=== PATIENT | female | born 2000 | race Caucasian/White ===

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

== ENCOUNTER → 2020-01-04 08:06 | Outpatient (BNVA) | payer MEDICAID, SELFPAY | PROVIDERS: PCP Family Medicine; Visit Provider Nurse Practitioner | DX: F43.12 Post-traumatic stress disorder, chronic (principal); F60.3 Borderline personality disorder; R41.83 Borderline intellectual functioning | CPT/HCPCS: 99214 ==

== ENCOUNTER → 2020-01-15 08:12 | Outpatient (BNVA) | payer MEDICAID, SELFPAY | PROVIDERS: PCP Family Medicine; Visit Provider Counselor Professional | DX: F60.3 Borderline personality disorder (principal); R41.83 Borderline intellectual functioning; F43.12 Post-traumatic stress disorder, chronic | CPT/HCPCS: 90834 ==

== ENCOUNTER → 2020-02-01 08:52 | Outpatient (BNVA) | payer MEDICAID, SELFPAY | PROVIDERS: PCP Family Medicine; Visit Provider Nurse Practitioner | DX: F60.3 Borderline personality disorder (principal); F43.12 Post-traumatic stress disorder, chronic; R41.83 Borderline intellectual functioning | CPT/HCPCS: 99213 ==

== ENCOUNTER 2020-02-09 11:07 | Outpatient (CLI) | payer MEDICAID, SELFPAY ==
--- NOTE | 2020-02-09 11:22 | US_ITS ---
WS: [id number] ULTRASOUND OB COMPLETE TECHNIQUE: Complete ultrasound. CLINICAL INFORMATION: SUPERVISION OF HIGH RISK /ANATOMY COMPARISON: None. FINDINGS: Cervix measures 4.9 cm Single interuterine gestation is identified with transverse presentation. Placenta is posterior. Placenta grade 0. Normal amniotic fluid volume. cardiac activity: 144 BPM. AGA: 21w2d WOODY by ultrasound: 06/19/2020 Estimated weight: 429 g., %. BDP: 4.9 cm = 21w0d HC: 19.1 cm = 21w2d AC: 16.7 cm = 21w5d FEMUR LENGTH: 3.6 cm = 21w2d Anatomic survey: Anatomic survey is normal. Normal stomach. Kidneys and bladder are normal. Normal 3 vessel cord. Norm al 3 vessel cord insertion. Normal 4 chamber heart. Normal spine. Intracranial contents are normal. N ormal posterior fossa and cisterna magna. US/US OB >= 14 weeks fetus [id number] IMPRESSION: 1. Single intrauterine with visualized cardiac activity. AGA 21w2d w ith WOODY 06/19/2020. 2. Placenta is posterior No evidence of abruption or previa. 3. anatomic survey is normal. 4. Normal amniotic fluid volume.
== END 2020-02-09 11:08 | disposition home or self-care (01) ==
LOC: US 11:12
PROVIDERS: PCP Family Medicine; Visit Provider Family Medicine
DX: O09.92 Supervision of high risk pregnancy, unspecified, second trimester (principal); Z3A.21 21 weeks gestation of pregnancy
CPT/HCPCS: 76805

== ENCOUNTER → 2020-03-03 08:16 | Outpatient (BNVA) | payer OTHER, SELFPAY | PROVIDERS: PCP Family Medicine; Visit Provider Counselor Professional | DX: F60.3 Borderline personality disorder (principal); R41.83 Borderline intellectual functioning | CPT/HCPCS: 90834 ==

== ENCOUNTER → 2020-03-10 14:35 | Outpatient (BNVA) | payer OTHER, SELFPAY | PROVIDERS: PCP Family Medicine; Visit Provider Dermatology | DX: F43.12 Post-traumatic stress disorder, chronic (principal); Z79.899 Other long term (current) drug therapy | CPT/HCPCS: 80061; 83036 ==

== ENCOUNTER 2020-05-05 14:57 | Outpatient (CLI) | payer BC, MEDICAID, SELFPAY ==
[2020-03-15 14:52] VITALS: BP 114/74; BMI 35.8
[2020-05-05 15:06] VITALS: BP 151/83; PULSE 108
--- NOTE | 2020-05-05 15:14 | US_ITS ---
WS: [id number] ULTRASOUND OB LIMITED TECHNIQUE: Limited ultrasound examination of the fetus. CLINICAL INFORMATION: history of 3rd trimester demise COMPARISON: None. FINDINGS: Cervix measures 3.4 cm Single interuterine gestation. presentation is cephalic Placental location is posterior fundal. Placenta grade: 1 heart rate 138 BPM. Single vertical fluid pocket 7.2 cm Biophysical profile 8 out of 8. breathin movement: 2 tone: 2 Amniotic fluid: 2 IMPRESSION 1. Normal biophysical profile 8 out of 8 2. Cervix measures 3.4 cm
[2020-05-05 15:26] VITALS: BP 114/76; PULSE 91; TEMP 36.4
--- NOTE | 2020-05-05 15:52 | PC.NURSE ---
Spoke with Nick in ultrasound and he said someone would be up for BPP shortly.
[2020-05-05 16:06] VITALS: BP 139/88; PULSE 93
[2020-05-05 16:21] VITALS: BP 144/92; PULSE 89
[2020-05-05 17:47] LABS: Amphetamines Screen Urine Negative (Negative); Barbiturates Screen Urine Negative (Negative); Benzodiazepines Screen Urine Negative (Negative); Cocaine Screen Urine Negative (Negative); Opiate Screen Urine Negative (Negative); PCP Screen Urine Negative (Negative); THC Screen Urine Positive (Negative)
[2020-05-05 18:10] LABS: Urine Creatinine 245 mg/dL (28-217)
[2020-05-05 18:11] LABS: UPRO/UCREAT Ratio 0.16 mg/mg CR; Urine Protein Random 39 mg/dL
== END 2020-05-05 16:40 | disposition home or self-care (01) ==
LOC: OPOB 14:58 → OBGYN 15:00 → OPOB 15:03 → OBGYN 15:04
PROVIDERS: PCP Family Medicine; Visit Provider Family Medicine
DX: O26.899 Other specified pregnancy related conditions, unspecified trimester (principal); Z3A.00 Weeks of gestation of pregnancy not specified; Z87.59 Personal history of other complications of pregnancy, childbirth and the puerperium
CPT/HCPCS: 76819; 80306; 82570; 84156

== ENCOUNTER 2020-05-09 23:04 | Outpatient (CLI) | payer BC, MEDICAID, SELFPAY ==
[2020-03-15 14:52] VITALS: BP 114/74; BMI 35.8
[2020-05-09 23:14] VITALS: BP 123/61; PULSE 106
[2020-05-09 23:16] VITALS: TEMP 36.6
[2020-05-09 23:44] VITALS: RESP 18
[2020-05-10 00:15] LABS: Bilirubin Urine 1+ (Negative); Blood Urine Neg (Negative); Glucose Urine UA Norm (Normal); Ketones Urine Negative (Negative); Leukocyte Esterase Urine Negative (Negative); Nitrate Urine Negative (Negative); Protein Urine Neg (Negative); Specific Gravity, Urine 1.015 (1.005-1.030); Urine Appearance Clear (CLEAR); Urine Color Yellow (Yellow); Urobilinogen Urine 4 mg/dL (Negative); pH Urine 7 (5-7)
[2020-05-10 00:17] LABS: Actim Prom Negative
[2020-05-10 00:20] LABS: RBC Urine RARE /hpf (0-2); WBC Urine RARE /hpf (0-5)
[2020-05-10 00:21] LABS: Add Urine Culture? No; Bacteria Urine 2+ /hpf; Mucus Urine 1+ /hpf; Squamous Epithelial Cell Urine 15-25 /hpf (0-5)
[2020-05-10 00:37] VITALS: BP 109/71; PULSE 77
[2020-05-10 00:54] VITALS: BMI 88.7
== END 2020-05-10 00:53 | disposition home or self-care (01) ==
LOC: OPOB 23:05 → OBGYN 23:05
PROVIDERS: PCP Family Medicine; Visit Provider Family Medicine
DX: O26.899 Other specified pregnancy related conditions, unspecified trimester (principal); Z3A.00 Weeks of gestation of pregnancy not specified; R10.9 Unspecified abdominal pain
CPT/HCPCS: 59025; 81001; 84112; 99211

== ENCOUNTER 2020-05-10 10:14 | Outpatient (CLI) | payer BC, MEDICAID, SELFPAY ==
[2020-03-15 14:52] VITALS: BP 114/74; BMI 35.8
--- NOTE | 2020-05-10 10:31 | US_ITS ---
WS: [id number] ULTRASOUND OB LIMITED TECHNIQUE: Limited ultrasound examination of the fetus. CLINICAL INFORMATION: TERRENCE POSITIVE COMPARISON: May 05, 2020 FINDINGS: Cervix not well visualized. Single interuterine gestation. presentation is cephalic Placental location is posterior fundal. Placenta grade: 2 heart rate 150 BPM. Normal JOSE Biophysical profile 8 out of 8. breathin movement: 2 tone: 2 Amniotic fluid: 2 IMPRESSION Normal biophysical profile 8 out of 8
== END 2020-05-10 10:15 | disposition home or self-care (01) ==
LOC: RAD 10:16
PROVIDERS: PCP Family Medicine; Visit Provider Family Medicine
DX: R79.89 Other specified abnormal findings of blood chemistry (principal); O09.90 Supervision of high risk pregnancy, unspecified, unspecified trimester
CPT/HCPCS: 76816; 76819

== ENCOUNTER 2020-05-28 17:45 | Inpatient (IN) | payer BC, MEDICAID, SELFPAY ==
[2020-03-15 14:52] VITALS: BP 114/74; BMI 35.8
[2020-05-28] VITALS (87 sets, daily range): BP systolic 96–183; BP diastolic 53–127; PULSE 60–103; RESP 17; TEMP 35.7–37.3; BMI 38.7
[2020-05-28 03:26] LABS: Nitrazine Paper, PH Positive
[2020-05-28] MEDS: oxytocin 30 UNIT/500 ML BAG IV (04:10)
[2020-05-28] MEDS: dextrose 5%-lactated ringers 1,000 ML 125 ML IV ×3 (04:11→20:39)
[2020-05-28 04:16] LABS: Basophils % 0.3 %; Eosinophils # 0.5 10^3/uL (0.0-0.8); Eosinophils % 5.7 %; Hematocrit 35.4 % (37.0-47.0); Hemoglobin 11.5 g/dL (11.5-15.3); Lymphocytes # 2.2 10^3/uL (1.5-6.5); Lymphocytes % 23.2 %; Mean Corpuscular HGB Conc 32.5 g/dL (30.0-36.0); Mean Corpuscular Hemoglobin 27.1 pg (28.0-34.0); Mean Corpuscular Volume 83.5 fL (81-99); Mean Platelet Volume 10.7 fL (7.4-10.4); Monocytes # 0.6 10^3/uL (0.2-0.9); Monocytes % 6.2 %; Neutrophils # 5.94 10^3/uL (1.8-8.0); Nucleated Red Blood Cells % 0 %; Platelet Count 188 10^3/cmm (130-400); Red Blood Count 4.24 10^6/uL (4.1-5.3); Red Cell Distribution Width 13.3 % (12.1-15.1); White Blood Count 9.3 10^3/uL (4.5-13.0)
[2020-05-28 04:56] LABS: Amphetamines Screen Urine Negative (Negative); Barbiturates Screen Urine Negative (Negative); Benzodiazepines Screen Urine Negative (Negative); Cocaine Screen Urine Negative (Negative); Opiate Screen Urine Negative (Negative); PCP Screen Urine Negative (Negative); THC Screen Urine Negative (Negative)
[2020-05-28] MEDS: butorphanol 2 mg/mL SDV 1 mL 1 MG IVP ×7 (06:11→22:05)
--- NOTE | 2020-05-28 08:50 | PM.HP ---
Providers/Chief Complaint Primary Care Provider: Torres Marie MD Chief Complaint: leaking fluid History of Present Illness Heidy Macias is a 19 year old at 37.1 weeks gestation by 8-week ultrasound inconsistent with LMP. Her is complicated by bipolar depression on sertraline and risperidone, history of suicide attempt with trazodone at 23 weeks during prior , history of stillbirth at 34 weeks gestation, borderline hyperthyroidism, teen , asthma, Rh-, THC on initial urine drug screen, elevated TERRENCE concerning for lupus on Lovenox injections through 34 weeks gestation. The patient presented to labor and delivery triage secondary to concern for leakage of fluid. At approximately 2:30 AM on 05/28/2020 she went to the bathroom and when she stood up she had more leakage of fluid. She had multiple episodes of leaking fluid after that and presented to OB. She was found to be nitrazine positive and grossly ruptured. For this reason she was admitted. The patient denies any cough, fever, shortness of breath, vaginal bleeding, dysuria. Medications/Allergies Home Medications Medication Instructions Recorded Confirmed Last Taken Type enoxaparin [Lovenox] 40 mg SUBCUT Q12H 05/10/20 05/10/20 05/09/20 History risperidone [Risperdal] 0.5 mg PO BID 05/10/20 05/10/20 05/20/20 History sertraline [Zoloft] 150 mg PO DAILY 05/10/20 05/10/20 05/27/20 History Allergies Allergy/AdvReac Type Severity Reaction Status Date / Time divalproex sodium Allergy Severe ALGY-Swell Verified 03/10/20 14:19 Lip/Tongue/Throat olanzapine Allergy Severe ALGY-Swell Verified 03/10/20 14:19 Lip/Tongue/Throat ziprasidone Allergy Severe ALGY-Swell Verified 03/10/20 14:19 Lip/Tongue/Throat PFSH Acute PFSH: Medical History Asthma Bipolar disorder Borderline intellectual functioning Borderline personality disorder Depression Hypothyroidism Post-traumatic stress disorder, chronic Schizophrenia Surgical History History of cholecystectomy Family History Mother Bipolar 1 disorder Heart disease Spina bifida Hyperlipidemia Diabetes Brother Hyperlipidemia Social History Smoking and tobacco status: former smoker Quit status (tobacco): has quit using tobacco Second hand smoke exposure: Yes Smoking risk assessment/counseling performed?: Yes Alcohol intake: never Substance/Drug Use: former Desire information about substance/drug rehabilitation?: No (last smoked around 30 weeks) Marital status: Life Partner Female Reproductive History: : 2 Vitals/I&O/Wt Last Vital Signs Temp 97.2 F L 05/28/20 08:17 Pulse 78 05/28/20 08:36 Resp 17 05/28/20 07:21 BP 102/57 05/28/20 08:36 05/27/20 05/28/20 05/28/20 22:59 06:59 14:59 Intake Total 10.167 / 10.167 459.866 / 459.866 Balance 10.167 / 10.167 459.866 / 459.866 Weight last 48 hrs Weight 240 lb Physical Exam Narrative: EXAM NARRATIVE: General: Alert and oriented x3 Eyes: Pupils equal round and reactive to light and accommodation Mouth: Mucous membranes moist, pharynx non-erythematous Cardiac: Regular rate and rhythm without murmurs Lungs: Clear to auscultation bilaterally without wheezes, crackles or rhonchi Abdomen: Soft, non-tender, fundus consistent with gestational age Extremities: Trace edema in the bilateral lower extremities Data : 05/28/20 04:05 A&P Additional A&P Information The patient will be started on IV Pitocin as she is not having regular contractions. The patient is GBS negative. We will obtain a Covid swab for screening purposes. Will obtain a urine drug screen due to prior positive screen. All questions were answered. The patient and her significant other are in agreement with the current plan of care. Attestations Medical Necessity Statement*: The patient will be here for greater than 2 midnights due to routine intrapartum and management of labor and delivery. Coding Level of Care Code Acute Event Operations Manager for Corinne Ware
--- NOTE | 2020-05-28 11:18 | PC.NURSE ---
PT RESTING WITH EYES CLOSED.
[2020-05-29] VITALS (41 sets, daily range): BP systolic 86–137; BP diastolic 45–83; PULSE 57–103; RESP 16–18; TEMP 36.2–37; O2SAT 97–98
[2020-05-29] MEDS: butorphanol 2 mg/mL SDV 1 mL 1 MG IVP ×2 (00:47→02:41)
[2020-05-29] MEDS: oxytocin 30 UNIT/500 ML BAG 60 UNIT IV (07:30)
--- NOTE | 2020-05-29 07:51 | P.PCNOB_ITS ---
Delivery Note: Date of delivery: May 29, 2020 Pre-delivery diagnoses: 1. Intrauterine at 37.2 weeks gestation 2. Bipolar depression 3. Schizophrenia 4. History of suicide attempt during prior 5. History of stillbirth at 34 weeks gestation 6. Borderline hyperthyroidism 7. Teen 8. Asthma 9. Rh- 10. THC on initial urine drug screen 11. Elevated TERRENCE concerning for lupus on Lovenox injections through 34 weeks gestation then self stopped. 12. SROM at 37.1 weeks gestation Post-delivery diagnoses: 1. Intrauterine status post spontaneous vaginal delivery at 37.2 weeks gestation 2. Bipolar depression 3. Schizophrenia 4. History of suicide attempt during prior 5. History of stillbirth at 34 weeks gestation 6. Borderline hyperthyroidism 7. Teen 8. Asthma 9. Rh- 10. THC on initial urine drug screen 11. Elevated TERRENCE concerning for lupus on Lovenox injections through 34 weeks gestation then self stopped. 12. SROM at 37.1 weeks gestation 13. Delivery of healthy infant female weighing 5 pounds 14 ounces with Apgars of 8 and 9 Procedure: Spontaneous vaginal delivery Op report anesthesia: Other (IV pain meds during early labor.) Delivering Physician: Torres Marie MD Estimated blood loss (mL): 125 Findings: 1. Delivery of healthy infant female weighing 5 pounds 14 ounces with Apgars of 8 and 9 2. Intact placenta with peripheral umbilical cord insertion site. Pre-Delivery Course: The patient presented to labor and delivery triage secondary to concern for leakage of fluid. At approximately 2:30 AM on 05/28/2020 she went to the bathroom and when she stood up she had more leakage of fluid. She had multiple episodes of leaking fluid after that and presented to OB. She was found to be nitrazine positive and grossly ruptured. For this reason she was admitted. The patient was started on IV Pitocin and made slow change. She had regular contractions and moved to 6 cm by paleontological helper on 05/29/2020. She continued to be 6 cm for a number of hours. We discussed possibly going for section, however decided to stop the Pitocin for 2 hours and then restart it to refresh receptor sites. The patient then began to contract again and started to make change. She changed rapidly from 6 to complete and was complete at 7:04 AM on 05/29/2020. I was called to deliver at 7:01 AM. Delivery: The patient began pushing and the delivered in the OA position at 7:09 AM on 05/29/2020. There was no nuchal cord. The right shoulder was the anterior shoulder and it delivered with ease. The nurses were present for delivery of the . Per record the mouth and nose were bulb suctioned and the cord was clamped. The was taken to the warmer for evaluation. I arrived on the OB floor at 7:14 AM. Cord blood was obtained by myself. I delivered the placenta at 7:21 AM on 05/29/2020. The placenta was noted to be intact with a peripheral umbilical cord insertion site. The cervix was inspected and no lacerations were noted. The vaginal wall was inspected and a few abrasions were noted. No suturing was needed. The uterus was massaged and initially there was moderate bleeding that decreased to minimal. Currently both the mother and are doing well. Coding Level of Care Code Acute Vehicle Monitor Technician for Corinne Ware
[2020-05-29] MEDS: docusate sodium 100 mg Capsule PO ×2 (10:47→17:38)
[2020-05-29] MEDS: ibuprofen 800 mg tablet PO ×3 (10:47→21:19)
[2020-05-29] MEDS: prenatal vitamin Capsule 1 CAP PO (10:47)
[2020-05-29] MEDS: sertraline 50 mg Tablet 150 MG PO (10:48)
[2020-05-29] MEDS: risperiDONE 1 mg Tablet 0.5 MG PO ×2 (12:03→21:19)
[2020-05-29 16:42] LABS: Quest SARS-CoV-2 RNA NOT DETECTED (NOT DETECTED)
--- NOTE | 2020-05-29 18:34 | PC.NURSE ---
DFS Hotline Hotline called made due to patient's significant mental health history including borderline personality disorder, bipolar disorder, schizophrenia, suicide attempt last year during , history of harming self. Referral made to [facility], will send worker to hospital.
[2020-05-29 20:52] LABS: Hematocrit 35.6 % (37.0-47.0); Hemoglobin 11.5 g/dL (11.5-15.3); Mean Corpuscular HGB Conc 32.3 g/dL (30.0-36.0); Mean Corpuscular Hemoglobin 27.2 pg (28.0-34.0); Mean Corpuscular Volume 84.2 fL (81-99); Mean Platelet Volume 11.2 fL (7.4-10.4); Platelet Count 189 10^3/cmm (130-400); Red Blood Count 4.23 10^6/uL (4.1-5.3); Red Cell Distribution Width 13.3 % (12.1-15.1); White Blood Count 9.6 10^3/uL (4.5-13.0)
[2020-05-30 04:40] VITALS: BP 138/83; PULSE 84; RESP 16; TEMP 36.8
--- NOTE | 2020-05-30 07:44 | PC.NURSE ---
Throughout the night this nurse was called to the room via call light and asked to do tasks for the mother such as, handing her the baby from the bassinet that was at bedside and to wrap the baby in a blanket while she was being held by mom. I was called to the room on one occasion to be told that mom believed that possibly the baby had pooped. I reenforced diaper changing education at this time. During one time in the pts room I was told that the baby had milk on her lips and was asked if that was okay. I performed additional education at this time. Mom also asked if baby was able to sleep on her back. I educated concerning safe sleeping practices at this time. While cleaning periodically during visits to the room I found a half eaten sandwich on the floor, wipes with meconium on them in the bed with mom as well as a piece of cake in bed with mom at the foot of the bed, along with other trash on tables and the couch around the room.
[2020-05-30] MEDS: ibuprofen 800 mg tablet PO ×2 (09:17→15:08)
[2020-05-30] MEDS: risperiDONE 1 mg Tablet 0.5 MG PO ×2 (09:17→20:13)
[2020-05-30] MEDS: prenatal vitamin Capsule 1 CAP PO (09:17)
[2020-05-30] MEDS: docusate sodium 100 mg Capsule PO ×2 (09:17→20:13)
[2020-05-30] MEDS: sertraline 50 mg Tablet 150 MG PO (09:23)
[2020-05-30 10:25] VITALS: BP 115/68; PULSE 67; RESP 17; O2SAT 98
[2020-05-30] MEDS: acetaminophen 500 mg Tablet 1000 MG PO (11:50)
[2020-05-30 16:00] VITALS: BP 128/78; PULSE 85; RESP 17
--- NOTE | 2020-05-30 17:44 | P.DS_ITS ---
Discharge Providers Date of Admission: 05/28/20 17:45 Date of Discharge: May 30, 2020 Attending Provider at Admission: Torres Marie MD Attending Provider at Discharge: Torres Marie MD Primary Care Provider: Torres Marie MD Diagnoses at Discharge Other Information Additional DC diagnoses/information: 1. Intrauterine status post spontaneous vaginal delivery at 37.2 weeks gestation 2. Bipolar depression 3. Schizophrenia 4. History of suicide attempt during prior 5. History of stillbirth at 34 weeks gestation 6. Borderline hyperthyroidism 7. Teen 8. Asthma 9. Rh- 10. THC on initial urine drug screen 11. Elevated TERRENCE concerning for lupus on Lovenox injections through 34 weeks gestation then self stopped. 12. SROM at 37.1 weeks gestation 13. Delivery of healthy female weighing 5 pounds 14 ounces with Apgars of 8 and 9 Reason for Visit Reason for Visit: leaking fluid Hospital Course Hospital Course Pre-Delivery Course: The patient presented to labor and delivery triage secondary to concern for leakage of fluid. At approximately 2:30 AM on 05/28/2020 she went to the bathroom and when she stood up she had more leakage of fluid. She had multiple episodes of leaking fluid after that and presented to OB. She was found to be nitrazine positive and grossly ruptured. For this reason she was admitted. The patient delivered vaginally and has had no complications . Overall she is doing well. She is ambulating, voiding, passing gas and tolerating food by mouth. Her pain is well controlled. The patient has been breast-feeding. She has been stable from a depression standpoint. I discussed routine instructions with the patient. The patient is in agreement with discharge home at this time. Physical Exam Narrative: EXAM NARRATIVE: General: Alert and oriented x3 Eyes: Pupils equal round and reactive to light and accommodation Mouth: Mucous membranes moist, pharynx non-erythematous Cardiac: Regular rate and rhythm without murmurs Lungs: Clear to auscultation bilaterally without wheezes, crackles or rhonchi Abdomen: Soft, non-tender, fundus is firm and 2 cm below the umbilicus. Extremities: +1 pitting edema in the bilateral lower extremities Discharge Data Data Completed and Pending: Labs from last 24 hours 05/29/20 20:30 WBC 9.6 RBC 4.23 Hgb 11.5 Hct 35.6 L MCV 84.2 MCH 27.2 L MCHC 32.3 RDW 13.3 Plt Count 189 MPV 11.2 H Vitals: Last Vital Signs Temp 98.3 F 05/30/20 04:40 Pulse 85 05/30/20 16:00 Resp 17 05/30/20 16:00 BP 128/78 05/30/20 16:00 Pulse Ox 98 05/30/20 10:25 Discharge Plan Discharge Patient Disposition: Home Condition: Good Prescriptions: New ibuprofen 800 mg Tablet 800 mg PO TID Qty: 40 RF: 0 -U 106.5-1 mg Capsule 1 cap PO DAILY 42 Days Qty: 30 RF: 1 ferrous sulfate 325 mg (65 mg iron) tablet 325 mg PO BID 15 Days Qty: 30 RF: 0 Discontinued enoxaparin [Lovenox] 40 mg/0.4 mL Syringe 40 mg SUBCUT Q12H RF: 0 No Action risperidone [Risperdal] 1 mg tablet 1 mg PO DAILY Qty: 30 RF: 1 sertraline [Zoloft] 50 mg tablet 50 mg PO DAILY Qty: 30 RF: 1 hydroxyzine HCl 25 mg tablet 25 mg PO BID PRN (Reason: anxiety) Qty: 60 RF: 1 Discharge Orders: Discharge Order (Routine); Ordered 05/30/20 Ordered By: Torres Marie Referrals: Torres Marie MD [Primary Care Provider] - 6 Weeks Discharge Diet: Advance as tolerated Discharge Activity: Increase activity as tolerated Patient Instructions: Pre-eclampsia and Eclampsia (DC), Bleeding (DC), OB Caring for Baby - [facility], OB Discharge Report, OB Food/Drug Interaction Guide, OB Your Care - [facility], OB Proud Parent Packet, OB Vaginal Deliveries Activity Restrictions/Additional Instructions: Nothing per vagina for 6 weeks. Daily showers are recommended. Avoid baths for 6 weeks. Discharge Attestations Time Spent in Discharge Care*: greater than 30 min Quality Metrics Clinical Quality Measures During this hospital stay, did patient experience: None Coding Level of Care Code Acute Chg FW DC note
--- NOTE | 2020-05-30 20:25 | PC.NURSE ---
0.5mg (1/2 tablet) Risperidone wasted in OB med room biohazard with Daysi Beltre RN. Verified with Kalli, pharmacy, if Risperidone needed to be wasted and she stated yes - but that we could not waste it in the pyxis due to pharmacy sending the medication to us - so to waste it in a nursing note.
[2020-05-30 20:46] VITALS: BP 118/79; PULSE 90; RESP 18; TEMP 36.9
[2020-05-30 20:49] VITALS: BP 118/79; PULSE 90; RESP 18; TEMP 36.9
== END 2020-05-30 20:15 | disposition home or self-care (01) | DRG 806 ==
LOC: OPOB 05-30 07:43
PROVIDERS: Admitting Provider Family Medicine; PCP Family Medicine; Visit Provider Family Medicine
DX: O99.344 Other mental disorders complicating childbirth (principal); O36.0930 Maternal care for other rhesus isoimmunization, third trimester, not applicable or unspecified; Z37.0 Single live birth; F31.9 Bipolar disorder, unspecified; Z3A.37 37 weeks gestation of pregnancy; O75.89 Other specified complications of labor and delivery; Z91.5 Personal history of self-harm; J45.909 Unspecified asthma, uncomplicated; R41.83 Borderline intellectual functioning; E05.90 Thyrotoxicosis, unspecified without thyrotoxic crisis or storm; F43.12 Post-traumatic stress disorder, chronic; F20.9 Schizophrenia, unspecified; Z81.8 Family history of other mental and behavioral disorders; Z87.891 Personal history of nicotine dependence; M32.9 Systemic lupus erythematosus, unspecified
CPT/HCPCS: 36415; 59409; 80306; 83986; 85025; 85027; 87635; J0595

== ENCOUNTER → 2020-06-07 08:34 | Outpatient (BNVA) | payer BC, SELFPAY ==
[2020-03-15 14:52] VITALS: BP 114/74; BMI 35.8
== END ==
PROVIDERS: PCP Family Medicine; Visit Provider Nurse Practitioner
DX: F60.3 Borderline personality disorder (principal); F43.12 Post-traumatic stress disorder, chronic; R41.83 Borderline intellectual functioning
CPT/HCPCS: 99214

== ENCOUNTER → 2020-06-17 09:46 | Outpatient (BNVA) | payer MEDICAID, SELFPAY ==
[2020-03-15 14:52] VITALS: BP 114/74; BMI 35.8
== END ==
PROVIDERS: PCP Family Medicine; Visit Provider Counselor Professional
DX: F33.1 Major depressive disorder, recurrent, moderate (principal); F60.3 Borderline personality disorder
CPT/HCPCS: 90834

== ENCOUNTER 2020-06-25 19:56 | Inpatient (IN) | payer BC, SELFPAY ==
[2020-03-15 14:52] VITALS: BP 114/74; BMI 35.8
[2020-06-25 20:06] VITALS: BP 124/88; PULSE 100; RESP 18; TEMP 37.2; O2SAT 97; BMI 36.6
--- NOTE | 2020-06-25 20:34 | ED_ITS ---
HPI - Psych General: Chief Complaint: Psychiatric Symptoms Stated Complaint: SI Time Seen by Provider: 06/25/20 20:10 History of Present Illness: HPI Narrative: The patient is a 19-year-old female with past medical history depression and she is 3 weeks . She comes to the ER complaining of suicidal thoughts. She says she has plans and backup plans to hurt herself. She went to a today and has other stressors in her life that are making her feel suicidal. complaint: suicidal ideation and feels depressed Duration: constant History of same: Yes Relieving factors: none Associated psychiatric symptoms: depression and suicidal ideation Associated symptoms: Reports depression and suicidal ideation If self harm: admits thoughts of self harm and has plan Review of Systems General: Reports: 10 or more systems reviewed and unremarkable except in HPI and below Const: Denies: fatigue Eyes: Denies: change in vision, blurry vision or eye redness ENMT: Denies: throat pain, swelling of lips/tongue, ear or mastoid pain or nasal congestion Card: Denies: chest pain, palpitations, irregular heart rhythm, edema, dyspnea on exertion or orthopnea Resp: Denies: dyspnea, productive cough or non-productive cough GI: Denies: abdominal pain, diarrhea or GI cramping : Denies: flank pain, difficulty voiding, urinary frequency or urinary urgen cy Musc: Denies: neck pain, back pain, extremity pain, joint pain, joint redness, limited range of motion or muscle weakness Skin/Breast: Denies: rash, pruritus, erythema, skin pain or skin tenderness Neuro: Denies: headache(s), numbness in extremities, weakness in extremities, sensory changes, difficulty walking, dizziness, confusion or Slurred speech present Psych: Reports: anxiety, depression and suicidal ideation Endo: Denies: polyuria All/Imm: Denies: urticaria, throat swelling or tongue swelling PFSH ED PFSH: Medical History Asthma Bipolar disorder Borderline intellectual functioning Borderline personality disorder Depression Hypothyroidism Post-traumatic stress disorder, chronic Schizophrenia Surgical History History of cholecystectomy Family History Mother Bipolar 1 disorder Heart disease Spina bifida Hyperlipidemia Diabetes Brother Hyperlipidemia Social History Smoking and tobacco status: former smoker Quit status (tobacco): has quit using tobacco Second hand smoke exposure: Yes Smoking risk assessment/counseling performed?: Yes Alcohol intake: never Desire information about substance/drug rehabilitation?: No (last smoked around 30 weeks) Marital status: Life Partner Physical Exam Const: COMMON NORMALS: no acute distress, average body habitus, patient oriented x3, no limitations, healthy appearing, alert and well nourished GENERAL APPEARANCE: cooperative, comfortable and well developed ORIENTATION/CONSCIOUSNESS: Yes awake, Yes oriented to person, Yes oriented to place and Yes oriented to time HENMT: COMMON NORMALS: normocephalic, external ears normal and Normal external nose present HEAD & SCALP: normal to inspection and normocephalic NOSE: Normal external nose present EXTERNAL EAR: Yes external ears normal MOUTH: Normal oral and palatal mucosa present THROAT: posterior oropharynx normal Eye: COMMON NORMALS: Equal, round and reactive pupils present and EOMs intact bilaterally GENERAL EYE: appearance normal, both eyes and all related structures PUPIL: Yes Equal, round and reactive pupils present Neck/C-Spine: COMMON NORMALS: full ROM, no lymphadenopathy, no meningeal signs and no JVD GENERAL: Yes normal visual inspection Lymph: LYMPHATIC: no lymphadenopathy noted Chest: COMMONS NORMALS: normal inspection of the chest and normal palpation of entire chest wall Resp: COMMON NORMALS: normal respiratory effort, No retractions, No use of accessory muscles, clear to auscultation bilaterally and percussion normal EFFORT & INSPECTION: Yes able to speak in complete sentences AUSCULTATION: clear to auscultation bilaterally PERCUSSION: percussion normal Cardio: COMMON NORMALS: no JVD, regular rate, regular rhythm, S1 normal heart sound present, S2 normal heart sound present and Peripheral pulses 2+ throughout RATE: regular rate RHYTHM: regular rhythm HEART SOUNDS: S1 normal heart sound present and S2 normal heart sound present PERIPHERAL PULSES: Peripheral pulses 2+ throughout GI: COMMON NORMALS: Normal to inspection, nondistended, normoactive bowel sounds present, Soft to palpation, non-tender and no masses INSPECTION: Yes normal to inspection PALPATION: Yes Soft to palpation : COMMON NORMALS: Yes no CVA tenderness BLADDER/KIDNEY EXAM: Yes no CVA tenderness Back/Pelvis: COMMON NORMALS: no CVA tenderness, thoracic and lumbar spine normal to inspection, no thoracic nor lumbar tenderness and thoraco-lumbar ROM normal Extremity: COMMON NORMALS: normal to inspection, full ROM, capillary refill normal, no joint enlargement and no pedal edema GENERAL: Yes normal exam except as noted Neuro: COMMON NORMALS: patient oriented x3, CN's II-XII intact bilaterally, moves all extremities, no focal motor deficits, no sensory deficits noted and gait normal SENSORIUM/ORIENTATION: Yes alert, Yes oriented to person, Yes oriented to place and Yes oriented to time MENINGEAL SIGNS: Yes no meningeal signs Psych: COMMON NORMALS: speech normal APPEARANCE: Yes unkempt SPEECH: Yes normal speech MOOD & AFFECT: Yes depressed mood and Yes anxious THOUGHT CONTENT: Yes Suicidality present INSIGHT: Poor insight present (Psych) JUDGEMENT: Poor judgement present (Psych) Skin: COMMON NORMALS: no rashes or lesions noted GENERAL SKIN EXAM: no rashes or lesions noted Course Vital Signs: Vital signs: Vital Signs Temperature 99.0 F 06/25/20 20:06 Pulse Rate 100 06/25/20 20:06 Respiratory Rate 18 06/25/20 20:06 Blood Pressure 124/88 06/25/20 20:06 Pulse Oximetry 97 06/25/20 20:06 MDM - Psych MDM Narrative: Medical decision making narrative: The patient has suicidal ideations. She will be admitted to Dr. Samuel who accepts for care. She also has a mild UTI and was started on Macrobid. Stable for transfer to neuropsych unit. Lab Data: Labs: Lab Results 06/25/20 06/25/20 06/25/20 Range/Units 20:29 20:29 20:35 WBC 9.0 (4.5-13.0) 10^3/ uL RBC 5.01 (4.1-5.3) 10^6/u L Hgb 13.4 (11.5-15.3) g/dL Hct 42.0 (37.0-47.0) % MCV 83.8 (81-99) fL MCH 26.7 L (28.0-34.0) pg MCHC 31.9 (30.0-36.0) g/dL RDW 14.0 (12.1-15.1) % Plt Count 270 (130-400) 10^3/c mm MPV 10.0 (7.4-10.4) fL Neut % (Auto) 60.8 % Lymph % (Auto) 25.2 % [place] % (Auto) 5.2 % Eos % (Auto) 7.9 % Baso % (Auto) 0.7 % Neut # (Auto) 5.44 (1.8-8.0) 10^3/u L Lymph # (Auto) 2.3 (1.5-6.5) 10^3/u L [place] # (Auto) 0.5 (0.2-0.9) 10^3/u L Eos # (Auto) 0.7 (0.0-0.8) 10^3/u L Baso # (Auto) 0.1 (0.0-0.1) 10^3/u L Nucleated RBC % (a uto) 0 % Nucleated RBCs # 0.0 /100WBC Sodium (136-145) mmol/L Potassium (3.5-5.1) mmol/L Chloride (98-107) mmol/L Carbon Dioxide (22-29) mmol/L Anion Gap (5-19) BUN (6-20) mg/dL Creatinine (0.5-0.9) mg/dL GFR Calculation (90-130) mL/min Glucose (65-115) mg/dL Calculated Osmolal ity (285-295) mOsm/k g Calcium (8.5-10.5) mg/dL Total Bilirubin (0.15-1.2) mg/dL AST (0-32) U/L ALT (0-33) U/L Alkaline Phosphata se (35-105) IU/L Total Protein (6.6-8.7) g/dL Albumin (3.5-5.2) g/dL Globulin (1.3-4.6) g/dL TSH (0.27-4.20) uIU/ mL Urine Color Yellow (Yellow) Urine Appearance Sl cloudy A (CLEAR) Urine pH 5 (5-7) Ur Specific Gravit y 1.025 (1.005-1.030) Urine Protein Neg (Negative) Urine Glucose (UA) Norm (Normal) Urine Ketones Negative (Negative) Urine Blood Neg (Negative) Urine Nitrate Negative (Negative) Urine Bilirubin Neg (Negative) Urine Urobilinogen Norm (Negative) mg/dL Ur Leukocyte Polina ase Trace H (Negative) Urine RBC 0-4 H (0-2) /hpf Urine WBC 5-10 H (0-5) /hpf Ur Squamous Epith Cells 25-40 H (0-5) /hpf Amorphous Sediment 1+ /hpf Urine Bacteria 2+ H (NONE) /hpf Urine Mucus 2+ /hpf Salicylates (3-10) mg/dL Urine Opiates Scre en Negative (Negative) ng/mL Acetaminophen (10-30) ug/mL Ur Barbiturates Sc reen Negative (Negative) ng/mL Ur Phencyclidine S crn Negative (Negative) ng/mL Ur Amphetamines Sc reen Negative (Negative) ng/mL U Benzodiazepines Scrn Negative (Negative) ng/mL Urine Cocaine Scre en Negative (Negative) ng/mL U Marijuana (THC) Screen Negative (Negative) ng/mL 06/25/20 Range/Units 20:35 WBC (4.5-13.0) 10^3/ uL RBC (4.1-5.3) 10^6/u L Hgb (11.5-15.3) g/dL Hct (37.0-47.0) % MCV (81-99) fL MCH (28.0-34.0) pg MCHC (30.0-36.0) g/dL RDW (12.1-15.1) % Plt Count (130-400) 10^3/c mm MPV (7.4-10.4) fL Neut % (Auto) % Lymph % (Auto) % [place] % (Auto) % Eos % (Auto) % Baso % (Auto) % Neut # (Auto) (1.8-8.0) 10^3/u L Lymph # (Auto) (1.5-6.5) 10^3/u L [place] # (Auto) (0.2-0.9) 10^3/u L Eos # (Auto) (0.0-0.8) 10^3/u L Baso # (Auto) (0.0-0.1) 10^3/u L Nucleated RBC % (a uto) % Nucleated RBCs # /100WBC Sodium 140 (136-145) mmol/L Potassium 4.1 (3.5-5.1) mmol/L Chloride 105 (98-107) mmol/L Carbon Dioxide 25 (22-29) mmol/L Anion Gap 14.1 (5-19) BUN 10 (6-20) mg/dL Creatinine 0.5 (0.5-0.9) mg/dL GFR Calculation 158.9 H (90-130) mL/min Glucose 93 (65-115) mg/dL Calculated Osmolal ity 289 (285-295) mOsm/k g Calcium 8.7 (8.5-10.5) mg/dL Total Bilirubin 0.4 (0.15-1.2) mg/dL AST 26 (0-32) U/L ALT 27 (0-33) U/L Alkaline Phosphata se 147 H (35-105) IU/L Total Protein 7.1 (6.6-8.7) g/dL Albumin 4.4 (3.5-5.2) g/dL Globulin 2.7 (1.3-4.6) g/dL TSH 1.78 (0.27-4.20) uIU/ mL Urine Color (Yellow) Urine Appearance (CLEAR) Urine pH (5-7) Ur Specific Gravit y (1.005-1.030) Urine Protein (Negative) Urine Glucose (UA) (Normal) Urine Ketones (Negative) Urine Blood (Negative) Urine Nitrate (Negative) Urine Bilirubin (Negative) Urine Urobilinogen (Negative) mg/dL Ur Leukocyte Polina ase (Negative) Urine RBC (0-2) /hpf Urine WBC (0-5) /hpf Ur Squamous Epith Cells (0-5) /hpf Amorphous Sediment /hpf Urine Bacteria (NONE) /hpf Urine Mucus /hpf Salicylates < 0.3 L (3-10) mg/dL Urine Opiates Scre en (Negative) ng/mL Acetaminophen < 5.0 L (10-30) ug/mL Ur Barbiturates Sc reen (Negative) ng/mL Ur Phencyclidine S crn (Negative) ng/mL Ur Amphetamines Sc reen (Negative) ng/mL U Benzodiazepines Scrn (Negative) ng/mL Urine Cocaine Scre en (Negative) ng/mL U Marijuana (THC) Screen (Negative) ng/mL Discharge Plan Discharge Patient Disposition: Admitted As Inpatient Clinical Impression: Suicidal ideation, UTI (urinary tract infection) Condition: Stable Coding Level of Care Code ED Decorating Instructor for g Fwd Exam Comprehensive
[2020-06-25 20:47] LABS: Basophils # 0.1 10^3/uL (0.0-0.1); Basophils % 0.7 %; Eosinophils # 0.7 10^3/uL (0.0-0.8); Eosinophils % 7.9 %; Hemoglobin 13.4 g/dL (11.5-15.3); Lymphocytes # 2.3 10^3/uL (1.5-6.5); Lymphocytes % 25.2 %; Mean Corpuscular HGB Conc 31.9 g/dL (30.0-36.0); Mean Corpuscular Hemoglobin 26.7 pg (28.0-34.0); Mean Corpuscular Volume 83.8 fL (81-99); Monocytes # 0.5 10^3/uL (0.2-0.9); Monocytes % 5.2 %; Neutrophils # 5.44 10^3/uL (1.8-8.0); Neutrophils % 60.8 %; Nucleated Red Blood Cells % 0 %; Platelet Count 270 10^3/cmm (130-400); Red Blood Count 5.01 10^6/uL (4.1-5.3)
[2020-06-25 20:47] LABS: Amphetamines Screen Urine Negative (Negative); Barbiturates Screen Urine Negative (Negative); Benzodiazepines Screen Urine Negative (Negative); Cocaine Screen Urine Negative (Negative); Opiate Screen Urine Negative (Negative); PCP Screen Urine Negative (Negative); THC Screen Urine Negative (Negative)
[2020-06-25 21:02] LABS: Add Urine Microscopic? YES; Bilirubin Urine Neg (Negative); Blood Urine Neg (Negative); Glucose Urine UA Norm (Normal); Ketones Urine Negative (Negative); Leukocyte Esterase Urine Trace (Negative); Nitrate Urine Negative (Negative); Protein Urine Neg (Negative); Specific Gravity, Urine 1.025 (1.005-1.030); Urine Color Yellow (Yellow); Urobilinogen Urine Norm (Negative); pH Urine 5 (5-7)
[2020-06-25 21:03] LABS: Add Urine Culture? No; Amorphous Sediment Urine 1+ /hpf; Bacteria Urine 2+ /hpf; Mucus Urine 2+ /hpf; RBC Urine 0-4 /hpf (0-2); Squamous Epithelial Cell Urine 25-40 /hpf (0-5)
[2020-06-25] MEDS: nitrofurantoin SR (BID) 100 mg Capsule PO (21:15)
[2020-06-25 21:33] LABS: Alanine Aminotransferase 27 U/L (0-33); Albumin Level 4.4 g/dL (3.5-5.2); Alkaline Phosphatase 147 IU/L (35-105); Anion Gap 14.1 (5-19); Aspartate Amino Transferase 26 U/L (0-32); Blood Urea Nitrogen 10 mg/dL (6-20); Calcium 8.7 mg/dL (8.5-10.5); Carbon Dioxide 25 mmol/L (22-29); Chloride 105 mmol/L (98-107); Globulin 2.7 g/dL (1.3-4.6); Glomerular Filtration Rate 158.9 mL/min (90-130); Glucose 93 mg/dL (65-115); Osmolality Calculated 289 mOsm/kg (285-295); Potassium 4.1 mmol/L (3.5-5.1); Sodium 140 mmol/L (136-145); Thyroid Stimulating Hormone 1.78 uIU/mL (0.27-4.20); Total Bilirubin 0.4 mg/dL (0.15-1.2); Total Protein 7.1 g/dL (6.6-8.7)
[2020-06-25 21:37] LABS: Acetaminophen < 5.0 ug/mL (10-30); Salicylate < 0.3 mg/dL (3-10)
[2020-06-25 22:19] VITALS: BP 124/81; PULSE 88; RESP 16; TEMP 37.2; O2SAT 97
[2020-06-25 23:10] VITALS: BP 102/66; PULSE 85; RESP 18; TEMP 36.6; O2SAT 96
[2020-06-26] MEDS: simethicone 80 mg Chew PO
[2020-06-26 06:00] VITALS: BP 95/59; PULSE 63; RESP 15; TEMP 36.8; O2SAT 96
[2020-06-26] MEDS: risperiDONE 1 mg Tablet PO (08:06)
[2020-06-26] MEDS: pantoprazole DR 40 mg Tablet PO ×2 (08:06→20:34)
[2020-06-26] MEDS: sertraline 50 mg Tablet PO ×2 (08:06→11:36)
[2020-06-26] MEDS: nitrofurantoin SR (BID) 100 mg Capsule PO ×2 (08:06→20:35)
[2020-06-26] MEDS: prenatal vitamin Capsule 1 CAP PO (08:09)
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
[2020-06-26 14:00] VITALS: BP 104/66; PULSE 88; RESP 18; TEMP 36.6
[2020-06-26] MEDS: nicotine 2 mg Gum BUCCAL ×2 (14:57)
[2020-06-26] MEDS: hyDROXYzine 25 mg Capsule 50 MG PO ×2 (20:35)
--- NOTE | 2020-06-26 21:30 | PC.NURSE ---
2034 Pt requested Vistaril 50mg po for anxiety.
[2020-06-26 21:40] VITALS: BP 112/76; PULSE 68; RESP 17; TEMP 36.3; O2SAT 99
[2020-06-26] MEDS: trazodone 50 mg Tablet PO ×2 (22:03)
--- NOTE | 2020-06-26 22:06 | PC.NURSE ---
2200 Pt requesting something for sleep gave trazadone 50mg po
[2020-06-27 06:00] VITALS: BP 108/61; PULSE 70; RESP 15; TEMP 36.7; O2SAT 99
[2020-06-27] MEDS: nitrofurantoin SR (BID) 100 mg Capsule PO ×2 (09:21→20:59)
[2020-06-27] MEDS: sertraline 50 mg Tablet 100 MG PO (09:21)
[2020-06-27] MEDS: pantoprazole DR 40 mg Tablet PO ×2 (09:22→20:58)
[2020-06-27] MEDS: risperiDONE 1 mg Tablet PO (09:22)
[2020-06-27] MEDS: prenatal vitamin Capsule 1 CAP PO (09:22)
[2020-06-27] MEDS: lamoTRIgine 25 mg Tablet PO (09:22)
--- NOTE | 2020-06-27 10:19 | P.PN_ITS ---
Subjective NPU Subjective: Interval history: I was not present today reporting that she is tolerating the increase in Zoloft well but still having some depression. She got her first dose of Lamictal this morning and denies any issues thus far. We discussed the risks, benefits and alternatives of discontinuing her Risperdal because he continues to report that she feels it makes her irritable and not calmer and she understood agreed to proceed as is documented in his note. We reviewed again the risks of Agustin-Kiko syndrome with Lamictal and the plan for increasing weekly until we get to 100 mg then her outpatient team to decide whether moving further to 200 mg is in her best interest or whether they will remain at that dose. Mental Status Exam MSE Comments: This is an obese white female in hospital scrubs with limited grooming and eye contact. No abnormal movements except for psychomotor retardation. Cooperative with exam in no acute distress. Speech was decreased rate and volume. Mood described depressed, affect congruent. Thought process organized. Thought content: Patient denied homicidal ideation and current suicidal ideation reported as lessening, but she does endorse urges to self injure that are diminishing L LE not doing sales, she endorses paranoia but no delusions are noted and she denies any auditory or visual hallucinations currently. Attention and concentration were intact and memory appeared reliable but none were formally tested. She is alert and oriented x3. Insight and judgment appear fair, impulse control is limited. Vitals/I&O/Wt Last Vital Signs Temp 98.1 F 06/27/20 06:00 Pulse 70 06/27/20 06:00 Resp 15 06/27/20 06:00 BP 108/61 06/27/20 06:00 Pulse Ox 99 06/27/20 06:00 Weight last 48 hrs Weight 102.965 kg Weight 102.965 kg Data NPU : 06/25/20 20:35 06/25/20 20:35 A&P Additional A&P Information (1) Suicidal ideation: (2) UTI (urinary tract infection): (3) Borderline personality disorder: (4) Borderline intellectual functioning: (5) Post-traumatic stress disorder, chronic: Additional A&P Information This is a 19-year-old white female with a long history of mental health and some past history of addiction issues who presents 4 weeks with increased depression and suicidal thinking. 1. Continue current medication. Discontinue Risperdal. 2. Continue every 15 minute checks for safety. 3. Encourage individual, group and milieu therapies. 4. Work with treatment team tomorrow to ensure environment for baby is safe at home and mother has reports when she is discharged. Involuntary Hold Information 96 Hour Hold: 96 Hour Involuntary Admission: No Attestations NPU Medical Necessity Statement*: Inpatient hospitalization is medically necessary and the clinically appropriate intervention at this time. We will monitor medications and make changes as indicated. Likely length of stay 2-4 days. Coding Level of Care Code Acute Primary Special Education Teacher for Corinne Ware
[2020-06-27] MEDS: nicotine 21 mg Patch 1 PATCH TRANSDERMA (10:55)
[2020-06-27 14:00] VITALS: BP 98/60; PULSE 76; RESP 16; TEMP 37; O2SAT 93
[2020-06-27] MEDS: hyDROXYzine 25 mg Capsule 50 MG PO ×2 (17:41→20:59)
[2020-06-27] MEDS: acetaminophen 325 mg Tablet 650 MG PO (19:32)
[2020-06-27 22:00] VITALS: BP 109/67; PULSE 74; RESP 18; TEMP 36.7; O2SAT 95
[2020-06-28 06:00] VITALS: BP 95/69; PULSE 64; RESP 18; TEMP 36.6; O2SAT 98
[2020-06-28] MEDS: sertraline 50 mg Tablet 100 MG PO (08:58)
[2020-06-28] MEDS: nitrofurantoin SR (BID) 100 mg Capsule PO ×2 (08:59→20:37)
[2020-06-28] MEDS: lamoTRIgine 25 mg Tablet PO (08:59)
[2020-06-28] MEDS: prenatal vitamin Capsule 1 CAP PO (08:59)
[2020-06-28] MEDS: pantoprazole DR 40 mg Tablet PO ×2 (08:59→20:37)
[2020-06-28] MEDS: nicotine 21 mg Patch 1 PATCH TRANSDERMA (08:59)
[2020-06-28] MEDS: risperiDONE 1 mg Tablet PO (08:59)
--- NOTE | 2020-06-28 10:59 | PM.NPN ---
Subjective NPU Subjective: Interval history: I also presents today reporting that she is feeling a tad bit better but also having some anxiety. We discussed again the process by which we would increase the Lamictal. She reports that she feels that the increase in the Zoloft has helped with her mood some but she still is suffering from some depression. We discussed the possibility for discharge in the next 48 hours but tentative discussion about discharge in the morning and she wanted to talk to her fianc? about it but she understood and agreed proceed as documented in this note. Mental Status Exam MSE Comments: This is an obese white female in hospital scrubs with limited grooming and eye contact. No abnormal movements except for psychomotor retardation. Cooperative with exam in no acute distress. Speech was decreased rate and volume. Mood described as depressed, affect congruent. Thought process organized. Thought content: Patient denied homicidal ideation and current suicidal ideation reported as lessening, but she does endorse urges to self injure that are diminishing , she denied delusions and none were noted and she denies any auditory or visual hallucinations currently. Attention and concentration were intact and memory appeared reliable but none were formally tested. She is alert and oriented x3. Insight and judgment appear fair, impulse control is limited, but improving. Vitals/I&O/Wt Last Vital Signs Temp 97.8 F 06/28/20 06:00 Pulse 64 06/28/20 06:00 Resp 18 06/28/20 06:00 BP 95/69 06/28/20 06:00 Pulse Ox 98 06/28/20 06:00 Data NPU : 06/25/20 20:35 06/25/20 20:35 A&P Additional A&P Information (1) Suicidal ideation: (2) UTI (urinary tract infection): (3) Borderline personality disorder: (4) Borderline intellectual functioning: (5) Post-traumatic stress disorder, chronic: Additional A&P Information This is a 19-year-old white female with a long history of mental health and some past history of addiction issues who presents 4 weeks with increased depression and suicidal thinking. 1. Continue current medication. D 2. Continue every 15 minute checks for safety. 3. Encourage individual, group and milieu therapies. 4. Work with treatment team tomorrow to ensure environment for baby is safe at home and mother has supports when she is discharged. 5. Tentative plan for discharge tomorrow. Involuntary Hold Information 96 Hour Hold: 96 Hour Involuntary Admission: No Attestations NPU Medical Necessity Statement*: Inpatient hospitalization is medically necessary and the clinically appropriate intervention at this time. We will monitor medications and make changes as indicated. Likely length of stay 1 to 3 days. Coding Level of Care Code Acute Front Counter Attendant for Cornine Ware
[2020-06-28] MEDS: hyDROXYzine 25 mg Capsule 50 MG PO ×2 (11:13→20:59)
[2020-06-28 14:00] VITALS: BP 109/71; PULSE 74; RESP 16; TEMP 36.2; O2SAT 96
[2020-06-28] MEDS: paliperidone ER 6 mg Tablet PO (14:22)
[2020-06-28] MEDS: acetaminophen 325 mg Tablet 650 MG PO ×2 (17:21→20:37)
[2020-06-28 22:00] VITALS: BP 131/81; PULSE 94; RESP 16; TEMP 36.9; O2SAT 96
[2020-06-29 06:00] VITALS: BP 107/61; PULSE 64; RESP 15; TEMP 36.9; O2SAT 97
[2020-06-29] MEDS: paliperidone ER 6 mg Tablet PO (08:59)
[2020-06-29] MEDS: lamoTRIgine 25 mg Tablet PO (08:59)
[2020-06-29] MEDS: sertraline 50 mg Tablet 100 MG PO (09:00)
[2020-06-29] MEDS: pantoprazole DR 40 mg Tablet PO (09:00)
[2020-06-29] MEDS: nitrofurantoin SR (BID) 100 mg Capsule PO (09:00)
[2020-06-29] MEDS: prenatal vitamin Capsule 1 CAP PO (09:00)
[2020-06-29] MEDS: sertraline 50 mg Tablet PO (11:37)
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
[2020-06-29 12:14] VITALS: BP 107/61; PULSE 64; RESP 15; TEMP 36.9; O2SAT 97
== END 2020-06-29 13:20 | disposition home or self-care (01) | DRG 776 ==
LOC: ER 21:43 → NP 22:06
PROVIDERS: Admitting Provider Psychiatry & Neurology Psychiatry; Emergency Provider Family Medicine; PCP Family Medicine; Visit Provider Psychiatry & Neurology Psychiatry
DX: O99.345 Other mental disorders complicating the puerperium (principal); R45.851 Suicidal ideations; N39.0 Urinary tract infection, site not specified; F53.0 Postpartum depression; Z91.5 Personal history of self-harm; F17.210 Nicotine dependence, cigarettes, uncomplicated; J45.909 Unspecified asthma, uncomplicated; F60.3 Borderline personality disorder; R41.83 Borderline intellectual functioning; E03.9 Hypothyroidism, unspecified; F43.12 Post-traumatic stress disorder, chronic
CPT/HCPCS: 80053; 80306; 80307; 81001; 84443; 85025; 99285

== ENCOUNTER → 2020-07-05 14:08 | Outpatient (BNVA) | payer BC, SELFPAY ==
[2020-03-15 14:52] VITALS: BP 114/74; BMI 35.8
== END ==
PROVIDERS: PCP Family Medicine; Visit Provider Nurse Practitioner
DX: F60.3 Borderline personality disorder (principal); F43.12 Post-traumatic stress disorder, chronic; R41.83 Borderline intellectual functioning
CPT/HCPCS: 99214

== ENCOUNTER → 2020-07-07 09:44 | Outpatient (BNVA) | payer BC, SELFPAY ==
[2020-03-15 14:52] VITALS: BP 114/74; BMI 35.8
== END ==
PROVIDERS: PCP Family Medicine; Visit Provider Counselor Professional
DX: R41.83 Borderline intellectual functioning (principal); F60.3 Borderline personality disorder; F43.12 Post-traumatic stress disorder, chronic
CPT/HCPCS: 90791

== ENCOUNTER → 2020-07-14 14:46 | Outpatient (BNVA) | payer BC, SELFPAY ==
[2020-03-15 14:52] VITALS: BP 114/74; BMI 35.8
== END ==
PROVIDERS: PCP Family Medicine; Visit Provider Counselor Professional
DX: R41.83 Borderline intellectual functioning (principal); F60.3 Borderline personality disorder; F43.12 Post-traumatic stress disorder, chronic
CPT/HCPCS: 90834; 90832

== ENCOUNTER 2020-07-20 10:02 | Emergency (ER) | payer BC, MEDICAID, SELFPAY ==
[2020-03-15 14:52] VITALS: BP 114/74; BMI 35.8
[2020-07-20 10:34] VITALS: BP 104/71; PULSE 101; RESP 18; TEMP 36.5; O2SAT 98; BMI 39.1
[2020-07-20 13:21] LABS: Basophils # 0.1 10^3/uL (0.0-0.1); Basophils % 0.9 %; Eosinophils # 0.6 10^3/uL (0.0-0.8); Eosinophils % 9.5 %; Lymphocytes # 1.9 10^3/uL (1.5-6.5); Lymphocytes % 29.8 %; Mean Corpuscular HGB Conc 31.8 g/dL (30.0-36.0); Mean Corpuscular Hemoglobin 27.1 pg (28.0-34.0); Mean Corpuscular Volume 85.3 fL (81-99); Mean Platelet Volume 9.7 fL (7.4-10.4); Monocytes # 0.3 10^3/uL (0.2-0.9); Monocytes % 5.2 %; Neutrophils # 3.54 10^3/uL (1.8-8.0); Neutrophils % 54.4 %; Nucleated Red Blood Cells % 0 %; Platelet Count 242 10^3/cmm (130-400); Red Blood Count 5.16 10^6/uL (4.1-5.3); Red Cell Distribution Width 14.8 % (12.1-15.1); White Blood Count 6.5 10^3/uL (4.5-13.0)
[2020-07-20 13:46] LABS: HCG, Serum Qual Negative (Negative)
== END 2020-07-20 14:00 | disposition left against medical advice (07) ==
LOC: ER 10:28
PROVIDERS: Physician Assistant; Emergency Provider Family Medicine; PCP Family Medicine
DX: Z53.21 Procedure and treatment not carried out due to patient leaving prior to being seen by health care provider (principal)
CPT/HCPCS: 36415; 84703; 85025; 99282

== ENCOUNTER → 2020-07-21 08:54 | Outpatient (BNVA) | payer BC, MEDICAID, SELFPAY ==
[2020-03-15 14:52] VITALS: BP 114/74; BMI 35.8
== END ==
PROVIDERS: PCP Family Medicine; Visit Provider Counselor Professional
DX: R41.83 Borderline intellectual functioning (principal); F60.3 Borderline personality disorder
CPT/HCPCS: 90834

== ENCOUNTER → 2020-07-28 12:40 | Outpatient (BNVA) | payer BC, SELFPAY ==
[2020-03-15 14:52] VITALS: BP 114/74; BMI 35.8
== END ==
PROVIDERS: PCP Family Medicine; Visit Provider Counselor Professional
DX: R41.83 Borderline intellectual functioning (principal); F60.3 Borderline personality disorder; F43.12 Post-traumatic stress disorder, chronic
CPT/HCPCS: 90834

== ENCOUNTER → 2020-08-02 09:08 | Outpatient (BNVA) | payer BC, SELFPAY ==
[2020-03-15 14:52] VITALS: BP 114/74; BMI 35.8
== END ==
PROVIDERS: PCP Family Medicine; Visit Provider Nurse Practitioner
DX: F60.3 Borderline personality disorder (principal); F43.12 Post-traumatic stress disorder, chronic; R41.83 Borderline intellectual functioning
CPT/HCPCS: 99214

== ENCOUNTER → 2020-08-12 10:32 | Outpatient (BNVA) | payer BC, SELFPAY ==
[2020-03-15 14:52] VITALS: BP 114/74; BMI 35.8
== END ==
PROVIDERS: PCP Family Medicine; Visit Provider Counselor Professional
DX: F60.3 Borderline personality disorder (principal); R41.83 Borderline intellectual functioning; F43.12 Post-traumatic stress disorder, chronic
CPT/HCPCS: 90834

== ENCOUNTER → 2020-08-30 08:01 | Outpatient (BNVA) | payer BC, OTHER, SELFPAY ==
[2020-03-15 14:52] VITALS: BP 114/74; BMI 35.8
== END ==
PROVIDERS: PCP Family Medicine; Visit Provider Nurse Practitioner
DX: F60.3 Borderline personality disorder (principal); R41.83 Borderline intellectual functioning; F43.12 Post-traumatic stress disorder, chronic
CPT/HCPCS: 99214

== ENCOUNTER → 2020-09-08 10:39 | Outpatient (BNVA) | payer BC, SELFPAY ==
[2020-03-15 14:52] VITALS: BP 114/74; BMI 35.8
== END ==
PROVIDERS: PCP Family Medicine; Visit Provider Counselor Professional
DX: F43.12 Post-traumatic stress disorder, chronic (principal); R41.83 Borderline intellectual functioning; F60.3 Borderline personality disorder
CPT/HCPCS: 90834

== ENCOUNTER → 2020-09-20 09:45 | Outpatient (BNVA) | payer BC, SELFPAY ==
[2020-03-15 14:52] VITALS: BP 114/74; BMI 35.8
== END ==
PROVIDERS: PCP Family Medicine; Visit Provider Nurse Practitioner
DX: F43.12 Post-traumatic stress disorder, chronic (principal); F60.3 Borderline personality disorder; R41.83 Borderline intellectual functioning
CPT/HCPCS: 99214

== ENCOUNTER → 2020-10-12 09:00 | Outpatient (BNVA) | payer BC, OTHER, SELFPAY ==
[2020-03-15 14:52] VITALS: BP 114/74; BMI 35.8
== END ==
PROVIDERS: PCP Family Medicine; Visit Provider Nurse Practitioner
DX: F43.12 Post-traumatic stress disorder, chronic (principal); F60.3 Borderline personality disorder; R41.83 Borderline intellectual functioning
CPT/HCPCS: 99214

== ENCOUNTER → 2020-10-18 11:13 | Outpatient (BNVA) | payer BC, SELFPAY ==
[2020-03-15 14:52] VITALS: BP 114/74; BMI 35.8
== END ==
PROVIDERS: PCP Family Medicine; Visit Provider Nurse Practitioner
DX: F60.3 Borderline personality disorder (principal); R41.83 Borderline intellectual functioning; F43.12 Post-traumatic stress disorder, chronic
CPT/HCPCS: 99214

== ENCOUNTER → 2020-11-10 14:07 | Outpatient (BNVA) | payer BC, SELFPAY ==
[2020-03-15 14:52] VITALS: BP 114/74; BMI 35.8
== END ==
PROVIDERS: PCP Family Medicine; Visit Provider Nurse Practitioner
DX: F60.3 Borderline personality disorder (principal); F43.12 Post-traumatic stress disorder, chronic; R41.83 Borderline intellectual functioning
CPT/HCPCS: 99214

== ENCOUNTER 2020-11-13 | Inpatient (IN) | payer MEDICARE, BC, MEDICAID, SELFPAY ==
[2020-03-15 14:52] VITALS: BP 114/74; BMI 35.8
[2020-11-13] VITALS (7 sets, daily range): BP systolic 110–129; BP diastolic 72–83; PULSE 74–95; RESP 15–18; TEMP 36.1–36.7; O2SAT 96–97; BMI 39.7
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
[2020-11-13 00:19] LABS: Basophils # 0.1 10^3/uL (0.0-0.1); Basophils % 0.9 %; Eosinophils # 0.6 10^3/uL (0.0-0.8); Eosinophils % 7.9 %; Hematocrit 41.7 % (37.0-47.0); Hemoglobin 13.8 g/dL (11.5-15.3); Lymphocytes # 2.3 10^3/uL (1.5-6.5); Lymphocytes % 28.3 %; Mean Corpuscular HGB Conc 33.1 g/dL (30.0-36.0); Mean Corpuscular Hemoglobin 27.8 pg (28.0-34.0); Mean Corpuscular Volume 84.1 fl (81-99); Mean Platelet Volume 10.1 fL (7.4-10.4); Monocytes # 0.5 10^3/uL (0.2-0.9); Monocytes % 5.6 %; Neutrophils # 4.61 10^3/uL (1.8-8.0); Neutrophils % 57.1 %; Nucleated Red Blood Cells % 0 %; Platelet Count 243 10^3/cmm (130-400); Red Blood Count 4.96 10^6/uL (4.1-5.3); Red Cell Distribution Width 12.5 % (12.1-15.1); White Blood Count 8.1 10^3/uL (4.5-13.0)
[2020-11-13 00:43] LABS: Acetaminophen < 5.0 ug/mL (10-30); Alanine Aminotransferase 48 U/L (0-33); Albumin Level 4.2 g/dL (3.5-5.2); Alcohol Level < 10 mg/dL (0-10); Alkaline Phosphatase 142 IU/L (35-105); Aspartate Amino Transferase 27 U/L (0-32); Blood Urea Nitrogen 10 mg/dL (6-20); Calcium 8.9 mg/dL (8.5-10.5); Carbon Dioxide 23 mmol/L (22-29); Chloride 104 mmol/L (98-107); Globulin 2.7 g/dL (1.3-4.6); Glomerular Filtration Rate 127.5 mL/min (90-130); Glucose 102 mg/dL (65-115); Osmolality Calculated 283 mOsm/kg (285-295); Salicylate < 0.3 mg/dL (3-10); Sodium 137 mmol/L (136-145); Total Bilirubin 0.2 mg/dL (0.15-1.2); Total Protein 6.9 g/dL (6.6-8.7)
[2020-11-13 01:04] LABS: Amphetamines Screen Urine Negative (Negative); Barbiturates Screen Urine Negative (Negative); Benzodiazepines Screen Urine Negative (Negative); Cocaine Screen Urine Negative (Negative); Opiate Screen Urine Negative (Negative); PCP Screen Urine Negative (Negative); THC Screen Urine Negative (Negative)
[2020-11-13 01:09] LABS: HCG, Serum Qual Negative (Negative)
[2020-11-13] MEDS: iohexol 300 mg/mL 100 mL Btl IV (01:44)
[2020-11-13] MEDS: acetaminophen 325 mg Tablet 650 MG PO ×2 (03:29→16:00)
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
[2020-11-13] MEDS: nicotine 21 mg Patch 1 PATCH TRANSDERMA (11:12)
[2020-11-13] MEDS: hyDROXYzine 25 mg Capsule 50 MG PO (13:59)
--- NOTE | 2020-11-13 14:00 | PC.NURSE ---
Addendum entered by Farrah Zuniga LPN 11/13/20 14:58: PRN MED EFFECTIVE NO FURTHER C/O ANXIETY Original Note: PRN VISTARIL 50 MG GIVEN PO PER PT C/O STATED ANXIETY WILL CONT TO MONITOR
[2020-11-14 06:00] VITALS: BP 108/70; PULSE 65; RESP 18; TEMP 36.6; O2SAT 97
[2020-11-14] MEDS: haloperidol 5 mg Tablet PO (07:25)
[2020-11-14] MEDS: hyDROXYzine 25 mg Capsule 50 MG PO (07:26)
--- NOTE | 2020-11-14 07:26 | PC.NURSE ---
PRN VISTARIL & HALDOL VISTARIL 50 MG GIVEN PO WITH HALDOL 5 MG PO PER PT C/O INCREASED ANXIETY/PSYCHOSIS. PT C/O SEEING LITTLE GREEN PEOPLE AROUND HER, STATED THAT SHE THINKS THE CATHERINE IS TALKING TO HER MOM RIGHT NOW. PT ASSURED SHE IS SAFE HERE IN THE HOSPITAL, THAT STAFF WOULD LET HER KNOW IF HER MOTHER CALLED THE UNIT THIS MORNING. PT AGREEABLE TO TAKING PRN MEDS, WILL CONT TO MONITOR
[2020-11-14] MEDS: nicotine 21 mg Patch 1 PATCH TRANSDERMA (07:57)
--- NOTE | 2020-11-14 08:07 | PC.NURSE ---
Patient is paranoid believes that little green people are after her, and she is unable to get a hold of her mother therefore she believes that the CATHERINE is after her mother. Patient also voiced that she is hearing voices telling that she is not safe. Patient is currently upset and sitting on the bench near the nurses station.
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
[2020-11-14 14:00] VITALS: BP 100/63; PULSE 89; RESP 17; TEMP 36.1; O2SAT 96
[2020-11-14 20:37] VITALS: BP 100/68; PULSE 79; RESP 18; TEMP 36; O2SAT 96
[2020-11-15] MEDS: acetaminophen 325 mg Tablet 650 MG PO ×2 (01:00→18:46)
[2020-11-15 06:00] VITALS: BP 119/75; PULSE 68; RESP 18; TEMP 36.4; O2SAT 96
[2020-11-15] MEDS: lamoTRIgine 100 mg Tablet PO (08:35)
[2020-11-15] MEDS: pantoprazole DR 40 mg Tablet PO (08:35)
[2020-11-15] MEDS: sertraline 50 mg Tablet 150 MG PO (08:35)
[2020-11-15] MEDS: nicotine 21 mg Patch 1 PATCH TRANSDERMA (10:20)
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
--- NOTE | 2020-11-15 12:22 | NPU.GN ---
[facility] Group Topic:Coping Skills General Mood of Group: Heidy came to group after being asked. She did contribute some discussion to the group. She did seem very irritated as if some thing was bothering her. She was using some cuss words in frustration. Yesterday she did better, today there seems to be some regression. I spoke with her after group and asked if there was something bothering her, she said that shes just tired. I informed her that I would like to speak with her soon one on one if she is still at NPU, She stated that she would like that.
[2020-11-15 14:00] VITALS: BP 116/76; PULSE 79; RESP 16; TEMP 37; O2SAT 97
[2020-11-15] MEDS: lurasidone 20 mg Tablet 40 MG PO ×2 (16:47)
[2020-11-15 19:34] VITALS: BP 116/76; PULSE 79; RESP 16; TEMP 37; O2SAT 97
[2020-11-15] MEDS: prazosin 1 mg Capsule 2 MG PO (20:46)
[2020-11-15] MEDS: trazodone 50 mg Tablet PO (23:13)
[2020-11-16 06:00] VITALS: BP 91/54; PULSE 77; RESP 17; TEMP 36.8; O2SAT 98
[2020-11-16] MEDS: pantoprazole DR 40 mg Tablet PO (09:00)
[2020-11-16] MEDS: sertraline 50 mg Tablet 150 MG PO (09:00)
[2020-11-16] MEDS: lamoTRIgine 100 mg Tablet PO (09:00)
[2020-11-16] MEDS: lurasidone 80 mg Tablet 40 MG PO (09:00)
[2020-11-16] MEDS: nicotine 21 mg Patch 1 PATCH TRANSDERMA (10:16)
[2020-11-16 14:00] VITALS: BP 106/60; PULSE 71; RESP 16; TEMP 37.2; O2SAT 97
[2020-11-16] MEDS: lurasidone 20 mg Tablet 40 MG PO (17:27)
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
[2020-11-16] MEDS: acetaminophen 325 mg Tablet 650 MG PO (19:50)
[2020-11-16] MEDS: trazodone 50 mg Tablet PO (19:51)
[2020-11-16] MEDS: prazosin 1 mg Capsule 2 MG PO (19:52)
[2020-11-16 22:00] VITALS: BP 111/69; PULSE 96; RESP 18; TEMP 36.9; O2SAT 98
[2020-11-17 06:00] VITALS: BP 96/62; PULSE 69; RESP 18; TEMP 36.3; O2SAT 94
[2020-11-17] MEDS: lurasidone 80 mg Tablet 40 MG PO (07:00)
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
[2020-11-17] MEDS: pantoprazole DR 40 mg Tablet PO (08:27)
[2020-11-17] MEDS: lamoTRIgine 100 mg Tablet PO (08:27)
[2020-11-17] MEDS: sertraline 50 mg Tablet 150 MG PO (08:27)
[2020-11-17 08:41] VITALS: BP 96/62; PULSE 69; RESP 18; TEMP 36.3; O2SAT 94
== END 2020-11-17 09:07 | disposition home or self-care (01) | DRG 605 ==
LOC: ER 02:53 → NP 03:05
PROVIDERS: Admitting Provider Psychiatry & Neurology Psychiatry; Emergency Provider Emergency Medicine; PCP Family Medicine; Visit Provider Psychiatry & Neurology Psychiatry
DX: S31.119A Laceration without foreign body of abdominal wall, unspecified quadrant without penetration into peritoneal cavity, initial encounter (principal); X78.1XXA Intentional self-harm by knife, initial encounter; O99.345 Other mental disorders complicating the puerperium; F53.1 Puerperal psychosis; Z87.891 Personal history of nicotine dependence; F31.9 Bipolar disorder, unspecified; R41.83 Borderline intellectual functioning; F60.3 Borderline personality disorder; E03.9 Hypothyroidism, unspecified; F43.12 Post-traumatic stress disorder, chronic; Z81.8 Family history of other mental and behavioral disorders; E66.9 Obesity, unspecified; Z68.39 Body mass index [BMI] 39.0-39.9, adult; F41.9 Anxiety disorder, unspecified
CPT/HCPCS: 12001; 74177; 80053; 80306; 80307; 84703; 85025; 97150; 97165; 99285; Q9967

== ENCOUNTER → 2020-11-21 14:20 | Outpatient (BNVA) | payer BC, SELFPAY ==
[2020-03-15 14:52] VITALS: BP 114/74; BMI 35.8
== END ==
PROVIDERS: PCP Family Medicine; Visit Provider Nurse Practitioner
DX: F60.3 Borderline personality disorder (principal); R41.83 Borderline intellectual functioning; F43.12 Post-traumatic stress disorder, chronic
CPT/HCPCS: 99214

== ENCOUNTER 2020-11-21 22:19 | Inpatient (IN) | payer MEDICARE, BC, SELFPAY ==
[2020-03-15 14:52] VITALS: BP 114/74; BMI 35.8
[2020-11-21] VITALS (16 sets, daily range): BP systolic 128; BP diastolic 86; PULSE 76–88; RESP 14–22; TEMP 36.7; O2SAT 92–97; BMI 41.5
--- NOTE | 2020-11-21 22:23 | ECG_ITS ---
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
--- NOTE | 2020-11-21 22:40 | W.ED.GENADLT ---
HPI - General Adult General: Chief complaint: Overdose Stated complaint: SI Time Seen by Provider: 11/21/20 22:23 History of Present Illness: HPI narrative: HPI: [20]yo patient w/ hx of depression BIBA for SI. for On arrival, the patient is AAOx3 and cooperative with my evaluation. No focal complaints of chest pain, shortness of breath, palpitations, N/V, focal GI/ complaints. Onset: 1 hr ago Duration: ongoing Location: home Severity: severe Review of Systems Narrative: Constitutional: No fever, no chills. HEENT: No vision changes CV: No chest pain, no palpitations PULM: No productive cough, no dyspnea. GI: No abdominal pain, no N/V/D. : No dysuria MSKEL: No muscle pain SKIN: No new rashes, no lesions. NEURO: No headache, no focal weakness. HEME: No visible bruises PSYCH: Normal mood PFSH ED PFSH: Medical History Asthma Bipolar disorder Bipolar disorder, unspecified Borderline intellectual functioning Borderline personality disorder Depression Hypothyroidism Post-traumatic stress disorder, chronic Psychiatric care Schizophrenia Surgical History History of cholecystectomy Family History Mother Bipolar 1 disorder Heart disease Spina bifida Hyperlipidemia Diabetes Brother Hyperlipidemia Social History Smoking and tobacco status: former smoker Quit status (tobacco): has quit using tobacco Second hand smoke exposure: Yes Smoking risk assessment/counseling performed?: Yes Alcohol intake: never Desire information about substance/drug rehabilitation?: No (last smoked around 30 weeks) Marital status: Life Partner Female Reproductive History: Date of last menstrual period: 08/13/20 Physical Exam Narrative: EXAM NARRATIVE: Head: Atraumatic Eyes: PERRL, conjunctiva without injection, eyes tracking, +mydriatic pupils ENT: Mucous membrane moist NECK: Supple without lymphadenopathy LUNGS: LCTAB CV: RRR ABDOMEN: Soft, nontender EXTREMITY: Normal ROM SKIN: No rash or erythema NEURO: Awake and alert. No focal weakness PSYCH: Cooperative mood and affect. Course Vital Signs: Vital signs: Vital Signs Temperature 97.9 F 11/22/20 20:08 Pulse Rate 98 11/22/20 20:08 Respiratory Rate 17 11/22/20 20:08 Blood Pressure 121/28 11/22/20 20:08 Pulse Oximetry 97 11/22/20 20:08 MDM - General Adult MDM Narrative: Medical decision making narrative: [20]yo patient presenting for acute suicdial attempt from ingesting 25 tablets of latuda 40mg. HDS, exam within normal limit Thoughts are linear and organized, and the patient has no AH/VH, or HI. Clinically the patient displays no overt toxidrome; they are well appearing, with low suspicion for toxic ingestion given history and exam. Symptoms unlikely 2/2 anemia, hypothyroidism, infection, or ICH. Case was immediately discussed with poison center per specialist Vanita who informs us that the patient needs to be observed for 6 to 8 hours for possible seizure and extrapyramidal side effects. Workup: CBC, CMP, Lipase, salicylate/tylenol, UDS Lab findings: wnl [6:00am] On reassessment, labs and workup wnl. Patient is hemodynamically stable with no acute medical complaints. Patient was observed in the ED for 6 hrs without any evidence of seizure or decreased activity. Case discussed with psychiatric provider Dr. Erazo at [facility] psych inpatient with recommendation for admission Disposition: Psych Lab Data: Labs: Lab Results 11/21/20 11/21/20 11/21/20 22:37 22:37 23:09 WBC 7.3 10^3/uL 10^3/ uL (4.5-13.0) RBC 4.86 10^6/uL 10^6 /uL (4.1-5.3) Hgb 13.7 g/dL g/dL (11.5-15.3) Hct 41.8 % % (37.0-47.0) MCV 86.0 fl fl (81-99) MCH 28.2 pg pg (28.0-34.0) MCHC 32.8 g/dL g/dL (30.0-36.0) RDW 13.1 % % (12.1-15.1) Plt Count 244 10^3/cmm 10^3 /cmm (130-400) MPV 10.1 fL fL (7.4-10.4) Neut % (Auto) 63.0 % % Lymph % (Auto) 25.8 % % Salem % (Auto) 5.2 % % Eos % (Auto) 4.9 % % Baso % (Auto) 0.8 % % Neut # (Auto) 4.60 10^3/uL 10^3 /uL (1.8-8.0) Lymph # (Auto) 1.9 10^3/uL 10^3/ uL (1.5-6.5) Salem # (Auto) 0.4 10^3/uL 10^3/ uL (0.2-0.9) Eos # (Auto) 0.4 10^3/uL 10^3/ uL (0.0-0.8) Baso # (Auto) 0.1 10^3/uL 10^3/ uL (0.0-0.1) Nucleated RBC % (a uto) 0 % % Nucleated RBCs # 0.0 /100WBC /100W BC Sodium 135 mmol/L L mmol /L (136-145) Potassium 3.8 mmol/L mmol/L (3.5-5.1) Chloride 101 mmol/L mmol/L (98-107) Carbon Dioxide 22 mmol/L mmol/L (22-29) Anion Gap 15.8 (5-19) BUN 6 mg/dL mg/dL (6-20) Creatinine 0.5 mg/dL mg/dL (0.5-0.9) GFR Calculation 157.3 mL/min H mL /min (90-130) Glucose 112 mg/dL mg/dL (65-115) Calculated Osmolal ity 278 mOsm/kg L mOs m/kg (285-295) Calcium 8.8 mg/dL mg/dL (8.5-10.5) Total Bilirubin 0.3 mg/dL mg/dL (0.15-1.2) AST 30 U/L U/L (0-32) ALT 45 U/L H U/L (0-33) Alkaline Phosphata se 117 IU/L H IU/L (35-105) Creatine Kinase 202 U/L H U/L (26-192) Total Protein 7.3 g/dL g/dL (6.6-8.7) Albumin 4.0 g/dL g/dL (3.5-5.2) Globulin 3.3 g/dL g/dL (1.3-4.6) Lipase 19 U/L U/L (13-60) Urine HCG, Qual Negative (Negative) Salicylates < 0.3 mg/dL L mg/ dL (3-10) Urine Opiates Scre en Acetaminophen < 5.0 ug/mL L ug/ mL (10-30) Ur Barbiturates Sc reen Ur Phencyclidine S crn Ur Amphetamines Sc reen U Benzodiazepines Scrn Urine Cocaine Scre en U Marijuana (THC) Screen 11/21/20 23:09 WBC RBC Hgb Hct MCV MCH MCHC RDW Plt Count MPV Neut % (Auto) Lymph % (Auto) Salem % (Auto) Eos % (Auto) Baso % (Auto) Neut # (Auto) Lymph # (Auto) Salem # (Auto) Eos # (Auto) Baso # (Auto) Nucleated RBC % (a uto) Nucleated RBCs # Sodium Potassium Chloride Carbon Dioxide Anion Gap BUN Creatinine GFR Calculation Glucose Calculated Osmolal ity Calcium Total Bilirubin AST ALT Alkaline Phosphata se Creatine Kinase Total Protein Albumin Globulin Lipase Urine HCG, Qual Salicylates Urine Opiates Scre en Negative ng/mL ng /mL (Negative) Acetaminophen Ur Barbiturates Sc reen Negative ng/mL ng /mL (Negative) Ur Phencyclidine S crn Negative ng/mL ng /mL (Negative) Ur Amphetamines Sc reen Negative ng/mL ng /mL (Negative) U Benzodiazepines Scrn Negative ng/mL ng /mL (Negative) Urine Cocaine Scre en Negative ng/mL ng /mL (Negative) U Marijuana (THC) Screen Negative ng/mL ng /mL (Negative) Discharge Plan Discharge Patient Disposition: Admitted As Inpatient Admit Provider: Sd Erazo Clinical Impression: Suicidal ideation, Acute drug overdose Condition: Stable Coding Level of Care Code ED Time Clock Repairer for Corinne Ware
[2020-11-21 22:42] LABS: Basophils # 0.1 10^3/uL (0.0-0.1); Basophils % 0.8 %; Eosinophils # 0.4 10^3/uL (0.0-0.8); Eosinophils % 4.9 %; Hematocrit 41.8 % (37.0-47.0); Hemoglobin 13.7 g/dL (11.5-15.3); Lymphocytes # 1.9 10^3/uL (1.5-6.5); Lymphocytes % 25.8 %; Mean Corpuscular HGB Conc 32.8 g/dL (30.0-36.0); Mean Corpuscular Hemoglobin 28.2 pg (28.0-34.0); Mean Platelet Volume 10.1 fL (7.4-10.4); Monocytes # 0.4 10^3/uL (0.2-0.9); Monocytes % 5.2 %; Nucleated Red Blood Cells % 0 %; Platelet Count 244 10^3/cmm (130-400); Red Blood Count 4.86 10^6/uL (4.1-5.3); Red Cell Distribution Width 13.1 % (12.1-15.1); White Blood Count 7.3 10^3/uL (4.5-13.0)
--- NOTE | 2020-11-21 22:45 | PC.NURSE ---
has called and spoke with Poison control and we will be holding pt for 8 hrs the start calling for beds.
[2020-11-21 23:00] LABS: Alanine Aminotransferase 45 U/L (0-33); Alkaline Phosphatase 117 IU/L (35-105); Blood Urea Nitrogen 6 mg/dL (6-20); Calcium 8.8 mg/dL (8.5-10.5); Carbon Dioxide 22 mmol/L (22-29); Chloride 101 mmol/L (98-107); Creatine Phosphokinase 202 U/L (26-192); Globulin 3.3 g/dL (1.3-4.6); Glomerular Filtration Rate 157.3 mL/min (90-130); Glucose 112 mg/dL (65-115); Lipase 19 U/L (13-60); Osmolality Calculated 278 mOsm/kg (285-295); Sodium 135 mmol/L (136-145); Total Bilirubin 0.3 mg/dL (0.15-1.2); Total Protein 7.3 g/dL (6.6-8.7)
[2020-11-21 23:01] LABS: Acetaminophen < 5.0 ug/mL (10-30); Anion Gap 15.8 (5-19); Aspartate Amino Transferase 30 U/L (0-32); Potassium 3.8 mmol/L (3.5-5.1); Salicylate < 0.3 mg/dL (3-10)
[2020-11-21 23:45] LABS: Amphetamines Screen Urine Negative (Negative); Barbiturates Screen Urine Negative (Negative); Benzodiazepines Screen Urine Negative (Negative); Cocaine Screen Urine Negative (Negative); Opiate Screen Urine Negative (Negative); PCP Screen Urine Negative (Negative); THC Screen Urine Negative (Negative)
[2020-11-22] VITALS (76 sets, daily range): BP systolic 83–130; BP diastolic 28–88; PULSE 0–111; RESP 0–24; TEMP 36.6–36.8; O2SAT 91–98
--- NOTE | 2020-11-22 00:36 | PC.NURSE ---
Meghan, mom, called to get an update on patient status.
--- NOTE | 2020-11-22 02:06 | PC.NURSE ---
Kayla with poison control called for patient updates. states that this latuda generally peaks in 1-3 hours and states she will call back later to check on patient again.
--- NOTE | 2020-11-22 05:48 | PC.NURSE ---
report called to Amie ODELL
--- NOTE | 2020-11-22 05:56 | PC.NURSE ---
Admission 20F SA by OD 40mg Latuda quantity 25 per pt report. Vitals are WNL per ED nurse on report. Pt was last in unit appx week ago. Pt woke her mother up and told her she overdosed on Latuda and EMS was notified and on the way. Pt is sleeping. No pain reported.
--- NOTE | 2020-11-22 06:51 | PC.NURSE ---
respirations observed
[2020-11-22] MEDS: lamoTRIgine 100 mg Tablet PO (07:57)
[2020-11-22] MEDS: pantoprazole DR 40 mg Tablet PO (07:57)
[2020-11-22] MEDS: sertraline 50 mg Tablet 150 MG PO (07:57)
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
[2020-11-22] MEDS: nicotine 21 mg Patch 1 PATCH TRANSDERMA (11:56)
[2020-11-22] MEDS: blistex lip oint 7 gm Tube 1 APPLIC TOPICAL (15:06)
--- NOTE | 2020-11-22 17:05 | PC.NURSE ---
REMOVED NICOTINE PATCH & GAVE IT TO NURSING STAFF. STAFF DISPOSED OF PROPERLY
[2020-11-22] MEDS: prazosin 1 mg Capsule 2 MG PO (19:26)
[2020-11-22] MEDS: trazodone 50 mg Tablet PO (19:27)
[2020-11-22] MEDS: hyDROXYzine 25 mg Capsule 50 MG PO (19:27)
[2020-11-23 06:00] VITALS: BP 121/28; PULSE 98; RESP 17; TEMP 36.6; O2SAT 97
[2020-11-23] MEDS: lamoTRIgine 100 mg Tablet PO (08:28)
[2020-11-23] MEDS: sertraline 50 mg Tablet 150 MG PO (08:28)
[2020-11-23] MEDS: pantoprazole DR 40 mg Tablet PO (08:28)
[2020-11-23] MEDS: paliperidone ER 6 mg Tablet PO (11:56)
[2020-11-23 12:17] LABS: Estmated Average Glucose 94; Hemoglobin A1C 4.9 % (4.0-6.0)
[2020-11-23 12:44] LABS: Chol HDL Ratio 2.92 mg/dL (0.0-4.40); Cholesterol 149 mg/dL (0-200); HDL Cholesterol 51 mg/dL (60-100); LDL Cholesterol Calculated 79 mg/dL (50-129); LDL HDL Ratio 1.55 RATIO (0.00-3.22); Prolactin 17.34 ng/mL (4.8-23.3); Triglycerides 95 mg/dL (0-150)
[2020-11-23] MEDS: nicotine 21 mg Patch 1 PATCH TRANSDERMA (13:50)
[2020-11-23 14:00] VITALS: BP 114/78; PULSE 95; RESP 17; TEMP 36.6; O2SAT 95
[2020-11-23] MEDS: acetaminophen 325 mg Tablet 650 MG PO (14:47)
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
[2020-11-23] MEDS: nicotine 2 mg Gum BUCCAL (17:50)
[2020-11-23 22:00] VITALS: BP 114/78; PULSE 95; RESP 17; TEMP 36.6; O2SAT 95
[2020-11-24 06:00] VITALS: BP 103/68; PULSE 78; RESP 16; O2SAT 94
[2020-11-24] MEDS: sertraline 50 mg Tablet 150 MG PO (09:28)
[2020-11-24] MEDS: paliperidone ER 6 mg Tablet PO (09:28)
[2020-11-24] MEDS: lamoTRIgine 100 mg Tablet PO (09:28)
[2020-11-24] MEDS: pantoprazole DR 40 mg Tablet PO (09:29)
[2020-11-24 14:00] VITALS: BP 134/79; PULSE 94; RESP 20; TEMP 35.8; O2SAT 95
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
[2020-11-24] MEDS: acetaminophen 325 mg Tablet 650 MG PO (17:11)
[2020-11-24] MEDS: trazodone 50 mg Tablet PO (20:26)
[2020-11-24] MEDS: prazosin 1 mg Capsule 2 MG PO (20:26)
[2020-11-24] MEDS: hyDROXYzine 25 mg Capsule 50 MG PO (20:27)
[2020-11-24 22:00] VITALS: BP 134/79; PULSE 94; RESP 18; TEMP 35.8
--- NOTE | 2020-11-25 02:24 | PC.NURSE ---
PRN meds, Trazodone 50mg PO & Vistaril 50mg PO given for sleep and anxiety. Upon reassessment medications were effective.
[2020-11-25 06:00] VITALS: BP 99/64; PULSE 69; RESP 16; TEMP 36.6; O2SAT 95
[2020-11-25] MEDS: paliperidone ER 6 mg Tablet PO (09:30)
[2020-11-25] MEDS: sertraline 50 mg Tablet 150 MG PO (09:30)
[2020-11-25] MEDS: ARIPiprazole 2 mg Tablet PO (09:31)
[2020-11-25] MEDS: lamoTRIgine 100 mg Tablet PO (09:31)
[2020-11-25] MEDS: pantoprazole DR 40 mg Tablet PO (09:31)
[2020-11-25 14:00] VITALS: BP 112/75; PULSE 100; RESP 20; TEMP 36.2; O2SAT 96
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
[2020-11-25 20:40] VITALS: BP 110/70; PULSE 87; RESP 15; TEMP 36.6; O2SAT 96
[2020-11-25] MEDS: prazosin 1 mg Capsule 2 MG PO (21:15)
[2020-11-25] MEDS: trazodone 50 mg Tablet PO (21:16)
[2020-11-26] MEDS: trazodone 50 mg Tablet PO (01:34)
--- NOTE | 2020-11-26 03:30 | PC.NURSE ---
Patient was given trazodone for sleep, pt responded well
[2020-11-26 06:00] VITALS: BP 118/57; PULSE 59; RESP 18; TEMP 36.8; O2SAT 95
[2020-11-26] MEDS: lamoTRIgine 100 mg Tablet PO (08:02)
[2020-11-26] MEDS: nicotine 21 mg Patch 1 PATCH TRANSDERMA (08:02)
[2020-11-26] MEDS: ARIPiprazole 2 mg Tablet PO (08:02)
[2020-11-26] MEDS: sertraline 50 mg Tablet 150 MG PO (08:02)
[2020-11-26] MEDS: paliperidone ER 6 mg Tablet PO (08:02)
[2020-11-26] MEDS: pantoprazole DR 40 mg Tablet PO (08:02)
[2020-11-26] MEDS: neomycin-poly-bacitracin oint 0.9 gm Pkt 1 APPLIC TOPICAL ×2 (11:08→16:23)
[2020-11-26 14:00] VITALS: BP 98/57; PULSE 80; RESP 17; TEMP 36.3; O2SAT 95
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
[2020-11-26 21:32] VITALS: BP 98/57; PULSE 80; RESP 17; TEMP 36.3; O2SAT 95
== END 2020-11-26 20:00 | disposition left against medical advice (07) | DRG 885 ==
LOC: ER 11-22 00:54 → NP 11-22 05:47
PROVIDERS: Admitting Provider Psychiatry & Neurology Child & Adolescent Psychiatry; Emergency Provider Emergency Medicine; PCP Family Medicine; Visit Provider Psychiatry & Neurology Child & Adolescent Psychiatry
DX: F31.9 Bipolar disorder, unspecified (principal); T42.6X2A Poisoning by other antiepileptic and sedative-hypnotic drugs, intentional self-harm, initial encounter; F43.12 Post-traumatic stress disorder, chronic; F60.3 Borderline personality disorder; R41.83 Borderline intellectual functioning; F17.210 Nicotine dependence, cigarettes, uncomplicated; Z81.8 Family history of other mental and behavioral disorders; Z81.4 Family history of other substance abuse and dependence; Z62.810 Personal history of physical and sexual abuse in childhood; Z53.29 Procedure and treatment not carried out because of patient's decision for other reasons; Z91.51 Personal history of suicidal behavior
CPT/HCPCS: 36415; 80053; 80061; 80306; 80307; 81025; 82550; 83036; 83690; 84146; 85025; 93005; 97150; 97165; 99285; G0378

== ENCOUNTER → 2020-12-21 13:21 | Outpatient (BNVA) | payer BC, MEDICAID, SELFPAY ==
[2020-03-15 14:52] VITALS: BP 114/74; BMI 35.8
== END ==
PROVIDERS: PCP Family Medicine; Visit Provider Nurse Practitioner
DX: F60.3 Borderline personality disorder (principal); F43.12 Post-traumatic stress disorder, chronic; R41.83 Borderline intellectual functioning
CPT/HCPCS: 99214

== ENCOUNTER → 2020-12-22 11:00 | Outpatient (BNVA) | payer BC, SELFPAY ==
[2020-03-15 14:52] VITALS: BP 114/74; BMI 35.8
== END ==
PROVIDERS: PCP Family Medicine; Visit Provider Counselor Professional
DX: F60.3 Borderline personality disorder (principal); R41.83 Borderline intellectual functioning; F43.12 Post-traumatic stress disorder, chronic
CPT/HCPCS: 90834

== ENCOUNTER → 2020-12-26 14:12 | Outpatient (BNVA) | payer BC, MEDICAID, SELFPAY ==
[2020-03-15 14:52] VITALS: BP 114/74; BMI 35.8
== END ==
PROVIDERS: PCP Family Medicine; Visit Provider Nurse Practitioner
DX: F43.10 Post-traumatic stress disorder, unspecified (principal); R41.83 Borderline intellectual functioning; F60.3 Borderline personality disorder; F43.12 Post-traumatic stress disorder, chronic
CPT/HCPCS: 96372; 99214

== ENCOUNTER → 2021-01-02 14:29 | Outpatient (BNVA) | payer BC, MEDICAID, SELFPAY ==
[2020-03-15 14:52] VITALS: BP 114/74; BMI 35.8
== END ==
PROVIDERS: PCP Family Medicine; Visit Provider Nurse Practitioner
DX: F60.3 Borderline personality disorder (principal); F43.12 Post-traumatic stress disorder, chronic; N91.2 Amenorrhea, unspecified; R41.83 Borderline intellectual functioning
CPT/HCPCS: 81025; 96372; 99214

== ENCOUNTER 2021-01-04 22:48 | Emergency (ER) | payer BC, MEDICAID, SELFPAY ==
[2020-03-15 14:52] VITALS: BP 114/74; BMI 35.8
[2021-01-04 22:52] VITALS: BP 137/82; PULSE 91; RESP 18; TEMP 36.7; O2SAT 94; BMI 39.9
--- NOTE | 2021-01-04 22:54 | W.ED.PSYCHS ---
HPI - Psych General: Chief Complaint: Anxiety Stated Complaint: SI Time Seen by Provider: 01/04/21 22:48 Source: patient and EMS Mode of arrival: EMS Limitations: no limitations History of Present Illness: HPI Narrative: 20-year-old female here by EMS for depression she had been drinking with some friends may stay with her friend that she feels like the world and her daughter be better off without her. Patient did echo this to EMS and knee as well. She is adamant though that she not suicidal she informs me that she has no suicidal thoughts no plans to kill herself. She has been admitted in the past and attempts in the past and states she does not like that currently. She did agree to come and get evaluated denies any worsening improving factors. Associated symptoms: Reports depression Review of Systems Const: Denies: fever(s), chills, body aches or change in appetite Eyes: Denies: blurry vision or eye discomfort ENMT: Denies: throat pain or dental pain Card: Denies: chest pain Resp: Denies: dyspnea GI: Denies: abdominal pain, nausea, vomiting or diarrhea : Denies: dysuria Musc: Denies: neck pain or back pain Skin/Breast: Denies: rash Neuro: Denies: headache(s) Psych: Reports: depression Davis/Lymph: Denies: easy bruising All/Imm: Denies: urticaria [facility] PFSH: Medical History (Updated 01/04/21 @ 23:43 by Robson Vallejo MD) Amenorrhea, unspecified Asthma Bipolar disorder Bipolar disorder, unspecified Bipolar disorder, unspecified Bipolar disorder, unspecified Borderline intellectual functioning Borderline personality disorder Depression Hypothyroidism Post-traumatic stress disorder, chronic Psychiatric care PTSD (post-traumatic stress disorder) Schizophrenia Surgical History History of cholecystectomy Family History Mother Bipolar 1 disorder Heart disease Spina bifida Hyperlipidemia Diabetes Brother Hyperlipidemia Social History Smoking and tobacco status: former smoker Quit status (tobacco): has quit using tobacco Second hand smoke exposure: Yes Smoking risk assessment/counseling performed?: Yes Alcohol intake: never Desire information about substance/drug rehabilitation?: No (last smoked around 30 weeks) Marital status: Life Partner Female Reproductive History: Date of last menstrual period: 08/13/20 Physical Exam Const: COMMON NORMALS: no acute distress, patient oriented x3 and healthy appearing HENMT: COMMON NORMALS: normocephalic and atraumatic HEAD & SCALP: normocephalic and atraumatic Eye: COMMON NORMALS: Equal, round and reactive pupils present and EOMs intact bilaterally PUPIL: Yes Equal, round and reactive pupils present Neck/C-Spine: COMMON NORMALS: full ROM and supple Chest: COMMONS NORMALS: normal inspection of the chest and normal palpation of entire chest wall Resp: COMMON NORMALS: normal respiratory effort, No retractions, No use of accessory muscles and clear to auscultation bilaterally AUSCULTATION: clear to auscultation bilaterally Cardio: COMMON NORMALS: regular rate, regular rhythm and No murmurs present (Cardio) RATE: regular rate RHYTHM: regular rhythm GI: COMMON NORMALS: Normal to inspection, nondistended, normoactive bowel sounds present, Soft to palpation, non-tender and no masses PALPATION: Yes Soft to palpation Extremity: COMMON NORMALS: normal to inspection and full ROM Neuro: COMMON NORMALS: patient oriented x3, moves all extremities and no focal motor deficits Psych: COMMON NORMALS: mental status grossly normal, Normal thought process present and cooperative THOUGHT PROCESS: Normal thought process present Skin: COMMON NORMALS: no rashes or lesions noted and no wounds GENERAL SKIN EXAM: no rashes or lesions noted Course Vital Signs: Vital signs: Vital Signs Temperature 98.1 F 01/04/21 22:52 Pulse Rate 91 01/04/21 22:52 Respiratory Rate 18 01/04/21 22:52 Blood Pressure 137/82 01/04/21 22:52 Pulse Oximetry 94 01/04/21 22:52 MDM - Psych MDM Narrative: Medical decision making narrative: Patient presents with depression no acute suicidality believe patient was making statements due to being angry and anxious. Patient valuated by Dr. Samuel who agrees that she is not a threat to herself or others she is stable for discharge she is to follow-up with her counselor and return if worsening or if she has any suicidal thoughts she understands agrees to plan. Discharge Plan Discharge Patient Disposition: Home Clinical Impression: Acute anxiety, Depression Condition: Stable Prescriptions: No Action omeprazole 20 mg capsule,delayed release(DR/EC) 40 mg PO DAILY RF: 0 sertraline 50 mg tablet 150 mg PO DAILY 30 Days Qty: 90 RF: 1 prazosin 2 mg capsule 2 mg PO .HS 30 Days Qty: 30 RF: 1 Lamictal 100 mg tablet 100 mg PO DAILY 30 Days Qty: 30 RF: 1 hydroxyzine HCl 25 mg tablet 25 mg PO BID PRN (Reason: anxiety) 30 Days Qty: 60 RF: 1 Invega Sustenna 156 mg/mL syringe 156 mg IM Q30D Qty: 1 RF: 1 Discharge Orders: Discharge ED (Routine); Ordered 01/04/21 Ordered By: Robson Vallejo Referrals: Torres Marie MD [Primary Care Provider] - Discharge Diet: Advance as tolerated Discharge Activity: Resume usual activity Patient Instructions: Depression (ED) Coding Level of Care Code ED Cut File Clerk for Corinne Ware
[2021-01-05 01:19] VITALS: BP 137/82; PULSE 95; RESP 18; O2SAT 94
== END 2021-01-04 23:15 | disposition home or self-care (01) ==
PROVIDERS: Emergency Provider Emergency Medicine; PCP Family Medicine
DX: R45.851 Suicidal ideations (principal); F41.9 Anxiety disorder, unspecified; F32.A Depression, unspecified; Z87.891 Personal history of nicotine dependence
CPT/HCPCS: 99283; Q3014

== ENCOUNTER → 2021-01-09 11:40 | Outpatient (BNVA) | payer BC, SELFPAY ==
[2020-03-15 14:52] VITALS: BP 114/74; BMI 35.8
== END ==
PROVIDERS: PCP Family Medicine; Visit Provider Counselor Professional
DX: R41.83 Borderline intellectual functioning (principal); F60.3 Borderline personality disorder; F43.12 Post-traumatic stress disorder, chronic; F41.9 Anxiety disorder, unspecified
CPT/HCPCS: 90834

== ENCOUNTER → 2021-02-09 11:59 | Outpatient (BNVA) | payer BC, SELFPAY ==
[2020-03-15 14:52] VITALS: BP 114/74; BMI 35.8
== END ==
PROVIDERS: PCP Family Medicine; Visit Provider Nurse Practitioner
DX: F60.3 Borderline personality disorder (principal); F43.12 Post-traumatic stress disorder, chronic; N91.2 Amenorrhea, unspecified; R41.83 Borderline intellectual functioning
CPT/HCPCS: 96372; 99214

== ENCOUNTER → 2021-03-01 13:30 | Outpatient (BNVA) | payer OTHER, SELFPAY ==
[2020-03-15 14:52] VITALS: BP 114/74; BMI 35.8
== END ==
PROVIDERS: PCP Family Medicine; Visit Provider Nurse Practitioner
DX: F60.3 Borderline personality disorder (principal); Z79.899 Other long term (current) drug therapy
CPT/HCPCS: 80061; 83036

== ENCOUNTER 2021-03-03 22:58 | Emergency (ER) | payer BC, MEDICAID, SELFPAY ==
[2021-03-03 14:26] VITALS: BP 116/77; BMI 35.0
[2021-03-03 23:13] VITALS: BP 113/78; PULSE 99; RESP 16; TEMP 37; O2SAT 97; BMI 36.0
--- NOTE | 2021-03-03 23:27 | ED_ITS ---
HPI - General Adult General: Chief complaint: General Medical Stated complaint: Left Side Face Swollen Time Seen by Provider: 03/03/21 23:16 Source: patient Mode of arrival: ambulatory Limitations: no limitations History of Present Illness: HPI narrative: Patient is a 20-year-old female who presents to ED today with complaint of pain and swelling to the left side of her face following trauma. Patient states yesterday she was struck by a large snowball that she believed had ice in it at very close proximity. Patient states since then she has had significant discomfort and swelling to the left side of her face. She has tried ice, Ibuprofen, and Tylenol without relief of her pain. Onset (ago): hour(s) Location: face Severity scale (1-10): 10 Quality: aching and constant Pain Consistency: constant Relieving factors: none Exacerbating factors: none Associated symptoms: Reports no associated symptoms; Deny headache(s), malaise, nausea or vomiting Treatments prior to arrival: NSAID and cold therapy Review of Systems Const: Denies: fever(s), chills, body aches, fatigue or malaise Eyes: Denies: change in vision, blurry vision, blind spots, photophobia or eye discharge ENMT: Reports: sinus pain; Denies: dental pain, ear or mastoid pain, nasal discharge or epistaxis GI: Denies: nausea or vomiting Musc: Denies: neck pain Neuro: Denies: headache(s) PFS ED PFSH: Medical History (Updated 03/04/21 @ 00:04 by MARIELA Wells) Amenorrhea, unspecified Asthma Bipolar disorder Bipolar disorder, unspecified Bipolar disorder, unspecified Bipolar disorder, unspecified Borderline intellectual functioning Borderline personality disorder Depression Hypothyroidism Post-traumatic stress disorder, chronic Psychiatric care PTSD (post-traumatic stress disorder) Schizophrenia Surgical History History of cholecystectomy Family History Mother Bipolar 1 disorder Heart disease Spina bifida Hyperlipidemia Diabetes Brother Hyperlipidemia Social History (Updated 03/01/21 @ 12:17 by Janet Bonilla LPN) Smoking and tobacco status: current every day smoker cigarettes Packs smoked per day: 1 Years cigarettes smoked: 1.5 Quit status (tobacco): has tried quititng Number of times tried to quit tobacco: 2 Second hand smoke exposure: Yes Smoking risk assessment/counseling performed?: Yes Alcohol intake: never Adopted: No Caregiver/support person: No Lives independently: No Household members: other Details: Mom, Step-Dad, Sister, Brother Housing: Manufactured/Mobile home Marital status: Single Number of children: 1 Highest education level completed: High School Graduate service: No Current occupational status: disabled Current occupational exposures/hazards: No Pets and animals: Yes Pets & animals: dog(s) History of recent travel: No Leisure activites: other Leisure activities details: hang out with friends, watch tv, listen to music Sexually active: No Current gender identity: Male Anabel/Holiness: None Special anabel needs: No Financial difficulty paying for basics: Not Very Hard Female Reproductive History: Date of last menstrual period: 03/01/21 Physical Exam Const: COMMON NORMALS: no acute distress, patient oriented x3, no limitations and alert NUTRITIONAL APPEARANCE: obese ORIENTATION/CONSCIOUSNESS: Yes steve ke, Yes oriented to person, Yes oriented to place and Yes oriented to time HENMT: COMMON NORMALS: normocephalic and atraumatic HEAD & SCALP: normal to inspection, normocephalic and atraumatic FACE & SINUS: other (TTP throughout L maxillary/mandibular region; swelling noted) OTHER: pts pain seems out of proportion for her mechanism of injury; she is not very cooperative with exam ination; no bony deformity or facial crepitus noted Eye: COMMON NORMALS: Equal, round and reactive pupils present and EOMs intact bilaterally GENERAL EYE: appearance normal, both eyes and all related structures PUPIL: Yes Equal, round and reactive pupils present Neck/C-Spine: COMMON NORMALS: full ROM CERVICAL SPINE: Yes cervical ROM normal, No pain with cervical ROM and No Cervical spine tenderness Neuro: COMMON NORMALS: patient oriented x3 SENSORIUM/ORIENTATION: Yes alert, Yes oriented to person, Yes oriented to place and Yes oriented to time Skin: TRAUMA: no lacerations or abrasions Course Vital Signs: Vital signs: Vital Signs Temperature 98.6 F 03/03/21 23:13 Pulse Rate 99 03/03/21 23:13 Respiratory Rate 16 03/03/21 23:13 Blood Pressure 113/78 03/03/21 23:13 Pulse Oximetry 97 03/03/21 23:13 [facility] - General Adult Imaging Data^: CT facial: Radiologist's impression: [address] [place] [address] CT Scan Report Signed Patient: Heidy aMcias Unit #: [id number] : 2000 Age/Sex: 20 / F ADM Date: 03/03/21 Loc: ER Room/Bed: Attending Dr: Ordering Provider/Ordering MD: Charmaine Vann Date of Service: 03/03/21 Procedure(s): CT facial bones wo con* [id number] Accession Number(s): [id number] Report Number: [id number] PROCEDURE INFORMATION: Exam: CT Maxillofacial Without Contrast Exam date and time: 03/03/2021 11:27 PM Age: 20 years old Clinical indication: Injury or trauma; Blunt trauma (contusions or hematomas); Patient HX: Patient was involved in snow ball fight yesterday and sustained a snowball to left side of face. Presents to er this evening with swelling to left maxillary/mandibular region. Patient appears to be having minor difficulty speaking due to swelling. ; Additional info: L maxillary/mandibular trauma TECHNIQUE: Imaging protocol: Computed tomography images of the face without contrast. Radiation optimization: All CT scans at this facility use at least one of these dose optimization techniques: automated exposure control; mA and/or kV adjustment per patient size (includes targeted exams where dose is matched to clinical indication); or iterative reconstruction. COMPARISON: No relevant prior studies available. RADIATION DOSE METRICS: Total DLP (mGy-cm): 693.78 FINDINGS: Orbital cavity: Orbits are normal. Globes are unremarkable. Bones/joints: No acute fracture. Paranasal sinuses: Odontogenic left maxillary sinusitis. Soft tissues: Left cheek fat stranding and swelling, presumably contusion from recent trauma. Dental: Left maxillary canine periapical lucency. CT/CT facial bones wo con* [id number] IMPRESSION: 1. Left cheek fat stranding and swelling, presumably contusion from recent trauma. 2. Dental disease. Dictated By: Matthew Kent MD Signed By: Matthew Kent MD Signed Date/Time: 03/03/21 6294 DD/ [id number] Discharge Plan Discharge Patient Disposition: Home Clinical Impression: Contusion of face Qualifiers: Encounter type: initial encounter Qualified Code(s): S00.83XA - Contusion of other part of head, initial encounter Condition: Stable Prescriptions: No Action hydroxyzine HCl 25 mg tablet 25 mg PO BID PRN (Reason: anxiety) 30 Days Qty: 60 RF: 1 Lamictal 100 mg tablet 100 mg PO DAILY 30 Days Qty: 30 RF: 1 prazosin 2 mg capsule 2 mg PO .HS 30 Days Qty: 30 RF: 1 Invega Sustenna 156 mg/mL syringe 156 mg IM Q30D Qty: 1 RF: 1 sertraline 50 mg tablet 150 mg PO DAILY 30 Days Qty: 90 RF: 1 aripiprazole [Abilify] 2 mg tablet 2 mg PO DAILY Qty: 30 RF: 1 albuterol sulfate 90 mcg/actuation HFA aerosol inhaler 2 puff inhalation Q6H PRNRF: 0 omeprazole 20 mg capsule,delayed release(DR/EC) 40 mg PO DAILY RF: 0 Discharge Orders: Discharge ED (Routine); Ordered 03/04/21 Ordered By: Charmaine Vann Referrals: Torres Marie MD [Primary Care Provider] - Coding Level of Care Code ED Sheet Metal Pattern Cutter for Corinne Ware
== END 2021-03-04 00:13 | disposition home or self-care (01) ==
PROVIDERS: Emergency Provider Physician Assistant; PCP Family Medicine
DX: S00.83XA Contusion of other part of head, initial encounter (principal); W20.8XXA Other cause of strike by thrown, projected or falling object, initial encounter; Y93.29 Activity, other involving ice and snow; F17.210 Nicotine dependence, cigarettes, uncomplicated
CPT/HCPCS: 70486; 99282

== ENCOUNTER → 2021-03-06 13:37 | Outpatient (BNVA) | payer BC, SELFPAY ==
[2021-03-03 14:26] VITALS: BP 116/77; BMI 35.0
== END ==
PROVIDERS: PCP Family Medicine; Visit Provider Counselor Professional
DX: F43.12 Post-traumatic stress disorder, chronic (principal); R41.83 Borderline intellectual functioning; F60.3 Borderline personality disorder
CPT/HCPCS: 90834

== ENCOUNTER → 2021-03-13 13:29 | Outpatient (BNVA) | payer BC, SELFPAY ==
[2021-03-03 14:26] VITALS: BP 116/77; BMI 35.0
== END ==
PROVIDERS: PCP Family Medicine; Visit Provider Nurse Practitioner
DX: F60.3 Borderline personality disorder (principal); F43.12 Post-traumatic stress disorder, chronic; R41.83 Borderline intellectual functioning
CPT/HCPCS: 99214

== ENCOUNTER → 2021-03-14 13:34 | Outpatient (BNVA) | payer BC, SELFPAY ==
[2021-03-03 14:26] VITALS: BP 116/77; BMI 35.0
== END ==
PROVIDERS: PCP Family Medicine; Visit Provider Counselor Professional
DX: F43.12 Post-traumatic stress disorder, chronic (principal); R41.83 Borderline intellectual functioning; G60.3 Idiopathic progressive neuropathy
CPT/HCPCS: 90832

== ENCOUNTER → 2021-03-21 08:00 | Outpatient (BNVA) | payer BC, SELFPAY ==
[2021-03-03 14:26] VITALS: BP 116/77; BMI 35.0
== END ==
PROVIDERS: PCP Family Medicine; Visit Provider Counselor Professional
DX: F43.12 Post-traumatic stress disorder, chronic (principal); F60.3 Borderline personality disorder
CPT/HCPCS: 90832

== ENCOUNTER → 2021-04-17 13:46 | Outpatient (BNVA) | payer BC, SELFPAY | PROVIDERS: PCP Family Medicine; Visit Provider Nurse Practitioner | DX: F60.3 Borderline personality disorder (principal); F43.12 Post-traumatic stress disorder, chronic; R41.83 Borderline intellectual functioning | CPT/HCPCS: 99214 ==

== ENCOUNTER → 2021-05-11 13:21 | Outpatient (BNVA) | payer BC, SELFPAY | PROVIDERS: PCP Family Medicine; Visit Provider Nurse Practitioner | DX: F60.3 Borderline personality disorder (principal); F43.12 Post-traumatic stress disorder, chronic | CPT/HCPCS: 96372; 99214 ==

== ENCOUNTER → 2021-06-13 14:58 | Outpatient (BNVA) | payer BC, SELFPAY | PROVIDERS: PCP Family Medicine; Visit Provider Nurse Practitioner | DX: F60.3 Borderline personality disorder (principal); F43.12 Post-traumatic stress disorder, chronic | CPT/HCPCS: 96372; 99214 ==

== ENCOUNTER 2021-06-19 01:53 | Emergency (ER) | payer MEDICAID, SELFPAY ==
[2021-06-19 01:54] VITALS: BP 113/87; PULSE 89; RESP 21; TEMP 36.4; O2SAT 97; BMI 39.5
--- NOTE | 2021-06-19 02:13 | W.ED.GENADLT ---
Documented by User: RULA Becerril 06/19/21 02:29 HPI - General Adult General: Chief complaint: Altered Mental Status Stated complaint: AMS Time Seen by Provider: 06/19/21 02:04 History of Present Illness: Arrives via ambulance with possibility of altered mental status. Patient went to her boyfriend jcarlos for the first time and I guess they had a drink or 2 possibly and then patient said she was unable to move. Can move her body at all as per her. She had decreased respirations when ambulance picked her up and she did not respond to sternal rub. They gave milligram of Narcan and she perked up. Then she started having respiration go down to give another milligram of Narcan and patient was alert since then. Patient states to me that she said by her whole body felt paralyzed and that she could not move for a while. But now she is doing much better. Associated symptoms: Deny chest pain, dyspnea, headache(s), nausea, rash or vomiting Review of Systems Narrative: Patient said that she can move her body for a while. She did not have any difficulty breathing. Ambulance crew said that that she responded to Narcan. And that her respiratory rates were slow when they had arrived and she got really did not respond to sternal rub Const: Denies: fever(s), chills or body aches Eyes: Denies: eye discomfort ENMT: Denies: throat pain Card: Denies: chest pain Resp: Denies: dyspnea GI: Denies: abdominal pain, nausea or vomiting Skin/Breast: Denies: rash Neuro: Denies: headache(s) Psych: Denies: depression or suicidal ideation [facility] ED PFSH: Medical History (Updated 06/19/21 @ 04:00 by Faizan Vernon DO) Amenorrhea, unspecified Asthma Bipolar disorder Bipolar disorder, unspecified Bipolar disorder, unspecified Bipolar disorder, unspecified Borderline intellectual functioning Borderline personality disorder Depression Hypothyroidism Post-traumatic stress disorder, chronic Psychiatric care PTSD (post-traumatic stress disorder) Schizophrenia Surgical History History of cholecystectomy Family History Mother Bipolar 1 disorder Heart disease Spina bifida Hyperlipidemia Diabetes Brother Hyperlipidemia Social History (Updated 03/01/21 @ 12:17 by Janet Bonilla LPN) Smoking and tobacco status: current every day smoker cigarettes Packs smoked per day: 1 Years cigarettes smoked: 1.5 Quit status (tobacco): has tried quititng Number of times tried to quit tobacco: 2 Second hand smoke exposure: Yes Smoking risk assessment/counseling performed?: Yes Alcohol intake: never Adopted: No Caregiver/support person: No Lives independently: No Household members: other Details: Mom, Step-Dad, Sister, Brother Housing: Manufactured/Mobile home Marital status: Single Number of children: 1 Highest education level completed: High School Graduate service: No Current occupational status: disabled Current occupational exposures/hazards: No Pets and animals: Yes Pets & animals: dog(s) History of recent travel: No Leisure activites: other Leisure activities details: hang out with friends, watch tv, listen to music Sexually active: No Current gender identity: Male Anabel/Mormon: None Special anabel needs: No Financial difficulty paying for basics: Not Very Hard Female Reproductive History: Date of last menstrual period: 03/01/21 Physical Exam Narrative: EXAM NARRATIVE: I said the patient required straight cath get a urine sample. Patient said she will be able to ambulate and sit on a bia potty to get sample for us. Const: COMMON NORMALS: no acute distress, patient oriented x3 and alert HENMT: COMMON NORMALS: normocephalic and external ears normal HEAD & SCALP: normocephalic EXTERNAL EAR: Yes external ears normal Eye: COMMON NORMALS: EOMs intact bilaterally Neck/C-Spine: COMMON NORMALS: no JVD Resp: COMMON NORMALS: normal respiratory effort and No use of accessory muscles Cardio: COMMON NORMALS: no JVD GI: INSPECTION: Yes normal to inspection Extremity: COMMON NORMALS: normal to inspection and full ROM Neuro: COMMON NORMALS: patient oriented x3 SENSORIUM/ORIENTATION: Yes alert SPEECH: speech normal OTHER: Patient is turning head with purposeful movements. He is able lift her head off the bed. She has good reflexes. Drop hand test over the face was positive for personal movement. Psych: COMMON NORMALS: mental status grossly normal Skin: COMMON NORMALS: no rashes or lesions noted GENERAL SKIN EXAM: no rashes or lesions noted Course Vital Signs: Vital signs: Vital Signs Temperature 97.6 F 04/25/22 01:54 Pulse Rate 89 06/19/21 01:54 Respiratory Rate 21 H 06/19/21 01:54 Blood Pressure 113/87 06/19/21 01:54 Pulse Oximetry 97 06/19/21 01:54 MDM - General Adult Medical Decision Making Patient was reported to be unresponsive to painful stimuli at her boyfriend's place tonight. Patient did did receive 2 mg of Narcan in route and patient became more alert patient is very alert here and was able to ambulate to bedside commode. Patient said she has a history of panic attacks and maybe that is what happened. She denies any use of drugs. Patient is moving the bed and talking without difficulty. Lab Data : 06/19/21 00:59 06/19/21 00:59 Laboratory Results WBC 7.9 10^3/uL (4.5-13.0) 06/19/21 00:59 RBC 5.05 10^6/uL (4.1-5.3) 06/19/21 00:59 Hgb 14.1 g/dL (11.5-15.3) 06/19/21 00:59 Hct 42.4 % (37.0-47.0) 06/19/21 00:59 MCV 84.0 fl (81-99) 06/19/21 00:59 MCH 27.9 pg (28.0-34.0) L 06/19/21 00:59 MCHC 33.3 g/dL (30.0-36.0) 06/19/21 00:59 RDW 12.7 % (12.1-15.1) 06/19/21 00:59 Plt Count 233 10^3/cmm (130-400) 06/19/21 00:59 MPV 10.5 fL (7.4-10.4) H 06/19/21 00:59 Neut % (Auto) 55.3 % 06/19/21 00:59 Lymph % (Auto) 33.5 % 06/19/21 00:59 [place] % (Auto) 6.4 % 06/19/21 00:59 Eos % (Auto) 3.6 % 06/19/21 00:59 Baso % (Auto) 0.8 % 06/19/21 00:59 Neut # (Auto) 4.36 10^3/uL (1.8-8.0) 06/19/21 00:59 Lymph # (Auto) 2.6 10^3/uL (1.5-6.5) 06/19/21 00:59 [place] # (Auto) 0.5 10^3/uL (0.2-0.9) 06/19/21 00:59 Eos # (Auto) 0.3 10^3/uL (0.0-0.8) 06/19/21 00:59 Baso # (Auto) 0.1 10^3/uL (0.0-0.1) 06/19/21 00:59 Nucleated RBC % (auto) 0 % 06/19/21 00:59 Nucleated RBCs # 0.0 /100WBC 06/19/21 00:59 Sodium 138 mmol/L (136-145) 06/19/21 00:59 Potassium 3.5 mmol/L (3.5-5.1) 06/19/21 00:59 Chloride 100 mmol/L (98-107) 06/19/21 00:59 Carbon Dioxide 24 mmol/L (22-29) 06/19/21 00:59 Anion Gap 17.5 (5-19) 06/19/21 00:59 BUN 10 mg/dL (6-20) 06/19/21 00:59 Creatinine 0.5 mg/dL (0.5-0.9) 06/19/21 00:59 GFR Calculation 157.3 mL/min (90-130) H 06/19/21 00:59 Glucose 90 mg/dL (65-115) 06/19/21 00:59 Calculated Osmolality 285 mOsm/kg (285-295) 06/19/21 00:59 Calcium 8.6 mg/dL (8.5-10.5) 06/19/21 00:59 Urine Color Yellow (Yellow) 06/19/21 02:20 Urine Appearance Clear (CLEAR) 06/19/21 02:20 Urine pH 6.5 (5-7) 06/19/21 02:20 Ur Specific [place] 1.005 (1.005-1.030) 06/19/21 02:20 Urine Protein Neg (Negative) 06/19/21 02:20 Urine Glucose (UA) Norm (Normal) 06/19/21 02:20 Urine Ketones Negative (Negative) 06/19/21 02:20 Urine Blood Neg (Negative) 06/19/21 02:20 Urine Nitrate Negative (Negative) 06/19/21 02:20 Urine Bilirubin Neg (Negative) 06/19/21 02:20 Urine Urobilinogen Norm mg/dL (Negative) 06/19/21 02:20 Ur Leukocyte Esterase Negative (Negative) 06/19/21 02:20 Urine HCG, Qual Negative (Negative) 06/19/21 02:20 Urine Opiates Screen Negative ng/mL (Negative) 06/19/21 02:20 Ur Barbiturates Screen Negative ng/mL (Negative) 06/19/21 02:20 Ur Phencyclidine Scrn Negative ng/mL (Negative) 06/19/21 02:20 Ur Amphetamines Screen Negative ng/mL (Negative) 06/19/21 02:20 U Benzodiazepines Scrn Negative ng/mL (Negative) 06/19/21 02:20 Urine Cocaine Screen Negative ng/mL (Negative) 06/19/21 02:20 U Marijuana (THC) Screen Negative ng/mL (Negative) 06/19/21 02:20 Ethyl Alcohol < 10 mg/dL (0-10) 06/19/21 00:59 Discharge Plan Discharge Patient Disposition: Home Clinical Impression: Acute alteration in mental status Condition: Stable Prescriptions: No Action albuterol sulfate 90 mcg/actuation HFA aerosol inhaler 2 puff inhalation Q6H PRN0RF omeprazole 20 mg capsule,delayed release(DR/EC) 40 mg PO DAILY 0RF Label Comments: aripiprazole [Abilify] 2 mg tablet 2 mg PO DAILY Qty: 30 1RF hydroxyzine HCl 25 mg tablet 25 mg PO BID PRN (Reason: anxiety) 30 Days Qty: 60 1RF Lamictal 100 mg tablet 100 mg PO DAILY 30 Days Qty: 30 1RF paliperidone [Invega] 3 mg tablet extended release 24hr 3 mg PO QAM Qty: 7 1RF Rx Instructions: 1 tab daily as needed the week before her injection is due. Invega Sustenna 156 mg/mL syringe 156 mg IM Q30D Qty: 1 1RF sertraline 50 mg tablet 150 mg PO DAILY 30 Days Qty: 90 1RF prazosin 2 mg capsule 2 mg PO .HS 30 Days Qty: 30 1RF Discharge Orders: Discharge ED (Routine); Ordered 06/19/21 Ordered By: Faizan Vernon Referrals: Torres Marie MD [Primary Care Provider] - 4-7 days Patient Instructions: Opioid Safety Activity Restrictions/Additional Instructions: Return for worsening mental status, weakness, chest discomfort, any other concerning symptoms. Coding Level of Care Code ED Clinical Data Associate for Chg Fwd Exam Comprehensive Documented by User: Faizan Vernon DO 06/19/21 04:01 HPI - General Adult General: Chief complaint: Altered Mental Status Stated complaint: AMS Time Seen by Provider: 06/19/21 02:04 PFSH ED PFSH: Medical History (Updated 06/19/21 @ 04:00 by Faizan Vernon DO) Amenorrhea, unspecified Asthma Bipolar disorder Bipolar disorder, unspecified Bipolar disorder, unspecified Bipolar disorder, unspecified Borderline intellectual functioning Borderline personality disorder Depression Hypothyroidism Post-traumatic stress disorder, chronic Psychiatric care PTSD (post-traumatic stress disorder) Schizophrenia Surgical History History of cholecystectomy Family History Mother Bipolar 1 disorder Heart disease Spina bifida Hyperlipidemia Diabetes Brother Hyperlipidemia Social History (Updated 03/01/21 @ 12:17 by Janet Bonilla LPN) Smoking and tobacco status: current every day smoker cigarettes Packs smoked per day: 1 Years cigarettes smoked: 1.5 Quit status (tobacco): has tried quititng Number of times tried to quit tobacco: 2 Second hand smoke exposure: Yes Smoking risk assessment/counseling performed?: Yes Alcohol intake: never Adopted: No Caregiver/support person: No Lives independently: No Household members: other Details: Mom, Step-Dad, Sister, Brother Housing: Manufactured/Mobile home Marital status: Single Number of children: 1 Highest education level completed: High School Graduate service: No Current occupational status: disabled Current occupational exposures/hazards: No Pets and animals: Yes Pets & animals: dog(s) History of recent travel: No Leisure activites: other Leisure activities details: hang out with friends, watch tv, listen to music Sexually active: No Current gender identity: Male Anabel/Mormon: None Special anabel needs: No Financial difficulty paying for basics: Not Very Hard Course Vital Signs: Vital signs: Vital Signs Temperature 97.6 F 06/19/21 01:54 Pulse Rate 89 06/19/21 01:54 Respiratory Rate 21 H 06/19/21 01:54 Blood Pressure 113/87 06/19/21 01:54 Pulse Oximetry 97 06/19/21 01:54 MDM - General Adult Medical Decision Making Patient was reported to be unresponsive to painful stimuli at her boyfriend's place tonight. Patient did did receive 2 mg of Narcan in route and patient became more alert patient is very alert here and was able to ambulate to bedside commode. Patient said she has a history of panic attacks and maybe that is what happened. She denies any use of drugs. Patient is moving the bed and talking without difficulty. 20-year-old female checked out to me by RULA Alcantar. I agree with his history, evaluation, and treatment. This young lady has walked in the ER. She seems fully recovered. Laboratory is essentially normal. No signs of intoxication. She will be allowed discharge. Lab Data : 06/19/21 00:59 06/19/21 00:59 Laboratory Results WBC 7.9 10^3/uL (4.5-13.0) 06/19/21 00:59 RBC 5.05 10^6/uL (4.1-5.3) 06/19/21 00:59 Hgb 14.1 g/dL (11.5-15.3) 06/19/21 00:59 Hct 42.4 % (37.0-47.0) 06/19/21 00:59 MCV 84.0 fl (81-99) 06/19/21 00:59 MCH 27.9 pg (28.0-34.0) L 06/19/21 00:59 MCHC 33.3 g/dL (30.0-36.0) 06/19/21 00:59 RDW 12.7 % (12.1-15.1) 06/19/21 00:59 Plt Count 233 10^3/cmm (130-400) 06/19/21 00:59 MPV 10.5 fL (7.4-10.4) H 06/19/21 00:59 Neut % (Auto) 55.3 % 06/19/21 00:59 Lymph % (Auto) 33.5 % 06/19/21 00:59 [place] % (Auto) 6.4 % 06/19/21 00:59 Eos % (Auto) 3.6 % 06/19/21 00:59 Baso % (Auto) 0.8 % 06/19/21 00:59 Neut # (Auto) 4.36 10^3/uL (1.8-8.0) 06/19/21 00:59 Lymph # (Auto) 2.6 10^3/uL (1.5-6.5) 06/19/21 00:59 [place] # (Auto) 0.5 10^3/uL (0.2-0.9) 06/19/21 00:59 Eos # (Auto) 0.3 10^3/uL (0.0-0.8) 06/19/21 00:59 Baso # (Auto) 0.1 10^3/uL (0.0-0.1) 06/19/21 00:59 Nucleated RBC % (auto) 0 % 06/19/21 00:59 Nucleated RBCs # 0.0 /100WBC 06/19/21 00:59 Sodium 138 mmol/L (136-145) 06/19/21 00:59 Potassium 3.5 mmol/L (3.5-5.1) 06/19/21 00:59 Chloride 100 mmol/L (98-107) 06/19/21 00:59 Carbon Dioxide 24 mmol/L (22-29) 06/19/21 00:59 Anion Gap 17.5 (5-19) 06/19/21 00:59 BUN 10 mg/dL (6-20) 06/19/21 00:59 Creatinine 0.5 mg/dL (0.5-0.9) 06/19/21 00:59 GFR Calculation 157.3 mL/min (90-130) H 06/19/21 00:59 Glucose 90 mg/dL (65-115) 06/19/21 00:59 Calculated Osmolality 285 mOsm/kg (285-295) 06/19/21 00:59 Calcium 8.6 mg/dL (8.5-10.5) 06/19/21 00:59 Urine Color Yellow (Yellow) 06/19/21 02:20 Urine Appearance Clear (CLEAR) 06/19/21 02:20 Urine pH 6.5 (5-7) 06/19/21 02:20 Ur Specific [place] 1.005 (1.005-1.030) 06/19/21 02:20 Urine Protein Neg (Negative) 06/19/21 02:20 Urine Glucose (UA) Norm (Normal) 06/19/21 02:20 Urine Ketones Negative (Negative) 06/19/21 02:20 Urine Blood Neg (Negative) 06/19/21 02:20 Urine Nitrate Negative (Negative) 06/19/21 02:20 Urine Bilirubin Neg (Negative) 06/19/21 02:20 Urine Urobilinogen Norm mg/dL (Negative) 06/19/21 02:20 Ur Leukocyte Esterase Negative (Negative) 06/19/21 02:20 Urine HCG, Qual Negative (Negative) 06/19/21 02:20 Urine Opiates Screen Negative ng/mL (Negative) 06/19/21 02:20 Ur Barbiturates Screen Negative ng/mL (Negative) 06/19/21 02:20 Ur Phencyclidine Scrn Negative ng/mL (Negative) 06/19/21 02:20 Ur Amphetamines Screen Negative ng/mL (Negative) 06/19/21 02:20 U Benzodiazepines Scrn Negative ng/mL (Negative) 06/19/21 02:20 Urine Cocaine Screen Negative ng/mL (Negative) 06/19/21 02:20 U Marijuana (THC) Screen Negative ng/mL (Negative) 06/19/21 02:20 Ethyl Alcohol < 10 mg/dL (0-10) 06/19/21 00:59 Discharge Plan Discharge Patient Disposition: Home Clinical Impression: Acute alteration in mental status Condition: Stable Prescriptions: No Action albuterol sulfate 90 mcg/actuation HFA aerosol inhaler 2 puff inhalation Q6H PRN0RF omeprazole 20 mg capsule,delayed release(DR/EC) 40 mg PO DAILY 0RF Label Comments: aripiprazole [Abilify] 2 mg tablet 2 mg PO DAILY Qty: 30 1RF hydroxyzine HCl 25 mg tablet 25 mg PO BID PRN (Reason: anxiety) 30 Days Qty: 60 1RF Lamictal 100 mg tablet 100 mg PO DAILY 30 Days Qty: 30 1RF paliperidone [Invega] 3 mg tablet extended release 24hr 3 mg PO QAM Qty: 7 1RF Rx Instructions: 1 tab daily as needed the week before her injection is due. Invega Sustenna 156 mg/mL syringe 156 mg IM Q30D Qty: 1 1RF sertraline 50 mg tablet 150 mg PO DAILY 30 Days Qty: 90 1RF prazosin 2 mg capsule 2 mg PO .HS 30 Days Qty: 30 1RF Discharge Orders: Discharge ED (Routine); Ordered 06/19/21 Ordered By: Faizan Vernon Referrals: Torres Marie MD [Primary Care Provider] - 4-7 days Patient Instructions: Opioid Safety Activity Restrictions/Additional Instructions: Return for worsening mental status, weakness, chest discomfort, any other concerning symptoms. Coding Level of Care Code ED Clinical Data Associate for Corinne Fwjohn Exam Comprehensive
[2021-06-19 02:29] LABS: Add Urine Microscopic? NO; Charge for UA Resulting for Rev
[2021-06-19 02:35] LABS: Bilirubin Urine Neg (Negative); Blood Urine Neg (Negative); Glucose Urine UA Norm (Normal); Ketones Urine Negative (Negative); Leukocyte Esterase Urine Negative (Negative); Nitrate Urine Negative (Negative); Protein Urine Neg (Negative); Specific Gravity, Urine 1.005 (1.005-1.030); Urine Appearance Clear (CLEAR); Urine Color Yellow (Yellow); Urobilinogen Urine Norm (Negative); pH Urine 6.5 (5-7)
[2021-06-19 02:37] LABS: Basophils # 0.1 10^3/uL (0.0-0.1); Basophils % 0.8 %; Eosinophils # 0.3 10^3/uL (0.0-0.8); Eosinophils % 3.6 %; Hematocrit 42.4 % (37.0-47.0); Hemoglobin 14.1 g/dL (11.5-15.3); Lymphocytes # 2.6 10^3/uL (1.5-6.5); Lymphocytes % 33.5 %; Mean Corpuscular HGB Conc 33.3 g/dL (30.0-36.0); Mean Corpuscular Hemoglobin 27.9 pg (28.0-34.0); Mean Platelet Volume 10.5 fL (7.4-10.4); Monocytes # 0.5 10^3/uL (0.2-0.9); Monocytes % 6.4 %; Neutrophils # 4.36 10^3/uL (1.8-8.0); Neutrophils % 55.3 %; Nucleated Red Blood Cells % 0 %; Platelet Count 233 10^3/cmm (130-400); Red Blood Count 5.05 10^6/uL (4.1-5.3); Red Cell Distribution Width 12.7 % (12.1-15.1); White Blood Count 7.9 10^3/uL (4.5-13.0)
[2021-06-19 02:40] LABS: Amphetamines Screen Urine Negative (Negative); Barbiturates Screen Urine Negative (Negative); Benzodiazepines Screen Urine Negative (Negative); Cocaine Screen Urine Negative (Negative); Opiate Screen Urine Negative (Negative); PCP Screen Urine Negative (Negative); THC Screen Urine Negative (Negative)
[2021-06-19 03:04] LABS: Anion Gap 17.5 (5-19); Blood Urea Nitrogen 10 mg/dL (6-20); Calcium 8.6 mg/dL (8.5-10.5); Carbon Dioxide 24 mmol/L (22-29); Chloride 100 mmol/L (98-107); Glomerular Filtration Rate 157.3 mL/min (90-130); Glucose 90 mg/dL (65-115); Osmolality Calculated 285 mOsm/kg (285-295); Potassium 3.5 mmol/L (3.5-5.1); Sodium 138 mmol/L (136-145)
[2021-06-19 03:09] LABS: Alcohol Level < 10 mg/dL (0-10)
[2021-06-19 04:43] VITALS: BP 133/85; PULSE 86; RESP 17; O2SAT 97
== END 2021-06-19 04:24 | disposition home or self-care (01) ==
PROVIDERS: Nurse Practitioner Family; Emergency Provider Emergency Medicine; PCP Family Medicine
DX: R41.82 Altered mental status, unspecified (principal); F17.210 Nicotine dependence, cigarettes, uncomplicated; Z79.51 Long term (current) use of inhaled steroids
CPT/HCPCS: 80048; 80306; 80307; 81003; 81025; 85025; 99283

== ENCOUNTER 2021-06-21 14:17 | Emergency (ER) | payer MEDICAID, SELFPAY ==
[2021-06-21 14:24] VITALS: BP 123/84; PULSE 104; RESP 16; TEMP 35.9; O2SAT 99
--- NOTE | 2021-06-21 15:17 | ECG_ITS ---
[facility] Test Date: 2021-06-21 Pat Name: Heidy Macias Department: Room: Gender: Female Clam Grower: : 2000 Requested By: Pedro Norman Order Number: [id number] Chantale MD: Benny Mcbride M.D. Measurements Intervals [place] Rate: 88 P: 44 DC: 149 QRS: 61 QRSD: 90 T: 21 QT: 339 QTc: 411 Interpretive Statements SINUS RHYTHM POSSIBLE LEFT ATRIAL ENLARGEMENT [-0.1mV P-WAVE IN V1/V2] Compared to ECG 11/21/2020 22:36:28 No significant changes Electronically Signed On 06-21-2021 16:57:14 CDT by Benny Mcbride M.D. [id number]
--- NOTE | 2021-06-21 15:17 | XR_ITS ---
WS: [id number] Portable AP upright chest, 06/21/2021 Clinical Data: chest pain Comparison: Portable chest, 02/08/2019. Findings: No nodules, masses or effusions are seen. The heart is normal. The pulmonary vascularity is not increased. No pneumonia or pneumothorax is seen. Monitor leads are on the chest wall. XR/XR chest 1V portable [id number] Impression: Negative chest.
--- NOTE | 2021-06-21 15:19 | CTR_ITS ---
PROCEDURE INFORMATION: Exam: CTA Chest With Contrast Exam date and time: 06/21/2021 4:53 PM Age: 20 years old Clinical indication: Shortness of breath; Additional info: Eval for pe TECHNIQUE: Imaging protocol: Computed tomographic angiography of the chest with contrast. 3D rendering (Not supervised by radiologist): MIP and/or 3D reconstructed images were created by the technologist. Radiation optimization: All CT scans at this facility use at least one of these dose optimization techniques: automated exposure control; mA and/or kV adjustment per patient size (includes targeted exams where dose is matched to clinical indication); or iterative reconstruction. Contrast material: OMNI 350; Contrast volume: 97 ml; Contrast route: INTRAVENOUS (IV); COMPARISON: CR XR chest 1V portable [id number] 06/21/2021 3:47 PM RADIATION DOSE METRICS: Total DLP (mGy-cm): 558.67 FINDINGS: Pulmonary arteries: Normal. No pulmonary emboli. Aorta: Unremarkable. No aortic aneurysm. No aortic dissection. Lungs: Unremarkable. No consolidation. No masses. Pleural spaces: Unremarkable. No pneumothorax. No pleural effusion. Heart: Unremarkable. No cardiomegaly. No pericardial effusion. Lymph nodes: Several prominent subcentimeter short axis mediastinal lymph nodes, nonspecific. Spleen: Spleen enlarged to at least 15 cm. Bones/joints: Unremarkable. No acute fracture. Soft tissues: Unremarkable. CT/CT angio chest PE protcl [id number] IMPRESSION: 1. Negative for pulmonary embolus or airspace infiltrate. 2. Several prominent subcentimeter short axis mediastinal lymph nodes, nonspecific. 3. Spleen enlarged to at least 15 cm.
[2021-06-21 15:20] VITALS: BP 125/79; PULSE 69; RESP 18; O2SAT 97
[2021-06-21 15:30] VITALS: BP 125/79; O2SAT 93
--- NOTE | 2021-06-21 15:32 | W.ED.GENADLT ---
HPI - General Adult General: Chief complaint: General Medical Stated complaint: DDimer levels high chest pains Time Seen by Provider: 06/21/21 15:19 Source: patient Mode of arrival: ambulatory Limitations: no limitations History of Present Illness: 20-year-old female presents emergency room with complaint of elevated D-dimer with chest pain and shortness of breath. 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 At that time she was brought in unresponsive but she did responded to Narcan when given by EMS in route. Here she was evaluated and there were no significant findings she was awake alert walking active and she was discharged home she follow-up with her primary care doctor who evidently had done a D-dimer. D-dimer was noted to be elevated I do not have the result available at this time patient was directed to the emergency room she is complaining some vague chest discomfort and occasional shortness of breath. She has no history of DVT or PE she does relate a history of having been diagnosed a year ago with lupus but has not yet been able to see a professor of medicine. She has not had any hemoptysis she denies any fever sweats chills or shortness of breath. Onset (ago): day(s) Location: chest Radiation: non-radiation Severity: mild Quality: dull Pain Consistency: constant Relieving factors: none Exacerbating factors: none Associated symptoms: Reports chest pain and dyspnea; Deny confusion, cough, diaphoresis, decreased appetite, fevers/chills, headache(s), malaise, nausea, rash, palpitations, seizures, short of breath, syncope, vomiting or weakness Treatments prior to arrival: none Review of Systems Const: Denies: fever(s), chills, malaise or diaphoresis ENMT: Denies: throat pain, ear or mastoid pain, nasal discharge or nasal congestion Card: Reports: chest pain; Denies: palpitations or syncope Resp: Reports: dyspnea; Denies: productive cough, non-productive cough or wheezing GI: Denies: abdominal pain, nausea or vomiting : Denies: flank pain, difficulty voiding, dysuria, urinary frequency or urinary urgency Skin/Breast: Denies: rash Neuro: Denies: headache(s) or confusion PFS ED PFSH: Medical History Amenorrhea, unspecified Asthma Bipolar disorder Bipolar disorder, unspecified Bipolar disorder, unspecified Bipolar disorder, unspecified Borderline intellectual functioning Borderline personality disorder Depression Hypothyroidism Post-traumatic stress disorder, chronic Psychiatric care PTSD (post-traumatic stress disorder) Schizophrenia Surgical History History of cholecystectomy Family History Mother Bipolar 1 disorder Heart disease Spina bifida Hyperlipidemia Diabetes Brother Hyperlipidemia Social History Smoking and tobacco status: current every day smoker cigarettes Packs smoked per day: 1 Years cigarettes smoked: 1.5 Quit status (tobacco): has tried quititng Number of times tried to quit tobacco: 2 Second hand smoke exposure: Yes Smoking risk assessment/counseling performed?: Yes Alcohol intake: never Adopted: No Caregiver/support person: No Lives independently: No Household members: other Details: Mom, Step-Dad, Sister, Brother Housing: Manufactured/Mobile home Marital status: Single Number of children: 1 Highest education level completed: High School Graduate service: No Current occupational status: disabled Current occupational exposures/hazards: No Pets and animals: Yes Pets & animals: dog(s) History of recent travel: No Leisure activites: other Leisure activities details: hang out with friends, watch tv, listen to music Sexually active: No Current gender identity: Male Anabel/Restoration: None Special anabel needs: No Financial difficulty paying for basics: Not Very Hard Female Reproductive History: Date of last menstrual period: 04/14/21 Physical Exam Const: COMMON NORMALS: no acute distress GENERAL APPEARANCE: cooperative and comfortable ORIENTATION/CONSCIOUSNESS: Yes awake, Yes oriented to person, Yes oriented to place and Yes oriented to time HENMT: COMMON NORMALS: normocephalic, atraumatic, hearing grossly normal bilaterally, external ears normal, EAC's normal, TM's normal bilaterally, Normal nasal mucous membranes and turbinates present, moist oral mucous membranes and oropharynx normal HEAD & SCALP: normocephalic and atraumatic NOSE: Normal nasal mucous membranes and turbinates present EXTERNAL EAR: Yes external ears normal EXTERNAL AUDITORY CANAL: EAC's normal TYMPANIC MEMBRANE: TM's normal bilaterally Eye: COMMON NORMALS: Equal, round and reactive pupils present, EOMs intact bilaterally, conjunctivae normal and no scleral icterus CONJUNCTIVA: Yes conjunctivae normal PUPIL: Yes Equal, round and reactive pupils present Neck/C-Spine: COMMON NORMALS: full ROM, no lymphadenopathy, supple and no JVD Lymph: LYMPHATIC: no lymphadenopathy noted and no lymphedema noted Resp: COMMON NORMALS: normal respiratory effort, No retractions, No use of accessory muscles and clear to auscultation bilaterally AUSCULTATION: clear to auscultation bilaterally Cardio: COMMON NORMALS: no JVD, regular rate, regular rhythm and No murmurs present (Cardio) RATE: regular rate RHYTHM: regular rhythm GI: COMMON NORMALS: Soft to palpation and No hepatosplenomegaly present AUSCULTATION: Yes normoactive bowel sounds PALPATION: Yes Soft to palpation, No Tenderness to palpation present (GI), No Guarding due to palpation present (GI) and Yes No hepatosplenomegaly present Extremity: COMMON NORMALS: normal to inspection, capillary refill normal, no clubbing, cyanosis or edema, no calf tenderness and no pedal edema Neuro: SENSORIUM/ORIENTATION: Yes oriented to person, Yes oriented to place and Yes oriented to time Skin: COMMON NORMALS: no rashes or lesions noted GENERAL SKIN EXAM: no rashes or lesions noted Course Vital Signs: Vital signs: Vital Signs Temperature 96.7 F L 06/21/21 14:24 Pulse Rate 86 06/21/21 17:56 Respiratory Rate 16 06/21/21 17:56 Blood Pressure 92/76 06/21/21 17:56 Pulse Oximetry 97 06/21/21 17:56 [facility] - General Adult Medical Decision Making Venous duplex and CTA chest negative. There are some subcentimeter lymph nodes and mild splenic enlargement follow-up with primary care doctor on night. At this point no clinical or imaging signs of DVT thrombosis or embolism. Will discharge home and follow-up with primary care physician. Medical Records I reviewed the patient's medical records. Lab Data I reviewed the patient's lab results. : 06/21/21 15:18 06/21/21 15:18 Radiology Impressions Chest X-Ray 06/21/21 15:17 Impression: Negative chest. Chest CTA 06/21/21 15:19 IMPRESSION: 1. Negative for pulmonary embolus or airspace infiltrate. 2. Several prominent subcentimeter short axis mediastinal lymph nodes, nonspecific. 3. Spleen enlarged to at least 15 cm. Laboratory Results WBC 7.5 10^3/uL (4.5-13.0) 06/21/21 15:18 RBC 4.94 10^6/uL (4.1-5.3) 06/21/21 15:18 Hgb 13.8 g/dL (11.5-15.3) 06/21/21 15:18 Hct 41.9 % (37.0-47.0) 06/21/21 15:18 MCV 84.8 fl (81-99) 06/21/21 15:18 MCH 27.9 pg (28.0-34.0) L 06/21/21 15:18 MCHC 32.9 g/dL (30.0-36.0) 06/21/21 15:18 RDW 12.7 % (12.1-15.1) 06/21/21 15:18 Plt Count 228 10^3/cmm (130-400) 06/21/21 15:18 MPV 9.8 fL (7.4-10.4) 06/21/21 15:18 Neut % (Auto) 63.0 % 06/21/21 15:18 Lymph % (Auto) 27.6 % 06/21/21 15:18 Villalba % (Auto) 4.4 % 06/21/21 15:18 Eos % (Auto) 4.0 % 06/21/21 15:18 Baso % (Auto) 0.7 % 06/21/21 15:18 Neut # (Auto) 4.74 10^3/uL (1.8-8.0) 06/21/21 15:18 Lymph # (Auto) 2.1 10^3/uL (1.5-6.5) 06/21/21 15:18 Villalba # (Auto) 0.3 10^3/uL (0.2-0.9) 06/21/21 15:18 Eos # (Auto) 0.3 10^3/uL (0.0-0.8) 06/21/21 15:18 Baso # (Auto) 0.1 10^3/uL (0.0-0.1) 06/21/21 15:18 Nucleated RBC % (auto) 0 % 06/21/21 15:18 Nucleated RBCs # 0.0 /100WBC 06/21/21 15:18 Sodium 137 mmol/L (136-145) 06/21/21 15:18 Potassium 4.0 mmol/L (3.5-5.1) 06/21/21 15:18 Chloride 102 mmol/L (98-107) 06/21/21 15:18 Carbon Dioxide 25 mmol/L (22-29) 06/21/21 15:18 Anion Gap 14.0 (5-19) 06/21/21 15:18 BUN 9 mg/dL (6-20) 06/21/21 15:18 Creatinine 0.5 mg/dL (0.5-0.9) 06/21/21 15:18 GFR Calculation 157.3 mL/min (90-130) H 06/21/21 15:18 Glucose 111 mg/dL (65-115) 06/21/21 15:18 Calculated Osmolality 283 mOsm/kg (285-295) L 06/21/21 15:18 Calcium 8.3 mg/dL (8.5-10.5) L 06/21/21 15:18 Urine HCG, Qual Negative (Negative) 06/21/21 15:38 Discharge Plan Discharge Patient Disposition: Home Clinical Impression: Atypical chest pain Condition: Stable Prescriptions: No Action albuterol sulfate 90 mcg/actuation HFA aerosol inhaler 2 puff inhalation Q6H PRN0RF omeprazole 20 mg capsule,delayed release(DR/EC) 40 mg PO DAILY 0RF Label Comments: aripiprazole [Abilify] 2 mg tablet 2 mg PO DAILY Qty: 30 1RF hydroxyzine HCl 25 mg tablet 25 mg PO BID PRN (Reason: anxiety) 30 Days Qty: 60 1RF Lamictal 100 mg tablet 100 mg PO DAILY 30 Days Qty: 30 1RF paliperidone [Invega] 3 mg tablet extended release 24hr 3 mg PO QAM Qty: 7 1RF Rx Instructions: 1 tab daily as needed the week before her injection is due. Invega Sustenna 156 mg/mL syringe 156 mg IM Q30D Qty: 1 1RF sertraline 50 mg tablet 150 mg PO DAILY 30 Days Qty: 90 1RF prazosin 2 mg capsule 2 mg PO .HS 30 Days Qty: 30 1RF Discharge Orders: Discharge ED (Routine); Ordered 06/21/21 Ordered By: Migue Petty Referrals: Torres Marie MD [Primary Care Provider] - Discharge Diet: Usual diet Discharge Activity: Resume usual activity Activity Restrictions/Additional Instructions: Follow-up with your primary care doctor. Coding Level of Care Code ED Plate Corrector for Chg Fwd Exam Comprehensive
[2021-06-21 15:33] LABS: Basophils # 0.1 10^3/uL (0.0-0.1); Basophils % 0.7 %; Eosinophils # 0.3 10^3/uL (0.0-0.8); Hematocrit 41.9 % (37.0-47.0); Hemoglobin 13.8 g/dL (11.5-15.3); Lymphocytes # 2.1 10^3/uL (1.5-6.5); Lymphocytes % 27.6 %; Mean Corpuscular HGB Conc 32.9 g/dL (30.0-36.0); Mean Corpuscular Hemoglobin 27.9 pg (28.0-34.0); Mean Corpuscular Volume 84.8 fl (81-99); Mean Platelet Volume 9.8 fL (7.4-10.4); Monocytes # 0.3 10^3/uL (0.2-0.9); Monocytes % 4.4 %; Neutrophils # 4.74 10^3/uL (1.8-8.0); Nucleated Red Blood Cells % 0 %; Platelet Count 228 10^3/cmm (130-400); Red Blood Count 4.94 10^6/uL (4.1-5.3); Red Cell Distribution Width 12.7 % (12.1-15.1); White Blood Count 7.5 10^3/uL (4.5-13.0)
--- NOTE | 2021-06-21 15:34 | USCV_ITS ---
Heidy Macias Age: 20 Gender: F : 2000 Exam Date: 06/21/2021 15:55 Ordering Phys: Migue Petty DO Technologist: TREY [place]am [place] [facility] [place] [facility] [place] Indication: CP, dizziness. No hx DVT HISTORY: CP, dizziness. No hx DVT PROCEDURES: The venous duplex Doppler examination of both lower extremities was performed in the standard fashion. The following venous structures were evaluated: common femoral vein, profunda vein, proximal portion of the greater saphenous vein, superficial femoral vein, and the popliteal vein. In addition, the posterior tibial and peroneal veins were evaluated. Bilaterally, the common femoral, superficial femoral, profunda femoral, popliteal, posterior tibial, greater saphenous veins, and the peroneal trunk were identified and interrogated in the standard fashion. These veins were found to be easily compressible with spontaneous blood flow. No evidence of thrombus noted. Serial compression, augmentation maneuvers, and spectral Doppler flow evaluation were performed and were normal. CONCLUSIONS No evidence of right lower extremity DVT. No evidence of left lower extremity DVT. Leoncio Mccord MD (Electronically Signed) Final Date: 21 June 2021 17:44 S
[2021-06-21] MEDS: acetaminophen 500 mg Tablet PO (15:46)
[2021-06-21 16:01] LABS: Blood Urea Nitrogen 9 mg/dL (6-20); Calcium 8.3 mg/dL (8.5-10.5); Carbon Dioxide 25 mmol/L (22-29); Chloride 102 mmol/L (98-107); Glomerular Filtration Rate 157.3 mL/min (90-130); Glucose 111 mg/dL (65-115); Osmolality Calculated 283 mOsm/kg (285-295); Sodium 137 mmol/L (136-145)
[2021-06-21 17:56] VITALS: BP 92/76; PULSE 86; RESP 16; O2SAT 97
== END 2021-06-21 17:58 | disposition home or self-care (01) ==
LOC: ER 14:26 → RAD 14:37 → ER 15:19
PROVIDERS: Emergency Medicine; Emergency Provider Family Medicine; PCP Family Medicine
DX: R07.89 Other chest pain (principal); F17.210 Nicotine dependence, cigarettes, uncomplicated
CPT/HCPCS: 71045; 71275; 80048; 81025; 85025; 93005; 93970; 99284; Q9967

== ENCOUNTER → 2021-06-29 14:10 | Outpatient (BNVA) | payer MEDICARE, MEDICAID, SELFPAY | PROVIDERS: PCP Family Medicine; Visit Provider Nurse Practitioner Family | DX: J02.9 Acute pharyngitis, unspecified (principal); Z32.01 Encounter for pregnancy test, result positive | CPT/HCPCS: 81025; 84144; 84702 ==

== ENCOUNTER 2021-07-11 14:45 | Outpatient (CLI) | payer MEDICARE, MEDICAID, SELFPAY ==
--- NOTE | 2021-07-11 15:03 | US_ITS ---
WS: [id number] EARLY OBSTETRICAL ULTRASOUND (<14 WEEKS). HISTORY: POSITIVE TEST COMPARISON: None available. Single intrauterine gestational sac is identified. Cardiac activity at 116 BPM. Olivet-rump length diego sures 0.4 cm which corresponds to a gestation of 6w1d. Normal-appearing yolk sac and amnion demonstra luis. No subchorionic hemorrhage. No free fluid. Corpus luteal cyst associated with the LEFT ovary. Cyst measures 1.1 x 0.8 x 0.9 cm. RIGHT ovary not identified. US/US OB <=14 wk fetus w transvag IMPRESSION: 1. Single intrauterine gestation of 6 weeks 1 day with an EDC of 03/05/2022. 2. Normal cardiac activity.
== END 2021-07-11 14:46 | disposition home or self-care (01) ==
LOC: RAD 14:59
PROVIDERS: PCP Family Medicine; Visit Provider Nurse Practitioner Family
DX: J02.9 Acute pharyngitis, unspecified (principal); Z33.1 Pregnant state, incidental
CPT/HCPCS: 76801; 76817

== ENCOUNTER → 2021-07-13 14:46 | Outpatient (BNVA) | payer BC, MEDICAID, SELFPAY | PROVIDERS: PCP Family Medicine; Visit Provider Nurse Practitioner | DX: F60.3 Borderline personality disorder (principal); F43.12 Post-traumatic stress disorder, chronic | CPT/HCPCS: 99214 ==

== ENCOUNTER → 2021-07-20 14:00 | Outpatient (BNVA) | payer BC, OTHER, SELFPAY | PROVIDERS: PCP Family Medicine; Visit Provider Counselor Mental Health | DX: F60.3 Borderline personality disorder (principal); F43.12 Post-traumatic stress disorder, chronic | CPT/HCPCS: 90853 ==

== ENCOUNTER → 2021-07-27 14:00 | Outpatient (BNVA) | payer BC, OTHER, SELFPAY | PROVIDERS: PCP Family Medicine; Visit Provider Counselor Mental Health | DX: F60.3 Borderline personality disorder (principal); R41.83 Borderline intellectual functioning; F43.12 Post-traumatic stress disorder, chronic | CPT/HCPCS: 90853 ==

== ENCOUNTER → 2021-08-03 14:00 | Outpatient (BNVA) | payer BC, OTHER, SELFPAY | PROVIDERS: PCP Family Medicine; Visit Provider Counselor Mental Health | DX: F60.3 Borderline personality disorder (principal); F43.12 Post-traumatic stress disorder, chronic; R41.83 Borderline intellectual functioning | CPT/HCPCS: 90853 ==

== ENCOUNTER → 2021-08-10 15:13 | Outpatient (BNVA) | payer BC, OTHER, SELFPAY | PROVIDERS: PCP Family Medicine; Visit Provider Nurse Practitioner | DX: R41.83 Borderline intellectual functioning (principal); F60.3 Borderline personality disorder; F43.12 Post-traumatic stress disorder, chronic | CPT/HCPCS: 99214 ==

== ENCOUNTER 2021-09-06 18:07 | Emergency (ER) | payer MEDICARE, MEDICAID, SELFPAY ==
[2021-09-06 18:16] VITALS: BP 129/70; PULSE 110; RESP 16; TEMP 36.6; O2SAT 96
[2021-09-06 18:37] LABS: Basophils % 0.3 %; Eosinophils # 0.2 10^3/uL (0.0-0.8); Eosinophils % 1.9 %; Hematocrit 36.9 % (37.0-47.0); Hemoglobin 12.5 g/dL (11.5-15.3); Lymphocytes # 1.9 10^3/uL (0.8-4.8); Lymphocytes % 23.8 %; Mean Corpuscular HGB Conc 33.9 g/dL (30.0-36.0); Mean Corpuscular Hemoglobin 29.1 pg (28.0-34.0); Mean Corpuscular Volume 85.8 fl (81-99); Mean Platelet Volume 10.1 fL (7.4-10.4); Monocytes # 0.4 10^3/uL (0.2-0.9); Monocytes % 4.7 %; Neutrophils # 5.38 10^3/uL (1.8-7.7); Neutrophils % 68.9 %; Nucleated Red Blood Cells % 0 %; Platelet Count 202 10^3/cmm (130-400); Red Cell Distribution Width 13.7 % (12.1-15.1); White Blood Count 7.8 10^3/uL (4.0-10.0)
== END 2021-09-06 21:37 | disposition left against medical advice (07) ==
PROVIDERS: Emergency Medicine; Emergency Provider Family Medicine; PCP Family Medicine
DX: Z53.21 Procedure and treatment not carried out due to patient leaving prior to being seen by health care provider (principal)
CPT/HCPCS: 84702; 85025

== ENCOUNTER → 2021-11-09 14:50 | Outpatient (BNVA) | payer MEDICARE, MEDICAID, SELFPAY | PROVIDERS: PCP Family Medicine; Visit Provider Registered Nurse Neonatal Intensive Care | DX: R50.9 Fever, unspecified (principal); R11.10 Vomiting, unspecified; J02.9 Acute pharyngitis, unspecified; J31.0 Chronic rhinitis; Z20.822 Contact with and (suspected) exposure to COVID-19 | CPT/HCPCS: 87071; 87400; 87426; 87880 ==

== ENCOUNTER 2021-12-01 17:03 | Outpatient (CLI) | payer MEDICARE, MEDICAID, OTHER, SELFPAY ==
[2021-12-01] VITALS (8 sets, daily range): BP systolic 91–145; BP diastolic 59–85; PULSE 65–94; RESP 17–22; TEMP 36.2; BMI 41.6
--- NOTE | 2021-12-01 17:36 | USR_ITS ---
PROCEDURE INFORMATION: Exam: US , Limited Exam date and time: 12/01/2021 6:05 PM Age: 21 years old Clinical indication: complicated by abdominal or pelvic pain; Lower; Second trimester (14 weeks 0 days to 27 weeks 6 days); Gestational age or lmp: 26w4d; ; Patient HX: See previous US done a week ago; Additional info: Placenta location, jose LABS AND CLINICAL REPORTS: Serum Choriogonadotropin (HCG): 0 mIU/mL Last menstrual period start date: 05/29/2021 Gestational age (Established): 26 w 4 d Estimated due date (Established): 03/05/2022 TECHNIQUE: Imaging protocol: Real-time ultrasound of the maternal uterus with image documentation. Exam focused on the clinical indication. COMPARISON: US OB >= 14 weeks fetus [id number] 10/18/2021 8:31 AM FINDINGS: Gestation: Single intrauterine fetus. heart rate: 150 bpm presentation: Breech Placenta: Anterior with no obvious previa . No obvious regional collection or abruption. Amniotic fluid: Amniotic fluid volume is normal. Amniotic fluid index: JOSE is 16.5 cm. BIOMETRY: Gestational age (AUA): Ultrasound biometric measurements were not performed at this time. Provided clinical gestational age is 26 w 4 d. Estimated due date (AUA): 03/05/2022 MATERNAL: Uterus: Uterus measurements were not performed is. Cervix: Cervix appears closed with length measuring about 4.3-4.6 cm.. Other findings: Maternal ovaries were not definitively identified. US/US OB limited [id number] IMPRESSION: 1. Single intrauterine fetus with good cardiac and motion activity. No obvious acute complications. Limited exam in an acute setting. biometric measurements and structural assessment were not obtained at this time. 2. Normal amniotic fluid level. Maternal cervix long/closed.
[2021-12-01 17:51] LABS: Actim Prom Negative
[2021-12-01] MEDS: HYDROcodone-acetaminophen 5-325 mg Tablet 1 TAB PO (18:04)
[2021-12-01] MEDS: hyDROXYzine 25 mg Capsule 50 MG PO (18:04)
[2021-12-01 18:59] LABS: Bilirubin Urine 1+ (Negative); Blood Urine Neg (Negative); Glucose Urine UA Norm (Normal); Ketones Urine 1+ (Negative); Leukocyte Esterase Urine Trace (Negative); Nitrate Urine Negative (Negative); Protein Urine Neg (Negative); Specific Gravity, Urine 1.025 (1.005-1.030); Urine Appearance Clear (CLEAR); Urine Color Yellow (Yellow); Urobilinogen Urine 1 mg/dL (Negative); pH Urine 5 (5-7)
[2021-12-01 19:00] LABS: Add Urine Culture? No; Bacteria Urine 2+ /hpf; Mucus Urine 2+ /hpf; Squamous Epithelial Cell Urine 0-4 /hpf (0-5)
== END 2021-12-01 19:24 | disposition home or self-care (01) ==
LOC: OPOB 17:05 → OBGYN 17:06
PROVIDERS: PCP Family Medicine; Visit Provider Family Medicine
DX: O26.899 Other specified pregnancy related conditions, unspecified trimester (principal); Z3A.00 Weeks of gestation of pregnancy not specified; R10.9 Unspecified abdominal pain
CPT/HCPCS: 76815; 81001; 83986; 84112

== ENCOUNTER 2022-01-13 19:39 | Outpatient (CLI) | payer MEDICARE, MEDICAID, SELFPAY ==
[2022-01-13] VITALS (14 sets, daily range): BP systolic 110–148; BP diastolic 55–85; PULSE 90–121; RESP 15; TEMP 35.7; O2SAT 95–96; BMI 42.9
[2022-01-13 20:40] LABS: Nitrazine Paper, PH Negative
[2022-01-13 20:55] LABS: Urine Appearance Clear (CLEAR); Urine Color Yellow (Yellow)
[2022-01-13 20:56] LABS: Bilirubin Urine 1+ (Negative); Blood Urine Neg (Negative); Glucose Urine UA Norm (Normal); Ketones Urine 1+ (Negative); Nitrate Urine Negative (Negative); Protein Urine 1+ (Negative); Specific Gravity, Urine 1.025 (1.005-1.030); pH Urine 6 (5-7)
[2022-01-13 20:57] LABS: Leukocyte Esterase Urine Trace (Negative); Urobilinogen Urine 4 mg/dL (Negative)
[2022-01-13 20:58] LABS: WBC Urine 0-4 /hpf (0-5)
[2022-01-13 20:59] LABS: Add Urine Culture? No; Mucus Urine 4+ /hpf; Squamous Epithelial Cell Urine 0-4 /hpf (0-5)
[2022-01-13] MEDS: acetaminophen 500 mg Tablet 1000 MG PO (21:26)
== END 2022-01-13 21:37 | disposition home or self-care (01) ==
LOC: OPOB 19:40 → OBGYN 19:41
PROVIDERS: PCP Family Medicine; Visit Provider Family Medicine
DX: O26.899 Other specified pregnancy related conditions, unspecified trimester (principal); Z3A.00 Weeks of gestation of pregnancy not specified; R10.9 Unspecified abdominal pain
CPT/HCPCS: 59025; 81001; 83986; 99211

== ENCOUNTER 2022-01-17 21:28 | Outpatient (CLI) | payer MEDICARE, MEDICAID, SELFPAY ==
[2022-01-17 21:37] VITALS: BMI 42.3
[2022-01-17 21:43] VITALS: BP 120/76; PULSE 105; TEMP 35.8
[2022-01-17 21:51] VITALS: RESP 16
[2022-01-17 21:54] VITALS: BP 102/53; PULSE 97
[2022-01-17 22:01] LABS: Actim Prom Negative
[2022-01-17 22:03] VITALS: BP 102/61; PULSE 100
[2022-01-17 22:14] VITALS: BP 125/77; PULSE 106
== END 2022-01-17 22:33 | disposition home or self-care (01) ==
LOC: OPOB 21:36 → OBGYN 21:37
PROVIDERS: PCP Family Medicine; Visit Provider Family Medicine
DX: O26.899 Other specified pregnancy related conditions, unspecified trimester (principal); Z3A.00 Weeks of gestation of pregnancy not specified; N89.8 Other specified noninflammatory disorders of vagina
CPT/HCPCS: 59025; 84112; 99211

== ENCOUNTER 2022-01-19 11:35 | Outpatient (CLI) | payer MEDICARE, MEDICAID, SELFPAY ==
[2022-01-19] VITALS (13 sets, daily range): BP systolic 95–162; BP diastolic 55–72; PULSE 88–171; RESP 18; BMI 42.8
--- NOTE | 2022-01-19 12:43 | US_ITS ---
WS: [id number] BIOPHYSICAL PROFILE AMNIOTIC FLUID HISTORY: non reactive NST COMPARISON: 12/01/2021 Cardiac activity: 147 bpm. Cervix: Obscured by the head deep within the pelvis. Placenta: Anterior, no previa or abruption. Placenta grade: 1 Parameters are as follows: Breathin Movement: 2 Tone: 2 Fluid volume: 2 Amniotic fluid index: 13.7 cm; DVP 5.4 cm. US/US OB BPP wo NST [id number] IMPRESSION: 1. Biophysical profile score: 8/8. 2. Normal amniotic fluid.
== END 2022-01-19 14:50 | disposition home or self-care (01) ==
LOC: OPOB 11:45 → OBGYN 11:47
PROVIDERS: PCP Family Medicine; Visit Provider Family Medicine
DX: O26.899 Other specified pregnancy related conditions, unspecified trimester (principal); Z3A.00 Weeks of gestation of pregnancy not specified; Z87.59 Personal history of other complications of pregnancy, childbirth and the puerperium
CPT/HCPCS: 59025; 76819; 99211

== ENCOUNTER 2022-01-30 02:16 | Outpatient (CLI) | payer MEDICARE, MEDICAID, SELFPAY ==
[2022-01-30 02:21] VITALS: TEMP 35.8
[2022-01-30 02:24] VITALS: BP 102/58; PULSE 114
[2022-01-30 02:45] VITALS: BP 165/86; PULSE 91
[2022-01-30 02:55] VITALS: BP 118/78; PULSE 95
[2022-01-30 02:57] VITALS: BP 118/78; PULSE 95
[2022-01-30 03:10] VITALS: BMI 28.3
[2022-01-30 03:21] LABS: Nitrazine Paper, PH Negative
== END 2022-01-30 03:05 | disposition home or self-care (01) ==
LOC: OPOB 02:16 → OBGYN 02:17
PROVIDERS: PCP Family Medicine; Visit Provider Family Medicine
DX: O26.899 Other specified pregnancy related conditions, unspecified trimester (principal); Z3A.00 Weeks of gestation of pregnancy not specified; N89.8 Other specified noninflammatory disorders of vagina
CPT/HCPCS: 59025; 83986; 99211

== ENCOUNTER 2022-02-13 00:30 | Inpatient (IN) | payer MEDICARE, MEDICAID, SELFPAY ==
[2022-02-12] VITALS (38 sets, daily range): BP systolic 67–145; BP diastolic 41–90; PULSE 72–109; RESP 18; TEMP 36.1–36.4; BMI 44.8
[2022-02-12] MEDS: ampicillin 2,000 MG in sodium chloride 0.9% (plus) 50 ML 100 MG IV (09:42)
[2022-02-12] MEDS: dextrose 5%-lactated ringers 1,000 ML 125 ML IV (09:42)
[2022-02-12 10:07] LABS: Basophils % 0.3 %; Eosinophils # 0.2 10^3/uL (0.0-0.8); Hematocrit 38.9 % (37.0-47.0); Hemoglobin 12.1 g/dL (11.5-15.3); Lymphocytes # 2.4 10^3/uL (0.8-4.8); Lymphocytes % 24.7 %; Mean Corpuscular HGB Conc 31.1 g/dL (30.0-36.0); Mean Corpuscular Hemoglobin 26.5 pg (28.0-34.0); Mean Corpuscular Volume 85.3 fl (81-99); Mean Platelet Volume 11.4 fL (7.4-10.4); Monocytes # 0.5 10^3/uL (0.2-0.9); Monocytes % 4.8 %; Neutrophils # 6.57 10^3/uL (1.8-7.7); Neutrophils % 67.6 %; Nucleated Red Blood Cells % 0 %; Platelet Count 216 10^3/cmm (130-400); Red Blood Count 4.56 10^6/uL (4.1-5.3); Red Cell Distribution Width 15.6 % (12.1-15.1); White Blood Count 9.7 10^3/uL (4.0-10.0)
[2022-02-12] MEDS: miSOPROStol 100 mcg tablet 25 MCG VAGINAL ×2 (10:20→15:47)
[2022-02-12 11:11] LABS: Amphetamines Screen Urine Negative (Negative); Barbiturates Screen Urine Negative (Negative); Benzodiazepines Screen Urine Negative (Negative); Cocaine Screen Urine Negative (Negative); Opiate Screen Urine Negative (Negative); PCP Screen Urine Negative (Negative); THC Screen Urine Negative (Negative)
[2022-02-12] MEDS: ampicillin 1,000 MG in sodium chloride 0.9% (plus) 50 ML 100 MG IV ×3 (14:32→22:40)
[2022-02-12] MEDS: fentaNYL 50 mcg/mL INJ 2mL IVP ×3 (14:33→21:56)
--- NOTE | 2022-02-12 17:39 | PM.OBGYHP ---
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 The patient's has been remarkable for having lupus as previously mentioned. She has been seen by perinatology in [place] multiple times and has had multiple level 2 ultrasounds as a part of her evaluation and treatment. Present Details : 3 Para: 2 Date of Last Menstrual Period: 04/14/21 Calculated Date of Delivery: 01/19/22 Gestational Age Based on Last Menstrual Period: 45 Labs Rubella: Non-Immune RPR: Negative GBS: Positive Review of Systems General: Reports: 10 or more systems reviewed and unremarkable except in HPI and below Const: Reports: fatigue; Denies: fever(s) Eyes: Denies: change in vision Card: Denies: chest pain Musc: Reports: back pain Medications/Allergies Home Medications Medication Instructions Recorded Confirmed Last Taken Type vit 168-iron 27 mg-folic 1 cap PO DAILY 07/13/21 02/21/22 02/12/22 History acid 800 mcg-omega3 235 mg capsule 0700 (One-A-Day -1) hydroxyzine HCl 25 mg tablet 25 mg PO TID PRN anxiety 30 days 01/04/22 02/21/22 02/12/22 Rx #90 tabs 0700 sertraline 100 mg tablet (Zoloft) 150 mg PO DAILY #45 tabs 02/08/22 02/21/22 02/12/22 Rx 0700 acetaminophen 325 mg tablet 650 mg PO Q6H PRN pain #90 tabs 02/14/22 02/21/22 Unknown Rx (Tylenol) enoxaparin 40 mg/0.4 mL 40 mg (0.4 mL) SUBCUT DAILY #4 mL 02/14/22 02/21/22 Unknown Rx subcutaneous syringe (Lovenox) lamotrigine 25 mg tablet (Lamictal) 25 mg PO .COMPLEX #42 tabs 02/21/22 02/21/22 Unknown Rx paliperidone palmitate 156 mg/mL 156 mg IM ONCE #1 mL 12/28/22 12/28/22 12/28/22 Rx intramuscular syringe (Invega Sustenna) prazosin 2 mg capsule 2 mg PO .HS 30 days #30 caps 02/21/22 02/21/22 Unknown Rx Allergies Allergy/AdvReac Type Severity Reaction Status Date / Time divalproex sodium Allergy Severe ALGY-Swell Verified 02/21/22 09:43 Lip/Tongue/Throat olanzapine Allergy Severe ALGY-Swell Verified 02/21/22 09:43 Lip/Tongue/Throat ziprasidone Allergy Severe ALGY-Swell Verified 02/21/22 09:43 Lip/Tongue/Throat peppers Allergy Unknown Uncoded 02/21/22 09:43 bandaid Allergy ALGY-Rash Uncoded 02/21/22 09:43 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 PFSH: Medical History Amenorrhea, unspecified Asthma Bipolar disorder Bipolar disorder, unspecified Bipolar disorder, unspecified Bipolar disorder, unspecified Borderline intellectual functioning Borderline personality disorder Depression Hypothyroidism Lupus Post-traumatic stress disorder, chronic Psychiatric care PTSD (post-traumatic stress disorder) Schizophrenia Surgical History History of cholecystectomy Family History Mother Bipolar 1 disorder Heart disease Spina bifida Hyperlipidemia Diabetes Brother Hyperlipidemia Social History Smoking and tobacco status: current every day smoker cigarettes Packs smoked per day: 0.25 Years cigarettes smoked: 7 Quit status (tobacco): has tried quititng Number of times tried to quit tobacco: 6 Second hand smoke exposure: Yes Smoking risk assessment/counseling performed?: Yes Alcohol intake: never Adopted: No Caregiver/support person: No Lives independently: No Household members: other Details: Mom, Step-Dad, Sister, Brother Housing: Manufactured/Mobile home Marital status: Single Number of children: 1 Highest education level completed: High School Graduate service: No Current occupational status: disabled Current occupational exposures/hazards: No Pets and animals: Yes Pets & animals: dog(s) History of recent travel: No Leisure activites: other Leisure activities details: hang out with friends, watch tv, listen to music Sexually active: Yes Current gender identity: Female Anabel/Baptist: None Special anabel needs: No Financial difficulty paying for basics: Not Very Hard Personal Safety: Do you feel safe at home: Yes Vitals/I&O/Wt Last Vital Signs Temp 97.6 F 02/12/22 17:38 Pulse 88 02/12/22 17:28 Resp 18 02/12/22 17:33 BP 115/68 02/12/22 17:28 O2 Del Method 02/12/22 08:25 Weight last 48 hrs Weight 286 lb Physical Exam Const: COMMON NORMALS: patient oriented x3 and alert HENMT: COMMON NORMALS: moist oral mucous membranes HEAD & SCALP: normal to inspection Chest: COMMONS NORMALS: normal inspection of the chest Resp: COMMON NORMALS: clear to auscultation bilaterally AUSCULTATION: clear to auscultation bilaterally Cardio: COMMON NORMALS: regular rate and regular rhythm RATE: regular rate RHYTHM: regular rhythm GI: INSPECTION: Yes normal to inspection and Yes other (Gravid) Extremity: COMMON NORMALS: normal to inspection GENERAL: Yes edema (Trace) Neuro: COMMON NORMALS: patient oriented x3, moves all extremities and no sensory deficits noted SENSORIUM/ORIENTATION: Yes alert Psych: COMMON NORMALS: mental status grossly normal Skin: COMMON NORMALS: no rashes or lesions noted GENERAL SKIN EXAM: no rashes or lesions noted Data 02/12/22 09:20 A&P Assessment and plan (1) 37 weeks gestation of : Induction has been initiated with Cytotec 25 mcg x 2. We will consider further induction options depending on how the patient responds. She is making some cervical change. Her contractions are increasing in strength and in frequency. (2) History of chlamydia: The patient tested negative for chlamydia posttreatment. (3) Rh D negative blood type: RhoGAM received to 28 weeks. (4) Group B Streptococcus carrier state affecting : Group B strep protocol has been initiated (5) Lupus: The patient has been evaluated during her by perinatology as result. She has also been on anticoagulation with Lovenox during her . She stopped her Lovenox 2 days prior to arriving at the hospital for her induction. (6) Borderline personality disorder: The patient has multiple psychiatric issues that she is having managed by her psychiatrist. Attestations Medical Necessity Statement*: The patient will be here for her labor and her course. Due to her multiple medical problems, it is possible that she will require more than the usual amount of time to be adequately evaluated. Coding Level of Care Code Acute Cross Country/Track And Field Coach for Chg Fwd Exam Comprehensive Diagnoses 37 weeks gestation of Z3A.37 History of chlamydia Z86.19 Rh D negative blood type Z67.91 Group B Streptococcus carrier state affecting O99.820 Lupus M32.9 Borderline personality disorder F60.3
[2022-02-13] VITALS (115 sets, daily range): BP systolic 98–145; BP diastolic 55–102; PULSE 70–117; RESP 18; TEMP 36.4–37.1; O2SAT 89–97
[2022-02-13] MEDS: dextrose 5%-lactated ringers 1,000 ML 125 ML IV ×2 (00:46→14:43)
[2022-02-13] MEDS: ampicillin 1,000 MG in sodium chloride 0.9% (plus) 50 ML 100 MG IV ×5 (03:05→18:34)
[2022-02-13] MEDS: miSOPROStol 100 mcg tablet 25 MCG VAGINAL (03:07)
[2022-02-13] MEDS: lactated ringers 1,000 ML 999 ML IV ×2 (07:55→09:00)
[2022-02-13] MEDS: sertraline 50 mg Tablet 150 MG PO (08:56)
[2022-02-13] MEDS: paliperidone ER 6 mg Tablet PO (08:59)
--- NOTE | 2022-02-13 09:29 | ANES.PREANE2 ---
Pre-Anesthetic Assessment Height/Weight: Height 1.7 m Weight 129.727 kg Temp Pulse Resp BP Pulse Ox O2 Del Method 97.5 F L 86 18 125/64 96 02/13/22 07:49 02/13/22 09:25 02/13/22 07:49 02/13/22 09:25 02/13/22 09:23 02/13/22 07:49 Preop Diagnosis: Term pregnanct EDC 05/31/19 Familial anesthetic complications: none Was Beta Danii taken within 24 hours: N/A Was Clonidine taken within 24 hours: N/A Social No alcohol and No tobacco Exam alert, oriented x 3 and regular rate & rhythm Airway Submandibular: within normal limits Cervical ROM: within normal limits Mallampati: Class II Dentition: chipped Metabolic Morbid Obesity Neuropsych Anxiety and Depression Borderline, PTSD Anesthetic Plan ASA status: 2 Anesthesia: Regional (specify below) (Labor Epidural) Medications/Allergies Home Medications Medication Instructions Recorded Confirmed Last Taken Type vit 168-iron 27 mg-folic 1 cap PO DAILY 07/13/21 02/12/22 02/12/22 History acid 800 mcg-omega3 235 mg capsule 0700 (One-A-Day -1) doxylamine succinate 25 mg tablet 25 mg PO Q6H PRN Mild Pain (Scale 08/10/21 02/12/22 02/12/22 History (Unisom (doxylamine)) Score 1-4) 0700 pyridoxine (vitamin B6) 50 mg 50 mg PO DAILY 08/10/21 02/12/22 02/12/22 History tablet 0700 hydroxyzine HCl 25 mg tablet 25 mg PO TID PRN anxiety 30 days 01/04/22 02/12/22 02/12/22 Rx #90 tabs 0700 paliperidone palmitate 234 mg/1.5 234 mg (1.5 mL) IM Q30D #1.5 mL 02/08/22 02/12/22 Unknown Rx mL intramuscular syringe (Invega Sustenna) sertraline 100 mg tablet (Zoloft) 150 mg PO DAILY #45 tabs 02/08/22 02/12/22 02/12/22 Rx 0700 Allergies Allergy/AdvReac Type Severity Reaction Status Date / Time divalproex sodium Allergy Severe ALGY-Swell Verified 02/08/22 11:17 Lip/Tongue/Throat olanzapine Allergy Severe ALGY-Swell Verified 02/08/22 11:17 Lip/Tongue/Throat ziprasidone Allergy Severe ALGY-Swell Verified 02/08/22 11:17 Lip/Tongue/Throat peppers Allergy Unknown Uncoded 02/08/22 11:17 bandaid Allergy ALGY-Rash Uncoded 02/08/22 11:17 Current Medications Generic Name Dose Route Start Last Admin Trade Name Freq PRN Reason Stop Dose Admin Fentanyl 25 - 100 mcg 02/12/22 08:59 02/12/22 21:56 Fentanyl 50 Mcg/Ml Inj 2ml IVP 25 mcg Q1H PRN Administration SEVERE PAIN Dextrose/Lactated Ringer's 1,000 mls @ 125 mls/hr 02/12/22 09:00 02/13/22 07:58 Dextrose 5%-Lactated Ringers IV 0 mls/hr .Q8H JONE Infusion Ampicillin Sodium 1,000 mg/ 50 mls @ 100 mls/hr 02/12/22 13:00 02/13/22 07:10 Sodium Chloride IV Infused Q4H JONE Infusion Protocol Lactated Ringer's 1,000 mls @ 999 mls/hr 02/13/22 07:48 02/13/22 07:55 Lactated Ringers IV 999 mls/hr .Q1H1M PRN Administration See label comments Paliperidone 6 mg 02/13/22 09:00 02/13/22 08:59 Paliperidone Er 6 Mg Tablet PO 6 mg DAILY JONE Administration Sertraline HCl 150 mg 02/13/22 09:00 02/13/22 08:56 Sertraline 50 Mg Tablet PO 150 mg DAILY JONE Administration PFS Anesthesia Medical History (Updated 02/12/22 @ 17:48 by Young Albright MD) Amenorrhea, unspecified Asthma Bipolar disorder Bipolar disorder, unspecified Bipolar disorder, unspecified Bipolar disorder, unspecified Borderline intellectual functioning Borderline personality disorder Depression Hypothyroidism Lupus Post-traumatic stress disorder, chronic Psychiatric care PTSD (post-traumatic stress disorder) Schizophrenia Surgical History History of cholecystectomy Family History Mother Bipolar 1 disorder Heart disease Spina bifida Hyperlipidemia Diabetes Brother Hyperlipidemia Social History (Updated 02/12/22 @ 17:45 by Young Albright MD) Smoking and tobacco status: current every day smoker cigarettes Packs smoked per day: 0.25 Years cigarettes smoked: 7 Quit status (tobacco): has tried quititng Number of times tried to quit tobacco: 6 Second hand smoke exposure: Yes Smoking risk assessment/counseling performed?: Yes Alcohol intake: never Adopted: No Caregiver/support person: No Lives independently: No Household members: other Details: Mom, Step-Dad, Sister, Brother Housing: Manufactured/Mobile home Marital status: Single Number of children: 1 Highest education level completed: High School Graduate service: No Current occupational status: disabled Current occupational exposures/hazards: No Pets and animals: Yes Pets & animals: dog(s) History of recent travel: No Leisure activites: other Leisure activities details: hang out with friends, watch tv, listen to music Sexually active: Yes Current gender identity: Female Anabel/Evangelical: None Special anabel needs: No Financial difficulty paying for basics: Not Very Hard Female Reproductive History Date of last menstrual period: 04/14/21 : 3 Data Anesthesia 02/12/22 09:20 Short CBC 02/12/22 Range/Units 09:20 WBC 9.7 (4.0-10.0) 10^3/uL Hgb 12.1 (11.5-15.3) g/dL Hct 38.9 (37.0-47.0) % MCV 85.3 (81-99) fl Plt Count 216 (130-400) 10^3/cmm Neut % (Auto) 67.6 % Neut # (Auto) 6.57 (1.8-7.7) 10^3/uL Cardiac Studies: No Data to Display
--- NOTE | 2022-02-13 09:30 | ANES.PROC ---
Anesthesia Procedures Procedure/Date: 02/13/22 Epidural: Time Out Performed: Yes Consents Signed: Procedure Consent Consent: requested by attending/covering physician, from patient, risks and benefits reviewed and patient agrees to proceed Lumbar Level: L3-L4 Epidural position: sitting Epidural procedure: sterile prep of area, 1% lidocaine to numb the area, 18 g needle, neg for paresthesia, test dose given, placed PCEA, no systemic response, sterile dressing applied and 0.2% Ropiavacaine @ mls/hr (13) Additional Comments: LELAND at 5cm, cath at 10cm, bolused 5mls of 2% lido-PF with epi
[2022-02-13] MEDS: oxytocin 30 UNIT/500 ML BAG IV (13:16)
[2022-02-13] MEDS: ondansetron 2 mg/ML SDV 2 mL 4 MG IVP (19:31)
--- NOTE | 2022-02-13 20:44 | PM.DELIVERY ---
Delivery Note: Date of delivery: February 13, 2022 Pre-delivery diagnoses: 1. 21-year-old 3 at 37 weeks estimated gestational age 2. Lupus 3. Bipolar disorder 4. Borderline personality disorder 5. GBS positive status Post-delivery diagnoses: Status post spontaneous vaginal delivery Procedure: Spontaneous vaginal delivery Estimated blood loss (mL): 100 Pre-Delivery Course: The patient presented to the hospital for induction at 37 weeks due to the fact that she is on lupus and anticoagulated. She was given Cytotec 25 mcg x 3. She was placed on Pitocin. An amniotomy was performed. An epidural was placed. She progressed to complete without difficulty. The patient also received GBS protocol throughout her hospital stay since admission and has received only 7 doses of antibiotics. Delivery: DELIVERY: The patient progressed to complete without difficulty. She delivered a female with a weight of 7 pounds 0 ounces with Apgars of 9, 10. The baby was delivered from the SHAHEED position and placed on the mother's abdomen. The mouth and nose were suctioned. The cord was then clamped and cut approximately 1 minute after delivery. There was a nuchal cord x2 which were easily reduced at the perineum. There was no meconium, but the baby did have a meconium bowel met shortly after delivery. The placenta and 3 vessel cord were delivered intact shortly thereafter. The perineum and vaginal vault were carefully examined. No lacerations were noted. Both the mother and the baby were in stable condition. Post-Delivery Status: Good A&P Assessment and plan (1) 37 weeks gestation of : (2) Group B Streptococcus carrier state affecting : (3) Spontaneous vaginal delivery: I anticipate routine care. We will consider reinitiating anticoagulation when the patient has stable bleeding. I anticipate after 24 hours we will consider reinitiating treatment. (4) Bipolar disorder: The patient is currently on Invega and I will find out when her last IM dose was received. She is also on 50 mg of Zoloft and will continue that at this time. Coding Level of Care Code Acute Assistant Professor Of Drama for Chg Fwd Diagnoses 37 weeks gestation of Z3A.37 Group B Streptococcus carrier state affecting O99.820 Spontaneous vaginal delivery R45.851 Bipolar disorder F31.9
[2022-02-13] MEDS: ibuprofen 800 mg tablet PO (22:07)
[2022-02-14] VITALS (7 sets, daily range): BP systolic 122–143; BP diastolic 72–86; PULSE 69–83; RESP 16–18; TEMP 36.5–36.9
[2022-02-14] MEDS: benzocaine-menthol 78 gm Canister 1 SPRAY TOPICAL (01:38)
[2022-02-14] MEDS: HYDROcodone-acetaminophen 5-325 mg Tablet PO (01:39)
[2022-02-14] MEDS: lanolin oint 7 gm 1 APPLIC TOPICAL (01:39)
--- NOTE | 2022-02-14 07:50 | P.DS_ITS ---
Discharge Providers TAKE OFF WORKER Date of Admission: 02/13/22 00:30 Date of Discharge: 02/23/22 Attending Provider at Admission: Young Albright MD Attending Provider at Discharge: Young Albright MD Primary Care Provider: Adam Albright MD Diagnoses at Discharge Discharge Diagnosis (1) 37 weeks gestation of : Status: Resolved (2) Group B Streptococcus carrier state affecting : Status: Resolved (3) Bipolar disorder: Status: Resolved Reason for Visit Reason for Visit: IOL Hospital Course Hospital Course The patient presented to the hospital for induction at 37 weeks per instruction of allergy due to her SLE diagnosis. She was placed on Cytotec 25 mcg x 3. She was given Pitocin. An amniotomy was performed. She is on GBS protocol. She progressed to complete without difficulty. She had an unremarkable delivery of a healthy appearing baby. Her course was also unremarkable. Her bleeding was within normal limits. Her pain was well controlled. Given her multiple psychiatric problems and medical issues, she had a remarkably unremarkable course. Physical Exam Narrative: The patient is alert. She appears comfortable. Her heart has a regular rate and rhythm with no murmurs appreciated. Lungs are clear to auscultation bilaterally. Her fundus is firm and below the umbilicus. Urinary Catheter Management: Godwin: Cath Placed During This Visit: yes Reason for Continuing Indwelling Catheter: Required Immobilization for Trauma or Surgery or Anesthesia Urinary Catheter Date of Insertion: 02/13/22 Urinary Catheter Time of Insertion: 09:40 Discharge Data Studies Completed and Pending Pending at discharge Category Date Time Status Hemagram Timed Lab 02/14/22 08:43 Uncollected Laboratory Results WBC 9.7 10^3/uL (4.0-10.0) 02/12/22 09:20 RBC 4.56 10^6/uL (4.1-5.3) 02/12/22 09:20 Hgb 12.1 g/dL (11.5-15.3) 02/12/22 09:20 Hct 38.9 % (37.0-47.0) 02/12/22 09:20 MCV 85.3 fl (81-99) 02/12/22 09:20 MCH 26.5 pg (28.0-34.0) L 02/12/22 09:20 MCHC 31.1 g/dL (30.0-36.0) 02/12/22 09:20 RDW 15.6 % (12.1-15.1) H 02/12/22 09:20 Plt Count 216 10^3/cmm (130-400) 02/12/22 09:20 MPV 11.4 fL (7.4-10.4) H 02/12/22 09:20 Neut % (Auto) 67.6 % 02/12/22 09:20 Lymph % (Auto) 24.7 % 02/12/22 09:20 [place] % (Auto) 4.8 % 02/12/22 09:20 Eos % (Auto) 2.0 % 02/12/22 09:20 Baso % (Auto) 0.3 % 02/12/22 09:20 Neut # (Auto) 6.57 10^3/uL (1.8-7.7) 02/12/22 09:20 Lymph # (Auto) 2.4 10^3/uL (0.8-4.8) 02/12/22 09:20 [place] # (Auto) 0.5 10^3/uL (0.2-0.9) 02/12/22 09:20 Eos # (Auto) 0.2 10^3/uL (0.0-0.8) 02/12/22 09:20 Baso # (Auto) 0.0 10^3/uL (0.0-0.1) 02/12/22 09:20 Nucleated RBC % (auto) 0 % 02/12/22 09:20 Nucleated RBCs # 0.0 /100WBC 02/12/22 09:20 Urine Opiates Screen Negative ng/mL (Negative) 02/12/22 09:20 Ur Barbiturates Screen Negative ng/mL (Negative) 02/12/22 09:20 Ur Phencyclidine Scrn Negative ng/mL (Negative) 02/12/22 09:20 Ur Amphetamines Screen Negative ng/mL (Negative) 02/12/22 09:20 U Benzodiazepines Scrn Negative ng/mL (Negative) 02/12/22 09:20 Urine Cocaine Screen Negative ng/mL (Negative) 02/12/22 09:20 U Marijuana (THC) Screen Negative ng/mL (Negative) 02/12/22 09:20 Vitals Last Vital Signs Temp 97.9 F 02/14/22 04:30 Pulse 72 02/14/22 04:30 Resp 18 02/13/22 18:37 BP 122/76 02/14/22 04:30 Pulse Ox 92 02/13/22 11:53 O2 Del Method 02/13/22 18:37 Discharge Plan Discharge Patient Disposition: Home Condition: Good Prescriptions: New Tylenol 325 mg tablet 650 mg PO Q6H PRN (Reason: pain) Qty: 90 0RF Lovenox 40 mg/0.4 mL syringe 40 mg SUBCUT DAILY Qty: 4 0RF Continued One-A-Day -1 27 mg iron- 800 mcg-235 mg capsule 1 cap PO DAILY sertraline [Zoloft] 100 mg tablet 150 mg PO DAILY Qty: 45 1RF hydroxyzine HCl 25 mg tablet 25 mg PO TID PRN (Reason: anxiety) 30 Days Qty: 90 1RF Discontinued Unisom (doxylamine) 25 mg tablet 25 mg PO Q6H PRN (Reason: Mild Pain (Scale Score 1-4)) No Action prazosin 2 mg capsule 2 mg PO .HS 30 Days Qty: 30 1RF lamotrigine [Lamictal] 25 mg tablet 25 mg PO .COMPLEX Qty: 42 0RF Rx Instructions: 1 tab daily for 2 weeks and then increase to 2 tabs daily Invega Sustenna 156 mg/mL syringe 156 mg IM ONCE Qty: 1 0RF Discharge Orders: Discharge Order (Routine); Ordered 02/14/22 Ordered By: Young Albright Referrals: Young Albright MD [Physician] - 4-7 days ([facility] will be calling you with a 1 week follow up appointment. 6 week post- appointment 03/28/22 @2:30. ) Discharge Diet: Usual diet Discharge Activity: Limit activity as instructed Patient Instructions: Depression (DC), Bleeding (GEN), Preeclampsia and Eclampsia After Delivery (GEN), OB Discharge Report, OB Food/Drug Interaction Guide, OB Care at Home, Opioid Safety, OB Home Care, OB Vaginal Deliveries, Abnormal Bleeding Discharge Attestations TAKE OFF WORKER Time Spent in Discharge Care*: greater than 30 min Status at Discharge: Cognitive status at discharge: cognitively intact , Behavioral status at discharge: cooperative , Coding Level of Care Code Acute Link Cutter for Chg Fwd Diagnoses 37 weeks gestation of Z3A.37 Group B Streptococcus carrier state affecting O99.820 Bipolar disorder F31.9
[2022-02-14] MEDS: docusate sodium 100 mg Capsule PO ×2 (08:47→17:42)
[2022-02-14] MEDS: prenatal vitamin Capsule 1 CAP PO (08:47)
[2022-02-14] MEDS: measles,mumps,rubella pf Vial (w/diluent) 0.5 ML SUBCUT (08:47)
[2022-02-14] MEDS: ibuprofen 800 mg tablet PO ×2 (08:47→17:42)
[2022-02-14] MEDS: sertraline 50 mg Tablet 150 MG PO (08:48)
[2022-02-14] MEDS: paliperidone ER 6 mg Tablet PO (09:07)
[2022-02-14 09:09] LABS: Hematocrit 37.1 % (37.0-47.0); Hemoglobin 11.9 g/dL (11.5-15.3); Mean Corpuscular HGB Conc 32.1 g/dL (30.0-36.0); Mean Corpuscular Hemoglobin 26.7 pg (28.0-34.0); Mean Corpuscular Volume 83.4 fl (81-99); Mean Platelet Volume 10.7 fL (7.4-10.4); Platelet Count 195 10^3/cmm (130-400); Red Blood Count 4.45 10^6/uL (4.1-5.3); Red Cell Distribution Width 14.8 % (12.1-15.1); White Blood Count 9.4 10^3/uL (4.0-10.0)
--- NOTE | 2022-02-14 10:17 | ANE.PACU2 ---
Inpatient post-anesthesia follow up: Airway intact: Yes Vital signs: Temperature 97.9 F Pulse Rate 75 Respiratory Rate 16 Blood Pressure 133/79 Pulse Oximetry 92 Oxygen Delivery Me thod Room Air Oxygen Flow Rate Fraction of Inspir ed Oxygen Hydration adequate: Yes Nausea and vomiting: No Pain level: 2 Mental status: Baseline
[2022-02-14] MEDS: pneumococcal (23 valent) SDV 0.5 mL IM (20:51)
== END 2022-02-14 21:57 | disposition home or self-care (01) | DRG 806 ==
LOC: OPOB 08:50
PROVIDERS: Admitting Provider Family Medicine; PCP Family Medicine; Visit Provider Family Medicine
DX: O99.12 Other diseases of the blood and blood-forming organs and certain disorders involving the immune mechanism complicating childbirth (principal); D68.62 Lupus anticoagulant syndrome; Z37.0 Single live birth; O36.0130 Maternal care for anti-D [Rh] antibodies, third trimester, not applicable or unspecified; O99.344 Other mental disorders complicating childbirth; F31.9 Bipolar disorder, unspecified; O99.824 Streptococcus B carrier state complicating childbirth; Z3A.37 37 weeks gestation of pregnancy; O99.334 Smoking (tobacco) complicating childbirth; F17.210 Nicotine dependence, cigarettes, uncomplicated
CPT/HCPCS: 12345; 36415; 51702; 59025; 80306; 85025; 85027; 86850; 86870; 86900; 90471; 90686; 90707; 90732; 96372; 96374; 96376; J0290; J2405; J2590; J2795; J3010; J7120; J7121

== ENCOUNTER 2022-02-21 19:21 | Inpatient (IN) | payer MEDICARE, MEDICAID, SELFPAY ==
[2022-02-21 19:26] VITALS: BP 121/79; PULSE 84; RESP 16; TEMP 36.7; O2SAT 95
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
[2022-02-21 20:07] LABS: Basophils # 0.1 10^3/uL (0.0-0.1); Basophils % 0.6 %; Eosinophils # 0.2 10^3/uL (0.0-0.8); Eosinophils % 2.3 %; Hemoglobin 14.2 g/dL (11.5-15.3); Lymphocytes % 35.3 %; Mean Corpuscular HGB Conc 32.3 g/dL (30.0-36.0); Mean Corpuscular Hemoglobin 26.9 pg (28.0-34.0); Mean Corpuscular Volume 83.5 fl (81-99); Mean Platelet Volume 10.4 fL (7.4-10.4); Monocytes # 0.5 10^3/uL (0.2-0.9); Monocytes % 5.5 %; Neutrophils # 4.68 10^3/uL (1.8-7.7); Neutrophils % 56.1 %; Nucleated Red Blood Cells % 0 %; Platelet Count 264 10^3/cmm (130-400); Red Blood Count 5.27 10^6/uL (4.1-5.3); Red Cell Distribution Width 14.7 % (12.1-15.1); White Blood Count 8.4 10^3/uL (4.0-10.0)
[2022-02-21 20:16] LABS: Amphetamines Screen Urine Negative (Negative); Barbiturates Screen Urine Negative (Negative); Benzodiazepines Screen Urine Negative (Negative); Cocaine Screen Urine Negative (Negative); Opiate Screen Urine Negative (Negative); PCP Screen Urine Negative (Negative); THC Screen Urine Negative (Negative)
[2022-02-21 20:24] LABS: Alanine Aminotransferase 23 U/L (0-33); Albumin Level 3.8 g/dL (3.5-5.2); Alkaline Phosphatase 151 U/L (35-105); Anion Gap 16.2 (5-19); Aspartate Amino Transferase 22 U/L (0-32); Blood Urea Nitrogen 9 mg/dL (6-20); Calcium 8.6 mg/dL (8.5-10.5); Carbon Dioxide 21 mmol/L (22-29); Chloride 104 mmol/L (98-107); Globulin 3.4 g/dL (1.3-4.6); Glomerular Filtration Rate 126.2 mL/min (90-130); Glucose 96 mg/dL (65-115); Osmolality Calculated 283 mOsm/kg (285-295); Potassium 4.2 mmol/L (3.5-5.1); Sodium 137 mmol/L (136-145); Total Bilirubin 0.2 mg/dL (0.15-1.2); Total Protein 7.2 g/dL (6.6-8.7)
[2022-02-21 20:31] LABS: Acetaminophen < 5.0 ug/mL (10-30); Alcohol Level < 10 mg/dL (0-10); Salicylate < 0.3 mg/dL (3-10)
--- NOTE | 2022-02-21 21:39 | PC.NURSE ---
steri strips placed over lacerations to abdomen
--- NOTE | 2022-02-21 22:14 | PC.NURSE ---
report called to Karen on NPU
[2022-02-21 23:43] VITALS: BP 123/93; PULSE 77; RESP 18; TEMP 36.7; O2SAT 96
[2022-02-22 06:00] VITALS: RESP 16
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
[2022-02-22] MEDS: nicotine 21 mg Patch 1 PATCH TRANSDERMA (10:47)
[2022-02-22 14:00] VITALS: RESP 18
[2022-02-22] MEDS: sertraline 100 mg Tablet PO (18:06)
[2022-02-22] MEDS: hyDROXYzine 25 mg Capsule 50 MG PO ×2 (20:26)
[2022-02-22] MEDS: trazodone 50 mg Tablet PO ×2 (20:27)
[2022-02-22] MEDS: ibuprofen 600 mg Tablet PO (20:28)
[2022-02-22 22:00] VITALS: RESP 18
[2022-02-23 06:00] VITALS: RESP 16
[2022-02-23] MEDS: ibuprofen 600 mg Tablet PO ×2 (09:01→18:31)
[2022-02-23] MEDS: fluoxetine 20 mg Capsule PO (09:39)
[2022-02-23] MEDS: diphenhydrAMINE 50 mg Capsule PO (11:03)
[2022-02-23] MEDS: LORazepam 2 mg Tablet PO (11:03)
[2022-02-23] MEDS: haloperidol 5 mg Tablet PO (11:03)
[2022-02-23] MEDS: acetaminophen 325 mg Tablet 650 MG PO (13:54)
[2022-02-23 14:00] VITALS: BP 123/93; PULSE 77; RESP 16; TEMP 36.7
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
[2022-02-23] MEDS: lamoTRIgine 25 mg Tablet PO (18:28)
[2022-02-23] MEDS: prazosin 1 mg Capsule 2 MG PO (20:11)
[2022-02-23] MEDS: hyDROXYzine 25 mg Capsule 50 MG PO (20:11)
[2022-02-23] MEDS: trazodone 50 mg Tablet PO (20:11)
[2022-02-23 21:41] VITALS: RESP 18
[2022-02-24 06:00] VITALS: RESP 16
[2022-02-24] MEDS: acetaminophen 325 mg Tablet 650 MG PO (08:30)
[2022-02-24] MEDS: lamoTRIgine 25 mg Tablet PO ×2 (08:30→18:02)
[2022-02-24] MEDS: fluoxetine 10 mg Capsule 30 MG PO (08:31)
[2022-02-24] MEDS: blistex lip oint 7 gm Tube 1 APPLIC TOPICAL (11:50)
[2022-02-24] MEDS: nicotine 21 mg Patch 1 PATCH TRANSDERMA (12:07)
[2022-02-24 14:00] VITALS: RESP 17
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
[2022-02-24] MEDS: ibuprofen 600 mg Tablet PO (16:34)
[2022-02-24 20:01] VITALS: BP 112/76; PULSE 96; RESP 18; TEMP 36.7; O2SAT 96
[2022-02-24] MEDS: prazosin 1 mg Capsule 4 MG PO (20:16)
[2022-02-24] MEDS: trazodone 50 mg Tablet PO (22:34)
--- NOTE | 2022-02-24 22:54 | PC.NURSE ---
PRN MED PT GIVEN 50 MG TRAZADONE FOR INSOMNIA, WILL CONTINUE TO MONITOR.
[2022-02-25] MEDS: lamoTRIgine 25 mg Tablet PO ×2 (08:35→18:11)
[2022-02-25] MEDS: acetaminophen 325 mg Tablet 650 MG PO (08:36)
[2022-02-25] MEDS: fluoxetine 10 mg Capsule 30 MG PO (08:36)
[2022-02-25] MEDS: nicotine 21 mg Patch 1 PATCH TRANSDERMA (09:31)
[2022-02-25] MEDS: haloperidol 5 mg Tablet PO (13:41)
[2022-02-25] MEDS: hyDROXYzine 25 mg Capsule 50 MG PO (13:41)
--- NOTE | 2022-02-25 13:42 | PC.NURSE ---
Administered 5mg Haldol and 50mg Vistaril to pt experiencing anxiety and mood shift change, negative attitude and thought process.
[2022-02-25 14:00] VITALS: RESP 18
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
[2022-02-25] MEDS: prazosin 1 mg Capsule 4 MG PO (19:56)
[2022-02-25] MEDS: trazodone 50 mg Tablet PO (19:56)
[2022-02-25 20:30] VITALS: BP 122/80; PULSE 83; RESP 18; TEMP 36.8; O2SAT 97
[2022-02-26 05:47] VITALS: BP 108/74; PULSE 100; RESP 20; TEMP 36.4; O2SAT 98
[2022-02-26] MEDS: lamoTRIgine 25 mg Tablet PO ×2 (10:00→18:00)
[2022-02-26] MEDS: fluoxetine 20 mg Capsule 40 MG PO (10:00)
[2022-02-26] MEDS: neomycin-poly-bacitracin oint 28 gm 1 APPLIC TOPICAL (10:00)
[2022-02-26 14:00] VITALS: BP 106/73; PULSE 85; RESP 18; TEMP 36.6; O2SAT 97
[2022-02-26] MEDS: nicotine 21 mg Patch 1 PATCH TRANSDERMA (14:37)
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
[2022-02-26] MEDS: ibuprofen 600 mg Tablet PO (18:00)
[2022-02-26 19:35] VITALS: BP 110/69; PULSE 71; RESP 14; TEMP 36.9; O2SAT 97
[2022-02-26] MEDS: prazosin 1 mg Capsule 4 MG PO (20:11)
[2022-02-26] MEDS: trazodone 50 mg Tablet PO (20:12)
[2022-02-27 06:00] VITALS: RESP 16
[2022-02-27] MEDS: lamoTRIgine 25 mg Tablet PO (09:46)
[2022-02-27] MEDS: fluoxetine 20 mg Capsule 40 MG PO (09:46)
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
[2022-02-27] MEDS: nicotine 21 mg Patch 1 PATCH TRANSDERMA (11:18)
--- NOTE | 2022-02-27 11:22 | DCPLANNER ---
IMM completed with pt on 02/27/22 @ 1562. Pt was given a copy of rights and stated she understood her rights.
[2022-02-27 11:24] VITALS: PULSE 86; RESP 16; TEMP 36.8; O2SAT 99
== END 2022-02-27 12:36 | disposition home or self-care (01) | DRG 881 ==
LOC: ER 20:54 → NP 21:25
PROVIDERS: Admitting Provider Psychiatry & Neurology Psychiatry; Emergency Provider Emergency Medicine; PCP Family Medicine; Visit Provider Psychiatry & Neurology Psychiatry
DX: F34.1 Dysthymic disorder (principal); R45.851 Suicidal ideations; F60.3 Borderline personality disorder; R41.83 Borderline intellectual functioning; F63.9 Impulse disorder, unspecified; F31.9 Bipolar disorder, unspecified; F43.12 Post-traumatic stress disorder, chronic; F10.11 Alcohol abuse, in remission; F15.11 Other stimulant abuse, in remission; F11.11 Opioid abuse, in remission; Z81.8 Family history of other mental and behavioral disorders; M32.9 Systemic lupus erythematosus, unspecified; F17.210 Nicotine dependence, cigarettes, uncomplicated
CPT/HCPCS: 74176; 80053; 80306; 80307; 85025; 97150; 97165; 99285; Q0163

== ENCOUNTER 2022-03-06 20:52 | Emergency (ER) | payer MEDICARE, MEDICAID, SELFPAY ==
[2022-03-06 20:55] VITALS: BP 121/71; PULSE 71; RESP 14; TEMP 37.1; O2SAT 98
--- NOTE | 2022-03-06 20:59 | ED.C_ITS ---
Documented by User: Michael Lyman MD 03/13/22 06:54 HPI - Psych General: Chief Complaint: Overdose Stated Complaint: OD Time Seen by Provider: 03/06/22 20:59 Limitations: altered mental status History of Present Illness: Ms. Macias is a 21-year-old female with history of psychiatric disorder presenting to the emergency department for overdose. The patient herself is unsure of what she took. She endorses taking some of her ps ychiatric medications. She also has a history of alcohol abuse and polysubstance abuse however is unsure or think she probably did not take any alcohol or other illicit drugs today. She did cut herself along the long axis of her right forearm multiple superficial somewhat linear lacerations without active bleeding or need for repair. She describes doing this as to have fun . Patient offers limited insight and does appear somewhat somnolent. Intensity symptoms moderate. Course has persisted. No other specific changes in health, exacerbating, or alleviating factors identified. Per triage note they note patient taking 14 100 mg Zoloft tabs, 14 25 mg hydroxyzine, 7 25 mg Lamictal approximately 1 hour prior to arrival. Though I am uncertain of exactly where these numbers came from. Onset (ago): minute(s) History of same: Yes Context: recent drug abuse and other Associated psychiatric symptoms: depression Review of Systems General: Reports: 10 or more systems reviewed and unremarkable except in HPI and below PFSH ED PFSH: Medical History Amenorrhea, unspecified Asthma Bipolar disorder Bipolar disorder, unspecified Bipolar disorder, unspecified Bipolar disorder, unspecified Borderline intellectual functioning Borderline personality disorder Depression Hypothyroidism Lupus Post-traumatic stress disorder, chronic Psychiatric care PTSD (post-traumatic stress disorder) Schizophrenia Surgical History History of cholecystectomy Family History Mother Bipolar 1 disorder Heart disease Spina bifida Hyperlipidemia Diabetes Brother Hyperlipidemia Social History Smoking and tobacco status: current every day smoker cigarettes Packs smoked per day: 0.25 Years cigarettes smoked: 7 Quit status (tobacco): has tried quititng Number of times tried to quit tobacco: 6 Second hand smoke exposure: Yes Smoking risk assessment/counseling performed?: Yes Alcohol intake: never Adopted: No Caregiver/support person: No Lives independently: No Household members: other Details: Mom, Step-Dad, Sister, Brother Housing: Manufactured/Mobile home Marital status: Single Number of children: 1 Highest education level completed: High School Graduate service: No Current occupational status: disabled Current occupational exposures/hazards: No Pets and animals: Yes Pets & animals: dog(s) History of recent travel: No Leisure activites: other Leisure activities details: hang out with friends, watch tv, listen to music Sexually active: Yes Current gender identity: Female Anabel/Roman Catholic: None Special anabel needs: No Financial difficulty paying for basics: Not Very Hard Female Reproductive History: Date of last menstrual period: 02/21/22 Physical Exam Const: COMMON NORMALS: alert GENERAL APPEARANCE: cooperative and well developed NUTRITIONAL APPEARANCE: obese ORIENTATION/CONSCIOUSNESS: Yes Other orientation findings (Mildly somnolent) HENMT: COMMON NORMALS: normocephalic and atraumatic HEAD & SCALP: normocephalic and atraumatic Eye: COMMON NORMALS: conjunctivae normal CONJUNCTIVA: Yes conjunctivae normal SCLERA: sclerae normal Neck/C-Spine: COMMON NORMALS: supple GENERAL: Yes trachea midline Resp: COMMON NORMALS: clear to auscultation bilaterally EFFORT & INSPECTION: Yes able to speak in complete sentences AUSCULTATION: clear to auscultation bilaterally Cardio: COMMON NORMALS: regular rate and regular rhythm RATE: regular rate RHYTHM: regular rhythm GI: COMMON NORMALS: Soft to palpation PALPATION: Yes Soft to palpation and No Tenderness to palpation present (GI) Extremity: NARRATIVE EXTREMITY EXAM: Superficial lacerations to right anterior forearm, no active bleeding, no need for repair. GENERAL: Yes normal exam except as noted and No edema Neuro: COMMON NORMALS: moves all extremities SENSORIUM/ORIENTATION: Yes alert and No Orientation impaired Psych: SPEECH: Yes slow MOOD & AFFECT: Yes depressed mood INSIGHT: Limited insight present (Psych) JUDGEMENT: Poor judgement present (Psych) Course Vital Signs: Vital signs: Vital Signs Temperature 98.7 F 03/07/22 10:53 Pulse Rate 62 03/07/22 10:53 Respiratory Rate 17 03/07/22 10:53 Blood Pressure 128/72 03/07/22 10:53 Pulse Oximetry 95 03/07/22 10:53 Oxygen Delivery Me thod 03/07/22 10:53 [facility] - Psych Medical Decision Making 21-year-old female presenting with overdose. Initial clinical exam patient is somewhat somnolent though does respond to questions, somewhat confused at times. She is calm and cooperative. She is nontoxic in appearance. Exam otherwise as above. EKG shows sinus rhythm, nonspecific T wave abnormalities, no STEMI. No terminal R wave. QRS complexes narrow. Serial EKGs obtained and reviewed without concerning changes. Labs with no leukocytosis, normal hemoglobin and platelet count. Metabolic panel with no significant electrolyte derangement. Certainly no abnormal findings to explain symptoms. hCG negative. Urinalysis with possible evidence of urinary tract infection though there is squamous epithelial contamination. I will plan to treat and recommend continuation of Keflex 500 mg 4 times daily for a total of 7 days. Toxic ingestions negative with exception of mild elevation of ethyl alcohol at 14 mg/dL. UDS only positive for THC. Flu and COVID- negative. Chest x-ray with no lobar consolidation or pneumothorax. Given overdose and recent psychiatric history I believe that the patient requires inpatient management. She will be placed on 96-hour hold as a believe that she is a danger to herself and requires inpatient psychiatric stabilization and treatment. The patient herself is quite adamant about not being admitted to our psych unit. I believe that it is reasonable to explore options for transfer in order to help facilitate therapeutic effect of hospitalization. Case was discussed with poison control by staff reporter and poison control recommended 8-hour observation after which point we will look for placement. Based on ED evaluation at this point there is no obvious condition that would preclude the patient from inpatient management of psychiatric concerns. Medical Records I reviewed the patient's medical records. Lab Data I reviewed the patient's lab results. 03/06/22 21:08 03/06/22 21:08 Radiology Impressions Chest X-Ray 03/06/22 21:21 IMPRESSION: No acute findings. Laboratory Results WBC 8.2 10^3/uL (4.0-10.0) 03/06/22 21:08 RBC 5.47 10^6/uL (4.1-5.3) H 03/06/22 21:08 Hgb 14.5 g/dL (11.5-15.3) 03/06/22 21:08 Hct 46.2 % (37.0-47.0) 03/06/22 21:08 MCV 84.5 fl (81-99) 03/06/22 21:08 MCH 26.5 pg (28.0-34.0) L 03/06/22 21:08 MCHC 31.4 g/dL (30.0-36.0) 03/06/22 21:08 RDW 14.1 % (12.1-15.1) 03/06/22 21:08 Plt Count 279 10^3/cmm (130-400) 03/06/22 21:08 MPV 10.7 fL (7.4-10.4) H 03/06/22 21:08 Neut % (Auto) 56.2 % 03/06/22 21:08 Lymph % (Auto) 37.1 % 03/06/22 21:08 [place] % (Auto) 3.5 % 03/06/22 21:08 Eos % (Auto) 2.4 % 03/06/22 21:08 Baso % (Auto) 0.7 % 03/06/22 21:08 Neut # (Auto) 4.62 10^3/uL (1.8-7.7) 03/06/22 21:08 Lymph # (Auto) 3.1 10^3/uL (0.8-4.8) 03/06/22 21:08 [place] # (Auto) 0.3 10^3/uL (0.2-0.9) 03/06/22 21:08 Eos # (Auto) 0.2 10^3/uL (0.0-0.8) 03/06/22 21:08 Baso # (Auto) 0.1 10^3/uL (0.0-0.1) 03/06/22 21:08 Nucleated RBC % (auto) 0 % 03/06/22 21:08 Nucleated RBCs # 0.0 /100WBC 03/06/22 21:08 Sodium 140 mmol/L (136-145) 03/06/22 22:00 Potassium 3.3 mmol/L (3.5-5.1) L 03/06/22 22:00 Chloride 105 mmol/L (98-107) 03/06/22 22:00 Carbon Dioxide 24 mmol/L (22-29) 03/06/22 22:00 Anion Gap 14.3 (5-19) 03/06/22 22:00 BUN 7 mg/dL (6-20) 03/06/22 22:00 Creatinine 0.7 mg/dL (0.5-0.9) 03/06/22 22:00 GFR Calculation 105.6 mL/min (90-130) 03/06/22 22:00 Glucose 93 mg/dL (65-115) 03/06/22 22:00 Calculated Osmolality 288 mOsm/kg (285-295) 03/06/22 22:00 Calcium 8.4 mg/dL (8.5-10.5) L 03/06/22 22:00 Magnesium 1.9 mg/dL (1.7-2.3) 03/06/22 22:00 Total Bilirubin 0.4 mg/dL (0.15-1.2) 03/06/22 22:00 AST 25 U/L (0-32) 03/06/22 22:00 ALT 30 U/L (0-33) 03/06/22 22:00 Alkaline Phosphatase 152 U/L (35-105) H 03/06/22 22:00 Total Protein 6.8 g/dL (6.6-8.7) 03/06/22 22:00 Albumin 3.9 g/dL (3.5-5.2) 03/06/22 22:00 Globulin 2.9 g/dL (1.3-4.6) 03/06/22 22:00 TSH 1.35 uIU/mL (0.27-4.20) 03/06/22 22:20 HCG, Qual Negative (Negative) 03/06/22 21:15 Urine Color Yellow (Yellow) 03/06/22 21:15 Urine Appearance Sl hazy (CLEAR) A 03/06/22 21:15 Urine pH 6 (5-7) 03/06/22 21:15 Ur Specific [place] 1.020 (1.005-1.030) 03/06/22 21:15 Urine Protein Neg (Negative) 03/06/22 21:15 Urine Glucose (UA) Norm (Normal) 03/06/22 21:15 Urine Ketones Negative (Negative) 03/06/22 21:15 Urine Blood 3+ (Negative) H 03/06/22 21:15 Urine Nitrate Negative (Negative) 03/06/22 21:15 Urine Bilirubin Neg (Negative) 03/06/22 21:15 Urine Urobilinogen 1 mg/dL (Negative) H 03/06/22 21:15 Ur Leukocyte Esterase 2+ (Negative) H 03/06/22 21:15 Urine RBC 5-10 /hpf (0-2) H 03/06/22 21:15 Urine WBC 80-100 /hpf (0-5) H 03/06/22 21:15 Ur Squamous Epith Cells 5-10 /hpf (0-5) H 03/06/22 21:15 Amorphous Sediment Not Reportable 03/06/22 21:15 Urine Bacteria 2+ /hpf (NONE) H 03/06/22 21:15 Salicylates < 0.3 mg/dL (3-10) L 03/06/22 22:00 Urine Opiates Screen Negative ng/mL (Negative) 03/06/22 21:15 Acetaminophen < 5.0 ug/mL (10-30) L 03/06/22 22:00 Ur Barbiturates Screen Negative ng/mL (Negative) 03/06/22 21:15 Ur Phencyclidine Scrn Negative ng/mL (Negative) 03/06/22 21:15 Ur Amphetamines Screen Negative ng/mL (Negative) 03/06/22 21:15 U Benzodiazepines Scrn Negative ng/mL (Negative) 03/06/22 21:15 Urine Cocaine Screen Negative ng/mL (Negative) 03/06/22 21:15 U Marijuana (THC) Screen Positive ng/mL (Negative) H 03/06/22 21:15 Ethyl Alcohol 14 mg/dL (0-10) H 03/06/22 22:00 Influenza Type A Ag negative (Negative) 03/06/22 21:35 Influenza Type B Ag negative (Negative) 03/06/22 21:35 SARS-CoV-2 Ag (Rapid) negative (Negative) 03/06/22 21:35 Discharge Plan Discharge Patient Disposition: Xfer Psychiatric Hosp Clinical Impression: Drug overdose, Psychiatric care Condition: Stable Referrals: Young Albright MD [Primary Care Provider] - Sign Out Sign Out Data: Patient Sign Out occurred on 03/07/22 at 06:39. Patient's care was discussed, and care was transferred from to Migue Petty DO. Coding Level of Care Code ED Wool Fleece Sorter for Chg Fwd Exam Comprehensive Documented by User: Migue Petty DO 03/08/22 06:34 HPI - Psych General: Chief Complaint: Overdose Stated Complaint: OD Time Seen by Provider: 03/06/22 20:59 PFSH ED PFSH: Medical History Amenorrhea, unspecified Asthma Bipolar disorder Bipolar disorder, unspecified Bipolar disorder, unspecified Bipolar disorder, unspecified Borderline intellectual functioning Borderline personality disorder Depression Hypothyroidism Lupus Post-traumatic stress disorder, chronic Psychiatric care PTSD (post-traumatic stress disorder) Schizophrenia Surgical History History of cholecystectomy Family History Mother Bipolar 1 disorder Heart disease Spina bifida Hyperlipidemia Diabetes Brother Hyperlipidemia Social History Smoking and tobacco status: current every day smoker cigarettes Packs smoked per day: 0.25 Years cigarettes smoked: 7 Quit status (tobacco): has tried quititng Number of times tried to quit tobacco: 6 Second hand smoke exposure: Yes Smoking risk assessment/counseling performed?: Yes Alcohol intake: never Adopted: No Caregiver/support person: No Lives independently: No Household members: other Details: Mom, Step-Dad, Sister, Brother Housing: Manufactured/Mobile home Marital status: Single Number of children: 1 Highest education level completed: High School Graduate service: No Current occupational status: disabled Current occupational exposures/hazards: No Pets and animals: Yes Pets & animals: dog(s) History of recent travel: No Leisure activites: other Leisure activities details: hang out with friends, watch tv, listen to music Sexually active: Yes Current gender identity: Female Anabel/Roman Catholic: None Special anabel needs: No Financial difficulty paying for basics: Not Very Hard Course Vital Signs: Vital signs: Vital Signs Temperature 98.7 F 03/07/22 10:53 Pulse Rate 62 03/07/22 10:53 Respiratory Rate 17 03/07/22 10:53 Blood Pressure 128/72 03/07/22 10:53 Pulse Oximetry 95 03/07/22 10:53 Oxygen Delivery Me thod 03/07/22 10:53 MDM - Psych Medical Decision Making 21-year-old female presenting with overdose. Initial clinical exam patient is somewhat somnolent though does respond to questions, somewhat confused at times. She is calm and cooperative. She is nontoxic in appearance. Exam otherwise as above. EKG shows sinus rhythm, nonspecific T wave abnormalities, no STEMI. No terminal R wave. QRS complexes narrow. Serial EKGs obtained and reviewed without concerning changes. Labs with no leukocytosis, normal hemoglobin and platelet count. Metabolic panel with no significant electrolyte derangement. Certainly no abnormal findings to explain symptoms. hCG negative. Urinalysis with possible evidence of urinary tract infection though there is squamous epithelial contamination. I will plan to treat and recommend continuation of Keflex 500 mg 4 times daily for a total of 7 days. Toxic ingestions negative with exception of mild elevation of ethyl alcohol at 14 mg/dL. UDS only positive for THC. Flu and COVID- negative. Chest x-ray with no lobar consolidation or pneumothorax. Given overdose and recent psychiatric history I believe that the patient requires inpatient management. She will be placed on 96-hour hold as a believe that she is a danger to herself and requires inpatient psychiatric stabilization and treatment. The patient herself is quite adamant about not being admitted to our psych unit. I believe that it is reasonable to explore options for transfer in order to help facilitate therapeutic effect of hospitalization. Case was discussed with poison control by staff reporter and poison control recommended 8-hour observation after which point we will look for placement. Based on ED evaluation at this point there is no obvious condition that would preclude the patient from inpatient management of psychiatric concerns. March 07, 2022 10 AM care assumed at change of shift. Observing patient for now no signs of toxidrome from meds taken. Patient is calm has not had any aggression. Has been accepted at [facility] will transfer when transportation arrangements completed. Lab Data 03/06/22 21:08 03/06/22 21:08 Radiology Impressions Chest X-Ray 03/06/22 21:21
--- NOTE | 2022-03-06 21:00 | ECG_ITS ---
[facility] Test Date: 2022-03-06 Pat Name: Heidy Macias Department: Room: Gender: Female Group Therapy Counselor: : 2000 Requested By: Michael Lyman Order Number: [id number] Chantale MD: Clay Blankenship M.D. Measurements Intervals [place] Rate: 73 P: 50 IN: 154 QRS: 74 QRSD: 86 T: 21 QT: 390 QTc: 431 Interpretive Statements SINUS RHYTHM NONSPECIFIC T-WAVE ABNORMALITY Compared to ECG 06/21/2021 15:34:44 T-wave abnormality now present Electronically Signed On 03-07-2022 8:15:03 MIDDLEWARE SYSTEMS ARCHITECT by Clay Blankenship M.D. [email or web address] Work Loftskaiser permanente medical centerWeplay/store/OM/[id number]/ecg/[id number]
[2022-03-06 21:13] LABS: Basophils # 0.1 10^3/uL (0.0-0.1); Basophils % 0.7 %; Eosinophils # 0.2 10^3/uL (0.0-0.8); Eosinophils % 2.4 %; Hematocrit 46.2 % (37.0-47.0); Hemoglobin 14.5 g/dL (11.5-15.3); Lymphocytes # 3.1 10^3/uL (0.8-4.8); Lymphocytes % 37.1 %; Mean Corpuscular HGB Conc 31.4 g/dL (30.0-36.0); Mean Corpuscular Hemoglobin 26.5 pg (28.0-34.0); Mean Corpuscular Volume 84.5 fl (81-99); Mean Platelet Volume 10.7 fL (7.4-10.4); Monocytes # 0.3 10^3/uL (0.2-0.9); Monocytes % 3.5 %; Neutrophils # 4.62 10^3/uL (1.8-7.7); Neutrophils % 56.2 %; Nucleated Red Blood Cells % 0 %; Platelet Count 279 10^3/cmm (130-400); Red Blood Count 5.47 10^6/uL (4.1-5.3); Red Cell Distribution Width 14.1 % (12.1-15.1); White Blood Count 8.2 10^3/uL (4.0-10.0)
--- NOTE | 2022-03-06 21:21 | XRR_ITS ---
PROCEDURE INFORMATION: Exam: XR Chest Exam date and time: 03/06/2022 9:39 PM Age: 21 years old Clinical indication: Other: Od; Additional info: AMS TECHNIQUE: Imaging protocol: Radiologic exam of the chest. Views: 1 view. COMPARISON: CR XR chest 1V portable [id number] 06/21/2021 3:47 PM FINDINGS: Lungs: Unremarkable. No consolidation. Pleural spaces: Unremarkable. No pleural effusion. No pneumothorax. Heart/Mediastinum: Unremarkable. No cardiomegaly. Bones/joints: Unremarkable. XR/XR chest 1V portable [id number] IMPRESSION: No acute findings.
[2022-03-06 21:26] VITALS: BP 133/88; PULSE 64; RESP 16; O2SAT 96
[2022-03-06 21:31] LABS: HCG Qualitative Urine. Negative (Negative)
[2022-03-06 21:39] LABS: Amphetamines Screen Urine Negative (Negative); Barbiturates Screen Urine Negative (Negative); Benzodiazepines Screen Urine Negative (Negative); Cocaine Screen Urine Negative (Negative); Opiate Screen Urine Negative (Negative); PCP Screen Urine Negative (Negative); THC Screen Urine Positive (Negative)
--- NOTE | 2022-03-06 21:42 | PC.NURSE ---
Called poison control about patient overdose. Zoloft needs monitored for 4-8 hours. hydroxyzine monitor for 4-8 hours. lamictal - depends on immediate or extended release, if ER monitor for 12 hours. 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
[2022-03-06 21:56] LABS: Add Urine Microscopic? YES; Bilirubin Urine Neg (Negative); Blood Urine 3+ (Negative); Glucose Urine UA Norm (Normal); Ketones Urine Negative (Negative); Leukocyte Esterase Urine 2+ (Negative); Nitrate Urine Negative (Negative); Protein Urine Neg (Negative); Urine Appearance SL Hazy (CLEAR); Urine Color Yellow (Yellow); Urobilinogen Urine 1 mg/dL (Negative); pH Urine 6 (5-7)
[2022-03-06 21:57] LABS: Add Urine Culture? Yes; Bacteria Urine 2+ /hpf; WBC Urine 80-100 /hpf (0-5)
[2022-03-06 22:03] LABS: Influenza A by IFA negative (Negative); Influenza B by IFA negative (Negative); SARS Covid-2 Antigen negative (Negative)
[2022-03-06] MEDS: cefTRIAXone 1,000 MG in sodium chloride 0.9% (plus) 50 ML 100 MG IV (22:22)
[2022-03-06 22:24] LABS: Alanine Aminotransferase 30 U/L (0-33); Albumin Level 3.9 g/dL (3.5-5.2); Alcohol Level 14 mg/dL (0-10); Alkaline Phosphatase 152 U/L (35-105); Anion Gap 14.3 (5-19); Aspartate Amino Transferase 25 U/L (0-32); Blood Urea Nitrogen 7 mg/dL (6-20); Calcium 8.4 mg/dL (8.5-10.5); Carbon Dioxide 24 mmol/L (22-29); Chloride 105 mmol/L (98-107); Creatinine Clr Calc Pharmacy 165.2101; Globulin 2.9 g/dL (1.3-4.6); Glomerular Filtration Rate 105.6 mL/min (90-130); Glucose 93 mg/dL (65-115); Magnesium 1.9 mg/dL (1.7-2.3); Osmolality Calculated 288 mOsm/kg (285-295); Potassium 3.3 mmol/L (3.5-5.1); Sodium 140 mmol/L (136-145); Total Bilirubin 0.4 mg/dL (0.15-1.2); Total Protein 6.8 g/dL (6.6-8.7)
[2022-03-06 22:25] LABS: Acetaminophen < 5.0 ug/mL (10-30); Salicylate < 0.3 mg/dL (3-10)
[2022-03-06] MEDS: potassium chloride ER 20 mEq Tablet 40 MEQ PO (22:30)
[2022-03-06 22:36] VITALS: BP 160/84; PULSE 70; RESP 16; O2SAT 98
--- NOTE | 2022-03-06 22:36 | PC.NURSE ---
Pt given copy of 96 HH Rights paper by this nurse and security. Reviewed with patient.
[2022-03-06 23:05] VITALS: BP 140/100; PULSE 59; RESP 16; O2SAT 96
[2022-03-07] VITALS (7 sets, daily range): BP systolic 126–153; BP diastolic 72–104; PULSE 54–63; RESP 14–17; TEMP 37.1; O2SAT 93–97
--- NOTE | 2022-03-07 00:18 | ECG_ITS ---
[facility] Test Date: 2022-03-07 Pat Name: Heidy Macias Department: Room: Gender: Female Fertilizing Machine Operator: : 2000 Requested By: Michael Lyman Order Number: [id number] Chantale MD: Domenica Beaevr M.D. Measurements Intervals [place] Rate: 65 P: 45 SC: 158 QRS: 76 QRSD: 86 T: 36 QT: 416 QTc: 434 Interpretive Statements SINUS RHYTHM Compared to ECG 03/06/2022 21:10:10 T-wave abnormality no longer present Electronically Signed On 03-07-2022 21:45:13 CULLET TRUCKER by Domenica Beaver M.D. [email or web address] Floridalawrence county hospitalLove Warrior Wellness Collectivemagruder memorial hospitalMedabil/store/OM/[id number]/[id number]
[2022-03-07] MEDS: tetanus-dipt-pertussis 0.5 mL SDV IM (00:36)
--- NOTE | 2022-03-07 02:00 | ECG_ITS ---
[facility] Test Date: 2022-03-07 Pat Name: Heidy Macias Department: Room: Gender: Female Serging Machine Operator Automatic: : 2000 Requested By: Michael Lyman Order Number: [id number] Chantale MD: Domenica Beaver M.D. Measurements Intervals [place] Rate: 61 P: 50 DC: 156 QRS: 77 QRSD: 83 T: 29 QT: 413 QTc: 416 Interpretive Statements SINUS RHYTHM WITH SINUS ARRHYTHMIA Compared to ECG 03/07/2022 00:18:31 No significant changes Electronically Signed On 03-07-2022 21:45:26 GENERAL CAR YARD SUPERVISOR by Domenica Beaver M.D. [email or web address].EnviroMissionGroupSwimavita health systemPrintFu/store/OM/[id number]
[2022-03-07] MEDS: acetaminophen 500 mg Tablet 1000 MG PO (02:23)
[2022-03-07 02:57] LABS: Thyroid Stimulating Hormone 1.35 uIU/mL (0.27-4.20)
--- NOTE | 2022-03-07 06:00 | ECG_ITS ---
[facility] Test Date: 2022-03-07 Pat Name: Heidy Macias Department: Room: Gender: Female Front Line Leader: : 2000 Requested By: Michael Lyman Order Number: [id number] Chantale MD: Domenica Beaver M.D. Measurements Intervals [place] Rate: 52 P: 48 OR: 159 QRS: 73 QRSD: 91 T: 50 QT: 427 QTc: 400 Interpretive Statements SINUS BRADYCARDIA Compared to ECG 03/07/2022 02:34:46 Sinus rhythm no longer present Sinus arrhythmia no longer present Electronically Signed On 03-07-2022 21:45:47 NETWORK FIREWALL ENGINEER by Domenica Beaver M.D. [email or web address] Partnersochsner medical centerPurpose Globalcleveland clinic euclid hospitalCabify/store/OM/[id number]/ecg/[id number]
[2022-03-07] MEDS: sertraline 100 mg Tablet 200 MG PO (08:43)
[2022-03-07] MEDS: cephALEXin 500 mg Capsule PO (08:43)
[2022-03-07] MEDS: lamoTRIgine 25 mg Tablet PO (09:40)
== END 2022-03-07 14:25 ==
PROVIDERS: Emergency Medicine; Emergency Provider Family Medicine; PCP Family Medicine
DX: T50.912A Poisoning by multiple unspecified drugs, medicaments and biological substances, intentional self-harm, initial encounter (principal); F17.210 Nicotine dependence, cigarettes, uncomplicated; Z23 Encounter for immunization; S51.811A Laceration without foreign body of right forearm, initial encounter; X78.9XXA Intentional self-harm by unspecified sharp object, initial encounter
CPT/HCPCS: 36415; 71045; 80053; 80306; 80307; 81001; 81025; 83735; 84443; 85025; 87086; 87426; 87804; 90471; 90715; 93005; 96365; 99285; J0696

== ENCOUNTER 2022-08-10 23:41 | Emergency (ER) | payer MEDICARE, MEDICAID, SELFPAY ==
[2022-08-10 23:44] VITALS: BP 115/80; PULSE 84; RESP 16; TEMP 37; O2SAT 98; BMI 23.5
--- NOTE | 2022-08-11 00:06 | ECG_ITS ---
[facility] Test Date: 2022-08-11 Pat Name: Heidy Macias Department: Room: Gender: Female Furnace Installer: : 2000 Requested By: Faizan Macdonald Order Number: [id number] Chantale MD: Clay Blankenship M.D. Measurements Intervals [place] Rate: 74 P: 48 RI: 169 QRS: 70 QRSD: 94 T: 29 QT: 396 QTc: 441 Interpretive Statements SINUS RHYTHM Compared to ECG 03/07/2022 08:32:41 Sinus bradycardia no longer present Electronically Signed On 08-11-2022 7:49:02 CDT by Clay Blankenship M.D. [email or web address].Ladies Who LaunchMobimediaohio valley hospitalYesVideo/store/OM/[id number]
[2022-08-11] MEDS: sodium chloride 0.9% 1,000 ML 999 ML IV (00:20)
[2022-08-11] MEDS: LORazepam 2 mg/mL INJ 1 mL 1 MG IV (00:21)
[2022-08-11 00:32] LABS: Basophils % 0.6 %; Eosinophils # 0.2 10^3/uL (0.0-0.8); Eosinophils % 3.7 %; Hematocrit 47.2 % (37.0-47.0); Hemoglobin 14.5 g/dL (11.5-15.3); Lymphocytes # 2.4 10^3/uL (0.8-4.8); Lymphocytes % 36.5 %; Mean Corpuscular HGB Conc 30.7 g/dL (30.0-36.0); Mean Corpuscular Hemoglobin 28.4 pg (28.0-34.0); Mean Corpuscular Volume 92.4 fl (81-99); Monocytes # 0.4 10^3/uL (0.2-0.9); Monocytes % 5.4 %; Neutrophils # 3.49 10^3/uL (1.8-7.7); Neutrophils % 53.6 %; Nucleated Red Blood Cells % 0 %; Platelet Count 220 10^3/cmm (130-400); Red Blood Count 5.11 10^6/uL (4.1-5.3); Red Cell Distribution Width 12.6 % (12.1-15.1); White Blood Count 6.5 10^3/uL (4.0-10.0)
[2022-08-11 00:44] LABS: Add Urine Microscopic? NO; Charge for UA Resulting for Rev
[2022-08-11 01:01] LABS: HCG Qualitative Urine. Negative (Negative)
[2022-08-11 01:02] LABS: Bilirubin Urine Neg (Negative); Blood Urine Neg (Negative); Glucose Urine UA Norm (Normal); Ketones Urine Negative (Negative); Leukocyte Esterase Urine Negative (Negative); Nitrate Urine Negative (Negative); Protein Urine Neg (Negative); Urine Appearance Clear (CLEAR); Urine Color Yellow (Yellow); Urobilinogen Urine Norm (Negative); pH Urine 6 (5-7)
[2022-08-11 01:07] LABS: Amphetamines Screen Urine Negative (Negative); Barbiturates Screen Urine Negative (Negative); Benzodiazepines Screen Urine Negative (Negative); Cocaine Screen Urine Negative (Negative); Opiate Screen Urine Negative (Negative); PCP Screen Urine Negative (Negative); THC Screen Urine Positive (Negative)
[2022-08-11 01:09] LABS: Alanine Aminotransferase 14 U/L (0-33); Albumin Level 4.1 g/dL (3.5-5.2); Alkaline Phosphatase 116 U/L (35-105); Anion Gap 16.6 (5-19); Aspartate Amino Transferase 14 U/L (0-32); Blood Urea Nitrogen 9 mg/dL (6-20); Calcium 8.9 mg/dL (8.5-10.5); Carbon Dioxide 25 mmol/L (22-29); Chloride 102 mmol/L (98-107); Globulin 2.9 g/dL (1.3-4.6); Glomerular Filtration Rate 155.7 mL/min (90-130); Glucose 97 mg/dL (65-115); Osmolality Calculated 289 mOsm/kg (285-295); Potassium 3.6 mmol/L (3.5-5.1); Sodium 140 mmol/L (136-145); Total Bilirubin 0.4 mg/dL (0.15-1.2)
[2022-08-11 01:10] LABS: Acetaminophen < 5.0 ug/mL (10-30); Alcohol Level < 10 mg/dL (0-10); Salicylate < 0.3 mg/dL (3-10)
[2022-08-11 02:12] VITALS: BP 121/81; PULSE 79; RESP 14; TEMP 36.8; O2SAT 96
--- NOTE | 2022-08-11 03:10 | ED_ITS ---
HPI - Altered Mental Status General: Chief Complaint: Altered Mental Status Stated Complaint: PARTAKING IN THE [employer] Time Seen by Provider: 08/10/22 23:53 History of Present Illness: 21-year-old female who [place] the [place], and became very anxious. She had trouble breathing, was nauseated, and flipped out . She is feeling somewhat improved now, but still nauseated. She denies any thoughts of homicide or suicide. MD complaint: altered mental status and intoxication Onset (ago): hour(s) Timing confirmed by: other Severity: moderate Consistency of symptoms: Unknown Context: drug abuse Associated symptoms: Reports delusions; Deny auditory hallucinations, visual hallucinations, homicidal ideation, racing thoughts or suicidal ideation Review of Systems Const: Denies: fever(s) Eyes: Reports: blurry vision ENMT: Denies: throat pain Card: Reports: palpitations; Denies: chest pain Resp: Denies: dyspnea or productive cough GI: Reports: nausea; Denies: abdominal pain or vomiting Skin/Breast: Denies: rash Psych: Denies: visual hallucinations, auditory hallucinations, suicidal ideation or homicidal ideation PFSH ED PFSH: Medical History Alcohol abuse, episodic Amenorrhea, unspecified Asthma Bipolar disorder Bipolar disorder, unspecified Bipolar disorder, unspecified Bipolar disorder, unspecified Borderline intellectual functioning Borderline personality disorder Cannabis use disorder Depression Hypothyroidism Lupus Opioid use disorder Post-traumatic stress disorder, chronic Psychiatric care PTSD (post-traumatic stress disorder) Schizophrenia Stimulant use disorder Surgical History History of cholecystectomy Family History Mother Bipolar 1 disorder Heart disease Spina bifida Hyperlipidemia Diabetes Brother Hyperlipidemia Social History Smoking and tobacco status: current every day smoker cigarettes Packs smoked per day: 0.25 Years cigarettes smoked: 7 Quit status (tobacco): has tried quititng Number of times tried to quit tobacco: 6 Second hand smoke exposure: Yes Smoking risk assessment/counseling performed?: Yes Alcohol intake: never Substance/Drug Use: never Adopted: No Caregiver/support person: No Lives independently: No Household members: other Details: Mom, Step-Dad, Sister, Brother Housing: Manufactured/Mobile home Marital status: Single Number of children: 1 Highest education level completed: High School Graduate service: No Current occupational status: disabled Current occupational exposures/hazards: No Pets and animals: Yes Pets & animals: dog(s) Leisure activites: other Leisure activities details: hang out with friends, watch tv, listen to music Sexually active: Yes Do you think of yourself as: Straight/Heterosexual Current gender identity: Female Anabel/Islam: None Special anabel needs: No Financial difficulty paying for basics: Not Very Hard Physical Exam Const: COMMON NORMALS: no acute distress GENERAL APPEARANCE: lethargic (mildly); not ill appearing and not frail appearing ORIENTATION/CONSCIOUSNESS: Yes lethargic (mildly) HENMT: COMMON NORMALS: normocephalic, atraumatic and Normal external nose pre sent HEAD & SCALP: normocephalic and atraumatic FACE & SINUS: normal facial exam and face symmetric NOSE: Normal external nose present Eye: COMMON NORMALS: Equal, round and reactive pupils present and EOMs intact bilaterally PUPIL: Yes Equal, round and reactive pupils present Neck/C-Spine: GENERAL: Yes trachea midline Chest: CHEST: Yes Symmetrical chest wall rise Resp: COMMON NORMALS: normal respiratory effort, No use of accessory muscles and clear to auscultation bilaterally AUSCULTATION: clear to auscultation bilaterally Cardio: COMMON NORMALS: regular rate and regular rhythm RATE: regular rate RHYTHM: regular rhythm GI: COMMON NORMALS: Normal to inspection, nondistended, normoactive bowel sounds present and Soft to palpation PALPATION: Yes Soft to palpation Extremity: COMMON NORMALS: normal to inspection and no pedal edema Neuro: CORINA COMA SCALE: document GCS findings Friendship coma scale eye opening: Spontaneous Friendship coma scale verbal response: Orientated Corina coma scale motor response: Obey commands Corina coma scale total score: 15 SENSORIUM/ORIENTATION: Yes lethargic (mildly) SPEECH: speech normal Psych: COMMON NORMALS: cooperative THOUGHT CONTENT: Yes delusions Course Vital Signs: Vital signs: Vital Signs Temperature 98.2 F 08/11/22 02:12 Pulse Rate 79 08/11/22 02:12 Respiratory Rate 14 08/11/22 02:12 Blood Pressure 121/81 08/11/22 02:12 Pulse Oximetry 96 08/11/22 02:12 MDM - Altered Mental Status Medical Decision Making The patient's mental status improved quite quickly here. She was given IV fluid, and a small dose of Ativan for anxiety and nausea. She felt improved. Medically, she is stable. Laboratory is normal, same marijuana positivity on UDS. She will be discharged. Lab Data 08/11/22 00:26 08/11/22 00:26 Laboratory Results WBC 6.5 10^3/uL (4.0-10.0) 08/11/22 00:26 RBC 5.11 10^6/uL (4.1-5.3) 08/11/22 00:26 Hgb 14.5 g/dL (11.5-15.3) 08/11/22 00: Hct 47.2 % (37.0-47.0) H 08/11/22 00:26 MCV 92.4 fl (81-99) 08/11/22 00: MCH 28.4 pg (28.0-34.0) 08/11/22 00: MCHC 30.7 g/dL (30.0-36.0) 08/11/22 00: RDW 12.6 % (12.1-15.1) 08/11/22 00:26 Plt Count 220 10^3/cmm (130-400) 08/11/22 00:26 MPV 10.0 fL (7.4-10.4) 08/11/22 00:26 Neut % (Auto) 53.6 % 08/11/22 00: Lymph % (Auto) 36.5 % 08/11/22 00:26 [place] % (Auto) 5.4 % 08/11/22 00:26 Eos % (Auto) 3.7 % 08/11/22 00:26 Baso % (Auto) 0.6 % 08/11/22 00:26 Neut # (Auto) 3.49 10^3/uL (1.8-7.7) 08/11/22 00:26 Lymph # (Auto) 2.4 10^3/uL (0.8-4.8) 08/11/22 00:26 [place] # (Auto) 0.4 10^3/uL (0.2-0.9) 08/11/22 00:26 Eos # (Auto) 0.2 10^3/uL (0.0-0.8) 08/11/22 00:26 Baso # (Auto) 0.0 10^3/uL (0.0-0.1) 08/11/22 00:26 Nucleated RBC % (auto) 0 % 08/11/22 00: Nucleated RBCs # 0.0 /100WBC 08/11/22 00:26 Sodium 140 mmol/L (136-145) 08/11/22 00:26 Potassium 3.6 mmol/L (3.5-5.1) 08/11/22 00:26 Chloride 102 mmol/L (98-107) 08/11/22 00: Carbon Dioxide 25 mmol/L (22-29) 08/11/22 00:26 Anion Gap 16.6 (5-19) 08/11/22 00: BUN 9 mg/dL (6-20) 08/11/22 00:26 Creatinine 0.5 mg/dL (0.5-0.9) 08/11/22 00: GFR Calculation 155.7 mL/min (90-130) H 08/11/22 00:26 Glucose 97 mg/dL (65-115) 08/11/22 00:26 Calculated Osmolality 289 mOsm/kg (285-295) 08/11/22 00: Calcium 8.9 mg/dL (8.5-10.5) 08/11/22 00:26 Total Bilirubin 0.4 mg/dL (0.15-1.2) 08/11/22 00: AST 14 U/L (0-32) 08/11/22 00: ALT 14 U/L (0-33) 08/11/22 00:26 Alkaline Phosphatase 116 U/L (35-105) H 08/11/22 00:26 Total Protein 7.0 g/dL (6.6-8.7) 08/11/22 00:26 Albumin 4.1 g/dL (3.5-5.2) 08/11/22 00:26 Globulin 2.9 g/dL (1.3-4.6) 08/11/22 00:26 HCG, Qual Negative (Negative) 08/11/22:38 Urine Color Yellow (Yellow) 08/11/22: Urine Appearance Clear (CLEAR) 08/11/22 00:38 Urine pH 6 (5-7) 08/11/22 00:38 Ur Specific [place] 1.020 (1.005-1.030) 08/11/22 00:38 Urine Protein Neg (Negative) 08/11/22 00:38 Urine Glucose (UA) Norm (Normal) 08/11/22 00:38 Urine Ketones Negative (Negative) 08/11/22 00:38 Urine Blood Neg (Negative) 08/11/22 00:38 Urine Nitrate Negative (Negative) 08/11/22 00:38 Urine Bilirubin Neg (Negative) 08/11/22 00:38 Urine Urobilinogen Norm mg/dL (Negative) 08/11/22 00:38 Ur Leukocyte Esterase Negative (Negative) 08/11/22 00:38 Salicylates < 0.3 mg/dL (3-10) L 08/11/22 00:26 Urine Opiates Screen Negative ng/mL (Negative) 08/11/22 00:38 Acetaminophen < 5.0 ug/mL (10-30) L 08/11/22 00:26 Ur Barbiturates Screen Negative ng/mL (Negative) 08/11/22 00:38 Ur Phencyclidine Scrn Negative ng/mL (Negative) 08/11/22 00:38 Ur Amphetamines Screen Negative ng/mL (Negative) 08/11/22 00:38 U Benzodiazepines Scrn Negative ng/mL (Negative) 08/11/22 00:38 Urine Cocaine Screen Negative ng/mL (Negative) 08/11/22 00:38 U Marijuana (THC) Screen Positive ng/mL (Negative) H 08/11/22 00:38 Ethyl Alcohol < 10 mg/dL (0-10) 08/11/22 00:26 Discharge Plan Discharge Patient Disposition: Home Clinical Impression: Panic attack, Accidental marijuana overdose Condition: Stable Prescriptions: No Action Invega Sustenna 234 mg/1.5 mL syringe 234 mg IM Q30D Qty: 1.5 0RF duloxetine [Cymbalta] 30 mg capsule,delayed release(DR/EC) 30 mg PO DAILY Qty: 30 1RF prazosin 2 mg capsule 4 mg PO .HS Qty: 60 1RF hydroxyzine HCl 50 mg tablet 50 mg PO TID PRN (Reason: anxiety) Qty: 90 1RF acetaminophen [Tylenol] 325 mg tablet 650 mg PO Q6H PRN (Reason: pain) Qty: 90 0RF omeprazole 40 mg capsule,delayed release(DR/EC) 40 mg PO QAM albuterol sulfate 90 mcg/actuation Hfa Aerosol Inhaler 2 puff INHALATION Q6H PRN (Reason: Shortness Of Breath Or Wheezing) Discharge Orders: Discharge ED (Routine); Ordered 08/11/22 Ordered By: Faizan Vernon Patient Instructions: Cannabis Use Disorder (ED), Panic Attack (ED) Coding Level of Care Code ED [employer] Operator for Corinne Ware
--- NOTE | 2022-08-30 14:55 | DCPLANNER ---
late entry - patient called due to no primary care physician - no answer at this time.
== END 2022-08-11 02:16 | disposition home or self-care (01) ==
PROVIDERS: Emergency Provider Emergency Medicine
DX: F41.0 Panic disorder [episodic paroxysmal anxiety] (principal); T40.711A Poisoning by cannabis, accidental (unintentional), initial encounter; F17.210 Nicotine dependence, cigarettes, uncomplicated; M32.9 Systemic lupus erythematosus, unspecified
CPT/HCPCS: 80053; 80306; 80307; 81003; 81025; 85025; 93005; 96361; 96374; 99284; J2060; J7030

== ENCOUNTER 2022-08-17 08:59 | Emergency (ER) | payer MEDICARE, MEDICAID, SELFPAY ==
[2022-08-17 09:03] VITALS: BP 120/85; PULSE 82; RESP 14; TEMP 36.6; O2SAT 97; BMI 35.4
--- NOTE | 2022-08-17 09:48 | ED.C_ITS ---
HPI - Psych General: Chief Complaint: Psychiatric Symptoms Stated Complaint: hallucinations/SI Time Seen by Provider: 08/17/22 09:28 Source: patient Mode of arrival: ambulatory History of Present Illness: 21-year-old female with a history of schizophrenia is on Invega got her last Invega shot 8 days late she states she is having auditory hallucinations telling her to use drugs she has a history of drug abuse. States she has been clean recently. She states the voices are telling her to do drugs. She was in the emergency room 1 week ago having used marijuana. She denies any homicidal or suicidal ideation Duration: intermittent Relieving factors: none Exacerbating factors: none Associated psychiatric symptoms: auditory hallucinations Associated symptoms: Reports auditory hallucinations Treatments prior to arrival: none Review of Systems Const: Denies: fever(s), chills, body aches, change in appetite, fatigue or malaise ENMT: Denies: throat pain, ear or mastoid pain, nasal discharge or nasal congestion Card: Denies: chest pain, edema, dyspnea on exertion or orthopnea Resp: Denies: dyspnea, productive cough or non-productive cough GI: Denies: abdominal pain, nausea, vomiting, hematemesis, coffee ground emesis, diarrhea, constipation, bloating, hematochezia or melena : Denies: flank pain, difficulty voiding, dysuria, urinary frequency or urinary urgency Skin/Breast: Denies: rash or pruritus Psych: Reports: auditory hallucinations [facility] ED PFSH: Medical History Alcohol abuse, episodic Amenorrhea, unspecified Asthma Bipolar disorder Bipolar disorder, unspecified Bipolar disorder, unspecified Bipolar disorder, unspecified Borderline intellectual functioning Borderline personality disorder Cannabis use disorder Depression Hypothyroidism Lupus Opioid use disorder Post-traumatic stress disorder, chronic Psychiatric care PTSD (post-traumatic stress disorder) Schizophrenia Stimulant use disorder Surgical History History of cholecystectomy Family History Mother Bipolar 1 disorder Heart disease Spina bifida Hyperlipidemia Diabetes Brother Hyperlipidemia Social History Smoking and tobacco status: current every day smoker cigarettes Packs smoked per day: 0.25 Years cigarettes smoked: 7 Quit status (tobacco): has tried quititng Number of times tried to quit tobacco: 6 Second hand smoke exposure: Yes Smoking risk assessment/counseling performed?: Yes Alcohol intake: never Substance/Drug Use: never Adopted: No Caregiver/support person: No Lives independently: No Household members: other Details: Mom, Step-Dad, Sister, Brother Housing: Manufactured/Mobile home Marital status: Single Number of children: 1 Highest education level completed: High School Graduate service: No Current occupational status: disabled Current occupational exposures/hazards: No Pets and animals: Yes Pets & animals: dog(s) Leisure activites: other Leisure activities details: hang out with friends, watch tv, listen to music Sexually active: Yes Do you think of yourself as: Straight/Heterosexual Current gender identity: Female Anabel/Restorationism: None Special anabel needs: No Financial difficulty paying for basics: Not Very Hard Physical Exam Const: GENERAL APPEARANCE: cooperative and comfortable ORIENTATION/CONSCIOUSNESS: Yes awake, Yes oriented to person, Yes oriented to place and Yes oriented to time HENMT: COMMON NORMALS: normocephalic, atraumatic and hearing grossly normal bilaterally HEAD & SCALP: normocephalic and atraumatic Resp: COMMON NORMALS: normal respiratory effort, No retractions, No use of accessory muscles and clear to auscultation bilaterally AUSCULTATION: clear to auscultation bilaterally Cardio: COMMON NORMALS: regular rate, regular rhythm and No murmurs present (Cardio) RATE: regular rate RHYTHM: regular rhythm GI: COMMON NORMALS: Soft to palpation and No hepatosplenomegaly present AUSCULTATION: Yes normoactive bowel sounds PALPATION: Yes Soft to palpation, No Tenderness to palpation present (GI), No Guarding due to palpation present (GI) and Yes No hepatosplenomegaly present Extremity: COMMON NORMALS: normal to inspection, capillary refill normal, no clubbing, cyanosis or edema, no calf tenderness and no pedal edema Neuro: SENSORIUM/ORIENTATION: Yes oriented to person, Yes oriented to place and Yes oriented to time Skin: COMMON NORMALS: no rashes or lesions noted GENERAL SKIN EXAM: no rashes or lesions noted Course Vital Signs: Vital signs: Vital Signs Temperature 97.8 F 08/17/22 09:03 Pulse Rate 82 08/17/22 10:54 Respiratory Rate 14 08/17/22 10:54 Blood Pressure 120/85 08/17/22 10:54 Pulse Oximetry 97 08/17/22 10:54 Oxygen Delivery Me thod Room Air 08/17/22 09:03 MDM - Psych Medical Decision Making Patient denies suicidal ideation homicidal ideation. She simply with hallucinations may need some medication adjusted. States she did get her Invega shot but it was [address] Samuel will discharge patient from here and have her go to the crisis management. Medical Records I reviewed the patient's medical records. Lab Data I reviewed the patient's lab results. 08/17/22 09:38 08/17/22 09:38 Laboratory Results WBC 6.4 10^3/uL (4.0-10.0) 08/17/22 09:38 RBC 4.79 10^6/uL (4.1-5.3) 08/17/22 09:38 Hgb 13.4 g/dL (11.5-15.3) 08/17/22 09:38 Hct 41.1 % (37.0-47.0) 08/17/22 09:38 MCV 85.8 fl (81-99) 08/17/22 09:38 MCH 28.0 pg (28.0-34.0) 08/17/22 09:38 MCHC 32.6 g/dL (30.0-36.0) 08/17/22 09:38 RDW 12.4 % (12.1-15.1) 08/17/22 09:38 Plt Count 216 10^3/cmm (130-400) 08/17/22 09:38 MPV 10.1 fL (7.4-10.4) 08/17/22 09:38 Neut % (Auto) 50.1 % 08/17/22 09:38 Lymph % (Auto) 39.8 % 08/17/22 09:38 [place] % (Auto) 5.9 % 08/17/22 09:38 Eos % (Auto) 3.3 % 08/17/22 09:38 Baso % (Auto) 0.6 % 08/17/22 09:38 Neut # (Auto) 3.23 10^3/uL (1.8-7.7) 08/17/22 09:38 Lymph # (Auto) 2.6 10^3/uL (0.8-4.8) 08/17/22 09:38 [place] # (Auto) 0.4 10^3/uL (0.2-0.9) 08/17/22 09:38 Eos # (Auto) 0.2 10^3/uL (0.0-0.8) 08/17/22 09:38 Baso # (Auto) 0.0 10^3/uL (0.0-0.1) 08/17/22 09:38 Nucleated RBC % (auto) 0 % 08/17/22 09:38 Nucleated RBCs # 0.0 /100WBC 08/17/22 09:38 Sodium 138 mmol/L (136-145) 08/17/22 09:38 Potassium 3.5 mmol/L (3.5-5.1) 08/17/22 09:38 Chloride 103 mmol/L (98-107) 08/17/22 09:38 Carbon Dioxide 23 mmol/L (22-29) 08/17/22 09:38 Anion Gap 15.5 (5-19) 08/17/22 09:38 BUN 9 mg/dL (6-20) 08/17/22 09:38 Creatinine 0.6 mg/dL (0.5-0.9) 08/17/22 09:38 GFR Calculation 126.2 mL/min (90-130) 08/17/22 09:38 Glucose 86 mg/dL (65-115) 08/17/22 09:38 Calculated Osmolality 284 mOsm/kg (285-295) L 08/17/22 09:38 Calcium 8.7 mg/dL (8.5-10.5) 08/17/22 09:38 Total Bilirubin 0.5 mg/dL (0.15-1.2) 08/17/22 09:38 AST 19 U/L (0-32) 08/17/22 09:38 ALT 18 U/L (0-33) 08/17/22 09:38 Alkaline Phosphatase 114 U/L (35-105) H 08/17/22 09:38 Total Protein 7.2 g/dL (6.6-8.7) 08/17/22 09:38 Albumin 4.4 g/dL (3.5-5.2) 08/17/22 09:38 Globulin 2.8 g/dL (1.3-4.6) 08/17/22 09:38 HCG, Qual Negative (Negative) 08/17/22 09:38 Salicylates < 0.3 mg/dL (3-10) L 08/17/22 09:38 Acetaminophen < 5.0 ug/mL (10-30) L 08/17/22 09:38 Discharge Plan Discharge Patient Disposition: Home Clinical Impression: Auditory hallucinations, Impulse control disorder, unspecified, Cannabis use disorder, Opioid use disorder Condition: Stable Prescriptions: No Action Invega Sustenna 234 mg/1.5 mL syringe 234 mg IM Q30D Qty: 1.5 0RF duloxetine [Cymbalta] 30 mg capsule,delayed release(DR/EC) 30 mg PO DAILY Qty: 30 1RF prazosin 2 mg capsule 4 mg PO .HS Qty: 60 1RF hydroxyzine HCl 50 mg tablet 50 mg PO TID PRN (Reason: anxiety) Qty: 90 1RF acetaminophen [Tylenol] 325 mg tablet 650 mg PO Q6H PRN (Reason: pain) Qty: 90 0RF albuterol sulfate 90 mcg/actuation Hfa Aerosol Inhaler 2 puff INHALATION Q6H PRN (Reason: Shortness Of Breath Or Wheezing) Discharge Orders: Discharge ED (Routine); Ordered 08/17/22 Ordered By: Migue Petty Patient Instructions: Opioid Safety, Pain Management Activity Restrictions/Additional Instructions: You were discharged from the emergency room staff will take you to crisis intervention. We have notified the psychiatrist who supervises crisis intervention. Coding Level of Care Code ED Financial Reporting Consultant for Corinne Ware
[2022-08-17 09:56] LABS: Basophils % 0.6 %; Eosinophils # 0.2 10^3/uL (0.0-0.8); Eosinophils % 3.3 %; Hematocrit 41.1 % (37.0-47.0); Hemoglobin 13.4 g/dL (11.5-15.3); Lymphocytes # 2.6 10^3/uL (0.8-4.8); Lymphocytes % 39.8 %; Mean Corpuscular HGB Conc 32.6 g/dL (30.0-36.0); Mean Corpuscular Volume 85.8 fl (81-99); Mean Platelet Volume 10.1 fL (7.4-10.4); Monocytes # 0.4 10^3/uL (0.2-0.9); Monocytes % 5.9 %; Neutrophils # 3.23 10^3/uL (1.8-7.7); Neutrophils % 50.1 %; Nucleated Red Blood Cells % 0 %; Platelet Count 216 10^3/cmm (130-400); Red Blood Count 4.79 10^6/uL (4.1-5.3); Red Cell Distribution Width 12.4 % (12.1-15.1); White Blood Count 6.4 10^3/uL (4.0-10.0)
[2022-08-17 10:02] LABS: Alanine Aminotransferase 18 U/L (0-33); Albumin Level 4.4 g/dL (3.5-5.2); Alkaline Phosphatase 114 U/L (35-105); Anion Gap 15.5 (5-19); Aspartate Amino Transferase 19 U/L (0-32); Blood Urea Nitrogen 9 mg/dL (6-20); Calcium 8.7 mg/dL (8.5-10.5); Carbon Dioxide 23 mmol/L (22-29); Chloride 103 mmol/L (98-107); Globulin 2.8 g/dL (1.3-4.6); Glomerular Filtration Rate 126.2 mL/min (90-130); Glucose 86 mg/dL (65-115); Osmolality Calculated 284 mOsm/kg (285-295); Potassium 3.5 mmol/L (3.5-5.1); Sodium 138 mmol/L (136-145); Total Bilirubin 0.5 mg/dL (0.15-1.2); Total Protein 7.2 g/dL (6.6-8.7)
[2022-08-17 10:03] LABS: Acetaminophen < 5.0 ug/mL (10-30); HCG, Serum Qual Negative (Negative); Salicylate < 0.3 mg/dL (3-10)
[2022-08-17 10:54] VITALS: BP 120/85; PULSE 82; RESP 14; O2SAT 97
== END 2022-08-17 10:57 | disposition home or self-care (01) ==
PROVIDERS: Emergency Provider Family Medicine
DX: R44.0 Auditory hallucinations (principal); F63.9 Impulse disorder, unspecified; F12.90 Cannabis use, unspecified, uncomplicated; F11.90 Opioid use, unspecified, uncomplicated
CPT/HCPCS: 36415; 80053; 80307; 84703; 85025; 99283

== ENCOUNTER 2022-08-22 06:07 | Inpatient (IN) | payer MEDICARE, MEDICAID, SELFPAY ==
[2022-08-22 06:07] VITALS: BP 122/82; PULSE 83; RESP 16; TEMP 36.1; O2SAT 96; BMI 35.4
--- NOTE | 2022-08-22 06:16 | ECG_ITS ---
[facility] Test Date: 2022-08-22 Pat Name: Heidy Macias Department: Room: Gender: Female Individual Pension Consultant: : 2000 Requested By: Akash Palmer Order Number: [id number] Chantale MD: Domenica Beaver M.D. Measurements Intervals [place] Rate: 80 P: 42 AL: 170 QRS: 56 QRSD: 96 T: 28 QT: 380 QTc: 439 Interpretive Statements SINUS RHYTHM Compared to ECG 08/11/2022 01:16:43 No significant changes Electronically Signed On 08-23-2022 10:05:43 CDT by Domenica Beaver M.D. [id number]
--- NOTE | 2022-08-22 06:19 | W.ED.PSYCHS ---
HPI - Psych General: Chief Complaint: Psychiatric Symptoms Stated Complaint: SI Time Seen by Provider: 08/22/22 06:14 History of Present Illness: Patient presents to the ER with thoughts of suicidal ideation, with overdosing, patient has overdosed in the past about 4 months ago when she was put in rehab up in [place]. Patient is post go back to rehab in [place] on Saturday but she is having anxiety and suicidal thoughts. Patient did relapse and methamphetamine use but has stopped again approximately 2 days ago. Patient says the suicidal thoughts began about 2 months ago when she stopped all of her psychiatric medicine. When she is using her medicine these thoughts are lessened and when she is not using her medicine and/or using meth salts are worse. Review of Systems General: Reports: 10 or more systems reviewed and unremarkable except in HPI and below PFSH ED PFSH: Medical History Alcohol abuse, episodic Amenorrhea, unspecified Asthma Bipolar disorder Bipolar disorder, unspecified Bipolar disorder, unspecified Bipolar disorder, unspecified Borderline intellectual functioning Borderline personality disorder Cannabis use disorder Depression Hypothyroidism Lupus Opioid use disorder Post-traumatic stress disorder, chronic Psychiatric care PTSD (post-traumatic stress disorder) Schizophrenia Stimulant use disorder Surgical History History of cholecystectomy Family History Mother Bipolar 1 disorder Heart disease Spina bifida Hyperlipidemia Diabetes Brother Hyperlipidemia Social History Smoking and tobacco status: current every day smoker cigarettes Packs smoked per day: 0.25 Years cigarettes smoked: 7 Quit status (tobacco): has tried quititng Number of times tried to quit tobacco: 6 Second hand smoke exposure: Yes Smoking risk assessment/counseling performed?: Yes Alcohol intake: never Substance/Drug Use: never Adopted: No Caregiver/support person: No Lives independently: No Household members: other Details: Mom, Step-Dad, Sister, Brother Housing: Manufactured/Mobile home Marital status: Single Number of children: 1 Highest education level completed: High School Graduate service: No Current occupational status: disabled Current occupational exposures/hazards: No Pets and animals: Yes Pets & animals: dog(s) Leisure activites: other Leisure activities details: hang out with friends, watch tv, listen to music Sexually active: Yes Do you think of yourself as: Straight/Heterosexual Current gender identity: Female Anabel/Hinduism: None Special anabel needs: No Financial difficulty paying for basics: Not Very Hard Physical Exam Const: COMMON NORMALS: no acute distress, average body habitus, patient oriented x3, no limitations, healthy appearing, alert and well nourished HENMT: COMMON NORMALS: normocephalic, atraumatic, hearing grossly normal bilaterally, external ears normal, Normal external nose present and moist oral mucous membranes HEAD & SCALP: normocephalic and atraumatic NOSE: Normal external nose present EXTERNAL EAR: Yes external ears normal Eye: COMMON NORMALS: Equal, round and reactive pupils present, EOMs intact bilaterally, conjunctivae normal and no scleral icterus CONJUNCTIVA: Yes conjunctivae normal PUPIL: Yes Equal, round and reactive pupils present Neck/C-Spine: COMMON NORMALS: full ROM, no lymphadenopathy, supple, no meningeal signs, no JVD and Thyroid normal THYROID: Thyroid normal Lymph: LYMPHATIC: no lymphadenopathy noted Chest: COMMONS NORMALS: normal inspection of the chest and normal palpation of entire chest wall Resp: COMMON NORMALS: normal respiratory effort, No retractions, No use of accessory muscles and clear to auscultation bilaterally AUSCULTATION: clear to auscultation bilaterally Cardio: COMMON NORMALS: no JVD, regular rate, regular rhythm, S1 normal heart sound present, S2 normal heart sound present, No gallops present (Cardio), No clicks present (Cardio), No murmurs present (Cardio) and No rub (Cardio) RATE: regular rate RHYTHM: regular rhythm HEART SOUNDS: S1 normal heart sound present and S2 normal heart sound present GI: COMMON NORMALS: Normal to inspection, nondistended, normoactive bowel sounds present, Soft to palpation, non-tender, No hepatosplenomegaly present and no masses PALPATION: Yes Soft to palpation and Yes No hepatosplenomegaly present Neuro: COMMON NORMALS: patient oriented x3 and moves all extremities SENSORIUM/ORIENTATION: Yes alert MENINGEAL SIGNS: Yes no meningeal signs Psych: COMMON NORMALS: Normal thought process present and speech normal APPEARANCE: Yes grossly normal ATTITUDE: Yes calm and Yes Withdrawn affect present ACTIVITY/MOTOR BEHAVIOR: Yes appropriate eye contact SPEECH: Yes normal speech MOOD & AFFECT: Yes Flat affect present THOUGHT PROCESS: Normal thought process present THOUGHT CONTENT: Yes Suicidality present ATTENTION/CONCENTRATION: Yes attention grossly intact Course Vital Signs: Vital signs: Vital Signs Temperature 97.0 F L 08/22/22 06:07 Pulse Rate 83 08/22/22 06:07 Respiratory Rate 16 08/22/22 06:07 Blood Pressure 122/82 08/22/22 06:07 Pulse Oximetry 99 08/22/22 06:25 Oxygen Delivery Me thod Room Air 08/22/22 06:25 MDM - Psych Medical Decision Making Patient presents to the ER with suicidal ideation. Patient states has been off her medicine and using meth and this made her suicidal ideation worse. Normal lab work was obtained which was benign Dr. Samuel was consulted who agreed to admit the patient to [facility] for further work-up and evaluation. Differential Diagnosis Likely suicidal ideation and depression; Unlikely acute psychosis, chronic schizophrenia, bipolar disorder or drug-induced psychotic disorder Medical Records I reviewed the patient's medical records. Lab Data I reviewed the patient's lab results. 08/22/22 06:15 08/22/22 06:15 Laboratory Results WBC 6.2 10^3/uL (4.0-10.0) 08/22/22 06:15 RBC 4.91 10^6/uL (4.1-5.3) 08/22/22 06:15 Hgb 13.8 g/dL (11.5-15.3) 08/22/22 06:15 Hct 41.8 % (37.0-47.0) 08/22/22 06:15 MCV 85.1 fl (81-99) 08/22/22 06:15 MCH 28.1 pg (28.0-34.0) 08/22/22 06:15 MCHC 33.0 g/dL (30.0-36.0) 08/22/22 06:15 RDW 12.5 % (12.1-15.1) 08/22/22 06:15 Plt Count 188 10^3/cmm (130-400) 08/22/22 06:15 MPV 10.7 fL (7.4-10.4) H 08/22/22 06:15 Neut % (Auto) 46.3 % 08/22/22 06:15 Lymph % (Auto) 43.7 % 08/22/22 06:15 [place] % (Auto) 5.2 % 08/22/22 06:15 Eos % (Auto) 3.7 % 08/22/22 06:15 Baso % (Auto) 0.8 % 08/22/22 06:15 Neut # (Auto) 2.86 10^3/uL (1.8-7.7) 08/22/22 06:15 Lymph # (Auto) 2.7 10^3/uL (0.8-4.8) 08/22/22 06:15 [place] # (Auto) 0.3 10^3/uL (0.2-0.9) 08/22/22 06:15 Eos # (Auto) 0.2 10^3/uL (0.0-0.8) 08/22/22 06:15 Baso # (Auto) 0.1 10^3/uL (0.0-0.1) 08/22/22 06:15 Nucleated RBC % (auto) 0 % 08/22/22 06:15 Nucleated RBCs # 0.0 /100WBC 08/22/22 06:15 Sodium 137 mmol/L (136-145) 08/22/22 06:15 Potassium 4.0 mmol/L (3.5-5.1) 08/22/22 06:15 Chloride 101 mmol/L (98-107) 08/22/22 06:15 Carbon Dioxide 23 mmol/L (22-29) 08/22/22 06:15 Anion Gap 17.0 (5-19) 08/22/22 06:15 BUN 11 mg/dL (6-20) 08/22/22 06:15 Creatinine 0.5 mg/dL (0.5-0.9) 08/22/22 06:15 GFR Calculation 154.3 mL/min (90-130) H 08/22/22 06:15 Glucose 95 mg/dL (65-115) 08/22/22 06:15 Calculated Osmolality 283 mOsm/kg (285-295) L 08/22/22 06:15 Calcium 9.6 mg/dL (8.5-10.5) 08/22/22 06:15 Total Bilirubin 0.5 mg/dL (0.15-1.2) 08/22/22 06:15 AST 17 U/L (0-32) 08/22/22 06:15 ALT 12 U/L (0-33) 08/22/22 06:15 Alkaline Phosphatase 128 U/L (35-105) H 08/22/22 06:15 Total Protein 7.5 g/dL (6.6-8.7) 08/22/22 06:15 Albumin 4.2 g/dL (3.5-5.2) 08/22/22 06:15 Globulin 3.3 g/dL (1.3-4.6) 08/22/22 06:15 HCG, Qual Negative (Negative) 08/22/22 06:15 Urine Color Light yellow (Yellow) 08/22/22 06:15 Urine Appearance Cloudy (CLEAR) A 08/22/22 06:15 Urine pH 6 (5-7) 08/22/22 06:15 Ur Specific [place] 1.030 (1.005-1.030) 08/22/22 06:15 Urine Protein Neg (Negative) 08/22/22 06:15 Urine Glucose (UA) Norm (Normal) 08/22/22 06:15 Urine Ketones Negative (Negative) 08/22/22 06:15 Urine Blood Neg (Negative) 08/22/22 06:15 Urine Nitrate Negative (Negative) 08/22/22 06:15 Urine Bilirubin Neg (Negative) 08/22/22 06:15 Urine Urobilinogen Norm mg/dL (Negative) 08/22/22 06:15 Ur Leukocyte Esterase Trace (Negative) H 08/22/22 06:15 Urine RBC None /hpf (0-2) 08/22/22 06:15 Urine WBC 0-4 /hpf (0-5) H 08/22/22 06:15 Ur Squamous Epith Cells 10-15 /hpf (0-5) H 08/22/22 06:15 Amorphous Sediment Not Reportable 08/22/22 06:15 Urine Bacteria Trace /hpf (NONE) 08/22/22 06:15 Urine Mucus Trace /hpf 08/22/22 06:15 Salicylates < 0.3 mg/dL (3-10) L 08/22/22 06:15 Urine Opiates Screen Negative ng/mL (Negative) 08/22/22 06:15 Acetaminophen < 5.0 ug/mL (10-30) L 08/22/22 06:15 Ur Barbiturates Screen Negative ng/mL (Negative) 08/22/22 06:15 Ur Phencyclidine Scrn Negative ng/mL (Negative) 08/22/22 06:15 Ur Amphetamines Screen Negative ng/mL (Negative) 08/22/22 06:15 U Benzodiazepines Scrn Negative ng/mL (Negative) 08/22/22 06:15 Urine Cocaine Screen Negative ng/mL (Negative) 08/22/22 06:15 U Marijuana (THC) Screen Positive ng/mL (Negative) H 08/22/22 06:15 Ethyl Alcohol < 10 mg/dL (0-10) 08/22/22 06:15 EKG Data EKG 1: I personally reviewed and interpreted this EKG as follows: EKG interpretation date: 08/22/22 EKG interpretation time: 06:16 Prior EKG tracings: not available for review Interpretation: EKG shows normal sinus rhythm with a ventricular rate 80 bpm, IA interval 170, QRS duration 96, QTc of 416, no ST-T wave changes Discharge Plan Discharge Patient Disposition: Admitted As Inpatient Clinical Impression: Suicidal ideation, Stimulant use disorder Condition: Stable Prescriptions: No Action Invega Sustenna 234 mg/1.5 mL syringe 234 mg IM Q30D Qty: 1.5 0RF duloxetine [Cymbalta] 30 mg capsule,delayed release(DR/EC) 30 mg PO DAILY Qty: 30 1RF hydroxyzine HCl 50 mg tablet 50 mg PO TID PRN (Reason: anxiety) Qty: 90 1RF albuterol sulfate 90 mcg/actuation Hfa Aerosol Inhaler 2 puff INHALATION Q6H PRN (Reason: Shortness Of Breath Or Wheezing) Headache Relief (acetam-caff) 500-65 mg Tablet 2 tab PO Q6H PRN (Reason: Pain) prazosin 2 mg capsule 4 mg PO BEDTIME Coding Level of Care Code ED Comprehensive Advisor for Corinne Ware
[2022-08-22 06:25] VITALS: O2SAT 99
[2022-08-22 06:31] LABS: Basophils # 0.1 10^3/uL (0.0-0.1); Basophils % 0.8 %; Eosinophils # 0.2 10^3/uL (0.0-0.8); Eosinophils % 3.7 %; Hematocrit 41.8 % (37.0-47.0); Hemoglobin 13.8 g/dL (11.5-15.3); Lymphocytes # 2.7 10^3/uL (0.8-4.8); Lymphocytes % 43.7 %; Mean Corpuscular Hemoglobin 28.1 pg (28.0-34.0); Mean Corpuscular Volume 85.1 fl (81-99); Mean Platelet Volume 10.7 fL (7.4-10.4); Monocytes # 0.3 10^3/uL (0.2-0.9); Monocytes % 5.2 %; Neutrophils # 2.86 10^3/uL (1.8-7.7); Neutrophils % 46.3 %; Nucleated Red Blood Cells % 0 %; Platelet Count 188 10^3/cmm (130-400); Red Blood Count 4.91 10^6/uL (4.1-5.3); Red Cell Distribution Width 12.5 % (12.1-15.1); White Blood Count 6.2 10^3/uL (4.0-10.0)
[2022-08-22 06:33] LABS: HCG Qualitative Urine. Negative (Negative)
[2022-08-22 06:40] LABS: Add Urine Microscopic? YES; Bacteria Urine TRACE /hpf; Bilirubin Urine Neg (Negative); Blood Urine Neg (Negative); Glucose Urine UA Norm (Normal); Ketones Urine Negative (Negative); Leukocyte Esterase Urine Trace (Negative); Mucus Urine TRACE /hpf; Nitrate Urine Negative (Negative); Protein Urine Neg (Negative); Urine Appearance Cloudy (CLEAR); Urine Color Light yellow (Yellow); Urobilinogen Urine Norm (Negative); WBC Urine 0-4 /hpf (0-5); pH Urine 6 (5-7)
[2022-08-22 06:41] LABS: Add Urine Culture? No; Amphetamines Screen Urine Negative (Negative); Barbiturates Screen Urine Negative (Negative); Benzodiazepines Screen Urine Negative (Negative); Cocaine Screen Urine Negative (Negative); Opiate Screen Urine Negative (Negative); PCP Screen Urine Negative (Negative); THC Screen Urine Positive (Negative)
[2022-08-22 06:49] LABS: Alanine Aminotransferase 12 U/L (0-33); Albumin Level 4.2 g/dL (3.5-5.2); Alkaline Phosphatase 128 U/L (35-105); Blood Urea Nitrogen 11 mg/dL (6-20); Calcium 9.6 mg/dL (8.5-10.5); Carbon Dioxide 23 mmol/L (22-29); Chloride 101 mmol/L (98-107); Globulin 3.3 g/dL (1.3-4.6); Glomerular Filtration Rate 154.3 mL/min (90-130); Glucose 95 mg/dL (65-115); Osmolality Calculated 283 mOsm/kg (285-295); Sodium 137 mmol/L (136-145); Total Bilirubin 0.5 mg/dL (0.15-1.2); Total Protein 7.5 g/dL (6.6-8.7)
[2022-08-22 06:51] LABS: Acetaminophen < 5.0 ug/mL (10-30); Alcohol Level < 10 mg/dL (0-10); Aspartate Amino Transferase 17 U/L (0-32); Salicylate < 0.3 mg/dL (3-10)
--- NOTE | 2022-08-22 11:32 | PC.PHAR ---
-pt states she takes care of her own medications-pt states she stop taking her medications about 2 weeks ago- ext shows zoloft 100mg daily filled 08/08/22 15d/s-protonix 40mg daily filled 08/08/22 30d/s and lamotrigine 100mg take 50mg daily filled 08/08/22 30d/s and hydroxyzine [place] 25mg filled 08/08/22 15d/s pt states all of those medications have been dced-pt states stop taking cymbalta 30mg daily filled 08/10/22 30d/s-hydroxyzine hcl 50mg tid prn filled 08/10/22 30d/s-prazosin 2mg take 4mg hs filled 08/10/22 30d/s about 2 weeks ago-pt states she got her invega sustenna injection around august 13 2022-notes are made in the pharmacy comments
[2022-08-22 12:33] VITALS: BP 102/73; PULSE 91; RESP 17; TEMP 36.5; O2SAT 97
[2022-08-22 14:00] VITALS: BP 102/73; PULSE 91; RESP 17; TEMP 36.5; O2SAT 97
[2022-08-22] MEDS: pantoprazole DR 40 mg Tablet PO (15:43)
[2022-08-22] MEDS: duloxetine 30 mg Capsule PO (15:43)
[2022-08-22] MEDS: prazosin 1 mg Capsule 4 MG PO (19:47)
[2022-08-22] MEDS: sertraline 50 mg Tablet PO (19:48)
[2022-08-22 20:37] VITALS: BP 138/74; PULSE 64; RESP 17; TEMP 37; O2SAT 98
[2022-08-23 06:00] VITALS: BP 98/60; PULSE 74; RESP 16; TEMP 36.9; O2SAT 95
[2022-08-23] MEDS: duloxetine 30 mg Capsule PO (09:17)
[2022-08-23] MEDS: pantoprazole DR 40 mg Tablet PO (09:17)
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
[2022-08-23 14:00] VITALS: BP 96/68; PULSE 81; RESP 16; TEMP 36.8; O2SAT 97
[2022-08-23] MEDS: prazosin 1 mg Capsule 4 MG PO (20:18)
[2022-08-23] MEDS: sertraline 50 mg Tablet PO (20:19)
[2022-08-23 20:21] VITALS: BP 96/66; PULSE 80; RESP 17; TEMP 36.5; O2SAT 98
[2022-08-23] MEDS: trazodone 50 mg Tablet PO (22:28)
[2022-08-24 06:00] VITALS: BP 102/66; PULSE 60; RESP 16; TEMP 36.4; O2SAT 94
[2022-08-24] MEDS: duloxetine 30 mg Capsule PO (09:53)
[2022-08-24] MEDS: pantoprazole DR 40 mg Tablet PO (09:53)
--- NOTE | 2022-08-24 13:00 | P.NPUPN_ITS ---
Subjective NPU Subjective: Patient presented today reporting that she is feeling okay. She reports that her medications being restarted is starting to help her feel a little better and a little more stable. We discussed the fact that we spoke with her mother and the treatment facility and [place] and the plan at this time is for discharge on Saturday morning and time to get some belongings and make their way up for their early childhood appointment on Saturday. She reports that she understands this plan and is supportive and willing to follow it. Mental Status Exam MSE Comments: This is an obese white female in hospital scrubs with adequate grooming and eye contact. Hair colored bright red and absent dentition which seems to be new. No abnormal movements except for mild psychomotor agitation. Cooperative with exam in mild distress. Speech was decreased rate but normal volume and prosody. Mood described as anxious about missing rehab. Her affect is mood congruent and restricted in range. Thought process was linear and mostly organized. Thought content: Patient denied current suicidal or homicidal ideation, there were no delusions reported or noted, she denied auditory or visual hallucinations. Attention and concentration were intact and memory appeared mostly reliable but none were formally tested. She is alert and oriented x3. Insight and judgment appear limited. Her impulse control is poor. Intelligence was commensurate with borderline intellectual functioning. Vitals/I&O/Wt Last Vital Signs Temp 97.6 F 08/24/22 06:00 Pulse 60 08/24/22 06:00 Resp 16 08/24/22 06:00 BP 102/66 08/24/22 06:00 Pulse Ox 94 08/24/22 06:00 O2 Del Method Room Air 08/24/22 06:00 Data NPU 08/22/22 06:15 08/22/22 06:15 A&P Assessment and plan (1) Dysthymic disorder: (2) Suicidal ideation: (3) Borderline personality disorder: (4) Borderline intellectual functioning: (5) Impulse control disorder, unspecified: (6) Methamphetamine use disorder, severe: (7) Auditory hallucinations: (8) Suicidal ideation: (9) Alcohol abuse, episodic: (10) Cannabis use disorder: (11) Opioid use disorder: (12) Post-traumatic stress disorder, chronic: Plan Patient is a 22-year-old white female with a history of depression, borderline personality disorder and borderline intellectual functioning and now active methamphetamine addiction with reported plan to get to inpatient rehab 08/27/2022. 1. Continue current medication or restart medications at appropriate doses. 2. continue every 15 minute checks for safety 3. recommend sober living treatment at the highest level of care to which the patient is willing to commit. 4. engage patient in individual group and milieu therapy. 5. Collaborate with mother on a discharge plan that we will allow sobriety and no disruption in rehab 08/27/2022. Plan for discharge on Saturday. Involuntary Hold Information 96 Hour Hold: 96 Hour Involuntary Admission: No 96 Hour Hold Ending Date: 02/27/22 96 Hour Hold Ending Time: 19:34 Attestations U Medical Necessity Statement*: Inpatient hospitalization is medically necessary and the clinically appropriate intervention at this time. We will monitor medications and make changes as indicated. Her likely length of stay is 2 days. Coding Level of Care Code Acute Code for g Fwd Diagnoses Dysthymic disorder F34.1 Suicidal ideation R45.851 Borderline personality disorder F60.3 Borderline intellectual functioning R41.83 Impulse control disorder, unspecified F63.9 Methamphetamine use disorder, severe F15.20 Auditory hallucinations R44.0 Alcohol abuse, episodic F10.10 Cannabis use disorder F12.90 Opioid use disorder F11.90 Post-traumatic stress disorder, chronic F43.12
[2022-08-24 14:00] VITALS: BP 101/70; PULSE 87; RESP 16; TEMP 36.8; O2SAT 98
[2022-08-24] MEDS: hyDROXYzine 25 mg Capsule 50 MG PO (17:54)
[2022-08-24] MEDS: nicotine 4 mg lozenge MUCOUS MEM (17:54)
[2022-08-24] MEDS: sertraline 50 mg Tablet PO (20:20)
[2022-08-24] MEDS: prazosin 1 mg Capsule 4 MG PO (20:20)
[2022-08-24] MEDS: trazodone 50 mg Tablet PO ×2 (20:26→23:06)
[2022-08-24 20:37] VITALS: BP 111/76; PULSE 113; RESP 18; TEMP 36.7; O2SAT 97
[2022-08-25 06:00] VITALS: BP 94/58; PULSE 51; RESP 16; TEMP 36.7; O2SAT 97
[2022-08-25] MEDS: duloxetine 30 mg Capsule PO (09:24)
[2022-08-25] MEDS: pantoprazole DR 40 mg Tablet PO (09:24)
--- NOTE | 2022-08-25 10:19 | W.PM.NPUPNS ---
Subjective NPU Subjective: Patient is a 22-year-old white female with borderline personality disorder methamphetamine dependence and dysthymia admitted with suicidal ideation after relapsing on methamphetamine 2 days prior to admission. She had reported that she has been continuing to struggle with PTSD related symptoms. She states that she is agreeable to going to a rehabilitation facility in [place]. She has been compliant on the milieu. She reports some continued sleep continuity disruption. She reported no side effects from her medication changes. She had reported low energy and reported low motivation. She denies any psychotic symptoms at this time. Mental Status Exam MSE Comments: This is an obese white female in hospital scrubs with adequate grooming and eye contact. Hair colored bright red and poor dentition. No abnormal movements except for mild psychomotor agitation. Cooperative with exam in mild distress. Speech was decreased rate but normal volume and prosody. Mood described as stressed her affect is mood congruent and remains anxious. Thought process was linear and mostly organized. Thought content: Patient denied current suicidal or homicidal ideation, there were no delusions reported or noted, she denied auditory or visual hallucinations. Attention and concentration were intact and memory appeared mostly reliable but none were formally tested. She is alert and oriented x3. Insight and judgment appear limited. Her impulse control is poor. Intelligence was commensurate with borderline intellectual functioning. Vitals/I&O/Wt Last Vital Signs Temp 98.0 F 08/25/22 06:00 Pulse 51 L 08/25/22 06:00 Resp 16 08/25/22 06:00 BP 94/58 08/25/22 06:00 Pulse Ox 97 08/25/22 06:00 O2 Del Method Room Air 08/24/22 14:00 Data NPU 08/22/22 06:15 08/22/22 06:15 A&P Assessment and plan (1) Dysthymic disorder: (2) Suicidal ideation: (3) Borderline personality disorder: (4) Borderline intellectual functioning: (5) Impulse control disorder, unspecified: (6) Methamphetamine use disorder, severe: (7) Auditory hallucinations: (8) Suicidal ideation: (9) Alcohol abuse, episodic: (10) Cannabis use disorder: (11) Opioid use disorder: (12) Post-traumatic stress disorder, chronic: Plan Patient is a 22-year-old white female with a history of depression, borderline personality disorder and borderline intellectual functioning and now active methamphetamine addiction with reported plan to get to inpatient rehab 08/27/2022. 1. Continue current medication or restart medications at appropriate doses. 2. continue every 15 minute checks for safety 3. recommend sober living treatment at the highest level of care to which the patient is willing to commit. 4. engage patient in individual group and milieu therapy. 5. Collaborate with mother on a discharge plan that we will allow sobriety and no disruption in rehab 08/27/2022. Plan for discharge tommorow with patient to be placed in rehab tommorow. Involuntary Hold Information 96 Hour Hold: 96 Hour Involuntary Admission: No 96 Hour Hold Ending Date: 02/27/22 96 Hour Hold Ending Time: 19:34 Attestations NPU Medical Necessity Statement*: Inpatient hospitalization is medically necessary and the clinically appropriate intervention at this time. We will monitor medications and make changes as indicated. Her likely length of stay is 1 days. Coding Level of Care Code Acute Code for [facility] Diagnoses Dysthymic disorder F34.1 Suicidal ideation R45.851 Borderline personality disorder F60.3 Borderline intellectual functioning R41.83 Impulse control disorder, unspecified F63.9 Methamphetamine use disorder, severe F15.20 Auditory hallucinations R44.0 Alcohol abuse, episodic F10.10 Cannabis use disorder F12.90 Opioid use disorder F11.90 Post-traumatic stress disorder, chronic F43.12
[2022-08-25] MEDS: nicotine 21 mg Patch 1 PATCH TRANSDERMA (12:21)
[2022-08-25 14:00] VITALS: BP 105/70; PULSE 79; RESP 17; TEMP 36.5; O2SAT 95
[2022-08-25 19:46] VITALS: BP 97/60; PULSE 84; RESP 19; TEMP 36.3; O2SAT 96
[2022-08-25] MEDS: sertraline 50 mg Tablet PO (20:58)
[2022-08-25] MEDS: trazodone 50 mg Tablet PO ×2 (20:58→21:59)
[2022-08-25] MEDS: prazosin 1 mg Capsule 4 MG PO (20:58)
[2022-08-26 05:59] VITALS: BP 90/57; PULSE 56; RESP 16; TEMP 36.1; O2SAT 96
[2022-08-26] MEDS: duloxetine 30 mg Capsule PO (08:10)
[2022-08-26] MEDS: pantoprazole DR 40 mg Tablet PO (08:10)
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
[2022-08-26 10:58] VITALS: BP 90/57; PULSE 56; RESP 16; TEMP 36.1; O2SAT 96
== END 2022-08-26 11:27 | disposition home or self-care (01) | DRG 881 ==
LOC: ER 12:01 → NP 12:10
PROVIDERS: Admitting Provider Psychiatry & Neurology Psychiatry; Emergency Provider Emergency Medicine; Visit Provider Psychiatry & Neurology Psychiatry
DX: F34.1 Dysthymic disorder (principal); R45.851 Suicidal ideations; F15.20 Other stimulant dependence, uncomplicated; F12.90 Cannabis use, unspecified, uncomplicated; F11.90 Opioid use, unspecified, uncomplicated; F41.0 Panic disorder [episodic paroxysmal anxiety]; F60.3 Borderline personality disorder; R41.83 Borderline intellectual functioning; F63.9 Impulse disorder, unspecified; F10.10 Alcohol abuse, uncomplicated; E03.9 Hypothyroidism, unspecified; F43.12 Post-traumatic stress disorder, chronic; Z81.8 Family history of other mental and behavioral disorders; F17.210 Nicotine dependence, cigarettes, uncomplicated
CPT/HCPCS: 80053; 80306; 80307; 81001; 81025; 85025; 93005; 97150; 97165; 99238; 99285

== ENCOUNTER 2022-09-01 05:18 | Emergency (ER) | payer MEDICARE, MEDICAID, SELFPAY ==
[2022-09-01 05:27] VITALS: PULSE 71; RESP 21; TEMP 36.6; O2SAT 98
--- NOTE | 2022-09-01 05:27 | ECG_ITS ---
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 Measurements Intervals [place] Rate: 71 P: 52 ND: 158 QRS: 63 QRSD: 93 T: 18 QT: 394 QTc: 431 Interpretive Statements SINUS RHYTHM POSSIBLE LEFT ATRIAL ENLARGEMENT [-0.1mV P-WAVE IN V1/V2] INTERPRETATION BASED ON A DEFAULT AGE OF 40 YEARS Compared to ECG 08/22/2022 06:16:56 No significant changes Electronically Signed On 09-01-2022 11:14:34 CDT by Benny Mcbride M.D. [email or web address]
[2022-09-01 05:37] VITALS: BP 113/82; PULSE 70; RESP 20; O2SAT 97
--- NOTE | 2022-09-01 05:39 | XRR_ITS ---
PROCEDURE INFORMATION: Exam: XR Chest Exam date and time: 09/01/2022 5:47 AM Age: 22 years old Clinical indication: Chest pressure; Prior surgery; Surgery date: 6+ months; Surgery type: Gb; Patient HX: C/O chest pain; Additional info: Cp TECHNIQUE: Imaging protocol: Radiologic exam of the chest. Views: 1 view. COMPARISON: CR XR chest 1V portable [id number] 03/06/2022 9:39 PM FINDINGS: Lungs: Unremarkable. No consolidation. Pleural spaces: Unremarkable. No pleural effusion. No pneumothorax. Heart/Mediastinum: Unremarkable. No cardiomegaly. Bones/joints: Unremarkable. XR/XR chest 1V portable [id number] IMPRESSION: No acute findings.
[2022-09-01 05:47] LABS: Basophils # 0.1 10^3/uL (0.0-0.1); Basophils % 0.8 %; Eosinophils # 0.2 10^3/uL (0.0-0.8); Eosinophils % 3.5 %; Hematocrit 39.7 % (37.0-47.0); Hemoglobin 13.2 g/dL (11.5-15.3); Lymphocytes # 2.9 10^3/uL (0.8-4.8); Lymphocytes % 43.2 %; Mean Corpuscular HGB Conc 33.2 g/dL (30.0-36.0); Mean Corpuscular Hemoglobin 28.3 pg (28.0-34.0); Mean Corpuscular Volume 85.2 fl (81-99); Mean Platelet Volume 10.9 fL (7.4-10.4); Monocytes # 0.3 10^3/uL (0.2-0.9); Monocytes % 4.1 %; Neutrophils # 3.19 10^3/uL (1.8-7.7); Neutrophils % 48.2 %; Nucleated Red Blood Cells % 0 %; Platelet Count 212 10^3/cmm (130-400); Red Blood Count 4.66 10^6/uL (4.1-5.3); Red Cell Distribution Width 12.7 % (12.1-15.1); White Blood Count 6.6 10^3/uL (4.0-10.0)
--- NOTE | 2022-09-01 06:01 | ED_ITS ---
HPI - Chest Pain General: Chief Complaint: Chest Pain Stated Complaint: CP Time Seen by Provider: 09/01/22 05:24 Source: patient History of Present Illness: 22-year-old female former substance abuser. She presents with chest discomfort, radiating to her epigastrium. She is nauseated and short of breath with it. She has had 3 energy drinks already this morning, because she says it helps curb her cravings for stimulants such as amphetamine. She called an ambulance when her pain did not improve on its own. MD complaint: chest pain Pertinent past history: other Onset (ago): hour(s) Timing of current episode: constant Prior episodes: Yes Onset: during rest Pain location: substernal Pain radiation: back and other (Epigastric) Quality: sharp Relieving factors: nothing Exacerbating factors: inspiration Associated symptoms: Reports dyspnea; Deny abdominal pain, fever(s) or vomiting Review of Systems Const: Denies: fever(s) ENMT: Denies: throat pain Card: Reports: chest pain and irregular heart rhythm Resp: Reports: dyspnea and non-productive cough GI: Denies: abdominal pain or vomiting : Denies: flank pain PFSH ED PFSH: Medical History (Updated 09/01/22 @ 06:31 by Faizan Vernon DO) Alcohol abuse, episodic Amenorrhea, unspecified Asthma Bipolar disorder Bipolar disorder, unspecified Bipolar disorder, unspecified Bipolar disorder, unspecified Borderline intellectual functioning Borderline personality disorder Cannabis use disorder Depression Hypothyroidism Lupus Opioid use disorder Post-traumatic stress disorder, chronic Psychiatric care PTSD (post-traumatic stress disorder) Schizophrenia Stimulant use disorder Surgical History History of cholecystectomy Family History Mother Bipolar 1 disorder Heart disease Spina bifida Hyperlipidemia Diabetes Brother Hyperlipidemia Social History Smoking and tobacco status: current every day smoker cigarettes Packs smoked per day: 0.25 Years cigarettes smoked: 7 Quit status (tobacco): has tried quititng Number of times tried to quit tobacco: 6 Second hand smoke exposure: Yes Smoking risk assessment/counseling performed?: Yes Alcohol intake: never Substance/Drug Use: never Adopted: No Caregiver/support person: No Lives independently: No Household members: other Details: Mom, Step-Dad, Sister, Brother Housing: Manufactured/Mobile home Marital status: Single Number of children: 1 Highest education level completed: High School Graduate service: No Current occupational status: disabled Current occupational exposures/hazards: No Pets and animals: Yes Pets & animals: dog(s) Leisure activites: other Leisure activities details: hang out with friends, watch tv, listen to music Sexually active: Yes Do you think of yourself as: Straight/Heterosexual Current gender identity: Female Anabel/Mormon: None Special anabel needs: No Financial difficulty paying for basics: Not Very Hard Physical Exam Const: COMMON NORMALS: no acute distress GENERAL APPEARANCE: cooperative; not ill appearing and not frail appearing HENMT: COMMON NORMALS: normocephalic, atraumatic and Normal external nose pr esent HEAD & SCALP: normocephalic and atraumatic FACE & SINUS: normal facial exam and face symmetric NOSE: Normal external nose present Eye: COMMON NORMALS: Equal, round and reactive pupils present and EOMs intact bilaterally PUPIL: Yes Equal, round and reactive pupils present Neck/C-Spine: GENERAL: Yes trachea midline Chest: CHEST: Yes Symmetrical chest wall rise Resp: COMMON NORMALS: normal respiratory effort, No retractions, No use of accessory muscles and clear to auscultation bilaterally AUSCULTATION: clear to auscultation bilaterally Cardio: COMMON NORMALS: regular rate and regular rhythm RATE: regular rate RHYTHM: regular rhythm GI: COMMON NORMALS: Normal to inspection, nondistended, normoactive bowel sounds present Extremity: COMMON NORMALS: no pedal edema Neuro: [place] COMA SCALE: document GCS findings [place] coma scale eye opening: Spontaneous [place] coma scale verbal response: Orientated [place] coma scale motor response: Obey commands [place] coma scale total score: 15 SENSORY EXAM: Yes extremities (intact) Psych: COMMON NORMALS: speech normal SPEECH: Yes normal speech Skin: COMMON NORMALS: no rashes or lesions noted GENERAL SKIN EXAM: no rashes or lesions noted Course Vital Signs: Vital signs: Vital Signs Temperature 97.9 F 09/01/22 05:27 Pulse Rate 55 L 09/01/22 06:36 Respiratory Rate 15 09/01/22 06:36 Blood Pressure 98/60 09/01/22 06:36 Pulse Oximetry 97 09/01/22 06:36 Oxygen Delivery Me thod Room Air 07/08/23 06:36 MDM - Chest Pain Medical Decision Making 22 year old with chest discomfort. Improved to some degree after GI cocktail. CBC is normal. BMP is normal. chest X-ray is negative. Troponin is six. BNP is 39. Lipase is 38. And alcohol is less than ten. Suspect gastritis/esophagitis versus too many energy drinks in this patient. Will treat with prevacid. To return for worsening symptoms . Lab Data 09/01/22 05:00 09/01/22 05:00 Radiology Impressions Chest X-Ray 09/01/22 05:39 IMPRESSION: No acute findings. Laboratory Results WBC 6.6 10^3/uL (4.0-10.0) 09/01/22 05:00 RBC 4.66 10^6/uL (4.1-5.3) 09/01/22 05:00 Hgb 13.2 g/dL (11.5-15.3) 09/01/22 05:00 Hct 39.7 % (37.0-47.0) 09/01/22 05:00 MCV 85.2 fl (81-99) 09/01/22 05:00 MCH 28.3 pg (28.0-34.0) 09/01/22 05:00 MCHC 33.2 g/dL (30.0-36.0) 09/01/22 05:00 RDW 12.7 % (12.1-15.1) 09/01/22 05:00 Plt Count 212 10^3/cmm (130-400) 09/01/22 05:00 MPV 10.9 fL (7.4-10.4) H 09/01/22 05:00 Neut % (Auto) 48.2 % 09/01/22 05:00 Lymph % (Auto) 43.2 % 09/01/22 05:00 [place] % (Auto) 4.1 % 09/01/22 05:00 Eos % (Auto) 3.5 % 09/01/22 05:00 Baso % (Auto) 0.8 % 09/01/22 05:00 Neut # (Auto) 3.19 10^3/uL (1.8-7.7) 09/01/22 05:00 Lymph # (Auto) 2.9 10^3/uL (0.8-4.8) 09/01/22 05:00 [place] # (Auto) 0.3 10^3/uL (0.2-0.9) 09/01/22 05:00 Eos # (Auto) 0.2 10^3/uL (0.0-0.8) 09/01/22 05:00 Baso # (Auto) 0.1 10^3/uL (0.0-0.1) 09/01/22 05:00 Nucleated RBC % (auto) 0 % 09/01/22 05:00 Nucleated RBCs # 0.0 /100WBC 09/01/22 05:00 Sodium 139 mmol/L (136-145) 09/01/22 05:00 Potassium 3.6 mmol/L (3.5-5.1) 09/01/22 05:00 Chloride 103 mmol/L (98-107) 09/01/22 05:00 Carbon Dioxide 24 mmol/L (22-29) 09/01/22 05:00 Anion Gap 15.6 (5-19) 09/01/22 05:00 BUN 11 mg/dL (6-20) 09/01/22 05:00 Creatinine 0.6 mg/dL (0.5-0.9) 09/01/22 05:00 GFR Calculation 125.0 mL/min (90-130) 09/01/22 05:00 Glucose 90 mg/dL (65-115) 09/01/22 05:00 Calculated Osmolality 287 mOsm/kg (285-295) 09/01/22 05:00 Calcium 8.8 mg/dL (8.5-10.5) 09/01/22 05:00 Total Bilirubin 0.3 mg/dL (0.15-1.2) 09/01/22 05:00 AST 20 U/L (0-32) 09/01/22 05:00 ALT 17 U/L (0-33) 09/01/22 05:00 Alkaline Phosphatase 111 U/L (35-105) H 09/01/22 05:00 Troponin T Baseline 6 ng/L (0-10) 09/01/22 05:00 NT-Pro-B Natriuret Pep 39 pg/mL (0-125) 09/01/22 05:00 Total Protein 7.1 g/dL (6.6-8.7) 09/01/22 05:00 Albumin 4.2 g/dL (3.5-5.2) 09/01/22 05:00 Globulin 2.9 g/dL (1.3-4.6) 09/01/22 05:00 Lipase 38 U/L (13-60) 09/01/22 05:00 HCG, Qual Negative (Negative) 09/01/22 05:00 Ethyl Alcohol < 10 mg/dL (0-10) 09/01/22 05:00 Discharge Plan Discharge Patient Disposition: Home Clinical Impression: Atypical chest pain Condition: Stable Prescriptions: New Prevacid 30 mg capsule,delayed release(DR/EC) 30 mg PO DAILY Qty: 30 0RF No Action sertraline 50 mg Tablet 50 mg PO DAILY 30 Days Qty: 30 1RF acetaminophen-caffeine 500-65 mg Tablet 2 tab PO Q6H PRN (Reason: Pain) Qty: 60 0RF hydroxyzine HCl 50 mg tablet 50 mg PO TID PRN (Reason: anxiety) Qty: 90 1RF albuterol sulfate 90 mcg/actuation Hfa Aerosol Inhaler 2 puff INHALATION Q6H PRN (Reason: Shortness Of Breath Or Wheezing) 30 Days Qty: 6.7 1RF prazosin 2 mg capsule 4 mg PO BEDTIME 30 Days Qty: 60 1RF Invega Sustenna 234 mg/1.5 mL syringe 234 mg IM Q28D 30 Days Qty: 3 1RF Rx Instructions: Patient due date for monthly Invega is August Discharge Orders: Discharge ED (Routine); Ordered 09/01/22 Ordered By: Faizan Vernon Patient Instructions: Chest Pain (ED), Chest Wall Pain (ED), Pain Management Activity Restrictions/Additional Instructions: Medication as directed. Return for worsening pain despite treatment, worsening shortness of breath, fever, cough, vomiting, other concerning symptoms. Coding Level of Care Code ED Loan Approver for Corinne Ware
[2022-09-01 06:05] LABS: HCG, Serum Qual Negative (Negative)
[2022-09-01 06:08] LABS: Troponin(5th) Baseline 6 ng/L (0-10)
[2022-09-01 06:16] LABS: Alanine Aminotransferase 17 U/L (0-33); Albumin Level 4.2 g/dL (3.5-5.2); Alcohol Level < 10 mg/dL (0-10); Alkaline Phosphatase 111 U/L (35-105); Blood Urea Nitrogen 11 mg/dL (6-20); Calcium 8.8 mg/dL (8.5-10.5); Carbon Dioxide 24 mmol/L (22-29); Chloride 103 mmol/L (98-107); Creatinine Clr Calc Pharmacy 0.5247; Globulin 2.9 g/dL (1.3-4.6); Glucose 90 mg/dL (65-115); Lipase 38 U/L (13-60); NT Pro B Type Natriuretic Pept 39 pg/mL (0-125); Osmolality Calculated 287 mOsm/kg (285-295); Sodium 139 mmol/L (136-145); Total Bilirubin 0.3 mg/dL (0.15-1.2); Total Protein 7.1 g/dL (6.6-8.7)
[2022-09-01 06:17] LABS: Anion Gap 15.6 (5-19); Potassium 3.6 mmol/L (3.5-5.1)
[2022-09-01 06:18] LABS: Aspartate Amino Transferase 20 U/L (0-32)
[2022-09-01] MEDS: lidocaine 2% viscous 15 ML, aluminum-mag hydrox-simethicon 30 ML, sucralfate oral liq 1 GM PO (06:29)
[2022-09-01] MEDS: ketorolac 30 mg/mL INJ 15 MG IVP (06:33)
[2022-09-01 06:36] VITALS: BP 98/60; PULSE 55; RESP 15; O2SAT 97
== END 2022-09-01 06:48 | disposition home or self-care (01) ==
PROVIDERS: Emergency Provider Emergency Medicine
DX: R07.89 Other chest pain (principal); F17.210 Nicotine dependence, cigarettes, uncomplicated
CPT/HCPCS: 71045; 80053; 80307; 83690; 83880; 84484; 84703; 85025; 93005; 96374; 99285; J1885

== ENCOUNTER 2022-09-03 03:28 | Emergency (ER) | payer MEDICARE, MEDICAID, SELFPAY ==
[2022-09-03 03:33] VITALS: BMI 36.4
[2022-09-03 03:37] VITALS: BP 96/62; PULSE 84; RESP 16; TEMP 37.1; O2SAT 97
[2022-09-03 04:15] VITALS: BP 80/60; PULSE 74; O2SAT 97
[2022-09-03 04:47] LABS: Basophils % 0.5 %; Eosinophils # 0.3 10^3/uL (0.0-0.8); Eosinophils % 3.6 %; Hematocrit 42.6 % (37.0-47.0); Hemoglobin 13.7 g/dL (11.5-15.3); Lymphocytes # 3.5 10^3/uL (0.8-4.8); Lymphocytes % 44.3 %; Mean Corpuscular HGB Conc 32.2 g/dL (30.0-36.0); Mean Corpuscular Hemoglobin 28.2 pg (28.0-34.0); Mean Corpuscular Volume 87.7 fl (81-99); Mean Platelet Volume 11.1 fL (7.4-10.4); Monocytes # 0.4 10^3/uL (0.2-0.9); Monocytes % 4.9 %; Neutrophils # 3.67 10^3/uL (1.8-7.7); Neutrophils % 46.6 %; Nucleated Red Blood Cells % 0 %; Platelet Count 243 10^3/cmm (130-400); Red Blood Count 4.86 10^6/uL (4.1-5.3); Red Cell Distribution Width 12.9 % (12.1-15.1); White Blood Count 7.9 10^3/uL (4.0-10.0)
[2022-09-03 04:51] VITALS: BP 91/61; PULSE 68; O2SAT 96
[2022-09-03 05:05] LABS: Amphetamines Screen Urine Negative (Negative); Barbiturates Screen Urine Negative (Negative); Benzodiazepines Screen Urine Negative (Negative); Cocaine Screen Urine Negative (Negative); Opiate Screen Urine Negative (Negative); PCP Screen Urine Negative (Negative); THC Screen Urine Positive (Negative)
[2022-09-03 05:05] LABS: Alanine Aminotransferase 22 U/L (0-33); Albumin Level 4.3 g/dL (3.5-5.2); Alkaline Phosphatase 116 U/L (35-105); Anion Gap 17.6 (5-19); Aspartate Amino Transferase 23 U/L (0-32); Blood Urea Nitrogen 8 mg/dL (6-20); Carbon Dioxide 23 mmol/L (22-29); Chloride 104 mmol/L (98-107); Glomerular Filtration Rate 89.7 mL/min (90-130); Glucose 118 mg/dL (65-115); Osmolality Calculated 291 mOsm/kg (285-295); Potassium 3.6 mmol/L (3.5-5.1); Sodium 141 mmol/L (136-145); Total Bilirubin 0.3 mg/dL (0.15-1.2); Total Protein 7.3 g/dL (6.6-8.7)
[2022-09-03 05:06] LABS: Alcohol Level < 10 mg/dL (0-10)
[2022-09-03 05:45] VITALS: BP 93/54; PULSE 64; O2SAT 95
[2022-09-03] MEDS: sodium chloride 0.9% 1,000 ML 999 ML IV (06:39)
[2022-09-03 06:40] VITALS: BP 104/64; PULSE 51; RESP 18; O2SAT 93
[2022-09-03 07:51] VITALS: BP 101/58; PULSE 59; RESP 18; O2SAT 96
--- NOTE | 2022-09-04 23:58 | ED_ITS ---
HPI - Seizure General: Chief Complaint: Seizure Stated Complaint: Seizures Time Seen by Provider: 09/03/22 05:24 Source: patient History of Present Illness: HPI Narrative: 22 year old female presenting after a seizure like episode. She was with friends when this episode happened. She has evidently had seizures like this before. Th ere was no clear postictal state, although she does seem quite tired on interview. she states she was smoking marijuana prior to the episode. MD complaint: possible seizure Onset (ago): minute(s) Description of Episode: loss of consciousness Witnessed: Yes - by Bystander Trauma: No Seizure History: Yes Place: at her friend's friend's house Associated symptoms: Reports chest pain (ongoing on and off for a few days. ); Deny fever(s) Review of Systems Const: Denies: fever(s) Eyes: Reports: blurry vision Card: Reports: chest pain (ongoing on and off for a few days. ) Resp: Denies: dyspnea GI: Denies: vomiting PFSH ED PFSH: Medical History Alcohol abuse, episodic Amenorrhea, unspecified Asthma Bipolar disorder Bipolar disorder, unspecified Bipolar disorder, unspecified Bipolar disorder, unspecified Borderline intellectual functioning Borderline personality disorder Cannabis use disorder Depression Hypothyroidism Lupus Opioid use disorder Post-traumatic stress disorder, chronic Psychiatric care PTSD (post-traumatic stress disorder) Schizophrenia Stimulant use disorder Surgical History History of cholecystectomy Family History Mother Bipolar 1 disorder Heart disease Spina bifida Hyperlipidemia Diabetes Brother Hyperlipidemia Social History Smoking and tobacco status: current every day smoker cigarettes Packs smoked per day: 0.25 Years cigarettes smoked: 7 Quit status (tobacco): has tried quititng Number of times tried to quit tobacco: 6 Second hand smoke exposure: Yes Smoking risk assessment/counseling performed?: Yes Alcohol intake: never Substance/Drug Use: never Adopted: No Caregiver/support person: No Lives independently: No Household members: other Details: Mom, Step-Dad, Sister, Brother Housing: Manufactured/Mobile home Marital status: Single Number of children: 1 Highest education level completed: High School Graduate service: No Current occupational status: disabled Current occupational exposures/hazards: No Pets and animals: Yes Pets & animals: dog(s) Leisure activites: other Leisure activities details: hang out with friends, watch tv, listen to music Sexually active: Yes Do you think of yourself as: Straight/Heterosexual Current gender identity: Female Anabel/Confucianism: None Special anabel needs: No Financial difficulty paying for basics: Not Very Hard Physical Exam Const: COMMON NORMALS: no acute distress and well nourished GENERAL APPEARANCE: cooperative and lethargic; not ill appearing ORIENTATION/CONSCIOUSNESS: Yes lethargic HENMT: COMMON NORMALS: normocephalic and atraumatic HEAD & SCALP: normocephalic and atraumatic FACE & SINUS: normal facial exam and face symmetric Eye: COMMON NORMALS: Equal, round and reactive pupils present and EOMs intact bilaterally PUPIL: Yes Equal, round and reactive pupils present Neck/C-Spine: GENERAL: Yes trachea midline Chest: CHEST: Yes Symmetrical chest wall rise Resp: COMMON NORMALS: normal respiratory effort, No retractions, No use of accessory muscles and clear to auscultation bilaterally AUSCULTATION: clear to auscultation bilaterally Cardio: COMMON NORMALS: regular rate and regular rhythm RATE: regular rate RHYTHM: regular rhythm GI: COMMON NORMALS: Normal to inspection, nondistended, normoactive bowel sounds present Neuro: [place] COMA SCALE: document GCS findings [place] coma scale eye opening: To sound [place] coma scale verbal response: Confused [place] coma scale motor response: Obey commands [place] coma scale total score: 13 SENSORIUM/ORIENTATION: Yes lethargic Skin: COMMON NORMALS: no wounds Course Vital Signs: Vital signs: Vital Signs Temperature 98.8 F 09/03/22 03:37 Pulse Rate 59 L 09/03/22 07:51 Respiratory Rate 18 09/03/22 07:51 Blood Pressure 101/58 09/03/22 07:51 Pulse Oximetry 96 09/03/22 07:51 Oxygen Delivery Me thod Room Air 09/03/22 06:40 MDM - Seizure MDM Narrative Medical decision making narrative: patient seems to have recovered back to baseline. She has a history of seizure. Her CBC is normal period her BMP is normal period liver enzymes our normal. You're indirect strain is positive for marijuana. Although alcohol is less than ten. Since she has recovered, and has a history, she'll be allowed discharge. Lab Data 09/03/22 04:43 09/03/22 04:43 Labs: Laboratory Results WBC 7.9 10^3/uL (4.0-10.0) 09/03/22 04:43 RBC 4.86 10^6/uL (4.1-5.3) 09/03/22 04:43 Hgb 13.7 g/dL (11.5-15.3) 09/03/22 04:43 Hct 42.6 % (37.0-47.0) 09/03/22 04:43 MCV 87.7 fl (81-99) 09/03/22 04:43 MCH 28.2 pg (28.0-34.0) 09/03/22 04:43 MCHC 32.2 g/dL (30.0-36.0) 09/03/22 04:43 RDW 12.9 % (12.1-15.1) 09/03/22 04:43 Plt Count 243 10^3/cmm (130-400) 09/03/22 04:43 MPV 11.1 fL (7.4-10.4) H 09/03/22 04:43 Neut % (Auto) 46.6 % 09/03/22 04:43 Lymph % (Auto) 44.3 % 09/03/22 04:43 [place] % (Auto) 4.9 % 09/03/22 04:43 Eos % (Auto) 3.6 % 09/03/22 04:43 Baso % (Auto) 0.5 % 09/03/22 04:43 Neut # (Auto) 3.67 10^3/uL (1.8-7.7) 09/03/22 04:43 Lymph # (Auto) 3.5 10^3/uL (0.8-4.8) 09/03/22 04:43 [place] # (Auto) 0.4 10^3/uL (0.2-0.9) 09/03/22 04:43 Eos # (Auto) 0.3 10^3/uL (0.0-0.8) 09/03/22 04:43 Baso # (Auto) 0.0 10^3/uL (0.0-0.1) 09/03/22 04:43 Nucleated RBC % (auto) 0 % 09/03/22 04:43 Nucleated RBCs # 0.0 /100WBC 09/03/22 04:43 Sodium 141 mmol/L (136-145) 09/03/22 04:43 Potassium 3.6 mmol/L (3.5-5.1) 09/03/22 04:43 Chloride 104 mmol/L (98-107) 09/03/22 04:43 Carbon Dioxide 23 mmol/L (22-29) 09/03/22 04:43 Anion Gap 17.6 (5-19) 09/03/22 04:43 BUN 8 mg/dL (6-20) 09/03/22 04:43 Creatinine 0.8 mg/dL (0.5-0.9) 09/03/22 04:43 GFR Calculation 89.7 mL/min (90-130) L 09/03/22 04:43 Glucose 118 mg/dL (65-115) H 09/03/22 04:43 Calculated Osmolality 291 mOsm/kg (285-295) 09/03/22 04:43 Calcium 9.0 mg/dL (8.5-10.5) 09/03/22 04:43 Total Bilirubin 0.3 mg/dL (0.15-1.2) 09/03/22 04:43 AST 23 U/L (0-32) 09/03/22 04:43 ALT 22 U/L (0-33) 09/03/22 04:43 Alkaline Phosphatase 116 U/L (35-105) H 09/03/22 04:43 Total Protein 7.3 g/dL (6.6-8.7) 09/03/22 04:43 Albumin 4.3 g/dL (3.5-5.2) 09/03/22 04:43 Globulin 3.0 g/dL (1.3-4.6) 09/03/22 04:43 Urine Opiates Screen Negative ng/mL (Negative) 09/03/22 04:49 Ur Barbiturates Screen Negative ng/mL (Negative) 09/03/22 04:49 Ur Phencyclidine Scrn Negative ng/mL (Negative) 09/03/22 04:49 Ur Amphetamines Screen Negative ng/mL (Negative) 09/03/22 04:49 U Benzodiazepines Scrn Negative ng/mL (Negative) 09/03/22 04:49 Urine Cocaine Screen Negative ng/mL (Negative) 09/03/22 04:49 U Marijuana (THC) Screen Positive ng/mL (Negative) H 09/03/22 04:49 Ethyl Alcohol < 10 mg/dL (0-10) 09/03/22 04:43 Discharge Plan Discharge Patient Disposition: Home Clinical Impression: Syncope, Cannabis use disorder Condition: Stable Prescriptions: No Action sertraline 50 mg Tablet 50 mg PO DAILY 30 Days Qty: 30 1RF acetaminophen-caffeine 500-65 mg Tablet 2 tab PO Q6H PRN (Reason: Pain) Qty: 60 0RF hydroxyzine HCl 50 mg tablet 50 mg PO TID PRN (Reason: anxiety) Qty: 90 1RF albuterol sulfate 90 mcg/actuation Hfa Aerosol Inhaler 2 puff INHALATION Q6H PRN (Reason: Shortness Of Breath Or Wheezing) 30 Days Qty: 6.7 1RF prazosin 2 mg capsule 4 mg PO BEDTIME 30 Days Qty: 60 1RF Invega Sustenna 234 mg/1.5 mL syringe 234 mg IM Q28D 30 Days Qty: 3 1RF Rx Instructions: Patient due date for monthly Invega is August Prevacid 30 mg capsule,delayed release(DR/EC) 30 mg PO DAILY Qty: 30 0RF Discharge Orders: Discharge ED (Routine); Ordered 09/03/22 Ordered By: Faizan Vernon Patient Instructions: Syncope (ED), Opioid Safety, Pain Management Activity Restrictions/Additional Instructions: Hydrate yourself for the next 24 to 48 hours. Coding Level of Care Code ED Mud Trucker for Corinne Ware
== END 2022-09-03 07:57 | disposition home or self-care (01) ==
PROVIDERS: Emergency Provider Emergency Medicine
DX: R55 Syncope and collapse (principal); R56.9 Unspecified convulsions; R07.9 Chest pain, unspecified; J45.909 Unspecified asthma, uncomplicated; E03.9 Hypothyroidism, unspecified; F17.210 Nicotine dependence, cigarettes, uncomplicated; F12.99 Cannabis use, unspecified with unspecified cannabis-induced disorder; Z79.899 Other long term (current) drug therapy
CPT/HCPCS: 80053; 80306; 80307; 85025; 96360; 99284; J7030

== ENCOUNTER 2022-12-16 00:08 | Emergency (ER) | payer MEDICARE, MEDICAID, SELFPAY ==
[2022-12-16 00:12] VITALS: BP 127/75; PULSE 100; RESP 18; TEMP 36.4; O2SAT 97; BMI 35.5
[2022-12-16 00:51] LABS: Specific Gravity, Urine 1.015 (1.005-1.030); Urine Appearance Hazy (CLEAR); Urine Color Yellow (Yellow); pH Urine 6.5 (5-7)
[2022-12-16 00:52] LABS: Add Urine Culture? No; Add Urine Microscopic? YES; Amorphous Sediment Urine 1+ /hpf; Amphetamines Screen Urine Negative (Negative); Bacteria Urine 2+ /hpf; Barbiturates Screen Urine Negative (Negative); Benzodiazepines Screen Urine Negative (Negative); Bilirubin Urine Neg (Negative); Blood Urine Neg (Negative); Cocaine Screen Urine Negative (Negative); Glucose Urine UA Norm (Normal); Ketones Urine 1+ (Negative); Leukocyte Esterase Urine Trace (Negative); Mucus Urine 2+ /hpf; Nitrate Urine Negative (Negative); Opiate Screen Urine Negative (Negative); PCP Screen Urine Negative (Negative); Protein Urine Neg (Negative); RBC Urine 0-4 /hpf (0-2); Squamous Epithelial Cell Urine 15-25 /hpf (0-5); THC Screen Urine Positive (Negative); Urobilinogen Urine 1 mg/dL (Negative); WBC Urine 0-4 /hpf (0-5)
[2022-12-16 01:13] VITALS: BP 116/69; PULSE 70; RESP 16; O2SAT 96
[2022-12-16 01:26] LABS: HCG Qualitative Urine. Negative (Negative)
[2022-12-16 01:44] LABS: Basophils % 0.6 %; Eosinophils # 0.2 10^3/uL (0.0-0.8); Eosinophils % 2.6 %; Hematocrit 40.5 % (36-47); Lymphocytes # 2.5 10^3/uL (0.8-4.8); Lymphocytes % 40.6 %; Mean Corpuscular HGB Conc 33.6 g/dL (30-55); Mean Corpuscular Hemoglobin 29.3 pg (27-33); Mean Corpuscular Volume 87.3 fl (85-98); Mean Platelet Volume 9.7 fL (7.4-10.4); Monocytes # 0.4 10^3/uL (0.2-0.9); Monocytes % 5.6 %; Neutrophils # 3.12 10^3/uL (1.8-7.7); Neutrophils % 50.4 %; Nucleated Red Blood Cells % 0 %; Platelet Count 226 10^3/cmm (157-399); Red Blood Count 4.64 10^6/uL (3.85-5.65); Red Cell Distribution Width 12.9 % (12.1-15.1)
[2022-12-16 02:02] LABS: Acetaminophen < 5.0 ug/mL (10-30); Alanine Aminotransferase 23 U/L (0-33); Albumin Level 4.2 g/dL (3.5-5.2); Alcohol Level < 10 mg/dL (0-10); Alkaline Phosphatase 101 U/L (35-105); Anion Gap 10.8 (5-19); Aspartate Amino Transferase 20 U/L (0-32); Blood Urea Nitrogen 9 mg/dL (6-20); Calcium 8.9 mg/dL (8.5-10.5); Carbon Dioxide 28 mmol/L (22-29); Chloride 102 mmol/L (98-107); Globulin 2.9 g/dL (1.3-4.6); Glomerular Filtration Rate 104.6 mL/min (90-130); Glucose 85 mg/dL (65-115); Osmolality Calculated 282 mOsm/kg (285-295); Potassium 3.8 mmol/L (3.5-5.1); Salicylate < 0.3 mg/dL (3-10); Sodium 137 mmol/L (136-145); Total Bilirubin 0.4 mg/dL (0.15-1.2); Total Protein 7.1 g/dL (6.6-8.7)
--- NOTE | 2022-12-16 02:45 | ED.C_ITS ---
HPI - Psych General: Chief Complaint: Psychiatric Symptoms Stated Complaint: SI Time Seen by Provider: 12/16/22 02:07 History of Present Illness: 22-year-old who has been in treatment previously in [place] for drug and alcohol abuse. She had her medications filled there, but has run out. She has been out of her medicine about a month. She is hearing voices now. She is a bit scared. She denies suicidality or homicidality. She does have a safe place to stay. She has not been ill in any other way. She believes she could be . Review of Systems Const: Denies: fever(s), chills or body aches Eyes: Denies: change in vision Card: Denies: chest pain or palpitations Resp: Denies: dyspnea, productive cough, non-productive cough or wheezing GI: Denies: abdominal pain, nausea, vomiting, diarrhea or hematochezia : Denies: difficulty voiding Skin/Breast: Denies: rash Neuro: Denies: headache(s), weakness in extremities, dizziness or confusion PFS ED PFSH: Medical History Alcohol abuse, episodic Amenorrhea, unspecified Asthma Bipolar disorder Bipolar disorder, unspecified Bipolar disorder, unspecified Bipolar disorder, unspecified Borderline intellectual functioning Borderline personality disorder Cannabis use disorder Depression Hypothyroidism Lupus Opioid use disorder Post-traumatic stress disorder, chronic Psychiatric care PTSD (post-traumatic stress disorder) Schizophrenia Stimulant use disorder Surgical History History of cholecystectomy Family History Mother Bipolar 1 disorder Heart disease Spina bifida Hyperlipidemia Diabetes Brother Hyperlipidemia Social History Smoking and tobacco/nicotine status: current every day tobacco/nicotine user cigarettes Packs smoked per day: 0.25 Years cigarettes smoked: 7 Quit status (tobacco/nicotine): has tried quititng Number of times tried to quit tobacco: 6 Second hand smoke exposure: Yes Alcohol intake: never Substance/Drug Use: never Adopted: No Caregiver/support person: No Lives independently: No Household members: other Details: Mom, Step-Dad, Sister, Brother Housing: Manufactured/Mobile home Marital status: Single Number of children: 1 Highest education level completed: High School Graduate service: No Current occupational status: disabled Current occupational exposures/hazards: No Pets and animals: Yes Pets & animals: dog(s) Leisure activites: other Leisure activities details: hang out with friends, watch tv, listen to music Sexually active: Yes Do you think of yourself as: Straight/Heterosexual Current gender identity: Female Anabel/Anabaptist: None Special anabel needs: No Female Reproductive History: Date of last menstrual period: 10/26/22 Physical Exam Const: COMMON NORMALS: no acute distress GENERAL APPEARANCE: cooperative; not ill appearing and not frail appearing HENMT: COMMON NORMALS: normocephalic, atraumatic and Normal external nose present HEAD & SCALP: normocephalic and atraumatic FACE & SINUS: normal facial exam and face symmetric NOSE: Normal external nose present Eye: COMMON NORMALS: Equal, round and reactive pupils present and EOMs intact bilaterally PUPIL: Yes Equal, round and reactive pupils present Neck/C-Spine: GENERAL: Yes trachea midline Chest: CHEST: Yes Symmetrical chest wall rise Resp: COMMON NORMALS: normal respiratory effort, No retractions, No use of accessory muscles and clear to auscultation bilaterally AUSCULTATION: clear to auscultation bilaterally Cardio: COMMON NORMALS: regular rate and regular rhythm RATE: regular rate RHYTHM: regular rhythm GI: COMMON NORMALS: Normal to inspection, nondistended, normoactive bowel sounds present Extremity: COMMON NORMALS: no pedal edema Neuro: CORINA COMA SCALE: document GCS findings [place] coma scale eye openin g: Spontaneous [place] coma scale verbal response: Orientated [place] coma scale motor response: Obey commands [place] coma scale total score: 15 SENSORY EXAM: Yes extremities (intact) Psych: COMMON NORMALS: speech normal SPEECH: Yes normal speech Skin: COMMON NORMALS: no rashes or lesions noted GENERAL SKIN EXAM: no rashes or lesions noted Course Vital Signs: Vital signs: Vital Signs Temperature 97.6 F 12/16/22 00:12 Pulse Rate 70 12/16/22 01:13 Respiratory Rate 16 12/16/22 01:13 Blood Pressure 116/69 12/16/22 01:13 Pulse Oximetry 96 12/16/22 01:13 Oxygen Delivery Me thod Room Air 12/16/22 00:12 MDM - Psych Medical Decision Making Vitals are stable. Laboratory is essentially normal. She is not . Only drug screen that is positive is marijuana. Patient has been out of her medication. She is not suicidal or homicidal. She does not believe inpatient treatment is necessary, but does wish to have her medication. She'll be prescribed her medication and allowed discharge. She has an appointment this week with her psychiatry provider. Lab Data 12/16/22 01:35 12/16/22 01:35 Laboratory Results WBC 6.20 10^3/uL (3.29-11.43) 12/16/22 01:35 RBC 4.64 10^6/uL (3.85-5.65) 12/16/22 01:35 Hgb 13.60 g/dL (11.27-16.99) 12/16/22 01:35 Hct 40.5 % (36-47) 12/16/22 01:35 MCV 87.3 fl (85-98) 12/16/22 01:35 MCH 29.3 pg (27-33) 12/16/22 01:35 MCHC 33.6 g/dL (30-55) 12/16/22 01:35 RDW 12.9 % (12.1-15.1) 12/16/22 01:35 Plt Count 226 10^3/cmm (157-399) 12/16/22 01:35 MPV 9.7 fL (7.4-10.4) 12/16/22 01:35 Neut % (Auto) 50.4 % 12/16/22 01:35 Lymph % (Auto) 40.6 % 12/16/22 01:35 [place] % (Auto) 5.6 % 12/16/22 01:35 Eos % (Auto) 2.6 % 12/16/22 01:35 Baso % (Auto) 0.6 % 12/16/22 01:35 Neut # (Auto) 3.12 10^3/uL (1.8-7.7) 12/16/22 01:35 Lymph # (Auto) 2.5 10^3/uL (0.8-4.8) 12/16/22 01:35 [place] # (Auto) 0.4 10^3/uL (0.2-0.9) 12/16/22 01:35 Eos # (Auto) 0.2 10^3/uL (0.0-0.8) 12/16/22 01:35 Baso # (Auto) 0.0 10^3/uL (0.0-0.1) 12/16/22 01:35 Nucleated RBC % (auto) 0 % 12/16/22 01:35 Nucleated RBCs # 0.0 /100WBC 12/16/22 01:35 Sodium 137 mmol/L (136-145) 12/16/22 01:35 Potassium 3.8 mmol/L (3.5-5.1) 12/16/22 01:35 Chloride 102 mmol/L (98-107) 12/16/22 01:35 Carbon Dioxide 28 mmol/L (22-29) 12/16/22 01:35 Anion Gap 10.8 (5-19) 12/16/22 01:35 BUN 9 mg/dL (6-20) 12/16/22 01:35 Creatinine 0.7 mg/dL (0.5-0.9) 12/16/22 01:35 GFR Calculation 104.6 mL/min (90-130) 12/16/22 01:35 Glucose 85 mg/dL (65-115) 12/16/22 01:35 Calculated Osmolality 282 mOsm/kg (285-295) L 12/16/22 01:35 Calcium 8.9 mg/dL (8.5-10.5) 12/16/22 01:35 Total Bilirubin 0.4 mg/dL (0.15-1.2) 12/16/22 01:35 AST 20 U/L (0-32) 12/16/22 01:35 ALT 23 U/L (0-33) 12/16/22 01:35 Alkaline Phosphatase 101 U/L (35-105) 12/16/22 01:35 Total Protein 7.1 g/dL (6.6-8.7) 12/16/22 01:35 Albumin 4.2 g/dL (3.5-5.2) 12/16/22 01:35 Globulin 2.9 g/dL (1.3-4.6) 12/16/22 01:35 HCG, Qual Negative (Negative) 12/16/22 00:27 Urine Color Yellow (Yellow) 12/16/22 00:27 Urine Appearance Hazy (CLEAR) A 12/16/22 00: Urine pH 6.5 (5-7) 12/16/22 00: Ur Specific [place] 1.015 (1.005-1.030) 12/16/22 00: Urine Protein Neg (Negative) 12/16/22 00: Urine Glucose (UA) Norm (Normal) 12/16/22 00: Urine Ketones 1+ (Negative) H 12/16/22 00: Urine Blood Neg (Negative) 12/16/22 00: Urine Nitrate Negative (Negative) 12/16/22 00: Urine Bilirubin Neg (Negative) 12/16/22 00: Urine Urobilinogen 1 mg/dL (Negative) H 12/16/22 00: Ur Leukocyte Esterase Trace (Negative) H 12/16/22 00: Urine RBC 0-4 /hpf (0-2) H 12/16/22 00: Urine WBC 0-4 /hpf (0-5) H 12/16/22 00: Ur Squamous Epith Cells 15-25 /hpf (0-5) H 12/16/22 00: Amorphous Sediment 1+ /hpf 12/16/22 00: Urine Bacteria 2+ /hpf (NONE) H 12/16/22 00: Urine Mucus 2+ /hpf 12/16/22 00: Salicylates < 0.3 mg/dL (3-10) L 12/16/22 01:35 Urine Opiates Screen Negative ng/mL (Negative) 12/16/22 00: Acetaminophen < 5.0 ug/mL (10-30) L 12/16/22 01:35 Ur Barbiturates Screen Negative ng/mL (Negative) 12/16/22 00:27 Ur Phencyclidine Scrn Negative ng/mL (Negative) 12/16/22 00:27 Ur Amphetamines Screen Negative ng/mL (Negative) 12/16/22 00:27 U Benzodiazepines Scrn Negative ng/mL (Negative) 12/16/22 00:27 Urine Cocaine Screen Negative ng/mL (Negative) 12/16/22 00:27 U Marijuana (THC) Screen Positive ng/mL (Negative) H 12/16/22 00:27 Ethyl Alcohol < 10 mg/dL (0-10) 12/16/22 01:35 No radiology studies performed this visit Discharge Plan Discharge Patient Disposition: Home Clinical Impression: Schizophrenia Condition: Stable Prescriptions: New Cymbalta 20 mg capsule,delayed release(DR/EC) 40 mg PO DAILY Qty: 60 0RF Continued hydroxyzine HCl 50 mg tablet 50 mg PO TID PRN (Reason: anxiety) Qty: 90 1RF prazosin 2 mg capsule 4 mg PO BEDTIME 30 Days Qty: 60 1RF Invega Sustenna 234 mg/1.5 mL syringe 234 mg IM Q28D 30 Days Qty: 3 1RF Rx Instructions: Patient due date for monthly Invega is Dec 16, 2022 No Action sertraline 50 mg Tablet 50 mg PO DAILY 30 Days Qty: 30 1RF acetaminophen-caffeine 500-65 mg Tablet 2 tab PO Q6H PRN (Reason: Pain) Qty: 60 0RF albuterol sulfate 90 mcg/actuation Hfa Aerosol Inhaler 2 puff INHALATION Q6H PRN (Reason: Shortness Of Breath Or Wheezing) 30 Days Qty: 6.7 1RF Prevacid 30 mg capsule,delayed release(DR/EC) 30 mg PO DAILY Qty: 30 0RF Discharge Orders: Discharge ED (Routine); Ordered 12/16/22 Ordered By: Faizan Vernon Patient Instructions: Schizophrenia (ED) Activity Restrictions/Additional Instructions: Follow-up with your psychiatric provider this week as scheduled. Return in the meantime for any thoughts or wishes to harm yourself or anyone else. Coding Level of Care Code ED Maintenance Controller for Corinne Ware
[2022-12-16] MEDS: prazosin 1 mg Capsule 4 MG PO (03:19)
[2022-12-16] MEDS: duloxetine 20 mg Capsule 40 MG PO (03:19)
== END 2022-12-16 03:23 | disposition home or self-care (01) ==
PROVIDERS: Emergency Provider Emergency Medicine
DX: F20.9 Schizophrenia, unspecified (principal); F17.210 Nicotine dependence, cigarettes, uncomplicated; M32.9 Systemic lupus erythematosus, unspecified
CPT/HCPCS: 36415; 80053; 80306; 80307; 81001; 81025; 85025; 99283

== ENCOUNTER → 2023-01-06 16:12 | Outpatient (BNVA) | payer MEDICARE, MEDICAID, SELFPAY | PROVIDERS: Visit Provider Nurse Practitioner | DX: N92.6 Irregular menstruation, unspecified (principal) | CPT/HCPCS: 81025 ==

== ENCOUNTER → 2023-01-11 13:35 | Outpatient (BNVA) | payer MEDICARE, MEDICAID, SELFPAY | PROVIDERS: Visit Provider Nurse Practitioner Women's Health | DX: O99.320 Drug use complicating pregnancy, unspecified trimester (principal); F31.9 Bipolar disorder, unspecified | CPT/HCPCS: 80307; 82950; 84315; 84439; 84443; 84481; 84702; 85025; 86592; 86762; 86803; 86850; 86900; 87086; 87340; 87491; 87591; 87806 ==

== ENCOUNTER → 2023-01-20 12:50 | Outpatient (BNVA) | payer MEDICARE, MEDICAID, SELFPAY | PROVIDERS: Visit Provider Emergency Medicine | DX: R52 Pain, unspecified (principal); R11.2 Nausea with vomiting, unspecified | CPT/HCPCS: 87400; 87426 ==

== ENCOUNTER → 2023-01-21 08:15 | Outpatient (BNVA) | payer MEDICARE, MEDICAID, SELFPAY | PROVIDERS: Visit Provider Obstetrics & Gynecology | DX: Z34.90 Encounter for supervision of normal pregnancy, unspecified, unspecified trimester (principal); Z86.32 Personal history of gestational diabetes | CPT/HCPCS: 82951; 82952; 87806 ==

== ENCOUNTER → 2023-01-23 10:20 | Outpatient (BNVA) | payer MEDICARE, MEDICAID, SELFPAY | PROVIDERS: Visit Provider Obstetrics & Gynecology | DX: Z36.87 Encounter for antenatal screening for uncertain dates (principal) | CPT/HCPCS: 76801 ==

== ENCOUNTER 2023-02-03 19:54 | Inpatient (IN) | payer MEDICARE, MEDICAID, SELFPAY ==
[2023-02-03 19:57] VITALS: BP 113/78; PULSE 81; RESP 16; TEMP 36.4; O2SAT 99; BMI 36.6
[2023-02-03 20:50] LABS: HCG Qualitative Urine. Positive (Negative)
[2023-02-03 20:51] LABS: Basophils % 0.3 %; Eosinophils # 0.2 10^3/uL (0.0-0.8); Eosinophils % 2.9 %; Lymphocytes # 2.1 10^3/uL (0.8-4.8); Lymphocytes % 34.1 %; Mean Corpuscular HGB Conc 34.4 g/dL (30-55); Mean Corpuscular Hemoglobin 30.2 pg (27-33); Mean Platelet Volume 9.5 fL (7.4-10.4); Monocytes # 0.4 10^3/uL (0.2-0.9); Monocytes % 5.8 %; Neutrophils # 3.49 10^3/uL (1.8-7.7); Neutrophils % 56.6 %; Nucleated Red Blood Cells % 0 %; Platelet Count 197 10^3/cmm (157-399); Red Blood Count 4.43 10^6/uL (3.85-5.65); Red Cell Distribution Width 12.6 % (12.1-15.1); White Blood Count 6.18 10^3/uL (3.29-11.43)
[2023-02-03 21:01] LABS: Add Urine Culture? No; Add Urine Microscopic? YES; Amorphous Sediment Urine 1+ /hpf; Bacteria Urine 3+ /hpf; Bilirubin Urine Neg (Negative); Blood Urine Neg (Negative); Glucose Urine UA Norm (Normal); Ketones Urine Negative (Negative); Leukocyte Esterase Urine Negative (Negative); Nitrate Urine Negative (Negative); Protein Urine Neg (Negative); RBC Urine 0-4 /hpf (0-2); Squamous Epithelial Cell Urine 15-25 /hpf (0-5); Urine Appearance SL Hazy (CLEAR); Urine Color Yellow (Yellow); Urobilinogen Urine Norm (Negative); pH Urine 6 (5-7)
[2023-02-03 21:02] LABS: Amphetamines Screen Urine Negative (Negative); Barbiturates Screen Urine Negative (Negative); Benzodiazepines Screen Urine Negative (Negative); Cocaine Screen Urine Negative (Negative); Opiate Screen Urine Negative (Negative); PCP Screen Urine Negative (Negative); THC Screen Urine Negative (Negative)
--- NOTE | 2023-02-03 21:11 | W.ED.PSYCHS ---
HPI - Psych General: Chief Complaint: Psychiatric Symptoms Stated Complaint: SI Time Seen by Provider: 02/03/23 20:13 History of Present Illness: 22-year-old female with a history of mental illness. She presents with increasing depression symptoms with suicidal ideation. She feels as if she would like to go to bed and not wake up. She has no other specific plan. She feels that her medicines may not be working. She is currently , some medications had to be switched due to the . She is 7 weeks. She has not experienced vaginal bleeding. She does have back pain, but this is a chronic issue for her. Review of Systems Const: Denies: fever(s), chills or body aches Eyes: Denies: change in vision Card: Denies: chest pain or palpitations Resp: Denies: dyspnea, productive cough, non-productive cough or wheezing GI: Denies: abdominal pain, nausea, vomiting, diarrhea or hematochezia : Denies: difficulty voiding Skin/Breast: Denies: rash Neuro: Denies: headache(s), weakness in extremities, dizziness or confusion PFSH ED PFSH: Medical History Positive test Migraines Scoliosis Anorexia Anxiety Opioid use disorder Stimulant use disorder Alcohol abuse, episodic Cannabis use disorder Lupus PTSD (post-traumatic stress disorder) Bipolar disorder, unspecified Psychiatric care Borderline intellectual functioning Post-traumatic stress disorder, chronic Asthma Depression Schizophrenia Hypothyroidism Surgical History History of cholecystectomy Family History Mother Bipolar 1 disorder Heart disease Spina bifida Hyperlipidemia Diabetes Thyroid disease Stroke Brother Hyperlipidemia Social History Smoking and tobacco/nicotine status: current every day tobacco/nicotine user cigarettes Packs smoked per day: 0.25 Years cigarettes smoked: 7 Quit status (tobacco/nicotine): has tried quititng Number of times tried to quit tobacco: 6 Second hand smoke exposure: Yes Alcohol intake: former Year of sobriety/quit date alcohol: 2022 Former alcohol use details: Report last use of ETOH 06/14/2022 Substance/Drug Use: former Date of last use: THC+ on 12/16/2022, Meth use last reported use 07/2022 Adopted: No Caregiver/support person: No Lives independently: No Household members: other Details: Mom, Step-Dad, Sister, Brother Housing: Manufactured/Mobile home Marital status: Single Number of children: 1 Highest education level completed: High School Graduate service: No Current occupational status: disabled Current occupational exposures/hazards: No Pets and animals: Yes Pets & animals: dog(s) Leisure activites: other Leisure activities details: hang out with friends, watch tv, listen to music Sexually active: Yes Do you think of yourself as: Straight/Heterosexual Current gender identity: Female Anabel/Yazidi: None Special anabel needs: No Physical Exam Const: COMMON NORMALS: no acute distress GENERAL APPEARANCE: cooperative; not ill appearing and not frail appearing HENMT: COMMON NORMALS: normocephalic, atraumatic and Normal external nose present HEAD & SCALP: normocephalic and atraumatic FACE & SINUS: normal facial exam and face symmetric NOSE: Normal external nose present Eye: COMMON NORMALS: Equal, round and reactive pupils present and EOMs intact bilaterally PUPIL: Yes Equal, round and reactive pupils present Neck/C-Spine: GENERAL: Yes trachea midline Chest: CHEST: Yes Symmetrical chest wall rise Resp: COMMON NORMALS: normal respiratory effort, No retractions, No use of accessory muscles and clear to auscultation bilaterally AUSCULTATION: clear to auscultation bilaterally Cardio: COMMON NORMALS: regular rate and regular rhythm RATE: regular rate RHYTHM: regular rhythm GI: COMMON NORMALS: Normal to inspection, nondistended, normoactive bowel sounds present Extremity: COMMON NORMALS: no pedal edema Neuro: CORINA COMA SCALE: document GCS findings [place] coma scale eye opening: Spontaneous [place] coma scale verbal response: Orientated [place] coma scale motor response: Obey commands [place] coma scale total score: 15 SENSORY EXAM: Yes extremities (intact) Psych: COMMON NORMALS: speech normal SPEECH: Yes normal speech Skin: COMMON NORMALS: no rashes or lesions noted GENERAL SKIN EXAM: no rashes or lesions noted Course Vital Signs: Vital signs: Vital Signs Temperature 97.5 F L 02/03/23 22:34 Pulse Rate 89 02/03/23 22:34 Respiratory Rate 18 02/03/23 22:34 Blood Pressure 128/84 02/03/23 22:34 Pulse Oximetry 98 02/03/23 22:34 Oxygen Delivery Me thod Room Air 02/03/23 23:12 MDM - Psych Medical Decision Making Medically stable. She is completely voluntary. Spoke with psychiatry willing to admit Lab Data 02/03/23 20:47 02/03/23 20:47 Laboratory Results WBC 6.18 10^3/uL (3.29-11.43) 02/03/23 20:47 RBC 4.43 10^6/uL (3.85-5.65) 02/03/23 20:47 Hgb 13.40 g/dL (11.27-16.99) 02/03/23 20:47 Hct 39.0 % (36-47) 02/03/23 20:47 MCV 88.0 fl (85-98) 02/03/23 20:47 MCH 30.2 pg (27-33) 02/03/23 20:47 MCHC 34.4 g/dL (30-55) 02/03/23 20:47 RDW 12.6 % (12.1-15.1) 02/03/23 20:47 Plt Count 197 10^3/cmm (157-399) 02/03/23 20:47 MPV 9.5 fL (7.4-10.4) 02/03/23 20:47 Neut % (Auto) 56.6 % 02/03/23 20:47 Lymph % (Auto) 34.1 % 02/03/23 20:47 [place] % (Auto) 5.8 % 02/03/23 20:47 Eos % (Auto) 2.9 % 02/03/23 20:47 Baso % (Auto) 0.3 % 02/03/23 20:47 Neut # (Auto) 3.49 10^3/uL (1.8-7.7) 02/03/23 20:47 Lymph # (Auto) 2.1 10^3/uL (0.8-4.8) 02/03/23 20:47 [place] # (Auto) 0.4 10^3/uL (0.2-0.9) 02/03/23 20:47 Eos # (Auto) 0.2 10^3/uL (0.0-0.8) 02/03/23 20:47 Baso # (Auto) 0.0 10^3/uL (0.0-0.1) 02/03/23 20:47 Nucleated RBC % (auto) 0 % 02/03/23 20:47 Nucleated RBCs # 0.0 /100WBC 02/03/23 20:47 Sodium 137 mmol/L (136-145) 02/03/23 20:47 Potassium 3.8 mmol/L (3.5-5.1) 02/03/23 20:47 Chloride 101 mmol/L (98-107) 02/03/23 20:47 Carbon Dioxide 24 mmol/L (22-29) 02/03/23 20:47 Anion Gap 15.8 (5-19) 02/03/23 20:47 BUN 10 mg/dL (6-20) 02/03/23 20:47 Creatinine 0.4 mg/dL (0.5-0.9) L 02/03/23 20:47 GFR Calculation 199.6 mL/min (90-130) H 02/03/23 20:47 Glucose 67 mg/dL (65-115) 02/03/23 20:47 Calculated Osmolality 281 mOsm/kg (285-295) L 02/03/23 20:47 Calcium 9.1 mg/dL (8.5-10.5) 02/03/23 20:47 Total Bilirubin 0.3 mg/dL (0.15-1.2) 02/03/23 20:47 AST 21 U/L (0-32) 02/03/23 20:47 ALT 27 U/L (0-33) 02/03/23 20:47 Alkaline Phosphatase 97 U/L (35-105) 02/03/23 20:47 Total Protein 6.9 g/dL (6.6-8.7) 02/03/23 20:47 Albumin 4.0 g/dL (3.5-5.2) 02/03/23 20:47 Globulin 2.9 g/dL (1.3-4.6) 02/03/23 20:47 HCG, Qual Positive (Negative) H 02/03/23 20:14 Urine Color Yellow (Yellow) 02/03/23 20:14 Urine Appearance Sl hazy (CLEAR) A 02/03/23 20:14 Urine pH 6 (5-7) 02/03/23 20:14 Ur Specific [place] 1.020 (1.005-1.030) 02/03/23 20:14 Urine Protein Neg (Negative) 02/03/23 20:14 Urine Glucose (UA) Norm (Normal) 02/03/23 20:14 Urine Ketones Negative (Negative) 02/03/23 20:14 Urine Blood Neg (Negative) 02/03/23 20:14 Urine Nitrate Negative (Negative) 02/03/23 20:14 Urine Bilirubin Neg (Negative) 02/03/23 20:14 Urine Urobilinogen Norm mg/dL (Negative) 02/03/23 20:14 Ur Leukocyte Esterase Negative (Negative) 02/03/23 20:14 Urine RBC 0-4 /hpf (0-2) H 02/03/23 20:14 Urine WBC 5-10 /hpf (0-5) H 02/03/23 20:14 Ur Squamous Epith Cells 15-25 /hpf (0-5) H 02/03/23 20:14 Amorphous Sediment 1+ /hpf 02/03/23 20:14 Urine Bacteria 3+ /hpf (NONE) H 02/03/23 20:14 Salicylates < 0.3 mg/dL (3-10) L 02/03/23 20:47 Urine Opiates Screen Negative ng/mL (Negative) 02/03/23 20:14 Acetaminophen < 5.0 ug/mL (10-30) L 02/03/23 20:47 Ur Barbiturates Screen Negative ng/mL (Negative) 02/03/23 20:14 Ur Phencyclidine Scrn Negative ng/mL (Negative) 02/03/23 20:14 Ur Amphetamines Screen Negative ng/mL (Negative) 02/03/23 20:14 U Benzodiazepines Scrn Negative ng/mL (Negative) 02/03/23 20:14 Urine Cocaine Screen Negative ng/mL (Negative) 02/03/23 20:14 U Marijuana (THC) Screen Negative ng/mL (Negative) 02/03/23 20:14 Ethyl Alcohol < 10 mg/dL (0-10) 02/03/23 20:47 No radiology studies performed this visit Discharge Plan Discharge Patient Disposition: Admitted As Inpatient Admit Provider: Ajay Samuel Clinical Impression: Suicidal ideation Condition: Stable Coding Level of Care Code ED Hris Specialist for Corinne Ware
[2023-02-03 21:32] LABS: Alanine Aminotransferase 27 U/L (0-33); Alkaline Phosphatase 97 U/L (35-105); Anion Gap 15.8 (5-19); Aspartate Amino Transferase 21 U/L (0-32); Blood Urea Nitrogen 10 mg/dL (6-20); Calcium 9.1 mg/dL (8.5-10.5); Carbon Dioxide 24 mmol/L (22-29); Chloride 101 mmol/L (98-107); Globulin 2.9 g/dL (1.3-4.6); Glomerular Filtration Rate 199.6 mL/min (90-130); Glucose 67 mg/dL (65-115); Osmolality Calculated 281 mOsm/kg (285-295); Potassium 3.8 mmol/L (3.5-5.1); Sodium 137 mmol/L (136-145); Total Bilirubin 0.3 mg/dL (0.15-1.2); Total Protein 6.9 g/dL (6.6-8.7)
[2023-02-03 21:37] LABS: Acetaminophen < 5.0 ug/mL (10-30); Alcohol Level < 10 mg/dL (0-10); Salicylate < 0.3 mg/dL (3-10)
[2023-02-03 22:34] VITALS: BP 128/84; PULSE 89; RESP 18; TEMP 36.4; O2SAT 98
--- NOTE | 2023-02-03 23:33 | PC.NURSE ---
Pt arrived to [facility] w/RN and security at side. Pt is disheveled and anxious. Admit assessment completed and pt dressed out. Pt has several facial piercings in place and is currently refusing to take them out, I spent $150 on these at the 1rst of this month, and you're not taking them out. Discussed risk for injury, pt still refused to removed. Will reapproach.
--- NOTE | 2023-02-03 23:36 | PC.NURSE ---
OB notified of need for FHT on patient. Awaiting OB nurse arrival.
[2023-02-04 06:00] VITALS: BP 112/76; PULSE 94; RESP 18; O2SAT 98
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
[2023-02-04] MEDS: flu vacc pf 2023-24 (6 mos+) 60 MCG IM (08:25)
--- NOTE | 2023-02-04 08:27 | PC.NURSE ---
INFLUENZA VACCINE 1 DOSE (0.5 ML) GIVEN IM IN LEFT DELTOID. EDUCATED ON VACCINE, EXPRESSED NO CONCERNS. WILL CONT TO MONITOR INJECTION SITE FOR ANY REDNESS, SWELLING, OR IRRITATION LOT [id number] EXP 08/25/23
[2023-02-04] MEDS: nicotine 21 mg Patch 1 PATCH TRANSDERMA (11:32)
[2023-02-04 14:00] VITALS: BP 108/62; PULSE 84; RESP 16; TEMP 36.6; O2SAT 98
[2023-02-04] MEDS: trazodone 50 mg Tablet PO (20:17)
[2023-02-04 20:30] VITALS: BP 126/81; PULSE 101; RESP 18; TEMP 36.8; O2SAT 97
[2023-02-05 06:00] VITALS: BP 100/63; PULSE 73; RESP 18; O2SAT 98
[2023-02-05] MEDS: prenatal vitamin Capsule 1 CAP PO (12:46)
[2023-02-05] MEDS: citalopram 20 mg Tablet PO (12:46)
[2023-02-05] MEDS: nicotine 21 mg Patch 1 PATCH TRANSDERMA (13:02)
--- NOTE | 2023-02-05 13:36 | US_ITS ---
WS: [id number] EARLY OBSTETRICAL ULTRASOUND (<14 WEEKS). HISTORY: COMPARISON: 01/23/2023 Single intrauterine gestational sac is identified. Cardiac activity at 167 BPM. [place]-rump length diego sures 3.3 cm which corresponds to a gestation of 10w2d. Normal-appearing yolk sac and amnion demonstr ated. Small subchorionic hemorrhage. Crescentic shaped collection measures 0.5 x 2.5 x 0.9 cm. Subcho rionic hemorrhage appears slightly larger than on the prior study but this is comparing the transvagi nal to a transabdominal exam. Still, only a small subchorionic bleed. No free fluid. Normal size ovaries with no mass. IMPRESSION: 1. Single intrauterine gestation of 10 weeks 2 days with an EDC of 09/01/2023. Appropriate growth sinc e the prior ultrasound. 2. Normal cardiac activity. 3. Small subchorionic hemorrhage. Does appears slightly greater in size than on the prior study.
[2023-02-05 14:00] VITALS: BP 113/74; PULSE 90; RESP 16; TEMP 37.1; O2SAT 98
[2023-02-05] MEDS: acetaminophen 325 mg Tablet 650 MG PO (16:45)
[2023-02-05] MEDS: hyDROXYzine 25 mg Capsule 50 MG PO (16:47)
--- NOTE | 2023-02-05 18:11 | W.PM.NPUPNS ---
Subjective NPU Subjective: Patient presented today reporting that she is feeling better. She reports that she is comfortable with the Celexa and reports a plan to work with her mother on discharge planning. She reports that they have some ideas about what she is going to do after discharge and she was inquisitive about when discharged might happen. We discussed that we were not planning on this being an extended stay and that we wanted to make sure that the baby was safe and that she was stable on her new antidepressant given her reports of depression. She denied any side effects from the medication. Mental Status Exam MSE Comments: This is an obese white female in hospital scrubs with adequate grooming and eye contact. Notable piercings in her lips. No abnormal movements except for mild psychomotor retardation. Cooperative with exam in mild distress. Speech was decreased rate but normal volume and prosody. Mood described as feeling better. Her affect is mood congruent but less restricted in range. Thought process was linear and mostly organized. Thought content: Patient denied current suicidal or homicidal ideation, there were no delusions reported or noted, she denied auditory or visual hallucinations. Attention and concentration were intact and memory appeared mostly reliable but none were formally tested. She is alert and oriented x3. Insight and judgment appear limited. Her impulse control is poor. Intelligence was commensurate with borderline intellectual functioning. Vitals/I&O/Wt Last Vital Signs Temp 97.9 F 02/05/23 20:25 Pulse 95 02/05/23 20:25 Resp 18 02/05/23 20:25 BP 111/76 02/05/23 20:25 Pulse Ox 96 02/05/23 20:25 O2 Del Method Room Air 02/05/23 20:25 Data NPU 02/03/23 20:47 02/03/23 20:47 A&P Assessment and plan (1) Dysthymic disorder: (2) Suicidal ideation: (3) Borderline personality disorder: (4) Borderline intellectual functioning: (5) Impulse control disorder, unspecified: (6) Methamphetamine use disorder, severe: (7) Auditory hallucinations: (8) Suicidal ideation: (9) Alcohol abuse, episodic: (10) Cannabis use disorder: (11) Opioid use disorder: (12) Post-traumatic stress disorder, chronic: Plan Patient is a 22-year-old white female with a history of depression, borderline personality disorder and borderline intellectual functioning but no active methamphetamine use with reported active depression with and desiring something appropriate for use in the first trimester. 1. Continue current medication except discontinued Zoloft and started Celexa 20 mg p.o. daily 2. continue every 15 minute checks for safety 3. recommend sober living treatment at the highest level of care to which the patient is willing to commit. 4. engage patient in individual group and milieu therapy. 5. Review medication changes and identify appropriate medications for her status. 6. Obtained ultrasound and date possibly updated to 10 weeks. Will consult OB and if that is accurate request standard daily heart tones. Involuntary Hold Information 96 Hour Hold: 96 Hour Involuntary Admission: No 96 Hour Hold Ending Date: 02/27/22 96 Hour Hold Ending Time: 19:34 Attestations NPU Medical Necessity Statement*: Inpatient hospitalization is medically necessary and the clinically appropriate intervention at this time. We will monitor medications and make changes as indicated. Her likely length of stay is 2-4 days. Coding Level of Care Code Acute Code for [facility] Fwd Diagnoses Dysthymic disorder F34.1 Suicidal ideation R45.851 Borderline personality disorder F60.3 Borderline intellectual functioning R41.83 Impulse control disorder, unspecified F63.9 Methamphetamine use disorder, severe F15.20 Auditory hallucinations R44.0 Alcohol abuse, episodic F10.10 Cannabis use disorder F12.90 Opioid use disorder F11.90 Post-traumatic stress disorder, chronic F43.12
[2023-02-05] MEDS: fixodent 39 gm Tube 1 APPLIC DENTAL (18:55)
[2023-02-05 20:25] VITALS: BP 111/76; PULSE 95; RESP 18; TEMP 36.6; O2SAT 96
[2023-02-05] MEDS: diphenhydrAMINE 50 mg Capsule PO (21:47)
[2023-02-06 06:00] VITALS: BP 96/56; PULSE 68; RESP 15; O2SAT 95
[2023-02-06] MEDS: citalopram 20 mg Tablet PO (07:58)
[2023-02-06] MEDS: prenatal vitamin Capsule 1 CAP PO (07:58)
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
[2023-02-06 14:00] VITALS: BP 107/74; PULSE 82; RESP 17; TEMP 36.4; O2SAT 97
[2023-02-06] MEDS: nicotine 21 mg Patch 1 PATCH TRANSDERMA (14:49)
[2023-02-06] MEDS: acetaminophen 325 mg Tablet 650 MG PO ×2 (15:52→20:10)
--- NOTE | 2023-02-06 17:54 | W.PM.NPUPNS ---
Subjective NPU Subjective: Patient presented today reporting that she is doing better and wanting to go home. At 1 point she even was toying with the idea of leaving AMA. She was open to reason and we discussed the risks, benefits and alternatives of her leaving AMA and the consequences that would be quite problematic including access to medication. She was able to collect herself and we agreed that discharge in the morning would be reasonable with appropriate follow-up established by OB as well as the social work team and her being able to be discharged with her new medications. She denies any side effects to any of her medication at this time. Mental Status Exam MSE Comments: This is an obese white female in hospital scrubs with adequate grooming and eye contact. Notable piercings in her lips. No abnormal movements except for mild psychomotor retardation. Cooperative with exam in mild distress. Speech was decreased rate but normal volume and prosody. Mood described as feeling better. Her affect is mood congruent but less restricted in range. Thought process was linear and mostly organized. Thought content: Patient denied current suicidal or homicidal ideation, there were no delusions reported or noted, she denied auditory or visual hallucinations. Attention and concentration were intact and memory appeared mostly reliable but none were formally tested. She is alert and oriented x3. Insight and judgment appear limited. Her impulse control is poor. Intelligence was commensurate with borderline intellectual functioning. Vitals/I&O/Wt Last Vital Signs Temp 98.1 F 02/06/23 20:16 Pulse 81 02/06/23 20:16 Resp 16 02/06/23 20:16 BP 104/70 02/06/23 20:16 Pulse Ox 99 02/06/23 20:16 O2 Del Method Room Air 02/06/23 20:16 Data NPU 02/03/23 20:47 02/03/23 20:47 A&P Assessment and plan (1) Dysthymic disorder: (2) Suicidal ideation: (3) Borderline personality disorder: (4) Borderline intellectual functioning: (5) Impulse control disorder, unspecified: (6) Methamphetamine use disorder, severe: (7) Auditory hallucinations: (8) Suicidal ideation: (9) Alcohol abuse, episodic: (10) Cannabis use disorder: (11) Opioid use disorder: (12) Post-traumatic stress disorder, chronic: Plan Patient is a 22-year-old white female with a history of depression, borderline personality disorder and borderline intellectual functioning but no active methamphetamine use with reported active depression with and desiring something appropriate for use in the first trimester. 1. Continue current medication except discontinued Zoloft and started Celexa 20 mg p.o. daily 2. continue every 15 minute checks for safety 3. recommend sober living treatment at the highest level of care to which the patient is willing to commit. 4. engage patient in individual group and milieu therapy. 5. Review medication changes and identify appropriate medications for her status. 6. Obtained ultrasound and date possibly updated to 10 weeks. OB consulted and making appropriate follow-up plans given her status. Involuntary Hold Information 96 Hour Hold: 96 Hour Involuntary Admission: No 96 Hour Hold Ending Date: 02/27/22 96 Hour Hold Ending Time: 19:34 Attestations NPU Medical Necessity Statement*: Inpatient hospitalization is medically necessary and the clinically appropriate intervention at this time. We will monitor medications and make changes as indicated. Her likely length of stay is 1-3 days. Coding Level of Care Code Acute Code for [facility] F[facility] Diagnoses Dysthymic disorder F34.1 Suicidal ideation R45.851 Borderline personality disorder F60.3 Borderline intellectual functioning R41.83 Impulse control disorder, unspecified F63.9 Methamphetamine use disorder, severe F15.20 Auditory hallucinations R44.0 Alcohol abuse, episodic F10.10 Cannabis use disorder F12.90 Opioid use disorder F11.90 Post-traumatic stress disorder, chronic F43.12
[2023-02-06] MEDS: diphenhydrAMINE 50 mg Capsule PO (20:10)
[2023-02-06 20:16] VITALS: BP 104/70; PULSE 81; RESP 16; TEMP 36.7; O2SAT 99
[2023-02-07 06:00] VITALS: BP 104/64; PULSE 62; RESP 16; O2SAT 98
[2023-02-07] MEDS: prenatal vitamin Capsule 1 CAP PO (08:31)
[2023-02-07] MEDS: citalopram 20 mg Tablet PO (08:31)
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
[2023-02-07 09:39] VITALS: BP 104/64; PULSE 62; RESP 16; O2SAT 98
[2023-02-07] MEDS: docusate sodium 100 mg Capsule PO (09:42)
[2023-02-07] MEDS: cetylpyridinium Lozenge 1 EACH MUCOUS MEM (09:42)
--- NOTE | 2023-02-07 09:54 | DCPLANNER ---
IMM was printed and discussed with pt and copy placed in file.
== END 2023-02-07 10:54 | disposition home or self-care (01) | DRG 832 ==
LOC: ER 21:59 → NP 22:31
PROVIDERS: Admitting Provider Psychiatry & Neurology Psychiatry; Emergency Provider Emergency Medicine; Visit Provider Psychiatry & Neurology Psychiatry
DX: O99.341 Other mental disorders complicating pregnancy, first trimester (principal); F15.20 Other stimulant dependence, uncomplicated; R45.851 Suicidal ideations; F20.9 Schizophrenia, unspecified; F41.9 Anxiety disorder, unspecified; F10.10 Alcohol abuse, uncomplicated; F12.90 Cannabis use, unspecified, uncomplicated; F43.12 Post-traumatic stress disorder, chronic; F60.3 Borderline personality disorder; F34.1 Dysthymic disorder; F11.90 Opioid use, unspecified, uncomplicated; O99.281 Endocrine, nutritional and metabolic diseases complicating pregnancy, first trimester; O99.331 Smoking (tobacco) complicating pregnancy, first trimester; F17.210 Nicotine dependence, cigarettes, uncomplicated; Z3A.10 10 weeks gestation of pregnancy; Z11.52 Encounter for screening for COVID-19; Z81.8 Family history of other mental and behavioral disorders
CPT/HCPCS: 36415; 76801; 76817; 80053; 80306; 80307; 81001; 81025; 85025; 90471; 90686; 97150; 97165; 99285; Q0163

== ENCOUNTER → 2023-02-08 14:00 | Outpatient (BNVA) | payer MEDICARE, MEDICAID, SELFPAY | PROVIDERS: Visit Provider Nurse Practitioner Family | DX: R05.9 Cough, unspecified (principal); J06.9 Acute upper respiratory infection, unspecified | CPT/HCPCS: 87426 ==

== ENCOUNTER 2023-02-11 17:54 | Emergency (ER) | payer MEDICARE, MEDICAID, SELFPAY ==
[2023-02-11 18:31] VITALS: BP 117/82; PULSE 78; RESP 18; TEMP 36.8; O2SAT 99; BMI 38.0
[2023-02-11 20:09] LABS: Influenza A by IFA negative (Negative); Influenza B by IFA negative (Negative)
[2023-02-11 20:10] LABS: SARS Covid-2 Antigen negative (Negative)
[2023-02-11] MEDS: diphenhydrAMINE 50 mg/mL SDV 1mL IVP (20:13)
[2023-02-11] MEDS: metoclopramide 5 mg/mL SDV 2 mL 10 MG IVP (20:14)
[2023-02-11] MEDS: sodium chloride 0.9% 1,000 ML 999 ML IV (20:15)
[2023-02-11 20:18] VITALS: O2SAT 98
--- NOTE | 2023-02-11 20:31 | ED_ITS ---
HPI - COVID General: Chief Complaint: COVID symptoms Stated Complaint: N/V/D, congestion Time Seen by Provider: 02/11/23 19:49 Source: patient Mode of arrival: ambulatory Limitations: no limitations History of Present Illness: 22-year-old female states over the last 2 days she has had cough congestion along with nausea vomiting diarrhea and some abdominal cramping states she has been around sick contacts her mom did have COVID. She denies any severe lower abdominal pain denies any dysuria denies any worsening proving factors. COVID 19 common symptoms: positive nasal congestion, nausea and vomiting; negative fever(s), chills, dyspnea, headache(s), throat pain or diarrhea COVID 19 other sytmptoms: negative chest pain COVID Results: SARS-CoV-2 Antigen (Rapid) negative (Negative) 02/11/23 19:45 SARS-CoV-2 RNA (RT-PCR) Not detected (NOT DETECTED) 05/28/20 0 6:15 Review of Systems Const: Denies: fever(s) or chills ENMT: Reports: nasal congestion; Denies: throat pain or dental pain Card: Denies: chest pain Resp: Denies: dyspnea GI: Reports: abdominal pain, nausea and vomiting; Denies: diarrhea Musc: Denies: neck pain or back pain Skin/Breast: Denies: rash Neuro: Denies: headache(s) PFSH ED PFSH: Medical History Methamphetamine use disorder, mild, in early remission Cannabis use disorder in remission Positive test Migraines Scoliosis Anorexia Anxiety Opioid use disorder Stimulant use disorder Alcohol abuse, episodic Cannabis use disorder Lupus PTSD (post-traumatic stress disorder) Bipolar disorder, unspecified Psychiatric care Borderline intellectual functioning Post-traumatic stress disorder, chronic Asthma Depression Schizophrenia Hypothyroidism Surgical History History of cholecystectomy Family History Mother Bipolar 1 disorder Heart disease Spina bifida Hyperlipidemia Diabetes Thyroid disease Stroke Brother Hyperlipidemia Social History Smoking and tobacco/nicotine status: current every day tobacco/nicotine user cigarettes Packs smoked per day: 0.25 Years cigarettes smoked: 7 Quit status (tobacco/nicotine): has tried quititng Number of times tried to quit tobacco: 6 Second hand smoke exposure: Yes Alcohol intake: former Year of sobriety/quit date alcohol: 2022 Former alcohol use details: Report last use of ETOH 06/14/2022 Substance/Drug Use: former Date of last use: THC+ on 12/16/2022, Meth use last reported use 07/2022 Adopted: No Caregiver/support person: No Lives independently: No Household members: other Details: Mom, Step-Dad, Sister, Brother Housing: Manufactured/Mobile home Marital status: Single Number of children: 1 Highest education level completed: High School Graduate service: No Current occupational status: disabled Current occupational exposures/hazards: No Pets and animals: Yes Pets & animals: dog(s) Leisure activites: other Leisure activities details: hang out with friends, watch tv, listen to music Sexually active: Yes Do you think of yourself as: Straight/Heterosexual Current gender identity: Female Anabel/Rastafarian: None Special anabel needs: No Physical Exam Const: COMMON NORMALS: no acute distress, patient oriented x3 and healthy appearing HENMT: COMMON NORMALS: normocephalic and atraumatic HEAD & SCALP: normocephalic and atraumatic Eye: COMMON NORMALS: Equal, round and reactive pupils present and EOMs intact bilaterally PUPIL: Yes Equal, round and reactive pupils present Neck/C-Spine: COMMON NORMALS: full ROM and supple Chest: COMMONS NORMALS: normal inspection of the chest and normal palpation of entire chest wall Resp: COMMON NORMALS: normal respiratory effort, No retractions, No use of accessory muscles and clear to auscultation bilaterally AUSCULTATION: clear to auscultation bilaterally Cardio: COMMON NORMALS: regular rate, regular rhythm and No murmurs present ( Cardio) RATE: regular rate RHYTHM: regular rhythm GI: COMMON NORMALS: Normal to inspection, nondistended, normoactive bowel sounds present, Soft to palpation, non-tender and no masses PALPATION: Yes Soft to palpation Extremity: COMMON NORMALS: normal to inspection and full ROM Neuro: COMMON NORMALS: patient oriented x3, moves all extremities and no focal motor deficits Psych: COMMON NORMALS: mental status grossly normal, Normal thought process present and cooperative THOUGHT PROCESS: Normal thought process present Skin: COMMON NORMALS: no rashes or lesions noted and no wounds GENERAL SKIN EXAM: no rashes or lesions noted Course Vital Signs: Vital signs: Vital Signs Temperature 98.2 F 02/11/23 18:31 Pulse Rate 78 02/11/23 18:31 Respiratory Rate 18 02/11/23 18:31 Blood Pressure 117/82 02/11/23 18:31 Pulse Oximetry 98 02/11/23 20:18 Oxygen Delivery Me thod Room Air 02/11/23 20:18 MDM - COVID Medical Decision Making Patient presents here with upper respiratory infection with some vomiting she is well-appearing here abdominal exam is benign I did a bedside ultrasound showed IUP consistent with dates heart rate 152 she feels much improved after Reglan we will prescribe her Reglan for home she is to follow-up with her OB and return if worsening she understands agrees to plan. Medical Records I reviewed the patient's medical records. Lab Data I reviewed the patient's lab results. Laboratory Results Urine Color Yellow (Yellow) 02/11/23 20:25 Urine Appearance Clear (CLEAR) 02/11/23 20:25 Urine pH 6 (5-7) 02/11/23 20:25 Ur Specific [place] 1.020 (1.005-1.030) 02/11/23 20:25 Urine Protein Neg (Negative) 02/11/23 20:25 Urine Glucose (UA) Norm (Normal) 02/11/23 20:25 Urine Ketones Negative (Negative) 02/11/23 20:25 Urine Blood Neg (Negative) 02/11/23 20:25 Urine Nitrate Negative (Negative) 02/11/23 20:25 Urine Bilirubin Neg (Negative) 02/11/23 20:25 Urine Urobilinogen 1 mg/dL (Negative) H 02/11/23 20:25 Ur Leukocyte Esterase Negative (Negative) 02/11/23 20:25 Influenza Type A Ag negative (Negative) 02/11/23 19:45 Influenza Type B Ag negative (Negative) 02/11/23 19:45 SARS-CoV-2 Ag (Rapid) negative (Negative) 02/11/23 19:45 SARS-CoV-2 Antigen (Rapid) negative (Negative) 02/11/23 19:45 SARS-CoV-2 RNA (RT-PCR) Not detected (NOT DETECTED) 05/28/20 0 6:15 All radiology interpretation(s) finalized by discharge Discharge Plan Discharge Patient Disposition: Home Clinical Impression: Upper respiratory infection, Vomiting affecting Condition: Stable Prescriptions: New Reglan 10 mg tablet 10 mg PO Q6H PRN (Reason: nausea and vomiting) Qty: 20 0RF No Action prenat.vits,sandra,jvt-gzoc-vpeel Tablet 1 tab PO .one daily hydroxyzine HCl 50 mg tablet 50 mg PO TID PRN (Reason: anxiety) Qty: 90 1RF albuterol sulfate 90 mcg/actuation Hfa Aerosol Inhaler 2 puff INHALATION Q6H PRN (Reason: Shortness Of Breath Or Wheezing) 30 Days Qty: 6.7 1RF citalopram 20 mg Tablet 20 mg PO DAILY 30 Days Qty: 30 1RF Discharge Orders: Discharge ED (Routine); Ordered 02/11/23 Ordered By: Robson Vallejo Referrals: Denis Carmona MD [Primary Care Provider] - Discharge Diet: Advance as tolerated Discharge Activity: Resume usual activity Patient Instructions: Nausea and Vomiting in (ED), Upper Respiratory Infection (ED) Coding Level of Care Code ED Deep Fat Fry Cook for Corinne Ware
[2023-02-11 20:33] LABS: Add Urine Microscopic? NO; Charge for UA Resulting for Rev
[2023-02-11 20:36] LABS: Urine Appearance Clear (CLEAR); Urine Color Yellow (Yellow)
[2023-02-11 20:37] LABS: Bilirubin Urine Neg (Negative); Blood Urine Neg (Negative); Glucose Urine UA Norm (Normal); Ketones Urine Negative (Negative); Leukocyte Esterase Urine Negative (Negative); Nitrate Urine Negative (Negative); Protein Urine Neg (Negative); Urobilinogen Urine 1 mg/dL (Negative); pH Urine 6 (5-7)
== END 2023-02-11 20:54 | disposition home or self-care (01) ==
PROVIDERS: Emergency Provider Emergency Medicine; PCP Family Medicine Adult Medicine
DX: O99.511 Diseases of the respiratory system complicating pregnancy, first trimester (principal); O21.9 Vomiting of pregnancy, unspecified; J06.9 Acute upper respiratory infection, unspecified; O26.891 Other specified pregnancy related conditions, first trimester; M32.9 Systemic lupus erythematosus, unspecified; Z3A.11 11 weeks gestation of pregnancy; O99.331 Smoking (tobacco) complicating pregnancy, first trimester; F17.210 Nicotine dependence, cigarettes, uncomplicated; Z11.52 Encounter for screening for COVID-19
CPT/HCPCS: 81003; 87426; 87804; 96374; 96375; 99284; J1200; J2765; J7030

== ENCOUNTER → 2023-03-13 10:46 | Outpatient (BNVA) | payer MEDICARE, MEDICAID, SELFPAY | PROVIDERS: PCP Family Medicine Adult Medicine; Visit Provider Obstetrics & Gynecology | DX: O09.90 Supervision of high risk pregnancy, unspecified, unspecified trimester (principal); Z32.01 Encounter for pregnancy test, result positive | CPT/HCPCS: 84315; 88175 ==

== ENCOUNTER → 2023-04-06 11:45 | Outpatient (BNVA) | payer MEDICARE, MEDICAID, SELFPAY | PROVIDERS: PCP Family Medicine Adult Medicine; Visit Provider Family Medicine | DX: R09.81 Nasal congestion (principal) | CPT/HCPCS: 87400 ==

== ENCOUNTER → 2024-04-01 12:07 | Outpatient (BNVA) | payer MEDICAID, SELFPAY | PROVIDERS: PCP Family Medicine Adult Medicine; Visit Provider Family Medicine | DX: R05.9 Cough, unspecified (principal) | CPT/HCPCS: 87400 ==

== ENCOUNTER → 2024-05-17 13:55 | Outpatient (BNVA) | payer MEDICARE, MEDICAID, OTHER, SELFPAY | PROVIDERS: PCP Family Medicine Adult Medicine; Visit Provider Emergency Medicine | DX: R39.9 Unspecified symptoms and signs involving the genitourinary system (principal) | CPT/HCPCS: 81025 ==

== ENCOUNTER → 2024-05-19 13:15 | Outpatient (BNVA) | payer OTHER, SELFPAY | PROVIDERS: PCP Family Medicine Adult Medicine; Visit Provider Nurse Practitioner | DX: F20.9 Schizophrenia, unspecified (principal); F43.12 Post-traumatic stress disorder, chronic; Z79.899 Other long term (current) drug therapy | CPT/HCPCS: 80061; 83036 ==

== ENCOUNTER 2024-07-20 19:53 | Emergency (ER) | payer MEDICARE, MEDICAID, SELFPAY ==
[2024-05-20 12:05] VITALS: BP 130/86; BMI 42.8
[2024-07-20 19:55] VITALS: BP 122/70; PULSE 106; RESP 16; TEMP 36.1; O2SAT 96; BMI 41.0
--- NOTE | 2024-07-20 20:08 | W.ED.PSYCHS ---
HPI - Psych General: Chief Complaint: Psychiatric Symptoms Stated Complaint: MHE Time Seen by Provider: 07/20/24 19:59 History of Present Illness: 23-year-old female with a history of nonepileptic seizures, alcohol use disorder, migraines, anxiety, bipolar disorder and PTSD who presents to the emergency room with psychiatric complaints. She says she relapsed on alcohol and marijuana and then started having hallucinations and has started having some self-harm. Apparently she has superficial lacerations on her thighs. She denies any suicidal ideation but apparently has kill me written on the thigh where she has self harmed. She thinks maybe she needs a medication change. She says she is hallucinating she is also missed her medications for the last 2 days.. Related Data Previous Rx's ?Medication ?Instructions ?Recorded albuterol sulfate 90 mcg/actuation 2 puff inhalation Q6H PRN 08/26/22 aerosol inhaler Shortness Of Breath Or Wheezing 30 days #6.7 grams duloxetine 60 mg capsule,delayed 60 mg PO DAILY #30 caps 05/13/24 release (Cymbalta) paliperidone 9 mg tablet,extended 9 mg PO DAILY PRN A/V 05/13/24 release 24 hr hallucinations #30 tabs levetiracetam 500 mg tablet 500 mg PO BID #60 tabs 05/26/24 (Keppra) levetiracetam 750 mg tablet 750 mg PO BID #60 tabs 05/26/24 (Keppra) methocarbamol 500 mg tablet 500 mg PO BID PRN back pain #60 05/26/24 tabs hydroxyzine HCl 50 mg tablet 50 mg PO TID PRN anxiety #90 tabs 05/27/24 lamotrigine 25 mg tablet (Lamictal) 50 mg (2 x 25 mg) PO DAILY 30 days 05/27/24 #60 tabs paliperidone palmitate 234 mg/1.5 234 mg (1.5 mL) IM Q30D #1.5 mL 05/27/24 mL intramuscular syringe (Invega Sustenna) prazosin 2 mg capsule 4 mg (2 x 2 mg) PO .HS #60 caps 05/27/24 norethindrone 1.5 mg-ethinyl 1 tab PO DAILY #84 tabs 06/04/24 estradiol 30 mcg(21)/iron 75 mg(7) tablet (Tiera Fe 1.5/30 (28)) trazodone 100 mg tablet 100 mg PO .HS #30 tabs 06/12/24 Allergies Allergy/AdvReac Type Severity Reaction Status Date / Time divalproex sodium Allergy Severe ALGY-Swell Verified 07/10/24 11:53 Lip/Tongue/Throat olanzapine Allergy Severe ALGY-Swell Verified 07/10/24 11:53 Lip/Tongue/Throat ziprasidone Allergy Severe ALGY-Swell Verified 07/10/24 11:53 Lip/Tongue/Throat adhesive tape Allergy ALGY-Rash Verified 07/10/24 11:53 buprenorphine (From Suboxone) Allergy ADR-Seizure Verified 07/10/24 11:53 naloxone (From Suboxone) Allergy ADR-Seizure Verified 07/10/24 11:53 pepper (genus Capsicum) Allergy Unknown Verified 07/10/24 11:53 Pork/Porcine Containing Allergy Unknown Verified 07/10/24 11:53 Products Review of Systems Narrative: Constitutional symptoms: Negative except as documented in HPI. Skin symptoms: Negative except as documented in HPI. Eye symptoms: Negative except as documented in HPI. ENMT symptoms: Negative except as documented in HPI. Respiratory symptoms: Negative except as documented in HPI. Cardiovascular symptoms: Negative except as documented in HPI. Gastrointestinal symptoms: Negative except as documented in HPI. Genitourinary symptoms: Negative except as documented in HPI. Musculoskeletal symptoms: Negative except as documented in HPI. Neurologic symptoms: Negative except as documented in HPI. Psychiatric symptoms: Negative except as documented in HPI. Endocrine symptoms: Negative except as documented in HPI. PFSH ED PFSH: Medical History (Updated 07/20/24 @ 21:46 by Danii Calabrese MD) Vapes nicotine containing substance Nicotine dependence due to vaping tobacco product Chronic low back pain without sciatica Psychosomatic seizure dxed in [facility]; used to be on Keppra Alcohol use disorder in remission On combination antipsychotic drug therapy Methamphetamine use disorder, mild, in early remission Migraines Scoliosis Anxiety Opioid use disorder Stimulant use disorder Alcohol abuse, episodic Cannabis use disorder PTSD (post-traumatic stress disorder) Bipolar disorder, unspecified Psychiatric care Borderline intellectual functioning Post-traumatic stress disorder, chronic Asthma Depression Schizophrenia Surgical History History of cholecystectomy Family History Mother Bipolar 1 disorder Heart disease Spina bifida Hyperlipidemia Diabetes Thyroid disease Stroke Brother Hyperlipidemia Social History Smoking and tobacco/nicotine status: current every day tobacco/nicotine user e-cigarettes E-Cigarette Details: e-cigarette and with nicotine E-cig/vape details: 15,000 puffs last a month Quit status (tobacco/nicotine): not considering quitting Second hand smoke exposure: Yes Alcohol intake: former Former alcohol use details: 08.20.2022 Substance/Drug Use: former Date of last use: 08.20.22 Former substance use details: meth and fentanyl in past; used to do IV Adopted: No Caregiver/support person: No Lives independently: Yes Household members: family Housing: House Marital status: Single Number of children: 4 Number of grandchildren: 0 Highest education level completed: High School Graduate service: No Current occupational status: disabled Current occupational exposures/hazards: No Previous occupational history: disability for mental health since age 13 Pets and animals: No Leisure activites: music and other Leisure activities details: hang out with new boyfriend Sexually active: No Do you think of yourself as: Straight/Heterosexual Current gender identity: Female Anabel/Methodist: None Special anabel needs: No Agree to transfusion: Yes Female Reproductive History: Date of last menstrual period: 06/30/24 Para: 3 Spontaneous abortions: Yes Physical Exam Narrative: EXAM NARRATIVE: General: Alert, no acute distress. Skin: Warm, dry. Head: Normocephalic, atraumatic. Neck: Supple, trachea midline. Eye: Extraocular movements are intact. Ears, nose, mouth and throat: mucosa moist. Cardiovascular: Regular, Normal peripheral perfusion. Respiratory: Lungs are clear to auscultation, respirations are non-labored, breath sounds are equal, Symmetrical chest wall expansion. Gastrointestinal: Soft, Nontender, Non distended Musculoskeletal: Normal ROM, no deformity. Neurological: Alert and oriented, No focal neurological deficit observed. Psychiatric: Cooperative, endorses depression, hallucinations but denies suicidal ideation. She does endorse thoughts of self-harm Course Vital Signs: Vital signs: Vital Signs Temperature 97.0 F L 07/20/24 19:55 Pulse Rate 106 H 07/20/24 19:55 Respiratory Rate 16 07/20/24 19:55 Blood Pressure 122/70 07/20/24 19:55 Pulse Oximetry 96 07/20/24 19:55 Oxygen Delivery Me thod Room Air 07/20/24 19:55 MDM - Psych Medical Decision Making Differential diagnosis: Patient with reported depression and hallucination. concerns for infection, alcohol intoxication, cardiac issues or other medical problems prior to psychiatric admission. Workup: labwork, ekg ordered to evaluate the pathologies and to clear the patient medically prior to psychiatric admission Lab Review: Laboratory results were reviewed and interpreted by myself the emergency room physician. - Medically cleared. - EKG shows no ischemic changes. - Blood alcohol level is negative, -Tylenol and salicylate levels are negative. - No anemia. - BUN and creatinine are within normal limits. Assessment and plan: Depression Medical noncompliance Alcohol abuse Anxiety attack Medical noncompliance -Patient has denied suicidal and homicidal ideations throughout. She feels better after Ativan and wants to go home. I have no reason to hold her at this time. - All lab work was reviewed and interpreted personally by myself, the ER physician - Evaluation and treatment of this problem were appropriate in the emergency setting Lab Data 07/20/24 20:58 07/20/24 20:58 Laboratory Results WBC 4.86 10^3/uL (3.29-11.43) 07/20/24 20:58 RBC 4.42 10^6/uL (3.85-5.65) 07/20/24 20:58 Hgb 13.10 g/dL (11.27-16.99) 07/20/24 20:58 Hct 38.9 % (36-47) 07/20/24 20:58 MCV 88.0 fl (85-98) 07/20/24 20:58 MCH 29.6 pg (27-33) 07/20/24 20:58 MCHC 33.7 g/dL (30-55) 07/20/24 20:58 RDW 11.8 % (12.1-15.1) L 07/20/24 20:58 Plt Count 227 10^3/cmm (157-399) 07/20/24 20:58 MPV 9.5 fL (7.4-10.4) 07/20/24 20:58 Neut % (Auto) 50.9 % 07/20/24 20:58 Lymph % (Auto) 40.7 % 07/20/24 20:58 Jones % (Auto) 6.6 % 07/20/24 20:58 Eos % (Auto) 1.2 % 07/20/24 20:58 Baso % (Auto) 0.4 % 07/20/24 20:58 Neut # (Auto) 2.47 10^3/uL (1.8-7.7) 07/20/24 20:58 Lymph # (Auto) 2.0 10^3/uL (0.8-4.8) 07/20/24 20:58 Jones # (Auto) 0.3 10^3/uL (0.2-0.9) 07/20/24 20:58 Eos # (Auto) 0.1 10^3/uL (0.0-0.8) 07/20/24 20:58 Baso # (Auto) 0.0 10^3/uL (0.0-0.1) 07/20/24 20:58 Nucleated RBC % (auto) 0 % 07/20/24 20:58 Nucleated RBCs # 0.0 /100WBC 07/20/24 20:58 Sodium 140 mmol/L (136-145) 07/20/24 20:58 Potassium 3.9 mmol/L (3.5-5.1) 07/20/24 20:58 Chloride 104 mmol/L (98-107) 07/20/24 20:58 Carbon Dioxide 26 mmol/L (22-29) 07/20/24 20:58 Anion Gap 13.9 (5-19) 07/20/24 20:58 BUN 8 mg/dL (6-20) 07/20/24 20:58 Creatinine 0.7 mg/dL (0.5-0.9) 07/20/24 20:58 GFR Calculation 103.7 mL/min (90-130) 07/20/24 20:58 Glucose 99 mg/dL (65-115) 07/20/24 20:58 Calculated Osmolality 288 mOsm/kg (285-295) 07/20/24 20:58 Calcium 9.2 mg/dL (8.5-10.5) 07/20/24 20:58 Total Bilirubin 0.6 mg/dL (0.15-1.2) 07/20/24 20:58 AST 22 U/L (0-32) 07/20/24 20:58 ALT 30 U/L (0-33) 07/20/24 20:58 Alkaline Phosphatase 119 U/L (35-105) H 07/20/24 20:58 Total Protein 7.1 g/dL (6.6-8.7) 07/20/24 20:58 Albumin 3.9 g/dL (3.5-5.2) 07/20/24 20:58 Globulin 3.2 g/dL (1.3-4.6) 07/20/24 20:58 TSH 1.64 uIU/mL (0.27-4.20) 07/20/24 20:58 HCG, Qual Negative (Negative) 07/20/24 20:17 Amorphous Sediment Not Reportable 07/20/24 20:17 Salicylates < 0.3 mg/dL (3-10) L 07/20/24 20:58 Acetaminophen < 5.0 ug/mL (10-30) L 07/20/24 20:58 Ethyl Alcohol < 10 mg/dL (0-10) 07/20/24 20:58 No radiology studies performed this visit Discharge Plan Discharge Patient Disposition: Home Clinical Impression: Depression, Alcohol abuse, episodic, Self mutilating behavior, Medical non-compliance Condition: Stable Prescriptions: No Action norethindrone-e.estradiol-iron [Tiera Blum .07/24 ()] 1.5 mg-30 mcg (21)/75 mg (7) tablet 1 tab PO DAILY Qty: 84 3RF levetiracetam [Keppra] 750 mg tablet 750 mg PO BID Qty: 60 5RF levetiracetam [Keppra] 500 mg tablet 500 mg PO BID Qty: 60 5RF methocarbamol 500 mg tablet 500 mg PO BID PRN (Reason: back pain) Qty: 60 5RF paliperidone 9 mg tablet extended release 24hr 9 mg PO DAILY PRN (Reason: A/V hallucinations) Qty: 30 2RF duloxetine [Cymbalta] 60 mg capsule,delayed release(DR/EC) 60 mg PO DAILY Qty: 30 1RF lamotrigine [Lamictal] 25 mg tablet 50 mg PO DAILY 30 Days Qty: 60 1RF hydroxyzine HCl 50 mg tablet 50 mg PO TID PRN (Reason: anxiety) Qty: 90 2RF Invega Sustenna 234 mg/1.5 mL syringe 234 mg IM Q30D Qty: 1.5 6RF prazosin 2 mg capsule 4 mg PO .HS Qty: 60 2RF trazodone 100 mg tablet 100 mg PO .HS Qty: 30 1RF albuterol sulfate 90 mcg/actuation Hfa Aerosol Inhaler 2 puff INHALATION Q6H PRN (Reason: Shortness Of Breath Or Wheezing) 30 Days Qty: 6.7 1RF Discharge Orders: Discharge ED (Routine); Ordered 07/20/24 Ordered By: Danii Calabrese Discharge Diet: Usual diet Discharge Activity: Increase activity as tolerated Patient Instructions: Opioid Safety, Pain Management Activity Restrictions/Additional Instructions: Please follow-up with the [facility] behavioral health crisis center tomorrow or the next day. Phone number is [phone]. There is a 24-hour crisis hotline with the number of [phone]. Hours of operation are 8 AM to 6 PM. Thank you for choosing [facility] for your healthcare needs today. Please realize this is an emergency room and that we are providing you with a medical screening exam and this may not be complete and all inclusive of all the testing and or work up that you may need to determine your ailment or severity of your illness. You have been screened and evaluated and felt safe for discharge. Health conditions do change or evolve sometimes and as such it is important that you follow up with your Primary Doctor to be re checked, 3-5 days is a general good time frame for follow up. You are always welcome to return to the ED for re assessment if your symptoms are worsening or you have new concerns Print Language: French Coding Level of Care Code ED Wool Hanker for Corinne Ware
[2024-07-20 20:46] LABS: HCG Qualitative Urine. Negative (Negative)
[2024-07-20] MEDS: LORazepam 2 mg/mL INJ 1 mL IM (21:00)
[2024-07-20 21:08] LABS: Basophils % 0.4 %; Eosinophils # 0.1 10^3/uL (0.0-0.8); Eosinophils % 1.2 %; Hematocrit 38.9 % (36-47); Lymphocytes % 40.7 %; Mean Corpuscular HGB Conc 33.7 g/dL (30-55); Mean Corpuscular Hemoglobin 29.6 pg (27-33); Mean Platelet Volume 9.5 fL (7.4-10.4); Monocytes # 0.3 10^3/uL (0.2-0.9); Monocytes % 6.6 %; Neutrophils # 2.47 10^3/uL (1.8-7.7); Neutrophils % 50.9 %; Nucleated Red Blood Cells % 0 %; Platelet Count 227 10^3/cmm (157-399); Red Blood Count 4.42 10^6/uL (3.85-5.65); Red Cell Distribution Width 11.8 % (12.1-15.1); White Blood Count 4.86 10^3/uL (3.29-11.43)
--- NOTE | 2024-07-20 21:26 | ECG_ITS ---
[facility]: 2024[facility]20 Pat Name: Heidy Macias Department: Room: Gender: Female Well Shooter: : 2000 Requested By: Danii Harris Order Number: [id number] Reading MD: Measurements Intervals [place] Rate: 57 P: 50 PA: 160 QRS: 64 QRSD: 87 T: 41 QT: 405 QTc: 396 Interpretive Statements SINUS BRADYCARDIA [email or web address]
[2024-07-20 21:40] LABS: Alanine Aminotransferase 30 U/L (0-33); Albumin Level 3.9 g/dL (3.5-5.2); Alkaline Phosphatase 119 U/L (35-105); Anion Gap 13.9 (5-19); Aspartate Amino Transferase 22 U/L (0-32); Blood Urea Nitrogen 8 mg/dL (6-20); Calcium 9.2 mg/dL (8.5-10.5); Carbon Dioxide 26 mmol/L (22-29); Chloride 104 mmol/L (98-107); Creatinine Clr Calc Pharmacy 166.7295; Globulin 3.2 g/dL (1.3-4.6); Glomerular Filtration Rate 103.7 mL/min (90-130); Glucose 99 mg/dL (65-115); Osmolality Calculated 288 mOsm/kg (285-295); Potassium 3.9 mmol/L (3.5-5.1); Sodium 140 mmol/L (136-145); Thyroid Stimulating Hormone 1.64 uIU/mL (0.27-4.20); Total Bilirubin 0.6 mg/dL (0.15-1.2); Total Protein 7.1 g/dL (6.6-8.7)
[2024-07-20 21:41] LABS: Acetaminophen < 5.0 ug/mL (10-30); Alcohol Level < 10 mg/dL (0-10); Salicylate < 0.3 mg/dL (3-10)
[2024-07-20 21:47] LABS: Bilirubin Urine Negative (Negative); Blood Urine Negative (Negative); Glucose Urine UA Negative (Normal); Ketones Urine Negative (Negative); Leukocyte Esterase Urine Trace (Negative); Nitrate Urine Negative (Negative); Protein Urine Negative (Negative); Specific Gravity, Urine 1.018 (1.005-1.030); Urine Appearance Clear (CLEAR); pH Urine 8.5 (5-7)
--- NOTE | 2024-07-20 21:48 | PC.NURSE ---
pt requesting to go home. upon evaluation pt states i think i was just having a panic attack since im an alcoholoic and i drank thrusdqay and rhett and didnt take my medications. pt denies SI/HI during entire stay and at current time. pt Aox4 at this time. pt in no obvious distress. provider notified and will obtain d/c. pt given clotching and getting dressed.
[2024-07-20 21:52] LABS: Add Urine Microscopic? YES; Bacteria Urine Trace /hpf; Hyaline Casts Urine 0-4 /lpf; RBC Urine 0-2 /hpf (0-2)
[2024-07-20 21:54] LABS: Amphetamines Screen Urine Negative (Negative); Barbiturates Screen Urine Negative (Negative); Benzodiazepines Screen Urine Negative (Negative); Cocaine Screen Urine Negative (Negative); Opiate Screen Urine Negative (Negative); PCP Screen Urine Negative (Negative); THC Screen Urine Positive (Negative); Urine Color Orange (Yellow)
[2024-07-20 21:59] VITALS: BP 141/79; PULSE 99; RESP 17; O2SAT 98
== END 2024-07-20 22:00 | disposition home or self-care (01) ==
PROVIDERS: Emergency Provider Emergency Medicine
DX: F31.9 Bipolar disorder, unspecified (principal); F10.10 Alcohol abuse, uncomplicated; R45.88 Nonsuicidal self-harm; Z91.148 Patient's other noncompliance with medication regimen for other reason; F41.9 Anxiety disorder, unspecified; G43.909 Migraine, unspecified, not intractable, without status migrainosus; F43.10 Post-traumatic stress disorder, unspecified
CPT/HCPCS: 36415; 80053; 80306; 80307; 81001; 81025; 84443; 85025; 93005; 96372; 99284; J2060

== ENCOUNTER 2024-08-04 05:47 | Day surgery (SDC) | payer MEDICARE, MEDICAID, SELFPAY ==
[2024-05-20 12:05] VITALS: BP 130/86; BMI 42.8
[2024-08-04] VITALS (11 sets, daily range): BP systolic 97–156; BP diastolic 67–85; PULSE 80–90; RESP 14–18; TEMP 36.1–37.1; O2SAT 95–100
--- NOTE | 2024-08-04 00:36 | W.PM.OPSFHP ---
Same Day Surgery H&P Indication for Procedure/HPI DATE OF PROCEDURE: August 04, 2024 CHIEF COMPLAINT/INDICATIONFOR SURGICAL PROCEDURE: desires permanent sterilization PREOP DIAGNOSIS: desires permanent sterilization PLANNED PROCEDURE: Operation Date: 08/04/24 07:00 Proposed Procedures p Laparoscopic bilateral Salpingectomy(Bilateral) - Denzel Rojas MD 23 y.o. SA4 L3 desires permanent sterilization Medications/Allergies* Home Medications ?Medication ?Instructions ?Recorded ?Confirmed ?Type hydroxyzine HCl 50 mg tablet 50 mg PO TID anxiety 08/03/24 08/03/24 History prazosin 2 mg capsule 4 mg PO QPM 08/03/24 08/03/24 History trazodone 100 mg tablet 100 mg PO QPM 08/03/24 08/03/24 History Allergies/Adverse Reactions Allergy/AdvReac Type Severity Reaction Status Date / Time divalproex sodium Allergy Severe ALGY-Swell Verified 07/10/24 11:53 Lip/Tongue/Throat olanzapine Allergy Severe ALGY-Swell Verified 07/10/24 11:53 Lip/Tongue/Throat ziprasidone Allergy Severe ALGY-Swell Verified 07/10/24 11:53 Lip/Tongue/Throat adhesive tape Allergy ALGY-Rash Verified 07/10/24 11:53 buprenorphine (From Suboxone) Allergy ADR-Seizure Verified 07/10/24 11:53 naloxone (From Suboxone) Allergy ADR-Seizure Verified 07/10/24 11:53 pepper (genus Capsicum) Allergy Unknown Verified 07/10/24 11:53 Pork/Porcine Containing Allergy Unknown Verified 07/10/24 11:53 Products Pertinent History/Comorbid Conditions* Medical History (Updated 07/28/24 @ 00:00 by MARIA DE JESUS Mart) Vapes nicotine containing substance Nicotine dependence due to vaping tobacco product Chronic low back pain without sciatica Psychosomatic seizure dxed in [facility]; used to be on Keppra Alcohol use disorder in remission On combination antipsychotic drug therapy Methamphetamine use disorder, mild, in early remission Migraines Scoliosis Anxiety Opioid use disorder Stimulant use disorder Alcohol abuse, episodic Cannabis use disorder PTSD (post-traumatic stress disorder) Bipolar disorder, unspecified Psychiatric care Borderline intellectual functioning Post-traumatic stress disorder, chronic Asthma Depression Schizophrenia Surgical History (Updated 04/13/19 @ 19:35 by Torres Marie MD) History of cholecystectomy Family History (Updated 01/11/23 @ 13:53 by Colette Dempsey) Diabetes Mother Heart disease Mother Hyperlipidemia Mother Brother Bipolar 1 disorder Mother Thyroid disease Mother Stroke Mother Spina bifida Mother Social History Smoking and tobacco/nicotine status: current every day tobacco/nicotine user e-cigarettes E-Cigarette Details: e-cigarette and with nicotine E-cig/vape details: 15,000 puffs last a month Quit status (tobacco/nicotine): not considering quitting Second hand smoke exposure: Yes Alcohol intake: former Former alcohol use details: 08.20.2022 Substance/Drug Use: former Date of last use: 08.20.22 Former substance use details: meth and fentanyl in past; used to do IV Adopted: No Caregiver/support person: No Lives independently: Yes Household members: family Housing: House Marital status: Single Number of children: 4 Number of grandchildren: 0 Highest education level completed: High School Graduate service: No Current occupational status: disabled Current occupational exposures/hazards: No Previous occupational history: disability for mental health since age 13 Pets and animals: No Leisure activites: music and other Leisure activities details: hang out with new boyfriend Sexually active: No Do you think of yourself as: Straight/Heterosexual Current gender identity: Female Anabel/Hoahaoism: None Special anabel needs: No Agree to transfusion: Yes Pertinent Exam Findings alert, oriented x 3, clear to auscultation bilaterally and regular rate & rhythm Recommendations Surgery/Procedure today Coding Level of Care Code Acute Code for Erickg Chaz
[2024-08-04] MEDS: scopolamine 1 mg PATCH 1 PATCH TRANSDERMA (06:24)
[2024-08-04] MEDS: sodium chloride 0.9% 1,000 ML 30 ML IV (06:25)
--- NOTE | 2024-08-04 06:45 | ANES.PREANE2 ---
Pre-Anesthetic Assessment Height/Weight: Height 1.7 m Temp Pulse Resp BP Pulse Ox O2 Del Method 97 F L 88 18 122/74 97 Room Air 08/04/24 06:06 08/04/24 06:06 08/04/24 06:06 08/04/24 06:24 08/04/24 06:06 08/04/24 06:08 Preop Diagnosis: desires permanent sterilization Operation Date: 08/04/24 07:00 Proposed Procedures p Laparoscopic bilateral Salpingectomy(Bilateral) - Denzel Rojas MD Familial anesthetic complications: None Was Beta Danii taken within 24 hours: N/A Was Clonidine taken within 24 hours: N/A Last intake: Intake Last Liquid Date 08/03/24 Last Liquid Time 23:00 Last Solid Date 08/03/24 Last Solid Time 19:00 Social No alcohol and No tobacco Vapes, MJ, hx etoh, and drug-use/meth Exam alert, oriented x 3, clear to auscultation bilaterally and regular rate & rhythm Airway Mallampati: Class III Dentition: other (no teeth) Metabolic Morbid Obesity Neuropsych Seizure Anesthetic Plan ASA status: 3 Anesthesia: General Risk of > 500 ml blood loss (7ml/kg in children): No Medications/Allergies Home Medications ?Medication ?Instructions ?Recorded ?Confirmed ?Last Taken ?Type albuterol sulfate 90 mcg/actuation 2 puff inhalation Q6H PRN 08/26/22 08/03/24 07/31/24 Rx aerosol inhaler Shortness Of Breath Or Wheezing 30 days #6.7 grams paliperidone 9 mg tablet,extended 9 mg PO DAILY PRN A/V 05/13/24 08/03/24 08/04/24 Rx release 24 hr hallucinations #30 tabs levetiracetam 500 mg tablet 500 mg PO BID #60 tabs 05/26/24 08/03/24 08/04/24 Rx (Keppra) levetiracetam 750 mg tablet 750 mg PO BID #60 tabs 05/26/24 08/03/24 Unknown Rx (Keppra) methocarbamol 500 mg tablet 500 mg PO BID PRN back pain #60 05/26/24 08/03/24 08/01/24 Rx tabs lamotrigine 25 mg tablet (Lamictal) 50 mg (2 x 25 mg) PO DAILY 30 days 05/27/24 08/03/24 08/03/24 Rx #60 tabs paliperidone palmitate 234 mg/1.5 234 mg (1.5 mL) IM Q30D #1.5 mL 05/27/24 08/03/24 07/07/24 Rx mL intramuscular syringe (Invega Sustenna) norethindrone 1.5 mg-ethinyl 1 tab PO DAILY #84 tabs 06/04/24 08/03/24 08/03/24 Rx estradiol 30 mcg(21)/iron 75 mg(7) tablet (Tiera Fe 1.5/30 (28)) duloxetine 60 mg capsule,delayed 60 mg PO DAILY #30 caps 07/27/24 08/03/24 08/03/24 Rx release (Cymbalta) hydroxyzine HCl 50 mg tablet 50 mg PO TID anxiety 08/03/24 08/03/24 08/04/24 History prazosin 2 mg capsule 4 mg PO QPM 08/03/24 08/03/24 08/02/24 History trazodone 100 mg tablet 100 mg PO QPM 08/03/24 08/03/24 08/02/24 History Allergies Allergy/AdvReac Type Severity Reaction Status Date / Time divalproex sodium Allergy Severe ALGY-Swell Verified 07/10/24 11:53 Lip/Tongue/Throat olanzapine Allergy Severe ALGY-Swell Verified 07/10/24 11:53 Lip/Tongue/Throat ziprasidone Allergy Severe ALGY-Swell Verified 07/10/24 11:53 Lip/Tongue/Throat adhesive tape Allergy ALGY-Rash Verified 07/10/24 11:53 buprenorphine (From Suboxone) Allergy ADR-Seizure Verified 07/10/24 11:53 naloxone (From Suboxone) Allergy ADR-Seizure Verified 07/10/24 11:53 pepper (genus Capsicum) Allergy Unknown Verified 07/10/24 11:53 Pork/Porcine Containing Allergy Unknown Verified 07/10/24 11:53 Products Current Medications Generic Name Dose Route Start Last Admin Trade Name Freq PRN Reason Stop Dose Admin Sodium Chloride 1,000 mls @ 30 mls/hr 08/04/24 06:00 08/04/24 06:25 Sodium Chloride 0.9% IV 08/05/24 05:59 30 mls/hr .Q24H JONE Administration PFSH Anesthesia Medical History (Updated 07/28/24 @ 00:00 by MARIA DE JESUS Mart) Vapes nicotine containing substance Nicotine dependence due to vaping tobacco product Chronic low back pain without sciatica Psychosomatic seizure dxed in [facility]; used to be on Keppra Alcohol use disorder in remission On combination antipsychotic drug therapy Methamphetamine use disorder, mild, in early remission Migraines Scoliosis Anxiety Opioid use disorder Stimulant use disorder Alcohol abuse, episodic Cannabis use disorder PTSD (post-traumatic stress disorder) Bipolar disorder, unspecified Psychiatric care Borderline intellectual functioning Post-traumatic stress disorder, chronic Asthma Depression Schizophrenia Surgical History History of cholecystectomy Family History Mother Bipolar 1 disorder Heart disease Spina bifida Hyperlipidemia Diabetes Thyroid disease Stroke Brother Hyperlipidemia Social History Smoking and tobacco/nicotine status: current every day tobacco/nicotine user e-cigarettes E-Cigarette Details: e-cigarette and with nicotine E-cig/vape details: 15,000 puffs last a month Quit status (tobacco/nicotine): not considering quitting Second hand smoke exposure: Yes Alcohol intake: former Former alcohol use details: 08.20.2022 Substance/Drug Use: former Date of last use: 08.20.22 Former substance use details: meth and fentanyl in past; used to do IV Adopted: No Caregiver/support person: No Lives independently: Yes Household members: family Housing: House Marital status: Single Number of children: 4 Number of grandchildren: 0 Highest education level completed: High School Graduate service: No Current occupational status: disabled Current occupational exposures/hazards: No Previous occupational history: disability for mental health since age 13 Pets and animals: No Leisure activites: music and other Leisure activities details: hang out with new boyfriend Sexually active: No Do you think of yourself as: Straight/Heterosexual Current gender identity: Female Anabel/Advent: None Special anabel needs: No Agree to transfusion: Yes Female Reproductive History Para: 3 Spontaneous abortions: Yes
--- NOTE | 2024-08-04 06:49 | W.PM.OPSUD ---
Surgery/Procedure H&P Update DATE OF PROCEDURE: August 04, 2024 DATE H&P PERFORMED: 08/04/24 H&P UPDATE INFORMATION: I have reviewed H&P completed within last 30 days, I have examined patient prior to procedure and No changes to prior documentation PREOP DIAGNOSIS: desires permanent sterilization PLANNED PROCEDURE: Operation Date: 08/04/24 07:00 Proposed Procedures p Laparoscopic bilateral Salpingectomy(Bilateral) - Denzel Rojas MD
--- NOTE | 2024-08-04 08:10 | P.OP_ITS ---
Operative Report Date of procedure: August 04, 2024 Pre-op diagnosis: desires permanent sterilization Post-op diagnosis: same Post-op findings: normal uterus, tubes, and ovaries Procedure done: laparoscopic bilateral salpingectomy Implants: none Specimens removed/disposition: bilateral fallopian tube segments Surgeon: Denzel Rojas MD Anesthesia: General Estimated blood loss (mL): 5 Complications: none Findings: normal uterus, tubes, and ovaries Condition: stable Disposition: PACU Brief History: 23 y.o. desires permanent sterilization Procedure: Informed consent was obtained. The patient was taken to the OR and placed on the table. General endotracheal anesthesia was induced. The abdomen was then prepped and draped in the usual fashion. A 5 mm subumbilical skin incision was made. A 5 mm trocar with sheath was then inserted into the peritoneal cavity under direct visualization with the laparoscope. After confirming intraperitoneal position, pneumoperitoneum was achieved. Two separate 5 mm incisions were made in the right and left mid- quadrants. 5 mm trocars with sheaths were then inserted into the peritoneal cavity under direct visualization with the laparoscope. The right fallopian tube was then identified to its fimbrial end. Starting at the fimbrial end, the mesosalpinx was then coagulated and cut using the Ligasure. The right fallopian tube was excised and removed via one of the ports. This was sent to pathology. There was no bleeding seen. Similarly, the left fallopian tube was identified to its fimbrial end. The left fallopian tube was excised and removed, sent to pathology. There was no bleeding. All instruments were then removed from the peritoneal cavity after the pne umoperitoneum was allowed to escape. The skin incisions were closed using 3-O chromic in subcuticular fashion. Dermabond was applied. The patient was then placed supine and awakened, taken the the PACU in good condition. Postop condition: stable EBL: 5 cc Complications: none Sponge, needles, and instruments counts correct x two
--- NOTE | 2024-08-04 09:15 | ANE.PACU2 ---
Inpatient post-anesthesia follow up: Airway intact: Yes Vital signs: Temperature 97.8 F Pulse Rate 88 Respiratory Rate 18 Blood Pressure 156/72 Pulse Oximetry 97 Oxygen Delivery Me thod Room Air Oxygen Flow Rate 6 Fraction of Inspir ed Oxygen Hydration adequate: Yes Nausea and vomiting: No Pain level: 1 Mental status: Baseline
[2024-08-04 14:47] LABS: OR HCG Qualitative Urine Negative (Negative)
== END 2024-08-04 09:15 | disposition home or self-care (01) ==
PROVIDERS: Anesthesiology; PCP Family Medicine; Visit Provider Obstetrics & Gynecology
PROC: (CPT 58661; principal; 2024-08-04 07:00)
DX: Z30.2 Encounter for sterilization (principal); F17.290 Nicotine dependence, other tobacco product, uncomplicated; E66.01 Morbid (severe) obesity due to excess calories; K00.0 Anodontia; Z79.899 Other long term (current) drug therapy; Z88.8 Allergy status to other drugs, medicaments and biological substances; Z91.09 Other allergy status, other than to drugs and biological substances; Z90.49 Acquired absence of other specified parts of digestive tract
CPT/HCPCS: 58661; 81025; 88302; A4216; J0131; J1100; J1200; J1885; J2250; J2371; J2405; J2704; J3010; J3490; J7030; J9999

== ENCOUNTER 2024-09-06 22:14 | Emergency (ER) | payer MEDICARE, MEDICAID, SELFPAY ==
--- OUTSIDE RECORDS SUMMARY | 2018-08-01 10:54 | XMS_ITS | Continuity of Care Document ---
Author Organization [facility] Address [id number] [address] Phone Care Team Providers Care Tire Fabric Impregnating Range Tender Name Role Phone Health, Community Unavailable Unavailable Allergies, Adverse Reactions, Alerts Substance Reaction Status Criticality ZIPRASIDONE MESYLATE Active No Info rmation ZIPRASIDONE HCL Active No Informati on olanzapine Active No Information divalproex sodium Active No Informa tion Medications Medication Instructions Dosage Effective Dates (start - stop) Status Comments CHLORPROMAZINE HCL (unknown strength) take 1 tablet by oral route 3 times every day Not Available - Active ZOLOFT (unknown strength) take 1 tablet by oral route every day Not Available - Active TIROSINT (unknown strength) take 1 capsule by oral route every day Not Available - Active PROZAC (unknown strength) take 2 capsule by oral route every day Not Available - Active PROPRANOLOL HCL ER (unknown strength) take 1 capsule by oral route every day Not Available - Active LAMICTAL (unknown strength) take 2 tablet by oral route 2 times every day Not Available - Active HYDROXYZINE HCL (unknown strength) Not Available - Active [place] 7.5 mg-325 mg tablet take 1 tablet by oral route every 6 hours as needed for breakthrough pain. - No Longer Active Substitutions allowed Periogard 0.12 % mouthwash This is an oral rinse. Swish with one capful for 30 seconds then spit out. Twice a day. DO NOT EAT OR DRINK FOR ONE HOUR FOLLOWING. - No Longer Active 1 Bottle Substitutions allowed Procedures Procedure Date URINE TEST No Work Today/No Charge EDR Approval Note Limited Oral Evaluation Problem Focused EDR Approval Note Advance Directives Directive Yes / No Effective Date File Name No Information Encounters Encounter Description Practice Location Reason(s) For Visit Diagnoses Date Provider Providers Copied on Encounter [facility], [id number], [address], [place] tel:[phone] [facility] No Information 9 [facility]. [address], [place], [address], [place]. tel:[phone] [facility], [id number] [place], [address], [place] tel:[phone] Family Medicine F1 Amenorrhea, unspecified 9 [facility]. [address], [place], [address], [place]. tel:[phone] Referring Provider: Andreina Enrique , [address] [place], [address] . tel:[phone] [facility], [id number] [id number], [address], [place] tel:[phone] [facility] Encounter for dental exam and cleaning w/o abnormal findings No Information [facility], [id number] [id number], [address], [place] tel:[phone] [facility] Encounter for dental exam and cleaning w/o abnormal findings 9 No Information Family History Family Member Type Diagnosis Age At Onset No Information Payers Payer name Insurance type Covered democrat ID Authoriza tion(s) No Information Social History Type Description Quantity Date Captured Comments Alcohol Use Details Unknown Caffeine Use Details Unknown Tobacco Use Status No Information Smoking Status No Information Sex Female Chief Complaint And Reason For Visit No Information Reason For Referral Reason For Referral No Information History Of Present Illness Encounter Date Complaint History Of Prese nt Illness No Information Functional Status Date Functional Assessmen t No Information Medications Administered Medication Instructions Dosage Effective Dates (start - stop) Status Comments [place] 7.5 mg-325 mg tablet take 1 tablet by oral route every 6 hours as needed for breakthrough pain. - No Longer Active Substitutions allowed Periogard 0.12 % mouthwash This is an oral rinse. Swish with one capful for 30 seconds then spit out. Twice a day. DO NOT EAT OR DRINK FOR ONE HOUR FOLLOWING. - No Longer Active 1 Bottle Substitutions allowed Instructions Date Instruction Additional Infor carolina Lifestyle education Related to D ental Examination Assessments Type Assessment Date No Information Patient Care Teams Name Effective Dates (start - stop) Status Members No Information
[2024-05-20 12:05] VITALS: BP 130/86; BMI 42.8
--- OUTSIDE RECORDS SUMMARY | 2024-09-06 22:18 | XMS_ITS | Patient Health Record ---
Author Organization [facility] Address [address] [place] [address] Care Team Providers Care Line Cleaner Name Role Phone Karina Ambrizew Primary Care Provider Allergies Allergen (clinical drug ingredient) Drug/Non Drug Allergy documented on EMR Reaction Allergy Type Onset Date Status ziprasidone Geodon shortness of breath Drug Allergy Active olanzapine ZyPREXA hives Drug Allergy Active Reason For Referral No Information Medications Medication SIG (Take, Route, Frequency, Duration) Notes Start Date End Date Status Invega 9 MG Tablet Extended Release 24 Hour 1 tablet in the morning Orally Once a day Active LaMICtal 100 MG Tablet 1 tablet Orally Once a day Active Omeprazole 20 MG Capsule Delayed Release 1 capsule 30 minutes before morning meal Orally Once a day Active Valium 10 MG Tablet 1 tablet Orally HS n ight before surgery; 1 tablet 30 min prior to surgery; Duration: 2 days Active hydrOXYzine HCl 25 MG/ML Solution 2 ml as needed Intramuscular every 6 hrs Active Valium 10 MG Tablet 1 tablet HS night be fore surgery; 1 tablet 30 min prior to surgery Orally; Duration: 2 days 10/27/2020 Active Zoloft 100 MG Tablet 1 tablet Orally Once a day Active Social History Sex Assigned At : Social History Observation Description Sex Assigned At Female Plan Of Treatment No Information Insurance Providers Payer Name Payer Address Payer Phone Subscriber Number Group Number Insured Name Patient Relationship to Insured Coverage Start Date Coverage End Date Medicaid [address] [place] [address] [id number] Heidy Macias Self - patient is the insured Medicaid Dental [address] [place] [address] [phone] [id number] Heidy Macias Self - patient is the insured Medical (General) History Medical History History ICD Code schizophrenia PTSD anxiety asthma - mild persistent scoliosis depression lupus
[2024-09-06 22:23] VITALS: BP 101/66; PULSE 104; RESP 16; TEMP 36.7; O2SAT 97; BMI 44.2
[2024-09-07 00:26] VITALS: BP 138/95; PULSE 84; RESP 16; O2SAT 99
--- NOTE | 2024-09-07 00:53 | XRR_ITS ---
PROCEDURE INFORMATION: Exam: XR Left Knee Exam date and time: 09/07/2024 12:58 AM Age: 24 years old Clinical indication: C/O persistent low back, left knee, and left ankle pain after falling down a flight of stairs two weeks ago. ; Additional info: L knee pain TECHNIQUE: Imaging protocol: Radiologic exam of the left knee. Views: 3 views. COMPARISON: CR XR ankle LT min 3V* [id number] 09/07/2024 12:58 AM FINDINGS: Bones/joints: Normal. Soft tissues: Normal. XR/XR knee LT 3V* [id number] IMPRESSION: No acute findings.
--- NOTE | 2024-09-07 00:53 | XRR_ITS ---
PROCEDURE INFORMATION: Exam: XR Left Ankle Exam date and time: 09/07/2024 12:58 AM Age: 24 years old Clinical indication: C/O persistent low back, left knee, and left ankle pain after falling down a flight of stairs two weeks ago. ; Additional info: L ankle pain TECHNIQUE: Imaging protocol: Radiologic exam of the left ankle. Views: 3 or more views. COMPARISON: CR (LOW EXM, ) 09/07/2024 12:58 AM FINDINGS: Bones/joints: Normal. Soft tissues: Normal. XR/XR ankle LT min 3V* [id number] IMPRESSION: No acute findings.
--- NOTE | 2024-09-07 00:53 | XRR_ITS ---
PROCEDURE INFORMATION: Exam: XR Lumbosacral Spine Exam date and time: 09/07/2024 12:58 AM Age: 24 years old Clinical indication: Low back pain; C/O persistent low back, left knee, and left ankle pain after falling down a flight of stairs two weeks ago. TECHNIQUE: Imaging protocol: Radiologic exam of the lumbosacral spine. Views: 2 or 3 views. COMPARISON: CT abdomen pelvis con [id number] 02/21/2022 8:04 PM FINDINGS: Bones/joints: Vertebral body heights, alignment and mineralization are within normal limits. There is mild disc space narrowing, endplate sclerosis, osteophytosis and facet arthropathy at L4-L5 and to a lesser extent at L5-S1. Soft tissues: Unremarkable. XR/XR lumbar spine 2-3V* [id number] IMPRESSION: Lower lumbar spondylosis.
--- NOTE | 2024-09-07 01:04 | ED_ITS ---
HPI - Fall General: Chief Complaint: Fall Stated Complaint: Fell Lower Back Pain\Knee and Leg Time Seen by Provider: 09/07/24 00:33 History of Present Illness: 24-year-old female with chronic left kne e and lower back pain. She says that she fell down several stairs 2 weeks ago. She has been using [id number] medication at home, but pain has gotten worse, particularly to the ankle, knee, and low back. She has numbness and tingling, but she has been diagnosed with neuropathy. She complains of some knee joint instability and pain bearing weight on her ankle. No loss of bowel or bladder function. No saddle anesthesia. Related Data Home Medications ?Medication ?Instructions ?Recorded ?Confirmed hydroxyzine HCl 50 mg tablet 50 mg PO TID anxiety 11/1909/04/24 Previous Rx's ?Medication ?Instructions ?Recorded albuterol sulfate 90 mcg/actuation 2 puff inhalation Q 6H PRN 08/26/22 aerosol inhaler Shortness Of Breath Or Wheez ing 30 days #6.7 grams levetiracetam 500 mg tablet 500 mg PO BID #60 tabs 03/21 (Keppra) levetiracetam 750 mg tablet 750 mg PO BID #60 tabs 03/21 (Keppra) methocarbamol 500 mg tablet 500 mg PO BID PRN back kuldip n #60 05/26/24 tabs paliperidone palmitate 234 mg/1.5 234 mg (1.5 mL) IM Q 30D #1.5 mL 05/27/24 mL intramuscular syringe (Invega Sustenna) norethindrone 1.5 mg-ethinyl 1 tab PO DAILY #84 tabs 0 06/04/24 estradiol 30 mcg(21)/iron 75 mg(7) tablet (Tiera Fe 1.5/30 (28)) paliperidone 9 mg tablet,extended 9 mg PO DAILY PRN A/ V 08/30/24 release 24 hr hallucinations #30 tabs duloxetine 30 mg capsule,delayed 30 mg PO DAILY #30 ca ps 09/04/24 release (Cymbalta) duloxetine 60 mg capsule,delayed 60 mg PO DAILY #30 ca ps 09/04/24 release (Cymbalta) lamotrigine 25 mg tablet (Lamictal) 50 mg (2 x 25 mg) PO DAILY 30 days 09/04/24 #60 tabs prazosin 2 mg capsule 4 mg (2 x 2 mg) PO QPM #60 c aps 09/04/24 trazodone 100 mg tablet 100 mg PO QPM #30 tabs 09/04 methylprednisolone 4 mg tablets in See Rx Instructions PO .COMPLEX 09/07/24 a dose pack (Medrol (Vitaly)) #21 ea Allergies Allergy/AdvReac Type Severity Reaction Status Date / Time divalproex sodium Allergy Severe ALGY-Swell Verified 09/06/24 22:29 Lip/Tongue/Throat olanzapine Allergy Severe ALGY-Swell Verified 09/06/24 22:29 Lip/Tongue/Throat ziprasidone Allergy Severe ALGY-Swell Verified 09/06/24 22:29 Lip/Tongue/Throat adhesive tape Allergy ALGY-Rash Verified 09/06/24 22:29 buprenorphine (From Suboxone) Allergy ADR-Seizure Verified 09/06/24 22:29 naloxone (From Suboxone) Allergy ADR-Seizure Verified 09/06/24 22:29 pepper (genus Capsicum) Allergy Unknown Verified 09/06/24 22:29 Pork/Porcine Containing Allergy Unknown Verified 09/06/24 22:29 Products PFSH ED PFSH: Medical History (Updated 09/07/24 @ 01:32 by Faizan Vernon DO) Vapes nicotine containing substance Nicotine dependence due to vaping tobacco product Chronic low back pain without sciatica Psychosomatic seizure dxed in [facility]; used to be on Keppra Alcohol use disorder in remission On combination antipsychotic drug therapy Methamphetamine use disorder, mild, in early remission Migraines Scoliosis Anxiety Opioid use disorder Stimulant use disorder Alcohol abuse, episodic Cannabis use disorder PTSD (post-traumatic stress disorder) Bipolar disorder, unspecified Psychiatric care Borderline intellectual functioning Post-traumatic stress disorder, chronic Asthma Depression Schizophrenia Surgical History History of cholecystectomy Family History Mother Bipolar 1 disorder Heart disease Spina bifida Hyperlipidemia Diabetes Thyroid disease Stroke Brother Hyperlipidemia Social History Smoking and tobacco/nicotine status: current every day tobacco/nicotine user e- cigarettes E-Cigarette Details: e-cigarette and with nicotine E-cig/vape d etails: 15,000 puffs last a month Quit status (tobacco/nicotine): not considering quitting Second hand smoke exposure: Yes Alcohol intake: former Former alcohol use details: 08.20.2022 Substance/Drug Use: former Date of last use: 08.20.22 Former substance use details: meth and fentanyl in past; used to do IV Adopted: No Caregiver/support person: No Lives independently: Yes Household members: family Housing: House Marital status: Single Number of children: 4 Number of grandchildren: 0 Highest education level completed: High School Graduate service: No Current occupational status: disabled Current occupational exposures/hazards: No Previous occupational history: disability for mental health since age 13 Pets and animals: No Leisure activites: music and other Leisure activities details: hang out with new boyfriend Sexually active: No Do you think of yourself as: Straight/Heterosexual Current gender identity: Female Anabel/Congregational: None Special anabel needs: No Agree to transfusion: Yes Female Reproductive History: Date of last menstrual period: 07/24/24 Para: 3 Spontaneous abortions: Yes Physical Exam Const: COMMON NORMALS: no acute distress GENERAL APPEARANCE: cooperative; not ill appearing and not frail appearing HENMT: COMMON NORMALS: normocephalic, atraumatic and Normal external nose present HEAD & SCALP: normocephalic and atraumatic FACE & SINUS: normal facial exam and face symmetric NOSE: Normal external nose present Eye: COMMON NORMALS: Equal, round and reactive pupils present and EOMs intact bilaterally PUPIL: Yes Equal, round and reactive pupils present Neck/C-Spine: GENERAL: Yes trachea midline Chest: CHEST: Yes Symmetrical chest wall rise Resp: COMMON NORMALS: normal respiratory effort, No retractions and No use of accessory muscles Cardio: COMMON NORMALS: regular rate and regular rhythm RATE: regular rate RHYTHM: regular rhythm GI: COMMON NORMALS: Normal to inspection, nondistended, normoactive bowel sounds present Back/Pelvis: OTHER: Mild lumbar midline and left-sided tenderness. Straight leg raise testing is equivocal. No significant spasm. No deformity. No step-off. Extremity: COMMON NORMALS: no pedal edema NARRATIVE EXTREMITY EXAM: Exam the left lower extremity reveals no significant knee joint effusion. No deformity. There is generalized anterior knee tenderness. No specific joint line tenderness. Some pain with deep bending. Exam of the ankle reveals no deformity. There is tenderness along the ATFL and subtalar joint laterally. No medial or ankle joint line tenderness. No significant fibular tenderness. Minimal midfoot tenderness. Neuro: CORINA COMA SCALE: document GCS findings Pickering coma scale eye opening: Spontaneous Pickering coma scale verbal response: Orientated Corina coma scale motor response: Obey commands Corina coma scale total score: 15 SENSORY EXAM: Yes extremities (intact) Psych: COMMON NORMALS: speech normal SPEECH: Yes normal speech Skin: COMMON NORMALS: no rashes or lesions noted GENERAL SKIN EXAM: no rashes or lesions noted Course Vital Signs: Vital signs: Vital Signs Temperature 98.0 F 09/06/24 22:23 Pulse Rate 78 09/07/24 01:50 Respiratory Rate 16 09/07/24 01:50 Blood Pressure 132/83 09/07/24 01:50 Pulse Oximetry 97 09/07/24 01:50 Oxygen Delivery Me thod Room Air 09/07/24 00:26 MDM - Fall Medical Decision Making X-rays are negative for any acute findings. Urinalysis is contaminated. Beta hCG is negative. She will be discharged home. Likely some degree of lumbar radiculopathy. Appears she has lateral ankle sprain as well. Lab Data Radiology Impressions Ankle X-Ray 09/07/24 00:53 IMPRESSION: No acute findings. Knee X-Ray 09/07/24 00:53 IMPRESSION: No acute findings. Lumbar Spine X-Ray 09/07/24 00:53 IMPRESSION: Lower lumbar spondylosis. Laboratory Results HCG, Qual Negative (Negative) 09/07/24 00:52 Urine Color Yellow (Yellow) 09/07/24 00:52 Urine Appearance Cloudy (CLEAR) A 09/07/24 00:52 Urine pH 5.5 (5-7) 09/07/24 00:52 Ur Specific [place] 1.021 (1.005-1.030) 09/07/24 00:52 Urine Protein Negative (Negative) 09/07/24 00:52 Urine Glucose (UA) Negative (Normal) 09/07/24 00:52 Urine Ketones Negative (Negative) 09/07/24 00:52 Urine Blood Negative (Negative) 09/07/24 00:52 Urine Nitrate Negative (Negative) 09/07/24 00:52 Urine Bilirubin Negative (Negative) 09/07/24 00:52 Urine Urobilinogen 1.0 mg/dL (Negative) 09/07/24 00:52 Ur Leukocyte Esterase Trace (Negative) A 09/07/24 00:52 Urine RBC 0-2 /hpf (0-2) 09/07/24 00:52 Urine WBC 11-20 /hpf (0-5) H 09/07/24 00:52 Ur Squamous Epith Cells 11-20 /hpf (0-5) H 09/07/24 00:52 Amorphous Sediment Not Reportable 09/07/24 00:52 Urine Bacteria Trace /hpf (NONE) 09/07/24 00:52 Hyaline Casts 0-4 /lpf H 09/07/24 00:52 All radiology interpretation(s) finalized by discharge Discharge Plan Discharge Patient Disposition: Home Clinical Impression: Left ankle sprain, Acute left lumbar radiculopathy Condition: Stable Prescriptions: New methylprednisolone [Medrol (Vitaly)] 4 mg tablets,dose pack See Rx Instructions .ROUTE .COMPLEX Qty: 21 0RF Rx Instructions: orally per package directions No Action norethindrone-e.estradiol-iron [Tiera Fe 1.5/30 (28)] 1.5 mg-30 mcg (21)/75 mg (7) tablet 1 tab PO DAILY Qty: 84 3RF duloxetine [Cymbalta] 30 mg capsule,delayed release(DR/EC) 30 mg PO DAILY Qty: 30 1RF duloxetine [Cymbalta] 60 mg capsule,delayed release(DR/EC) 60 mg PO DAILY Qty: 30 1RF lamotrigine [Lamictal] 25 mg tablet 50 mg PO DAILY 30 Days Qty: 60 1RF trazodone 100 mg tablet 100 mg PO QPM Qty: 30 1RF prazosin 2 mg capsule 4 mg PO QPM Qty: 60 1RF levetiracetam [Keppra] 750 mg tablet 750 mg PO BID Qty: 60 5RF levetiracetam [Keppra] 500 mg tablet 500 mg PO BID Qty: 60 5RF methocarbamol 500 mg tablet 500 mg PO BID PRN (Reason: back pain) Qty: 60 5RF Invega Sustenna 234 mg/1.5 mL syringe 234 mg IM Q30D Qty: 1.5 6RF paliperidone 9 mg tablet extended release 24hr 9 mg PO DAILY PRN (Reason: A/V hallucinations) Qty: 30 2RF albuterol sulfate 90 mcg/actuation Hfa Aerosol Inhaler 2 puff INHALATION Q6H PRN (Reason: Shortness Of Breath Or Wheezing) 30 Days Qty: 6.7 1RF hydroxyzine HCl 50 mg tablet 50 mg PO TID Discharge Orders: Discharge ED (Routine); Ordered 09/07/24 Ordered By: Faizan Vernon Referrals: Lashay Fallon MD [Primary Care Provider, Family Practice] - 4-7 days Patient Instructions: Ankle Sprain (ED), Lumbar Radiculopathy (ED), Opioid Safety, Pain Management, Patient Portal & Gopi Instructions Activity Restrictions/Additional Instructions: Wear your ankle brace while your ankle is swollen until pain is resolved. You may bear weight in it. Medication as directed. Use Tylenol or ibuprofen otherwise for pain. Ice your ankle for pain and swelling, as well as your knee. See your doctor next week. Call tomorrow for an appointment. Print Language: Azeri Coding Level of Care Code ED Auto Design Checker for Corinne Ware
[2024-09-07 01:05] LABS: HCG Qualitative Urine. Negative (Negative)
[2024-09-07 01:10] LABS: Add Urine Microscopic? YES; Glucose Urine UA Negative (Normal); Nitrate Urine Negative (Negative); Specific Gravity, Urine 1.021 (1.005-1.030)
[2024-09-07 01:50] VITALS: BP 132/83; PULSE 78; RESP 16; O2SAT 97
== END 2024-09-07 01:51 | disposition home or self-care (01) ==
PROVIDERS: Emergency Provider Emergency Medicine; PCP Family Medicine
DX: S93.402A Sprain of unspecified ligament of left ankle, initial encounter (principal); M54.16 Radiculopathy, lumbar region; F17.290 Nicotine dependence, other tobacco product, uncomplicated; W10.9XXA Fall (on) (from) unspecified stairs and steps, initial encounter
CPT/HCPCS: 72100; 73562; 73610; 81001; 81025; 96372; 99284; J1885

== ENCOUNTER 2024-09-26 06:02 | Emergency (ER) | payer MEDICARE, MEDICAID, SELFPAY ==
--- OUTSIDE RECORDS SUMMARY | 2018-08-01 10:54 | XMS_ITS | Continuity of Care Document ---
Author Organization [facility] Address [address] [id number][place] [address] Phone Care Team Providers Care Agriculture Consultant Name Role Phone Health, Community Unavailable Unavailable [...] HCL (unknown strength) Not Available - Active [place] 7.5 mg-325 mg tablet take 1 tablet [...] Diagnoses Date Provider Providers Copied on Encounter [facility], [id number] [place], [address], [place] tel:[phone] [facility] No Information 9 [facility]. [address], [place], [address], [place]. tel:[phone] [facility], [id number] 458092[place], [address], [place] tel:[phone] Family Medicine F1 Amenorrhea, unspecified 9 [facility]. [address], [place], [address], [place]. tel:[phone] Referring Provider: Andreina Enrique , [address] [place], [address] . tel:[phone] [facility], [id number] 920135VH[place], [address], [place] tel:[phone] [facility] Encounter for dental exam and cleaning w/o abnormal findings No Information [facility], [id number] 423081[place], [address], [place] tel:[phone] [facility] Encounter for dental exam [...] Effective Dates (start - stop) Status Comments [place] 7.5 mg-325 mg tablet take 1 tablet [...]
[2024-05-20 12:05] VITALS: BP 130/86; BMI 42.8
--- OUTSIDE RECORDS SUMMARY | 2024-09-26 06:09 | XMS_ITS | Patient Health Record ---
Author Organization [facility] Address [address] [place] [address] Care Team Providers Care Car Rental Deliverer Name Role Phone Karina Ambrizew Primary Care Provider [phone] Allergies Allergen (clinical drug ingredient) Drug/Non Drug [...] Coverage End Date Medicaid [address] [place] [address] [id number] Heidy Macias Self - patient is the insured Medicaid Dental [address] [place] [address] [phone] [id number] Heidy Macias Self - patient is the insured Medical (General) History Medical History History ICD Code schizophrenia PTSD anxiety asthma - mild persistent scoliosis depression lupus
--- NOTE | 2024-09-26 06:11 | ECG_ITS ---
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
--- NOTE | 2024-09-26 06:12 | XRR_ITS ---
PROCEDURE INFORMATION: Exam: XR Chest Exam date and time: 09/26/2024 6:23 AM Age: 24 years old Clinical indication: Chest pressure; Prior surgery; Surgery date: 6+ months; Surgery type: Gb; C/O chest pain; Additional info: Cp TECHNIQUE: Imaging protocol: Radiologic exam of the chest. Views: 1 view. COMPARISON: CR (CHEST, ) 09/01/2022 5:47 AM FINDINGS: Lungs: Unremarkable. No consolidation. Pleural spaces: Unremarkable. No pleural effusion. No pneumothorax. Heart/Mediastinum: Unremarkable. No cardiomegaly. Bones/joints: Unremarkable. XR/XR chest 1V portable [id number] IMPRESSION: No acute findings.
[2024-09-26 06:14] VITALS: BP 141/94; PULSE 93; RESP 16; TEMP 36.8; O2SAT 98; BMI 43.5
--- NOTE | 2024-09-26 06:18 | W.ED.CHESTPA ---
HPI - Chest Pain General: Chief Complaint: Chest Pain Stated Complaint: Chest pain, having seizures Time Seen by Provider: 09/26/24 06:10 Source: patient Mode of arrival: ambulatory Limitations: no limitations History of Present Illness: 24-year-old female who states she has not been able to sleep in the last 2 days states she does have insomnia is tried taking trazodone for other meds with no relief she states that she feels like she is having seizures as well she has been having some chest pain. She denies any vomiting or diarrhea denies any worse improved factors. Associated symptoms: Deny abdominal pain, dyspnea, fever(s), nausea or vomiting Related Data Home Medications ?Medication ?Instructions ?Recorded ?Confirmed hydroxyzine HCl 50 mg tablet 50 mg PO TID anxiety 08/03/24 09/26/24 duloxetine 60 mg capsule,delayed 60 mg PO DAILY 09/26/24 09/26/24 release Previous Rx's ?Medication ?Instructions ?Recorded albuterol sulfate 90 mcg/actuation 2 puff inhalation Q6H PRN 08/26/22 aerosol inhaler Shortness Of Breath Or Wheezing 30 days #6.7 grams levetiracetam 500 mg tablet 500 mg PO BID #60 tabs 05/26/24 (Keppra) levetiracetam 750 mg tablet 750 mg PO BID #60 tabs 05/26/24 (Keppra) paliperidone palmitate 234 mg/1.5 234 mg (1.5 mL) IM Q30D #1.5 mL 05/27/24 mL intramuscular syringe (Invega Sustenna) norethindrone 1.5 mg-ethinyl 1 tab PO DAILY #84 tabs 06/04/24 estradiol 30 mcg(21)/iron 75 mg(7) tablet (Tiera Fe 1.5/30 (28)) paliperidone 9 mg tablet,extended 9 mg PO DAILY PRN A/V 08/30/24 release 24 hr hallucinations #30 tabs duloxetine 30 mg capsule,delayed 30 mg PO DAILY #30 caps 09/04/24 release (Cymbalta) lamotrigine 25 mg tablet (Lamictal) 50 mg (2 x 25 mg) PO DAILY 30 days 09/04/24 #60 tabs prazosin 2 mg capsule 4 mg (2 x 2 mg) PO QPM #60 caps 09/04/24 trazodone 100 mg tablet 100 mg PO QPM #30 tabs 09/04/24 Allergies Allergy/AdvReac Type Severity Reaction Status Date / Time divalproex sodium Allergy Severe ALGY-Swell Verified 09/06/24 22:29 Lip/Tongue/Throat olanzapine Allergy Severe ALGY-Swell Verified 09/06/24 22:29 Lip/Tongue/Throat ziprasidone Allergy Severe ALGY-Swell Verified 09/06/24 22:29 Lip/Tongue/Throat adhesive tape Allergy ALGY-Rash Verified 09/06/24 22:29 buprenorphine (From Suboxone) Allergy ADR-Seizure Verified 09/06/24 22:29 naloxone (From Suboxone) Allergy ADR-Seizure Verified 09/06/24 22:29 pepper (genus Capsicum) Allergy Unknown Verified 09/06/24 22:29 Pork/Porcine Containing Allergy Unknown Verified 09/06/24 22:29 Products Review of Systems Const: Denies: fever(s), chills, body aches or change in appetite ENMT: Denies: throat pain or dental pain Card: Reports: chest pain Resp: Denies: dyspnea GI: Denies: abdominal pain, nausea, vomiting or diarrhea Musc: Denies: neck pain or back pain Skin/Breast: Denies: rash Neuro: Reports: seizure-like activity; Denies: headache(s) PFSH ED PFSH: Medical History Vapes nicotine containing substance Nicotine dependence due to vaping tobacco product Chronic low back pain without sciatica Psychosomatic seizure dxed in [facility]; used to be on Keppra Alcohol use disorder in remission On combination antipsychotic drug therapy Methamphetamine use disorder, mild, in early remission Migraines Scoliosis Anxiety Opioid use disorder Stimulant use disorder Alcohol abuse, episodic Cannabis use disorder PTSD (post-traumatic stress disorder) Bipolar disorder, unspecified Psychiatric care Borderline intellectual functioning Post-traumatic stress disorder, chronic Asthma Depression Schizophrenia Surgical History History of cholecystectomy Family History Mother Bipolar 1 disorder Heart disease Spina bifida Hyperlipidemia Diabetes Thyroid disease Stroke Brother Hyperlipidemia Social History Smoking and tobacco/nicotine status: current every day tobacco/nicotine user e-cigarettes E-Cigarette Details: e-cigarette and with nicotine E-cig/vape details: 15,000 puffs last a month Quit status (tobacco/nicotine): not considering quitting Second hand smoke exposure: Yes Alcohol intake: former Former alcohol use details: 08.20.2022 Substance/Drug Use: former Date of last use: 08.20.22 Former substance use details: meth and fentanyl in past; used to do IV Adopted: No Caregiver/support person: No Lives independently: Yes Household members: family Housing: House Marital status: Single Number of children: 4 Number of grandchildren: 0 Highest education level completed: High School Graduate service: No Current occupational status: disabled Current occupational exposures/hazards: No Previous occupational history: disability for mental health since age 13 Pets and animals: No Leisure activites: music and other Leisure activities details: hang out with new boyfriend Sexually active: No Do you think of yourself as: Straight/Heterosexual Current gender identity: Female Anabel/Episcopal: None Special anabel needs: No Agree to transfusion: Yes Female Reproductive History: Para: 3 Spontaneous abortions: Yes Physical Exam Const: COMMON NORMALS: no acute distress, patient oriented x3 and healthy appearing HENMT: COMMON NORMALS: normocephalic and atraumatic HEAD & SCALP: normocephalic and atraumatic Eye: COMMON NORMALS: conjunctivae normal CONJUNCTIVA: Yes conjunctivae normal Neck/C-Spine: COMMON NORMALS: full ROM and supple Chest: COMMONS NORMALS: normal inspection of the chest Resp: COMMON NORMALS: normal respiratory effort, No retractions, No use of accessory muscles and clear to auscultation bilaterally AUSCULTATION: clear to auscultation bilaterally Cardio: COMMON NORMALS: regular rate, regular rhythm and No murmurs present (Cardio) RATE: regular rate RHYTHM: regular rhythm Extremity: COMMON NORMALS: normal to inspection and full ROM Neuro: COMMON NORMALS: patient oriented x3, moves all extremities and no focal motor deficits Psych: COMMON NORMALS: mental status grossly normal, Normal thought process present and cooperative THOUGHT PROCESS: Normal thought process present Skin: COMMON NORMALS: no rashes or lesions noted and no wounds GENERAL SKIN EXAM: no rashes or lesions noted Course Vital Signs: Vital signs: Vital Signs Temperature 98.2 F 08/02/25 06:14 Pulse Rate 76 09/26/24 08:03 Respiratory Rate 16 09/26/24 06:14 Blood Pressure 121/82 09/26/24 08:03 Pulse Oximetry 98 09/26/24 08:03 MDM - Chest Pain Medical Decision Making Patient presents here with insomnia along with some chest pain she has been well-appearing here blood works normal no signs of ACS no signs of pulmonary embolism she is stable for discharge follow-up with PCP return if worsening. Medical Records I reviewed the patient's medical records. Lab Data I reviewed the patient's lab results. 09/26/24 06:22 09/26/24 06:22 Radiology Impressions Chest X-Ray 09/26/24 06:12 IMPRESSION: No acute findings. Laboratory Results WBC 7.15 10^3/uL (3.29-11.43) 09/26/24 06:22 RBC 4.89 10^6/uL (3.85-5.65) 09/26/24 06:22 Hgb 14.40 g/dL (11.27-16.99) 09/26/24 06:22 Hct 42.0 % (36-47) 09/26/24 06:22 MCV 85.9 fl (85-98) 09/26/24 06:22 MCH 29.4 pg (27-33) 09/26/24 06:22 MCHC 34.3 g/dL (30-55) 09/26/24 06:22 RDW 11.9 % (12.1-15.1) L 09/26/24 06:22 Plt Count 262 10^3/cmm (157-399) 09/26/24 06:22 MPV 9.5 fL (7.4-10.4) 09/26/24 06:22 Neut % (Auto) 51.5 % 09/26/24 06:22 Lymph % (Auto) 40.3 % 09/26/24 06:22 Stearns % (Auto) 5.2 % 09/26/24 06:22 Eos % (Auto) 2.2 % 09/26/24 06:22 Baso % (Auto) 0.7 % 09/26/24 06:22 Neut # (Auto) 3.68 10^3/uL (1.8-7.7) 09/26/24 06:22 Lymph # (Auto) 2.9 10^3/uL (0.8-4.8) 09/26/24 06:22 Stearns # (Auto) 0.4 10^3/uL (0.2-0.9) 09/26/24 06:22 Eos # (Auto) 0.2 10^3/uL (0.0-0.8) 09/26/24 06:22 Baso # (Auto) 0.1 10^3/uL (0.0-0.1) 09/26/24 06:22 Nucleated RBC % (auto) 0 % 09/26/24 06:22 Nucleated RBCs # 0.0 /100WBC 09/26/24 06:22 Sodium 139 mmol/L (136-145) 09/26/24 06:22 Potassium 3.6 mmol/L (3.5-5.1) 09/26/24 06:22 Chloride 99 mmol/L (98-107) 09/26/24 06:22 Carbon Dioxide 26 mmol/L (22-29) 09/26/24 06:22 Anion Gap 17.6 (5-19) 09/26/24 06:22 BUN 10 mg/dL (6-20) 09/26/24 06:22 Creatinine 0.7 mg/dL (0.5-0.9) 09/26/24 06:22 GFR Calculation 102.8 mL/min (90-130) 09/26/24 06:22 Glucose 104 mg/dL (65-115) 09/26/24 06:22 Calculated Osmolality 287 mOsm/kg (285-295) 09/26/24 06:22 Calcium 9.3 mg/dL (8.5-10.5) 09/26/24 06:22 Total Bilirubin 0.8 mg/dL (0.15-1.2) 09/26/24 06:22 AST 25 U/L (0-32) 09/26/24 06:22 ALT 35 U/L (0-33) H 09/26/24 06:22 Alkaline Phosphatase 143 U/L (35-105) H 09/26/24 06:22 Total Protein 8.2 g/dL (6.6-8.7) 09/26/24 06:22 Albumin 4.6 g/dL (3.5-5.2) 09/26/24 06:22 Globulin 3.6 g/dL (1.3-4.6) 09/26/24 06:22 HCG, Qual Negative (Negative) 09/26/24 06:22 All radiology interpretation(s) finalized by discharge EKG Data EKG 1: I personally reviewed and interpreted this EKG as follows: EKG interpretation date: 09/26/24 EKG interpretation time: 06:11 Interpretation: nsr hr [address] elevation qrs 93 qtc 408 Discharge Plan Discharge Patient Disposition: Home Clinical Impression: Chest pain, Seizure Condition: Stable Prescriptions: No Action norethindrone-e.estradiol-iron [Tiera Fe 1.5/30 (28)] 1.5 mg-30 mcg (21)/75 mg (7) tablet 1 tab PO DAILY Qty: 84 3RF duloxetine [Cymbalta] 30 mg capsule,delayed release(DR/EC) 30 mg PO DAILY Qty: 30 1RF duloxetine [Cymbalta] 60 mg capsule,delayed release(DR/EC) 60 mg PO DAILY Qty: 30 1RF lamotrigine [Lamictal] 25 mg tablet 50 mg PO DAILY 30 Days Qty: 60 1RF trazodone 100 mg tablet 100 mg PO QPM Qty: 30 1RF prazosin 2 mg capsule 4 mg PO QPM Qty: 60 1RF levetiracetam [Keppra] 750 mg tablet 750 mg PO BID Qty: 60 5RF levetiracetam [Keppra] 500 mg tablet 500 mg PO BID Qty: 60 5RF methocarbamol 500 mg tablet 500 mg PO BID PRN (Reason: back pain) Qty: 60 5RF Invega Sustenna 234 mg/1.5 mL syringe 234 mg IM Q30D Qty: 1.5 6RF paliperidone 9 mg tablet extended release 24hr 9 mg PO DAILY PRN (Reason: A/V hallucinations) Qty: 30 2RF albuterol sulfate 90 mcg/actuation Hfa Aerosol Inhaler 2 puff INHALATION Q6H PRN (Reason: Shortness Of Breath Or Wheezing) 30 Days Qty: 6.7 1RF hydroxyzine HCl 50 mg tablet 50 mg PO TID methylprednisolone [Medrol (Vitaly)] 4 mg tablets,dose pack See Rx Instructions .ROUTE .COMPLEX Qty: 21 0RF Rx Instructions: orally per package directions Discharge Orders: Discharge ED (Routine); Ordered 09/26/24 Ordered By: Robson Vallejo Referrals: Lashay Fallon MD [Primary Care Provider, [facility]] - 4-7 days Discharge Diet: Advance as tolerated Discharge Activity: Resume usual activity Patient Instructions: Generalized Tonic Clonic Seizures (ED) Print Language: Icelandic Coding Level of Care Code ED Janitor Custodian for Corinne Ware
[2024-09-26 06:33] LABS: Hematocrit 42.0 % (36-47); Hemoglobin 14.40 g/dL (11.27-16.99); Mean Corpuscular HGB Conc 34.3 g/dL (30-55); Mean Corpuscular Hemoglobin 29.4 pg (27-33); Mean Corpuscular Volume 85.9 fl (85-98); Nucleated Red Blood Cells % 0 %; Platelet Count 262 10^3/cmm (157-399); Red Blood Count 4.89 10^6/uL (3.85-5.65); White Blood Count 7.15 10^3/uL (3.29-11.43)
[2024-09-26] MEDS: LORazepam 1 MG/0.5 ML injection 2 MG IM (06:39)
[2024-09-26 06:53] LABS: Alanine Aminotransferase 35 U/L (0-33); Albumin Level 4.6 g/dL (3.5-5.2); Alkaline Phosphatase 143 U/L (35-105); Anion Gap 17.6 (5-19); Aspartate Amino Transferase 25 U/L (0-32); Blood Urea Nitrogen 10 mg/dL (6-20); Calcium 9.3 mg/dL (8.5-10.5); Carbon Dioxide 26 mmol/L (22-29); Chloride 99 mmol/L (98-107); Creatinine Clr Calc Pharmacy 165.4445; Globulin 3.6 g/dL (1.3-4.6); Glucose 104 mg/dL (65-115); Osmolality Calculated 287 mOsm/kg (285-295); Potassium 3.6 mmol/L (3.5-5.1); Sodium 139 mmol/L (136-145); Total Protein 8.2 g/dL (6.6-8.7)
[2024-09-26 07:50] LABS: HCG, Serum Qual Negative (Negative)
[2024-09-26 08:03] VITALS: BP 121/82; PULSE 76; O2SAT 98
== END 2024-09-26 08:04 | disposition home or self-care (01) ==
PROVIDERS: Emergency Provider Emergency Medicine; PCP Family Medicine
DX: R07.9 Chest pain, unspecified (principal); R56.9 Unspecified convulsions; F17.290 Nicotine dependence, other tobacco product, uncomplicated
CPT/HCPCS: 36415; 71045; 80053; 84703; 85025; 93005; 96372; 99285; J2060

== ENCOUNTER 2024-10-24 16:27 | Emergency (ER) | payer MEDICARE, MEDICAID, SELFPAY ==
--- OUTSIDE RECORDS SUMMARY | 2018-08-01 10:54 | XMS_ITS | Continuity of Care Document ---
Author Organization [facility] Address [id number] [address] Phone Care Team Providers Care Application Support Analyst Name Role Phone Health, Community Unavailable Unavailable [...] HCL (unknown strength) Not Available - Active [place] 7.5 mg-325 mg tablet take 1 tablet [...] Diagnoses Date Provider Providers Copied on Encounter [facility], [id number], [address], [place] tel:[phone] [facility] No Information 9 [facility]. [address], [place], [address], [place]. tel:[phone] [facility], [id number] 659424XD[place], [address], [place] tel:[phone] Family Medicine F1 Amenorrhea, unspecified 9 [facility]. [address] [place], [place], [address], [place]. tel:[phone] Referring Provider: Andreina Enrique , [address] [place], [address] . tel:[phone] [facility], [id number] [place]298[place], [address], [place] tel:[phone] [facility] Encounter for dental exam and cleaning w/o abnormal findings No Information [facility], [id number] 062983YZ[place], [address], [place] tel:[phone] [facility] Encounter for dental exam and cleaning w/o abnormal findings 9 No Information Family History Family Member Type Diagnosis Age At Onset No Information Payers Payer name Insurance type Covered constitution party ID Authoriza tion(s) No Information Social History [...] Effective Dates (start - stop) Status Comments [place] 7.5 mg-325 mg tablet take 1 tablet [...]
[2024-05-20 12:05] VITALS: BP 130/86; BMI 42.8
[2024-10-24 16:27] VITALS: BP 107/80; PULSE 100; RESP 20; TEMP 37.1; O2SAT 98; BMI 45.1
--- OUTSIDE RECORDS SUMMARY | 2024-10-24 16:31 | XMS_ITS | Patient Health Record ---
Author Organization [facility] Address [address] [place] [address] Care Team Providers Care Spring Former Machine Name Role Phone Pb Ryan Primary Care Provider [phone] Allergies Allergen (clinical drug ingredient) Drug/Non Drug Allergy documented on EMR Reaction Allergy Type Onset Date Status Information temporarily unavailable Geodon shortness of breath Drug Allergy Active Information temporarily unavailable ZyPREXA hives Drug Allergy Active Reason For [...] Coverage End Date Medicaid [address] [place] [address] [id number] Heidy Macias Self - patient is the insured Medicaid Dental [address] [place] [address] [id number] Heidy Macias Self - patient is the insured Medical (General) History Medical History History ICD Code schizophrenia PTSD anxiety asthma - mild persistent scoliosis depression lupus
[2024-10-24 17:12] LABS: Hematocrit 41.2 % (36-47); Hemoglobin 14.00 g/dL (11.27-16.99); Mean Corpuscular HGB Conc 34.0 g/dL (30-55); Mean Corpuscular Hemoglobin 28.9 pg (27-33); Mean Corpuscular Volume 84.9 fl (85-98); Nucleated Red Blood Cells % 0 %; Platelet Count 254 10^3/cmm (157-399); Red Blood Count 4.85 10^6/uL (3.85-5.65); White Blood Count 7.23 10^3/uL (3.29-11.43)
[2024-10-24 17:17] LABS: INR 0.87 (0.8-1.2); Prothrombin Time 12.40 SECONDS (12.1-14.9)
[2024-10-24 17:18] LABS: Partial Thromboplastin Time 41.3 SECONDS (23.9-36.7)
[2024-10-24 17:23] LABS: Alanine Aminotransferase 32 U/L (0-33); Albumin Level 4.3 g/dL (3.5-5.2); Alkaline Phosphatase 127 U/L (35-105); Anion Gap 14.8 (5-19); Aspartate Amino Transferase 25 U/L (0-32); Blood Urea Nitrogen 16 mg/dL (6-20); Calcium 8.5 mg/dL (8.5-10.5); Carbon Dioxide 25 mmol/L (22-29); Chloride 101 mmol/L (98-107); Creatinine Clr Calc Pharmacy 197.1598; Globulin 3.3 g/dL (1.3-4.6); Glucose 105 mg/dL (65-115); Lipase 30 U/L (13-60); Magnesium 1.7 mg/dL (1.7-2.3); Osmolality Calculated 286 mOsm/kg (285-295); Potassium 3.8 mmol/L (3.5-5.1); Sodium 137 mmol/L (136-145); Total Protein 7.6 g/dL (6.6-8.7)
[2024-10-24 17:25] LABS: Lactic Sepsis W/Reflex 1.1 mmol/L (0.5-2.2)
[2024-10-24 17:35] LABS: Glucose Urine UA Negative (Normal); Nitrate Urine Negative (Negative); Specific Gravity, Urine 1.025 (1.005-1.030)
[2024-10-24 17:40] LABS: Add Urine Microscopic? YES
[2024-10-24 17:42] LABS: PCP Screen Urine Negative (Negative)
[2024-10-24 19:14] LABS: Neisseria Gonorrhea NOT DETECTED (Negative)
--- NOTE | 2024-10-24 19:40 | ED_ITS ---
HPI - Abdominal Pain 2 General: Chief Complaint: Abdominal Pain Stated Complaint: abd pain Time Seen by Provider: 10/24/24 16:43 Source: patient Mode of arrival: EMS Limitations: no limitations History of Present Illness: Patient complaining of abdominal pain in the right lower abdomen and pelvis. Patient reports it feels like the uterus is hurting and there is tightness in the right lower quadrant of the pelvis. Patient has not been straining currently and in fact a few days late. Patient had a negative home test. Patient has a history of a tubal ligation. Patient reports increased vaginal discharge that is milky and white and denies a foul odor. Related Data Home Medications ?Medication ?Instructions ?Recorded ?Confirmed hydroxyzine HCl 50 mg tablet 50 mg PO TID anxiety 11/1910/02/24 duloxetine 60 mg capsule,delayed 60 mg PO DAILY 10/02/24 release Previous Rx's ?Medication ?Instructions ?Recorded albuterol sulfate 90 mcg/actuation 2 puff inhalation Q 6H PRN 08/26/22 aerosol inhaler Shortness Of Breath Or Wheez ing 30 days #6.7 grams levetiracetam 500 mg tablet 500 mg PO BID #60 tabs 03/21 (Keppra) levetiracetam 750 mg tablet 750 mg PO BID #60 tabs 03/21 (Keppra) paliperidone palmitate 234 mg/1.5 234 mg (1.5 mL) IM Q 30D #1.5 mL 05/27/24 mL intramuscular syringe (Invega Sustenna) norethindrone 1.5 mg-ethinyl 1 tab PO DAILY #84 tabs 0 06/04/24 estradiol 30 mcg(21)/iron 75 mg(7) tablet (Tiera Fe 1.5/30 (28)) paliperidone 9 mg tablet,extended 9 mg PO DAILY PRN A/ V 08/30/24 release 24 hr hallucinations #30 tabs duloxetine 30 mg capsule,delayed 30 mg PO DAILY #30 ca ps 09/04/24 release (Cymbalta) prazosin 2 mg capsule 4 mg (2 x 2 mg) PO QPM #60 c aps 09/04/24 lamotrigine 25 mg tablet (Lamictal) 50 mg (2 x 25 mg) PO DAILY 30 days 10/02/24 #60 tabs trazodone 100 mg tablet 200 mg (2 x 100 mg) PO QPM # 60 tabs 10/02/24 ketorolac 10 mg tablet 10 mg PO Q8H PRN pain 3 days #6 10/24/24 tabs metronidazole 500 mg tablet 500 mg PO BID 7 days #14 t abs 10/24/24 Allergies Allergy/AdvReac Type Severity Reaction Status Date / Time divalproex sodium Allergy Severe ALGY-Swell Verified 10/02/24 13:30 Lip/Tongue/Throat olanzapine Allergy Severe ALGY-Swell Verified 10/02/24 13:30 Lip/Tongue/Throat ziprasidone Allergy Severe ALGY-Swell Verified 10/02/24 13:30 Lip/Tongue/Throat adhesive tape Allergy ALGY-Rash Verified 10/02/24 13:30 buprenorphine (From Suboxone) Allergy ADR-Seizure Verified 10/02/24 13:30 naloxone (From Suboxone) Allergy ADR-Seizure Verified 10/02/24 13:30 pepper (genus Capsicum) Allergy Unknown Verified 10/02/24 13:30 Pork/Porcine Containing Allergy Unknown Verified 10/02/24 13:30 Products Review of Systems 2 General: Reports: 10 or more systems reviewed and unremarkable except in HPI and below PFSH ED 2 PFSH: Medical History (Updated 10/24/24 @ 19:48 by Chepe Barber MD) Vapes nicotine containing substance Nicotine dependence due to vaping tobacco product Chronic low back pain without sciatica Psychosomatic seizure dxed in [facility]; used to be on Keppra Alcohol use disorder in remission On combination antipsychotic drug therapy Methamphetamine use disorder, mild, in early remission Migraines Scoliosis Anxiety Opioid use disorder Stimulant use disorder Alcohol abuse, episodic Cannabis use disorder PTSD (post-traumatic stress disorder) Bipolar disorder, unspecified Psychiatric care Borderline intellectual functioning Post-traumatic stress disorder, chronic Asthma Depression Schizophrenia Surgical History History of cholecystectomy Family History Mother Bipolar 1 disorder Heart disease Spina bifida Hyperlipidemia Diabetes Thyroid disease Stroke Brother Hyperlipidemia Social History Smoking and tobacco/nicotine status: current every day tobacco/nicotine user e- cigarettes E-Cigarette Details: e-cigarette and with nicotine E-cig/vape details: 15,000 puffs last a month Quit status (tobacco/nicotine): not considering quitting Second hand smoke exposure: Yes Alcohol intake: former Former alcohol use details: 08.20.2022 Substance/Drug Use: former Date of last use: 08.20.22 Former substance use details: meth and fentanyl in past; used to do IV Adopted: No Caregiver/support person: No Lives independently: Yes Household members: family Housing: House Marital status: Single Number of children: 4 Number of grandchildren: 0 Highest education level completed: High School Graduate service: No Current occupational status: disabled Current occupational exposures/hazards: No Previous occupational history: disability for mental health since age 13 Pets and animals: No Leisure activites: music and other Leisure activities details: hang out with new boyfriend Sexually active: No Do you think of yourself as: Straight/Heterosexual Current gender identity: Female Anabel/Faith: None Special anabel needs: No Agree to transfusion: Yes Female Reproductive History: Para: 3 Spontaneous abortions: Yes Physical Exam 2 Const: COMMON NORMALS: no acute distress, patient oriented x3, healthy appearing, alert and well nourished GENERAL APPEARANCE: well kempt and well developed HENMT: COMMON NORMALS: normocephalic, atraumatic, external ears normal and moist oral mucous membranes HEAD & SCALP: normocephalic and atraumatic E XTERNAL EAR: Yes external ears normal Eye: COMMON NORMALS: Equal, round and reactive pupils present, EOMs intact bilaterally and conjunctivae normal CONJUNCTIVA: Yes conjunctivae normal P UPIL: Yes Equal, round and reactive pupils present Neck/C-Spine: COMMON NORMALS: full ROM, no lymphadenopathy and supple Chest: CHEST: Yes Symmetrical chest wall rise and No Surgical scars present (Chest) Resp: COMMON NORMALS: normal respiratory effort, No retractions, No use of accessory muscles and clear to auscultation bilaterally AUSCULTATION: clear to auscultation bilaterally Cardio: COMMON NORMALS: regular rate, regular rhythm, S1 normal heart sound present, S2 normal heart sound present, No gallops present (Cardio), No clicks present (Cardio), No murmurs present (Cardio) and No rub (Cardio) RATE: r egular rate RHYTHM: regular rhythm HEART SOUNDS: S1 normal heart sound present, S2 normal heart sound present and no murmurs PERIPHERAL PULSES: o ther (Radial pulses 2+ and symmetric) GI: COMMON NORMALS: Soft to palpation and no masses INSPECTION: No abdominal distension PALPATION: Yes Soft to palpation, Yes Tenderness to palpation present (GI) Details: RLQ and other (suprapubic), No Guarding due to palpation present (GI) and No Rebound tenderness present : COMMON NORMALS: Yes no CVA tenderness BLADDER/KIDNEY EXAM: Yes no CVA tenderness Back/Pelvis: COMMON NORMALS: no CVA tenderness Extremity: COMMON NORMALS: normal to inspection, full ROM, capillary refill normal and no clubbing, cyanosis or edema Neuro: COMMON NORMALS: patient oriented x3 SENSORIUM/ORIENTATION: Yes alert Psych: APPEARANCE: Yes well kempt Skin: COMMON NORMALS: no rashes or lesions noted, no wounds, turgor normal and no jaundice GENERAL SKIN EXAM: no rashes or lesions noted and turgor normal Course 2 Vital Signs: Vital signs: Vital Signs Temperature 98.7 F 10/24/24 16:27 Pulse Rate 100 10/24/24 16:27 Respiratory Rate 20 H 10/24/24 16:27 Blood Pressure 107/80 10/24/24 16:27 Pulse Oximetry 98 10/24/24 16:27 Oxygen Delivery Me thod Room Air 10/24/24 16:27 MDM - Abdominal Pain Medical Decision Making Patient with pelvic pain and discharge. Minimally tender on exam. Wet prep confirms BV. Rest of workup was fairly unremarkable. Patient will be discharged on Flagyl and Toradol for pain. Tenderness is more adnexal, and not consistent with an appendicitis on exam. Differential Diagnosis Likely acute appendicitis, calculus of kidney, constipation and small bowel obstruction Medical Records I reviewed the patient's medical records. Lab Data I reviewed the patient's lab results. 10/24/24 16:48 10/24/24 16:48 Labs/Radiology: Laboratory Results WBC 7.23 10^3/uL (3.29-11.43) 10/24/24 16:48 RBC 4.85 10^6/uL (3.85-5.65) 10/24/24 16:48 Hgb 14.00 g/dL (11.27-16.99) 10/24/24 16:48 Hct 41.2 % (36-47) 10/24/24 16:48 MCV 84.9 fl (85-98) L 10/24/24 16:48 MCH 28.9 pg (27-33) 10/24/24 16:48 MCHC 34.0 g/dL (30-55) 10/24/24 16:48 RDW 11.6 % (12.1-15.1) L 10/24/24 16:48 Plt Count 254 10^3/cmm (157-399) 10/24/24 16:48 MPV 10.0 fL (7.4-10.4) 10/24/24 16:48 Neut % (Auto) 51.3 % 10/24/24 16:48 Lymph % (Auto) 40.8 % 10/24/24 16:48 [place] % (Auto) 4.0 % 10/24/24 16:48 Eos % (Auto) 3.0 % 10/24/24 16:48 Baso % (Auto) 0.6 % 10/24/24 16:48 Neut # (Auto) 3.71 10^3/uL (1.8-7.7) 10/24/24 16:48 Lymph # (Auto) 3.0 10^3/uL (0.8-4.8) 10/24/24 16:48 [place] # (Auto) 0.3 10^3/uL (0.2-0.9) 10/24/24 16:48 Eos # (Auto) 0.2 10^3/uL (0.0-0.8) 10/24/24 16:48 Baso # (Auto) 0.0 10^3/uL (0.0-0.1) 10/24/24 16:48 Nucleated RBC % (auto) 0 % 10/24/24 16:48 Nucleated RBCs # 0.0 /100WBC 10/24/24 16:48 PT 12.40 SECONDS (12.1-14.9) 10/24/24 16:48 INR 0.87 (0.8-1.2) 10/24/24 16:48 APTT 41.3 SECONDS (23.9-36.7) H 10/24/24 16:48 Sodium 137 mmol/L (136-145) 10/24/24 16:48 Potassium 3.8 mmol/L (3.5-5.1) 10/24/24 16:48 Chloride 101 mmol/L (98-107) 10/24/24 16:48 Carbon Dioxide 25 mmol/L (22-29) 10/24/24 16:48 Anion Gap 14.8 (5-19) 10/24/24 16:48 BUN 16 mg/dL (6-20) 10/24/24 16:48 Creatinine 0.6 mg/dL (0.5-0.9) 10/24/24 16:48 GFR Calculation 122.8 mL/min (90-130) 10/24/24 16:48 Glucose 105 mg/dL (65-115) 10/24/24 16:48 Calculated Osmolality 286 mOsm/kg (285-295) 10/24/24 16:48 Lactic Acid 1.1 mmol/L (0.5-2.2) 10/24/24 16:48 Calcium 8.5 mg/dL (8.5-10.5) 10/24/24 16:48 Magnesium 1.7 mg/dL (1.7-2.3) 10/24/24 16:48 Total Bilirubin 0.5 mg/dL (0.15-1.2) 10/24/24 16:48 AST 25 U/L (0-32) 10/24/24 16:48 ALT 32 U/L (0-33) 10/24/24 16:48 Alkaline Phosphatase 127 U/L (35-105) H 10/24/24 16:48 Total Protein 7.6 g/dL (6.6-8.7) 10/24/24 16:48 Albumin 4.3 g/dL (3.5-5.2) 10/24/24 16:48 Globulin 3.3 g/dL (1.3-4.6) 10/24/24 16:48 Lipase 30 U/L (13-60) 10/24/24 16:48 Urine Color Yellow (Yellow) 10/24/24 16:54 Urine Appearance Clear (CLEAR) 10/24/24 16:54 Urine pH 7.5 (5-7) 10/24/24 16:54 Ur Specific [place] 1.025 (1.005-1.030) 10/24/24 16:54 Urine Protein Negative (Negative) 10/24/24 16:54 Urine Glucose (UA) Negative (Normal) 10/24/24 16:54 Urine Ketones Trace (Negative) 10/24/24 16:54 Urine Blood Negative (Negative) 10/24/24 16:54 Urine Nitrate Negative (Negative) 10/24/24 16:54 Urine Bilirubin Negative (Negative) 10/24/24 16:54 Urine Urobilinogen 1.0 mg/dL (Negative) 10/24/24 16:54 Ur Leukocyte Esterase Negative (Negative) 10/24/24 16:54 Urine RBC 0-2 /hpf (0-2) 10/24/24 16:54 Urine WBC 0-5 /hpf (0-5) 10/24/24 16:54 Ur Squamous Epith Cells 0-5 /hpf (0-5) 10/24/24 16:54 Amorphous Sediment Not Reportable 10/24/24 16:54 Urine Bacteria None seen /hpf (NONE) 10/24/24 16:54 Hyaline Casts 0.40 /lpf 10/24/24 16:54 Urine Opiates Screen Negative ng/mL (Negative) 10/24/24 16:54 Ur Barbiturates Screen Negative ng/mL (Negative) 10/24/24 16:54 Ur Phencyclidine Scrn Negative ng/mL (Negative) 10/24/24 16:54 Ur Amphetamines Screen Negative ng/mL (Negative) 10/24/24 16:54 U Benzodiazepines Scrn Negative ng/mL (Negative) 10/24/24 16:54 Urine Cocaine Screen Negative ng/mL (Negative) 10/24/24 16:54 U Marijuana (THC) Screen Positive ng/mL (Negative) H 10/24/24 16:54 C. trachomatis (PCR) Not detected (Negative) 10/24/24 16:54 N. gonorrhoeae (PCR) Not detected (Negative) 10/24/24 16:54 No radiology studies performed this visit ED provider radiology interpretation(s): Considerations were done towards a CT however patient's exam did not warrant it. Discharge Plan Discharge Patient Disposition: Home Clinical Impression: Bacterial vaginosis Condition: Stable Prescriptions: New ketorolac 10 mg tablet 10 mg PO Q8H PRN (Reason: pain) 3 Days Qty: 6 0RF metronidazole 500 mg tablet 500 mg PO BID 7 Days Qty: 14 0RF No Action norethindrone-e.estradiol-iron [Tiera Fe 1.5/30 (28)] 1.5 mg-30 mcg (21)/75 mg (7) tablet 1 tab PO DAILY Qty: 84 3RF duloxetine [Cymbalta] 30 mg capsule,delayed release(DR/EC) 30 mg PO DAILY Qty: 30 1RF prazosin 2 mg capsule 4 mg PO QPM Qty: 60 1RF levetiracetam [Keppra] 750 mg tablet 750 mg PO BID Qty: 60 5RF levetiracetam [Keppra] 500 mg tablet 500 mg PO BID Qty: 60 5RF Invega Sustenna 234 mg/1.5 mL syringe 234 mg IM Q30D Qty: 1.5 6RF lamotrigine [Lamictal] 25 mg tablet 50 mg PO DAILY 30 Days Qty: 60 1RF trazodone 100 mg tablet 200 mg PO QPM Qty: 60 1RF paliperidone 9 mg tablet extended release 24hr 9 mg PO DAILY PRN (Reason: A/V hallucinations) Qty: 30 2RF albuterol sulfate 90 mcg/actuation Hfa Aerosol Inhaler 2 puff INHALATION Q6H PRN (Reason: Shortness Of Breath Or Wheezing) 30 Days Qty: 6.7 1RF hydroxyzine HCl 50 mg tablet 50 mg PO TID duloxetine 60 mg capsule,delayed release(DR/EC) 60 mg PO DAILY Discharge Orders: Discharge ED (Routine); Ordered 10/24/24 Ordered By: Chepe Barber Referrals: Lashay Fallon MD [Primary Care Provider, Family Practice] Patient Instructions: Patient Portal & Gopi Instructions Activity Restrictions/Additional Instructions: Discharge Instructions for Bacterial Vaginosis You have been diagnosed with bacterial vaginosis (BV), a common vaginal infection caused by an imbalance in the normal bacteria of the vagina.?You have been prescribed metronidazole (Flagyl) 500 mg to take by mouth twice a day for 7 days, and ketorolac (Toradol) as needed for pain. Medication Instructions ? Take metronidazole 500 mg by mouth every 12 hours (twice daily) for 7 days. Finish the entire course, even if symptoms improve before you are done. This helps prevent the infection from coming back.[1-2] ? Ketorolac (Toradol) may be used as needed for pain, but do not exceed the dose recommended by your provider. ? If you miss a dose of metronidazole, take it as soon as you remember. If it is almost time for your next dose, skip the missed dose?do not double up. ? Common side effects of metronidazole include nausea, metallic taste, and mild stomach upset. If you experience severe side effects (such as rash, tingling, or neurological symptoms), contact your provider. ? You do?not?need to avoid alcohol while taking metronidazole, as current evidence does not support a harmful interaction.[1] Vaginal Hygiene and Care ??Do not douche.?Douching increases the risk of BV recurrence and disrupts the healthy balance of vaginal bacteria.[1][3-4] ??Avoid scented or perfumed products?in the genital area, including soaps, sprays, powders, wipes, and bubble baths. These can irritate the vulva and vagina and increase the risk of infection.[3][5-6] ??Clean the vulva with warm water only.?If soap is needed, use a mild, unscented soap and avoid applying it directly to the vulva.[5] ??Pat the area dry gently?after bathing or urination. Avoid using hair dryers on the vulva.[5] ??Wear 100% cotton underwear?and avoid tight-fitting clothing. Consider not wearing underwear at night to allow the area to breathe.[5] ??Change out of wet clothing promptly?(such as after swimming or exercise). ??Menstrual hygiene:?If regular pads cause irritation, switch to 100% cotton pads. Change pads and tampons regularly.[5] ??Sexual activity:?Refrain from sexual activity or use condoms consistently and correctly during treatment. This helps prevent reinfection and transmission.[1] ??Lubrication:?Use adequate lubrication during intercourse to minimize irritation.[5] Products and Practices to Avoid ??Do not use vaginal washes, wipes, or deodorants.?These products can disrupt the normal vaginal microbiome and increase the risk of BV.[3-4] ??Avoid applying lotions, oils, or petroleum jelly inside the vagina.?If needed for dryness or irritation, a preservative-free emollient (such as plain vegetable oil or petrolatum) may be applied externally to the vulva only.[5] ??Do not use hair dryers, heating pads, or hot water bottles directly on the vulva.[5] ??Avoid tight, synthetic underwear and pantyhose.?These can trap moisture and increase irritation.[5] Other Important Information ??Recurrence is common.?Even with proper treatment, BV can come back. Following these hygiene measures may help reduce your risk.[2][6] ??Probiotics and alternative therapies:?There is currently no strong evidence that probiotics or aoad-qii-zzrihwd vaginal products prevent BV recurrence or restore normal vaginal lindsey.[1-2][7-8] ??Follow-up:?If symptoms persist after completing treatment, or if you develop new symptoms (such as fever, severe pain, or abnormal bleeding), contact your provider. When to Seek Medical Attention ? Severe abdominal or pelvic pain ? Fever or chills ? Rash, tingling, or neurological symptoms after starting medication ? Persistent or worsening vaginal symptoms after treatment Summary ? Take all medications as prescribed. ? Practice gentle, unscented hygiene. ? Avoid douching and scented products. ? Use condoms during treatment. ? Contact your provider if symptoms persist or worsen. These instructions are based on the latest guidelines from the [place] Centers for Disease Control and Prevention and expert recommendations for vulvar and vaginal care.[1-5] References Sexually Transmitted Infections Treatment Guidelines, 2020. https://www.ncbi.nlm.nih.gov/pmc/articles/HIH5231179/ Edouard COUCH, Toan DEAN, Preciado PA, et al. MMWR. Recommendations and Reports : Morbidity and Mortality Weekly Report. Recommendations and Reports. 2020;70(4):1-187. doi:10.81396/mmwr.vz5500w5.Bacterial Vaginosis and Desquamative Inflammatory Vaginitis. https://www.nejm.org/doi/full/10.1056/NFRItf1223274 Donnie Claire, Yolis LARRY. The [place] Journal of Medicine. 2018;379(23):2207-8194. doi:10.1056/KIHIqh3159391.The Vaginal Microbiome in Health and Disease-What Role Do Common Intimate Hygiene Practices Play?. https://pubmed.ncbi.nlm.nih.gov/91565025 Job AM, Aliza DJ, Stearns MS. Microorganisms. 2022;11(2):298. doi:10.3390/mofuvexkmbcszh02272279.Association Between Vaginal Washing and Vaginal Bacterial Concentrations. https://pubmed.ncbi.nlm.nih.gov/44783545 Mago MC, Quang JE, Tony BA, et al. PloS One. 2019;14(1):a3596363. doi:10.1371/journal.pone.3928652.Examining Women's Self-Management Strategies for Recurrent Bacterial Vaginosis in [facility]. https://pubmed.ncbi.nlm.nih.gov/61112609 Parth Rubio, Rachel HOWE, Christina J, et al. Sexually Transmitted Diseases. 2024;52(7):428-435. doi:10.1097/OLQ.8833569551752817.Persistent Vulvar Pain. https://www.acog.org/-/media/project/acog/acogorg/clinical/files/committee-opini on/articles//uoszvuwbvq-gtdexj-eblw.pdf [employer], Bhavana Russo Herschel W. Lawson, Colleen K. [place] [employer] (2018)Non- Antibiotic Treatment of Bacterial Vaginosis-a Systematic Review. https://pubmed.ncbi.nlm.nih.gov/92558450 Dell CHAVIRA, Ga Rubio, Suzette S, Boby P. Archives of Gynecology and Obstetrics. 2020;303(1):37-45. doi:10.1007/c10390-759-11011-u.Intermittent Lactobacilli-Containing Vaginal Probiotic or Metronidazole Use to Prevent Bacterial Vaginosis Recurrence: A Store Manager Study Incorporating Microscopy and Sequencing. https://pubmed.ncbi.nlm.nih.gov/17043904 van Peralta, Ashley MC, Agaba SK, et al. Scientific Reports. 2020;10(1):3884. doi:10.1038/z93899-507-03471-9. Print Language: Tuvaluan Coding Level of Care Code ED Sexual Assault Counselor for Corinne Ware
== END 2024-10-24 20:13 | disposition home or self-care (01) ==
PROVIDERS: Emergency Provider Emergency Medicine; PCP Family Medicine
DX: N76.0 Acute vaginitis (principal); F17.290 Nicotine dependence, other tobacco product, uncomplicated
CPT/HCPCS: 36415; 80053; 80306; 81001; 83605; 83690; 83735; 85025; 85610; 85730; 87210; 87491; 87591; 96361; 96374; 99284; J1885; J7030; J9999

== ENCOUNTER 2024-11-20 14:16 | Outpatient (CLI) | payer MEDICARE, MEDICAID, SELFPAY ==
[2024-05-20 12:05] VITALS: BP 130/86; BMI 42.8
--- NOTE | 2024-11-20 14:30 | MR_ITS ---
WS: [id number] MRI LUMBAR SPINE NONCONTRAST HISTORY: chronic back pain; DDD, DJD COMPARISON: Radiograph 09/07/2024 TECHNIQUE: Sagittal and axial multisequence imaging is submitted. L4 retrolisthesis by 5 mm. Marrow edema in the adjacent endplates of L4 and L5. There is a small amount of edema within the L4-5 disc. Schmorl's nodes at T12, L1 and L2. Disc spaces and vertebral body heights are well-preserved. Conus terminates normally at L1-2 disc level. L1-L2: Normal. L2-L3: Mild disc bulging. Mild disc contact on the subarticular recesses. No high-grade stenosis. L3-L4: Very slight disc bulging with ligamentum flavum and facet arthritis. Mild disc encroachment upon the traversing L4 nerve roots. No stenosis. L4-L5: Diffuse annular disc bulging with osteophytic ridging, ligamentum flavum and facet arthritis. RIGHT paracentral disc protrusion with fissure in contact with the RIGHT traversing L5 nerve root and displaces it posteriorly. There is disc encroachment into the subarticular recesses. Disc osteophyte encroachment into the foramina. Moderate RIGHT and mild LEFT foraminal stenosis. There is moderate central and subarticular recess stenosis also. L5-S1: Mild disc bulging with a RIGHT paracentral disc protrusion contacting the RIGHT S1 nerve root. Mild facet arthritis. Mild to moderate bilateral foraminal stenosis due to disc and osteophyte disease. Paravertebral soft tissues are negative. MR/MR lumbar spine wo con* [id number] IMPRESSION: 1. Advanced degenerative disc disease at L4-5. 2. Retrolisthesis of L4 by 5 mm. 3. L4-5: Diffuse disc bulging with a RIGHT paracentral disc protrusion contact ing and slightly displacing the RIGHT traversing L5 nerve root. Disc encroachme nt into the subarticular recesses at L4-5. Moderate central and subarticular re cess stenosis with moderate RIGHT and mild LEFT foraminal stenosis. 4. Mild to moderate bilateral foraminal stenosis at L5-S1. 5. Small RIGHT paracentral disc protrusion at L5-S1 contacting the RIGHT S1 ne rve root. 6. Mild disc encroachment upon the traversing L4 nerve roots. 7. Edema within the adjacent endplates of L4 and L5.
== END 2024-11-20 14:17 | disposition home or self-care (01) ==
LOC: RAD 14:17
PROVIDERS: PCP Family Medicine; Visit Provider Family Medicine
DX: M54.50 Low back pain, unspecified (principal); G89.29 Other chronic pain
CPT/HCPCS: 72148

== ENCOUNTER 2025-01-20 11:47 | Emergency (ER) | payer MEDICARE, MEDICAID, SELFPAY ==
[2024-12-09 16:04] VITALS: BP 130/86; BMI 42.8
[2025-01-20 11:51] VITALS: BP 134/94; PULSE 79; RESP 17; TEMP 36.8; O2SAT 99
--- NOTE | 2025-01-20 11:52 | USR_ITS ---
PROCEDURE INFORMATION: Exam: US Pelvis, Complete, Non-Obstetric Exam date and time: 01/20/2025 12:30 PM Age: 24 years old Clinical indication: Pelvic pain; Additional info: Pelvic cramping TECHNIQUE: Imaging protocol: Transabdominal pelvic nonobstetric ultrasound. Complete exam. Real time ultrasound with image documentation. COMPARISON: CT abdomen pelvis wo con [id number] 02/21/2022 8:04 PM FINDINGS: Uterus: The uterus measures 7.5 x 4.4 x 4.9 cm. Endometrium measures 0.9 cm in diameter. Right ovary/adnexa: Right ovary measures 2.6 x 3.5 x 2.0 cm. There are normal follicles and blood flow to it. Left ovary/adnexa: The left ovary measures 2.7 x 2.7 x 2.0 cm. There are normal follicles and blood flow to it. Intraperitoneal space: No free fluid was identified. Urinary bladder: Normal. US/US pelv w/transvag [id number] IMPRESSION: Normal findings.
--- NOTE | 2025-01-20 12:00 | ED_ITS ---
HPI - Female Genitourinary 2 General: Chief complaint: Urogenital-Female Stated complaint: General Time Seen by Provider: 01/20/25 11:48 History of Present Illness: 24-year-old female with a history of mor bid obesity, recent tubal ligation, psychosomatic seizures, migraines, anxiety, bipolar disorder, borderline intellectual functioning, PTSD, asthma and schizophrenia who presents to the emergency room by ambulance with complaints of clear fluid coming from her vagina with intermittent cramping. She says she has PCOS and so she thinks that will cause her test to be negative and she think she is despite having a tubal ligation because she had sex soon after the tubal ligation. She is requesting an ultrasound. Related Data Home Medications ?Medication ?Instructions ?Recorded ?Confirmed cholecalciferol (vitamin D3) 25 3,000 unit PO DAILY 01/20/25 mcg (1,000 unit) capsule (Vitamin D3) ferrous sulfate 137 mg (45 mg 137 mg PO DAILY 01/04/25 01/20/25 iron) tablet,extended release Previous Rx's ?Medication ?Instructions ?Recorded albuterol sulfate 90 mcg/actuation 2 puff inhalation Q 6H PRN 08/26/22 aerosol inhaler Shortness Of Breath Or Wheez ing 30 days #6.7 grams levetiracetam 500 mg tablet 500 mg PO BID #60 tabs 03/21 (Keppra) duloxetine 60 mg capsule,delayed 120 mg (2 x 60 mg) PO DAILY #60 11/02/24 release caps docusate sodium 100 mg capsule 100 mg PO BID PRN const ipation #60 11/05/24 caps hydroxyzine HCl 50 mg tablet 50 mg PO TID anxiety #90 tabs 12/10/24 lamotrigine 100 mg tablet 100 mg PO DAILY #30 tabs (Lamictal) methocarbamol 750 mg tablet 750 mg PO QID #120 tabs paliperidone 9 mg tablet,extended 9 mg PO DAILY PRN A/ V 12/10/24 release 24 hr hallucinations #30 tabs paliperidone palmitate 234 mg/1.5 234 mg (1.5 mL) IM Q 30D #1.5 mL 12/10/24 mL [facility]uscular [facility] prazosin 2 mg capsule 4 mg (2 x 2 mg) PO QPM #60 c aps 12/10/24 trazodone 100 mg tablet 200 mg (2 x 100 mg) PO QPM # 60 tabs 12/10/24 quetiapine 50 mg tablet (Seroquel) 50 mg PO .HS #30 ta bs 01/04/25 doxycycline monohydrate 100 mg 100 mg PO BID 10 days # 20 caps 01/20/25 capsule metronidazole 500 mg tablet 500 mg PO Q8H 10 days #30 tabs 01/20/25 Allergies Allergy/AdvReac Type Severity Reaction Status Date / Time divalproex sodium Allergy Severe ALGY-Swell Verified 01/04/25 08:24 Lip/Tongue/Throat olanzapine Allergy Severe ALGY-Swell Verified 01/04/25 08:24 Lip/Tongue/Throat ziprasidone Allergy Severe ALGY-Swell Verified 01/04/25 08:24 Lip/Tongue/Throat adhesive tape Allergy ALGY-Rash Verified 01/04/25 08:24 buprenorphine (From Suboxone) Allergy ADR-Seizure Verified 01/04/25 08:24 naloxone (From Suboxone) Allergy ADR-Seizure Verified 01/04/25 08:24 pepper (genus Capsicum) Allergy Unknown Verified 01/04/25 08:24 Pork/Porcine Containing Allergy Unknown Verified 01/04/25 08:24 Products Review of Systems 2 Narrative: Constitutional symptoms: Negative except as documented in HPI. Skin symptoms: Negative except as documented in HPI. Eye symptoms: Negative except as documented in HPI. ENMT symptoms: Negative except as documented in HPI. Respiratory symptoms: Negative except as documented in HPI. Cardiovascular symptoms: Negative except as documented in HPI. Gastrointestinal symptoms: Negative except as documented in HPI. Genitourinary symptoms: Negative except as documented in HPI. Musculoskeletal symptoms: Negative except as documented in HPI. Neurologic symptoms: Negative except as documented in HPI. Psychiatric symptoms: Negative except as documented in HPI. Endocrine symptoms: Negative except as documented in HPI. PFSH ED 2 PFSH: Medical History (Updated 01/20/25 @ 14:03 by Danii Calabrese MD) Spondylolisthesis, lumbar region BMI 45.0-49.9, adult Nicotine dependence due to vaping tobacco product stopped vaping july 2024 Chronic low back pain without sciatica Psychosomatic seizure dxed in [facility]; used to be on Keppra Alcohol use disorder in remission On combination antipsychotic drug therapy Methamphetamine use disorder, mild, in early remission Migraines Scoliosis Anxiety Opioid use disorder Stimulant use disorder Alcohol abuse, episodic Cannabis use disorder PTSD (post-traumatic stress disorder) Bipolar disorder, unspecified Psychiatric care Borderline intellectual functioning Post-traumatic stress disorder, chronic Asthma Depression Schizophrenia Surgical History History of tubal ligation History of cholecystectomy Family History Mother Bipolar 1 disorder Heart disease Spina bifida Hyperlipidemia Diabetes Thyroid disease Stroke Brother Hyperlipidemia Social History Smoking and tobacco/nicotine status: former use of tobacco/nicotine Quit status (tobacco/nicotine): has quit using Second hand smoke exposure: Yes Alcohol intake: former Former alcohol use details: 08.20.2022 Substance/Drug Use: former Date of last use: 08.20.22 Former substance use details: meth and fentanyl in past; used to do IV Adopted: No Caregiver/support person: No Lives independently: Yes Household members: family Housing: House Marital status: Single Number of children: 4 Number of grandchildren: 0 Highest education level completed: High School Graduate service: No Current occupational status: disabled Current occupational exposures/hazards: No Previous occupational history: disability for mental health since age 13 Pets and animals: No Leisure activites: music and other Leisure activities details: hang out with new boyfriend Sexually active: No Do you think of yourself as: Straight/Heterosexual Current gender identity: Female Anabel/Mu-Ism: None Special anabel needs: No Agree to transfusion: Yes Female Reproductive History: Para: 3 Spontaneous abortions: Yes Physical Exam 2 Narrative: EXAM NARRATIVE: General: Alert, no acute distress. Skin: Warm, dry. Head: Normocephalic, atraumatic. Neck: Supple, trachea midline. Eye: Extraocular movements are intact. Ears, nose, mouth and throat: mucosa moist. Cardiovascular: Regular, Normal peripheral perfusion. Respiratory: Lungs are clear to auscultation, respirations are non-labored, breath sounds are equal, Symmetrical chest wall expansion. Gastrointestinal: Soft, Nontender, Non distended Musculoskeletal: Normal ROM, no deformity. Neurological: Alert and oriented, No focal neurological deficit observed. Psychiatric: Cooperative, appropriate mood & affect. Course 2 Vital Signs: Vital signs: Vital Signs Temperature 98.2 F 01/20/25 11:51 Pulse Rate 77 01/20/25 13:10 Respiratory Rate 17 01/20/25 11:51 Blood Pressure 131/79 01/20/25 13:10 Pulse Oximetry 96 01/20/25 13:10 Oxygen Delivery Me thod Room Air 01/20/25 13:10 MDM - Female Medical Decision Making Medical decision making Patient's reason for coming to the emergency room: Pelvic discomfort and concern that she is Social determinants: Patient is disabled I reviewed the patient's medical record. 24-year-old female with a history of morbid obesity, recent tubal ligation, psychosomatic seizures, migraines, anxiety, bipolar disorder, borderline intellectual functioning, PTSD, asthma and schizophrenia I reviewed the patient's current home meds Alternate historians: None Differential diagnosis: including but not limited to and based on the above HPI, review of systems and physical exam: We will do an ultrasound and lab work to rule out at the patient's request. Orders placed to evaluate differential diagnosis based on the above differential, HPI and physical exam Lab Review: Laboratory results were reviewed and interpreted by myself the emergency room physician. No leukocytosis. No anemia. No renal failure. Urinalysis is negative for infection. Serum test is negative. Transvaginal pelvic ultrasound: Normal. This was reviewed and interpreted by myself the emergency room physician. I also reviewed the radiology report. Reexamination: Patient remained stable. No increased work of breathing. No altered mental status. No focal motor deficits. Assessment and plan: Concern for Pelvic pain ? Treating empirically for sexually transmitted infections. - Discharged home - Discussed plan with patient. Answered any questions. - Evaluation and treatment of this problem were appropriate in the emergency setting. Lab Data 01/20/25 11:59 01/20/25 11:59 Radiology Impressions Pelvic/Transvag US 01/20/25 11:52 IMPRESSION: Normal findings. Laboratory Results WBC 6.52 10^3/uL (3.29-11.43) 01/20/25 11:59 RBC 4.73 10^6/uL (3.85-5.65) 01/20/25 11:59 Hgb 13.60 g/dL (11.27-16.99) 01/20/25 11:59 Hct 41.0 % (36-47) 01/20/25 11:59 MCV 86.7 fl (85-98) 01/20/25 11:59 MCH 28.8 pg (27-33) 01/20/25 11:59 MCHC 33.2 g/dL (30-55) 01/20/25 11:59 RDW 12.2 % (12.1-15.1) 01/20/25 11:59 Plt Count 220 10^3/cmm (157-399) 01/20/25 11:59 MPV 9.6 fL (7.4-10.4) 01/20/25 11:59 Neut % (Auto) 55.8 % 01/20/25 11:59 Lymph % (Auto) 33.9 % 01/20/25 11:59 [place] % (Auto) 6.4 % 01/20/25 11:59 Eos % (Auto) 3.1 % 01/20/25 11:59 Baso % (Auto) 0.5 % 01/20/25 11:59 Neut # (Auto) 3.64 10^3/uL (1.8-7.7) 01/20/25 11:59 Lymph # (Auto) 2.2 10^3/uL (0.8-4.8) 01/20/25 11:59 [place] # (Auto) 0.4 10^3/uL (0.2-0.9) 01/20/25 11:59 Eos # (Auto) 0.2 10^3/uL (0.0-0.8) 01/20/25 11:59 Baso # (Auto) 0.0 10^3/uL (0.0-0.1) 01/20/25 11:59 Nucleated RBC % (auto) 0 % 01/20/25 11:59 Nucleated RBCs # 0.0 /100WBC 01/20/25 11:59 Sodium 141 mmol/L (136-145) 01/20/25 11:59 Potassium 4.1 mmol/L (3.5-5.1) 01/20/25 11:59 Chloride 104 mmol/L (98-107) 01/20/25 11:59 Carbon Dioxide 27 mmol/L (22-29) 01/20/25 11:59 Anion Gap 14.1 (5-19) 01/20/25 11:59 BUN 12 mg/dL (6-20) 01/20/25 11:59 Creatinine 0.6 mg/dL (0.5-0.9) 01/20/25 11:59 GFR Calculation 122.8 mL/min (90-130) 01/20/25 11:59 Glucose 111 mg/dL (65-115) 01/20/25 11:59 Calculated Osmolality 292 mOsm/kg (285-295) 01/20/25 11:59 Calcium 8.9 mg/dL (8.5-10.5) 01/20/25 11:59 Total Bilirubin 0.4 mg/dL (0.15-1.2) 01/20/25 11:59 AST 29 U/L (0-32) 01/20/25 11:59 ALT 48 U/L (0-33) H 01/20/25 11:59 Alkaline Phosphatase 146 U/L (35-105) H 01/20/25 11:59 Total Protein 7.0 g/dL (6.6-8.7) 01/20/25 11:59 Albumin 4.4 g/dL (3.5-5.2) 01/20/25 11:59 Globulin 2.6 g/dL (1.3-4.6) 01/20/25 11:59 Ser , Semi-Qnt < 1.00 mIU/mL 01/20/25 11:59 Urine Color Yellow (Yellow) 01/20/25 11:59 Urine Appearance Clear (CLEAR) 01/20/25 11:59 Urine pH 7.5 (5-7) 01/20/25 11:59 Ur Specific Banks 1.016 (1.005-1.030) 01/20/25 11:59 Urine Protein Negative (Negative) 01/20/25 11:59 Urine Glucose (UA) Negative (Normal) 01/20/25 11:59 Urine Ketones Negative (Negative) 01/20/25 11:59 Urine Blood Negative (Negative) 01/20/25 11:59 Urine Nitrate Negative (Negative) 01/20/25 11:59 Urine Bilirubin Negative (Negative) 01/20/25 11:59 Urine Urobilinogen 1.0 mg/dL (Negative) 01/20/25 11:59 Ur Leukocyte Esterase Negative (Negative) 01/20/25 11:59 Urine RBC 0-2 /hpf (0-2) 01/20/25 11:59 Urine WBC 0-5 /hpf (0-5) 01/20/25 11:59 Ur Squamous Epith Cells 0-5 /hpf (0-5) 01/20/25 11:59 Amorphous Sediment Not Reportable 01/20/25 11:59 Urine Bacteria None seen /hpf (NONE) 01/20/25 11:59 Hyaline Casts 0-4 /lpf H 01/20/25 11:59 All radiology interpretation(s) finalized by discharge Discharge Plan Discharge Patient Disposition: Home Clinical Impression: Pelvic cramping Condition: Stable Prescriptions: New metronidazole 500 mg tablet 500 mg PO Q8H 10 Days Qty: 30 0RF doxycycline monohydrate 100 mg capsule 100 mg PO BID 10 Days Qty: 20 0RF No Action duloxetine 60 mg capsule,delayed release(DR/EC) 120 mg PO DAILY Qty: 60 2RF cholecalciferol (vitamin D3) [Vitamin D3] 25 mcg (1,000 unit) capsule 3,000 unit PO DAILY ferrous sulfate 137 mg (45 mg iron) tablet extended release 137 mg PO DAILY quetiapine [Seroquel] 50 mg tablet 50 mg PO .HS Qty: 30 0RF levetiracetam [Keppra] 500 mg tablet 500 mg PO BID Qty: 60 5RF docusate sodium 100 mg capsule 100 mg PO BID PRN (Reason: constipation) Qty: 60 3RF lamotrigine [Lamictal] 100 mg tablet 100 mg PO DAILY Qty: 30 1RF hydroxyzine HCl 50 mg tablet 50 mg PO TID Qty: 90 2RF paliperidone 9 mg tablet extended release 24hr 9 mg PO DAILY PRN (Reason: A/V hallucinations) Qty: 30 2RF Invega Sustenna 234 mg/1.5 mL syringe 234 mg IM Q30D Qty: 1.5 6RF prazosin 2 mg capsule 4 mg PO QPM Qty: 60 1RF trazodone 100 mg tablet 200 mg PO QPM Qty: 60 2RF methocarbamol 750 mg tablet 750 mg PO QID Qty: 120 3RF albuterol sulfate 90 mcg/actuation Hfa Aerosol Inhaler 2 puff INHALATION Q6H PRN (Reason: Shortness Of Breath Or Wheezing) 30 Days Qty: 6.7 1RF Discharge Orders: Discharge ED (Routine); Ordered 01/20/25 Ordered By: Danii Calabrese Referrals: Lashay Fallon MD [Primary Care Provider, Family Practice] Discharge Diet: Usual diet Discharge Activity: Increase activity as tolerated Patient Instructions: Opioid Safety, Pain Management, Patient Portal & Gopi Instructions Activity Restrictions/Additional Instructions: Thank you for choosing [facility] for your healthcare needs today. You have been screened and evaluated and felt safe for discharge. Health conditions do change or evolve sometimes and as such it is important that you follow up with your Primary Doctor to be re checked, 3-5 days is a general good time frame for follow up. You are always welcome to return to the ED for re assessment if your symptoms are worsening or you have new concerns Print Language: Kyrgyz Coding Level of Care Code ED Monogram Technician for Corinne Ware
[2025-01-20 12:09] VITALS: BP 134/94; O2SAT 93
[2025-01-20 12:14] LABS: Hematocrit 41.0 % (36-47); Hemoglobin 13.60 g/dL (11.27-16.99); Mean Corpuscular HGB Conc 33.2 g/dL (30-55); Mean Corpuscular Hemoglobin 28.8 pg (27-33); Mean Corpuscular Volume 86.7 fl (85-98); Nucleated Red Blood Cells % 0 %; Platelet Count 220 10^3/cmm (157-399); Red Blood Count 4.73 10^6/uL (3.85-5.65); White Blood Count 6.52 10^3/uL (3.29-11.43)
[2025-01-20 12:26] LABS: Glucose Urine UA Negative (Normal); Nitrate Urine Negative (Negative); Specific Gravity, Urine 1.016 (1.005-1.030)
[2025-01-20 12:46] LABS: Alanine Aminotransferase 48 U/L (0-33); Albumin Level 4.4 g/dL (3.5-5.2); Alkaline Phosphatase 146 U/L (35-105); Anion Gap 14.1 (5-19); Aspartate Amino Transferase 29 U/L (0-32); Blood Urea Nitrogen 12 mg/dL (6-20); Calcium 8.9 mg/dL (8.5-10.5); Carbon Dioxide 27 mmol/L (22-29); Chloride 104 mmol/L (98-107); Globulin 2.6 g/dL (1.3-4.6); Glucose 111 mg/dL (65-115); Osmolality Calculated 292 mOsm/kg (285-295); Potassium 4.1 mmol/L (3.5-5.1); Sodium 141 mmol/L (136-145); Total Protein 7.0 g/dL (6.6-8.7)
[2025-01-20 13:10] VITALS: BP 131/79; PULSE 77; O2SAT 96
--- NOTE | 2025-01-20 13:43 | PC.PHAR ---
pt states she still takes Keppra 500mg bid last fill was 06/22/24 90ds-verified with Micha.
[2025-01-20 14:38] VITALS: BP 107/72; PULSE 89; O2SAT 95
== END 2025-01-20 14:39 | disposition home or self-care (01) ==
PROVIDERS: Emergency Provider Emergency Medicine; PCP Family Medicine
DX: R10.20 Pelvic and perineal pain unspecified side (principal); Z87.891 Personal history of nicotine dependence
CPT/HCPCS: 76830; 76856; 80053; 81001; 84702; 85025; 99284

== ENCOUNTER 2025-02-16 02:07 | Emergency (ER) | payer MEDICARE, MEDICAID, SELFPAY ==
[2024-12-09 16:04] VITALS: BP 130/86; BMI 42.8
[2025-02-16 02:12] VITALS: BP 140/82; PULSE 99; RESP 22; TEMP 36.3; O2SAT 97; BMI 49.0
[2025-02-16 02:17] VITALS: BP 140/82; PULSE 99; RESP 22; TEMP 36.3; O2SAT 97
--- OUTSIDE RECORDS SUMMARY | 2025-02-16 02:19 | XMS_ITS | Patient Health Record ---
Author Organization [facility] Address [address] [place] [address] Care Team Providers Care Scalp Specialist Name Role Phone Karina Ambrizew Primary Care [...] Coverage End Date Medicaid [address] [place] [address] [phone] [id number] Heidy Macias Self - patient is the insured Medicaid Dental [address] [place] [address] [id number] Heidy Macias Self - patient is the insured Medical (General) History Medical History History ICD Code schizophrenia PTSD anxiety asthma - mild persistent scoliosis depression lupus
[2025-02-16 02:30] LABS: Hematocrit 39.4 % (36-47); Hemoglobin 13.30 g/dL (11.27-16.99); Mean Corpuscular HGB Conc 33.8 g/dL (30-55); Mean Corpuscular Hemoglobin 29.2 pg (27-33); Mean Corpuscular Volume 86.4 fl (85-98); Nucleated Red Blood Cells % 0 %; Platelet Count 238 10^3/cmm (157-399); Red Blood Count 4.56 10^6/uL (3.85-5.65); White Blood Count 8.33 10^3/uL (3.29-11.43)
[2025-02-16 02:33] LABS: Glucose Urine UA Negative (Normal); Nitrate Urine Negative (Negative); Specific Gravity, Urine 1.023 (1.005-1.030)
[2025-02-16 02:38] LABS: Add Urine Microscopic? YES
[2025-02-16 02:39] LABS: Alanine Aminotransferase 43 U/L (0-33); Albumin Level 4.3 g/dL (3.5-5.2); Alkaline Phosphatase 139 U/L (35-105); Anion Gap 15.8 (5-19); Aspartate Amino Transferase 26 U/L (0-32); Blood Urea Nitrogen 11 mg/dL (6-20); Calcium 9.0 mg/dL (8.5-10.5); Carbon Dioxide 26 mmol/L (22-29); Chloride 100 mmol/L (98-107); Globulin 2.8 g/dL (1.3-4.6); Glucose 155 mg/dL (65-115); Lipase 28 U/L (13-60); Osmolality Calculated 289 mOsm/kg (285-295); Potassium 3.8 mmol/L (3.5-5.1); Sodium 138 mmol/L (136-145); Total Protein 7.1 g/dL (6.6-8.7)
[2025-02-16] MEDS: ondansetron 2 mg/ML SDV 2 mL 4 MG IVP (02:49)
[2025-02-16 02:50] VITALS: BP 120/74; PULSE 95; O2SAT 96
[2025-02-16] MEDS: morphine 4 mg/mL SDV 1 mL IVP (02:50)
[2025-02-16 02:58] LABS: UA Slide Review UA Slide Review Perf
--- NOTE | 2025-02-16 03:00 | W.ED.ABDPA2 ---
HPI - Abdominal Pain General: Chief Complaint: Abdominal Pain Stated Complaint: abd pain Time Seen by Provider: 02/16/25 02:14 History of Present Illness: Patient is a 24-year-old female who presents with acute lower abdominal pain that began at approximately 12:30 AM today. The pain started suddenly while the patient was lying on her side attempting to sleep. She describes it as a full ache that has progressively worsened over the past several hours despite position changes. The pain is localized to the uterine area and is very tender to palpation. Patient reports the pain is different from her typical menstrual cramps. She took two Excedrin tablets at approximately 1:00 AM without relief. She denies vaginal discharge, vaginal bleeding, fever, nausea, or vomiting. She does report recent heartburn and indigestion. Patient has a history of salpingectomy performed in July 2024, approximately 6 months ago, and believes this pain is not -related. She denies dysuria or other urinary symptoms. Related Data Home Medications ?Medication ?Instructions ?Recorded ?Confirmed cholecalciferol (vitamin D3) 25 3,000 unit PO DAILY 01/04/25 02/04/25 mcg (1,000 unit) capsule (Vitamin D3) ferrous sulfate 137 mg (45 mg 137 mg PO DAILY 01/04/25 02/04/25 iron) tablet,extended release Previous Rx's ?Medication ?Instructions ?Recorded albuterol sulfate 90 mcg/actuation 2 puff inhalation Q6H PRN 08/26/22 aerosol inhaler Shortness Of Breath Or Wheezing 30 days #6.7 grams levetiracetam 500 mg tablet 500 mg PO BID #60 tabs 05/26/24 (Keppra) docusate sodium 100 mg capsule 100 mg PO BID PRN constipation #60 11/05/24 caps hydroxyzine HCl 50 mg tablet 50 mg PO TID anxiety #90 tabs 12/10/24 methocarbamol 750 mg tablet 750 mg PO QID #120 tabs 12/10/24 paliperidone 9 mg tablet,extended 9 mg PO DAILY PRN A/V 12/10/24 release 24 hr hallucinations #30 tabs paliperidone palmitate 234 mg/1.5 234 mg (1.5 mL) IM Q30D #1.5 mL 12/10/24 mL intramuscular syringe ([facility] trazodone 100 mg tablet 200 mg (2 x 100 mg) PO QPM #60 tabs 12/10/24 duloxetine 60 mg capsule,delayed 120 mg (2 x 60 mg) PO DAILY #60 02/04/25 release caps lamotrigine 150 mg tablet 150 mg PO DAILY #30 tabs 02/04/25 prazosin 2 mg capsule 4 mg (2 x 2 mg) PO QPM #60 caps 02/04/25 Allergies Allergy/AdvReac Type Severity Reaction Status Date / Time divalproex sodium Allergy Severe ALGY-Swell Verified 02/04/25 14:31 Lip/Tongue/Throat olanzapine Allergy Severe ALGY-Swell Verified 02/04/25 14:31 Lip/Tongue/Throat ziprasidone Allergy Severe ALGY-Swell Verified 02/04/25 14:31 Lip/Tongue/Throat adhesive tape Allergy ALGY-Rash Verified 02/04/25 14:31 buprenorphine (From Suboxone) Allergy ADR-Seizure Verified 02/04/25 14:31 naloxone (From Suboxone) Allergy ADR-Seizure Verified 02/04/25 14:31 pepper (genus Capsicum) Allergy Unknown Verified 02/04/25 14:31 Pork/Porcine Containing Allergy Unknown Verified 02/04/25 14:31 Products PFSH ED PFSH: Medical History Spondylolisthesis, lumbar region BMI 45.0-49.9, adult Nicotine dependence due to vaping tobacco product stopped vaping july 2024 Chronic low back pain without sciatica Psychosomatic seizure dxed in [facility]; used to be on Keppra Alcohol use disorder in remission On combination antipsychotic drug therapy Methamphetamine use disorder, mild, in early remission Migraines Scoliosis Anxiety Opioid use disorder Stimulant use disorder Alcohol abuse, episodic Cannabis use disorder PTSD (post-traumatic stress disorder) Bipolar disorder, unspecified Psychiatric care Borderline intellectual functioning Post-traumatic stress disorder, chronic Asthma Depression Schizophrenia Surgical History History of tubal ligation History of cholecystectomy Family History Mother Bipolar 1 disorder Heart disease Spina bifida Hyperlipidemia Diabetes Thyroid disease Stroke Brother Hyperlipidemia Social History (Reviewed 02/16/25 @ 03:01 by RAUL Cuellar Smoking and tobacco/nicotine status: former use of tobacco/nicotine Quit status (tobacco/nicotine): has quit using Second hand smoke exposure: Yes Alcohol intake: former Former alcohol use details: 08.20.2022 Substance/Drug Use: former Date of last use: 08.20.22 Former substance use details: meth and fentanyl in past; used to do IV Adopted: No Caregiver/support person: No Lives independently: Yes Household members: family Housing: House Marital status: Single Number of children: 4 Number of grandchildren: 0 Highest education level completed: High School Graduate service: No Current occupational status: disabled Current occupational exposures/hazards: No Previous occupational history: disability for mental health since age 13 Pets and animals: No Leisure activites: music and other Leisure activities details: hang out with new boyfriend Sexually active: No Do you think of yourself as: Straight/Heterosexual Current gender identity: Female Anabel/Caodaism: None Special anabel needs: No Agree to transfusion: Yes Female Reproductive History: Para: 3 Spontaneous abortions: Yes Physical Exam Const: COMMON NORMALS: no acute distress GENERAL APPEARANCE: cooperative; not ill appearing and not frail appearing HENMT: COMMON NORMALS: normocephalic, atraumatic and Normal external nose present HEAD & SCALP: normocephalic and atraumatic FACE & SINUS: normal facial exam and face symmetric NOSE: Normal external nose present Eye: COMMON NORMALS: Equal, round and reactive pupils present and EOMs intact bilaterally PUPIL: Yes Equal, round and reactive pupils present Neck/C-Spine: GENERAL: Yes trachea midline Chest: CHEST: Yes Symmetrical chest wall rise Resp: COMMON NORMALS: normal respiratory effort, No retractions, No use of accessory muscles and clear to auscultation bilaterally AUSCULTATION: clear to auscultation bilaterally Cardio: COMMON NORMALS: regular rate and regular rhythm RATE: regular rate RHYTHM: regular rhythm GI: COMMON NORMALS: Normal to inspection, nondistended, normoactive bowel sounds present Extremity: COMMON NORMALS: no pedal edema Neuro: [place] COMA SCALE: document GCS findings [place] coma scale eye opening: Spontaneous [place] coma scale verbal response: Orientated [place] coma scale motor response: Obey commands [place] coma scale total score: 15 SENSORY EXAM: Yes extremities (intact) Psych: COMMON NORMALS: speech normal SPEECH: Yes normal speech Skin: COMMON NORMALS: no rashes or lesions noted GENERAL SKIN EXAM: no rashes or lesions noted Course Vital Signs: Vital signs: Vital Signs Temperature 97.4 F L 02/16/25 02:17 Pulse Rate 100 02/16/25 03:19 Respiratory Rate 22 H 02/16/25 02:17 Blood Pressure 121/58 02/16/25 03:19 Pulse Oximetry 93 02/16/25 03:19 Oxygen Delivery Me thod Room Air 02/16/25 02:17 MDM - Abdominal Pain Medical Decision Making Pain is improved after Toradol and morphine here. Patient's vitals are stable. She is somewhat anxious. CBC is normal. BMP is normal. CRP is 16. Urinalysis is contaminated. Liver enzymes are not remarkable. She has no vaginal discharge or bleeding. With improvement in her pain, she will be discharged home. She is stable at this point. Return for worsening symptoms. Outpatient follow-up Lab Data 02/16/25 02:15 02/16/25 02:15 Labs/Radiology: Laboratory Results WBC 8.33 10^3/uL (3.29-11.43) 02/16/25 02:15 RBC 4.56 10^6/uL (3.85-5.65) 02/16/25 02:15 Hgb 13.30 g/dL (11.27-16.99) 02/16/25 02:15 Hct 39.4 % (36-47) 02/16/25 02:15 MCV 86.4 fl (85-98) 02/16/25 02:15 MCH 29.2 pg (27-33) 02/16/25 02:15 MCHC 33.8 g/dL (30-55) 02/16/25 02:15 RDW 12.1 % (12.1-15.1) 02/16/25 02:15 Plt Count 238 10^3/cmm (157-399) 02/16/25 02:15 MPV 9.6 fL (7.4-10.4) 02/16/25 02:15 Neut % (Auto) 54.0 % 02/16/25 02:15 Lymph % (Auto) 37.8 % 02/16/25 02:15 [place] % (Auto) 5.5 % 02/16/25 02:15 Eos % (Auto) 2.2 % 02/16/25 02:15 Baso % (Auto) 0.4 % 02/16/25 02:15 Neut # (Auto) 4.50 10^3/uL (1.8-7.7) 02/16/25 02:15 Lymph # (Auto) 3.2 10^3/uL (0.8-4.8) 02/16/25 02:15 [place] # (Auto) 0.5 10^3/uL (0.2-0.9) 02/16/25 02:15 Eos # (Auto) 0.2 10^3/uL (0.0-0.8) 02/16/25 02:15 Baso # (Auto) 0.0 10^3/uL (0.0-0.1) 02/16/25 02:15 Nucleated RBC % (auto) 0 % 02/16/25 02:15 Nucleated RBCs # 0.0 /100WBC 02/16/25 02:15 Sodium 138 mmol/L (136-145) 02/16/25 02:15 Potassium 3.8 mmol/L (3.5-5.1) 02/16/25 02:15 Chloride 100 mmol/L (98-107) 02/16/25 02:15 Carbon Dioxide 26 mmol/L (22-29) 02/16/25 02:15 Anion Gap 15.8 (5-19) 02/16/25 02:15 BUN 11 mg/dL (6-20) 02/16/25 02:15 Creatinine 0.6 mg/dL (0.5-0.9) 02/16/25 02:15 GFR Calculation 122.8 mL/min (90-130) 02/16/25 02:15 Glucose 155 mg/dL (65-115) H 02/16/25 02:15 Calculated Osmolality 289 mOsm/kg (285-295) 02/16/25 02:15 Calcium 9.0 mg/dL (8.5-10.5) 02/16/25 02:15 Total Bilirubin 0.4 mg/dL (0.15-1.2) 02/16/25 02:15 AST 26 U/L (0-32) 02/16/25 02:15 ALT 43 U/L (0-33) H 02/16/25 02:15 Alkaline Phosphatase 139 U/L (35-105) H 02/16/25 02:15 C-Reactive Protein 16.3 mg/L (0.0-4.9) H 02/16/25 02:15 Total Protein 7.1 g/dL (6.6-8.7) 02/16/25 02:15 Albumin 4.3 g/dL (3.5-5.2) 02/16/25 02:15 Globulin 2.8 g/dL (1.3-4.6) 02/16/25 02:15 Lipase 28 U/L (13-60) 02/16/25 02:15 Urine Color Yellow (Yellow) 02/16/25 02:20 Urine Appearance Clear (CLEAR) 02/16/25 02:20 Urine pH 6.0 (5-7) 02/16/25 02:20 Ur Specific [place] 1.023 (1.005-1.030) 02/16/25 02:20 Urine Protein Negative (Negative) 02/16/25 02:20 Urine Glucose (UA) Negative (Normal) 02/16/25 02:20 Urine Ketones Trace (Negative) 02/16/25 02:20 Urine Blood Negative (Negative) 02/16/25 02:20 Urine Nitrate Negative (Negative) 02/16/25 02:20 Urine Bilirubin Negative (Negative) 02/16/25 02:20 Urine Urobilinogen 1.0 mg/dL (Negative) 02/16/25 02:20 Ur Leukocyte Esterase Negative (Negative) 02/16/25 02:20 Urine RBC 0-2 /hpf (0-2) 02/16/25 02:20 Urine WBC 0-5 /hpf (0-5) 02/16/25 02:20 Ur Squamous Epith Cells 11-20 /hpf (0-5) H 02/16/25 02:20 Amorphous Sediment Not Reportable 02/16/25 02:20 Urine Bacteria 1+ /hpf (NONE) H 02/16/25 02:20 Hyaline Casts 0-4 /lpf H 02/16/25 02:20 No radiology studies performed this visit EKG Data EKG 1: Interpretation: EKG timed 0330, read 0333 shows a sinus rhythm with a rate of 90. Normal axis normal intervals QTc is 418. No ST wave changes Discharge Plan Discharge Patient Disposition: Home Clinical Impression: Pelvic pain Condition: Stable Prescriptions: No Action cholecalciferol (vitamin D3) [Vitamin D3] 25 mcg (1,000 unit) capsule 3,000 unit PO DAILY ferrous sulfate 137 mg (45 mg iron) tablet extended release 137 mg PO DAILY duloxetine 60 mg capsule,delayed release(DR/EC) 120 mg PO DAILY Qty: 60 1RF prazosin 2 mg capsule 4 mg PO QPM Qty: 60 1RF lamotrigine 150 mg tablet 150 mg PO DAILY Qty: 30 1RF Rx Instructions: Take one tablet daily; stop 100 mg dose levetiracetam [Keppra] 500 mg tablet 500 mg PO BID Qty: 60 5RF docusate sodium 100 mg capsule 100 mg PO BID PRN (Reason: constipation) Qty: 60 3RF hydroxyzine HCl 50 mg tablet 50 mg PO TID Qty: 90 2RF paliperidone 9 mg tablet extended release 24hr 9 mg PO DAILY PRN (Reason: A/V hallucinations) Qty: 30 2RF Invega Sustenna 234 mg/1.5 mL syringe 234 mg IM Q30D Qty: 1.5 6RF trazodone 100 mg tablet 200 mg PO QPM Qty: 60 2RF methocarbamol 750 mg tablet 750 mg PO QID Qty: 120 3RF albuterol sulfate 90 mcg/actuation Hfa Aerosol Inhaler 2 puff INHALATION Q6H PRN (Reason: Shortness Of Breath Or Wheezing) 30 Days Qty: 6.7 1RF Discharge Orders: Discharge ED (Routine); Ordered 02/16/25 Ordered By: Faizan Vernon Referrals: Lashay Fallon MD [Primary Care Provider, Family Practice] - 1-3 days Patient Instructions: Abdominal Pain (ED), Pelvic Pain (ED), Opioid Safety, Pain Management, Patient Portal & Gopi Instructions Activity Restrictions/Additional Instructions: Return for fever greater than 100 ?F, vomiting liquids or medications, any other concerning symptoms. Call your doctor later this morning for follow-up appointment. Print Language: Spanish Coding Level of Care Code ED Administration Dean for Corinne Ware
[2025-02-16 03:19] VITALS: BP 121/58; PULSE 100; O2SAT 93
[2025-02-16] MEDS: LORazepam 2 mg/mL INJ 1 mL 1 MG IVP (03:25)
--- NOTE | 2025-02-16 03:30 | ECG_ITS ---
[facility]cher Test Date: 2025-02-16 Pat Name: Heidy Macias Department: Room: Gender: Female Tyre Retreader: : 2000 Requested By: Faizan Macdonald Order Number: [id number] Chantale MD: KAYODE JOEL Measurements Intervals [place] Rate: 90 P: 60 WV: 146 QRS: 81 QRSD: 88 T: 29 QT: 371 QTc: 454 Interpretive Statements SINUS RHYTHM POSSIBLE LEFT ATRIAL ENLARGEMENT [-0.1mV P-WAVE IN V1/V2] Compared to ECG 09/26/2024 06:11:02 No significant changes Electronically Signed On 02-16-2025 11:54:13 INCOME TAX ADMINISTRATOR by KAYODE JOEL [email or web address]
[2025-02-16] MEDS: lidocaine 2% viscous 15 ML, aluminum-mag hydrox-simethicon 30 ML, sucralfate oral liq 1 GM PO (03:32)
[2025-02-16 04:04] VITALS: BP 106/57; PULSE 98; O2SAT 94
== END 2025-02-16 04:06 | disposition home or self-care (01) ==
PROVIDERS: Emergency Provider Emergency Medicine; PCP Family Medicine
DX: R10.20 Pelvic and perineal pain unspecified side (principal); Z87.891 Personal history of nicotine dependence
CPT/HCPCS: 36415; 80053; 81001; 83690; 85025; 86140; 93005; 96374; 96375; 99284; J1885; J2060; J2270; J2405; J9999